=== PATIENT | male | born 1940 | race Caucasian/White ===

== ENCOUNTER 2022-12-07 12:51 | Outpatient (RCR) | payer MEDICARE, SELFPAY | END 2023-01-07 14:00 | disposition home or self-care (01) | LOC: PT 12:51 | PROVIDERS: PCP Specialist; Visit Provider Physician Assistant | DX: M72.2 Plantar fascial fibromatosis (principal) | CPT/HCPCS: 97110; 97112; 97140; 97162 ==

== ENCOUNTER 2023-01-12 10:58 | Outpatient (OUT) | payer MEDICARE, SELFPAY ==
--- NOTE | 2023-01-12 10:59 | XR_ITS ---
The [address] [address] Patient Name: KIESHA PRESLEY MRN: [id number] date: 1940 Sex: M Assigned Patient Location: [facility] Current Patient Location: [facility] Accession/Order Number: [id number] Exam Date: 01/12/2023 10:59 Report Date: 01/12/2023 11:44 At the request of: VESTA LAUREANO Procedure: XR ankle LT min 3V PROCEDURE: XR ankle LT min 3V HISTORY: LEFT ANKLE PAIN ; no known injury COMPARISON: XR foot bilateral 11/24/2022 FINDINGS: BONES:No fracture, acute abnormality, or significant arthropathy. SOFT TISSUES:No visible soft tissue swelling. EFFUSION:None visible. OTHER: Negative. XR/XR ankle LT min 3V IMPRESSION: 1. Minimal degenerative changes. No acute or specific findings to account for patient's symptoms. Electronically authenticated by: JOSSELIN KHAN Date: 01/12/2023 11:44
== END 2023-01-12 10:59 | disposition home or self-care (01) ==
LOC: RAD 10:59
PROVIDERS: PCP Specialist; Visit Provider Physician Assistant
DX: M24.572 Contracture, left ankle (principal)
CPT/HCPCS: 73610

== ENCOUNTER 2024-10-18 13:06 | Outpatient (OUT) | payer MEDICARE, SELFPAY ==
--- NOTE | 2024-10-18 13:50 | ED.EXTPRO1 ---
HPI - Extremity Problem General Chief complaint: Extremity Problem, Nontraumatic Source: patient Mode of arrival: walk-in Limitations: no limitations History of Present Illness HPI Narrative: Toenails 1-10 are elongated and painful. Has history of DM2 with neuropathy (complains of numbness in feet, achy pains progressing up his legs). Also has visual problems related to diabetes. Last A1C was 6.9. MD Complaint: Reports extremity pain (Pain in toes due to long nails) Onset (ago): week(s) Pain Consistency: Reports intermittent Location: Reports left and right Quality: Reports burning and aching Radiation: Reports proximal Exacerbating factors: Reports weight bearing Associated symptoms: Reports denies other symptoms Exam Narrative Exam Narrative: Derm: Skin is clean, dry, intact. No ulcerative or preulcerative lesions noted. Skin is dry and shiny with hyperpigmentation of the lower legs. Skin is cool to the touch bilaterally. Nails 1 through 10 are thickened, elongated, and mycotic. The toenails are tender to the touch. Vascular: DP and PT pulses are 1/4 bilaterally. Capillary refill is less than 2 seconds. 1+ pitting edema noted to bilateral lower legs and ankles. Digital hair is absent. MSK: Strength 5/5 in all planes in the foot and ankle. No gross deformity Neuro: Achilles deep tendon reflexes 1+ bilaterally. Vibratory sensation absent. Monofilament testing as below Neuro Speech: speech normal Gait (neuro): normal gait Sensory exam: extremities (Achilles DTR 1+ bilaterally, Vibratory sensation absent bilaterally) Monofilament exam performed: Yes Monofilament Exam (small fiber function): L great toe: normal, L medial mid foot: absent, L lateral mid-foot: decreased, L mid-dorsum foot: normal, R great toe: normal, R medial mid foot: absent, R lateral mid-foot: decreased and R mid-dorsum foot: normal Motor exam: no movement abnormalities noted Deep tendon reflexes: Rt Ankle (S1): 1+ and Lt Ankle (S1): 1+ Course Course Hospital Course: Mr. Lagos is a pleasant 84-year-old gentleman with history of type 2 diabetes with neuropathy and visual changes who presents for routine toenail care and diabetic foot exam. Qualifying diagnoses include decreased hair, nail changes, and skin color, also temperature changes and edema of the lower extremities and complaints of paresthesias of both feet. After verbal consent, toenails 1 through 10 were sharply debrided with nail nippers without incident to the patient's satisfaction. He was counseled about wearing supportive shoe gear and to avoid going barefoot. He should monitor his feet closely and should notify us if he develops any blisters or concerning skin lesions. Otherwise he may follow-up in 3 months for routine nail care. Vital Signs Vital signs: Weight 227 pounds, temperature 96.9 ?F, blood pressure 140/65, heart rate 71 Discharge Plan Discharge Disposition: Home, Self-Care Print Language: Mauritian Referrals: Nuha Yang MD [Primary Care Provider] -
== END 2024-10-18 13:07 | disposition home or self-care (01) ==
PROVIDERS: PCP Specialist; Visit Provider Physician Assistant
DX: L60.8 Other nail disorders (principal); E11.40 Type 2 diabetes mellitus with diabetic neuropathy, unspecified
CPT/HCPCS: 11721

== ENCOUNTER 2025-01-09 13:00 | Outpatient (OUT) | payer MEDICARE, SELFPAY ==
--- OUTSIDE RECORDS SUMMARY | 2024-11-17 08:10 | XMS_ITS ---
Author Name Auto Generated Organization OHIP Care Team Providers Care Transmission Repairer Name Role Phone HEDY DODSON Attending Unavailable HEDY DODSON Attending Unavailable AL-SHWEIKI, SATURNINO A Referring Unavailable NAUN, JANETTE L Primary Care Unavailable AL-SHWEIKI, SATURNINO A Admitting Unavailable AL-SHWEIKI, SATURNINO A Attending Unavailable AL-SHWEIKI, SATURNINO A Referring Unavailable DEVIN REYNA Primary Care Unavailable CONCEPCION, BILAL SHAFIQ Attending Unavailable NAUN, JANETTE L Primary Care Unavailable CONCPECION, BILAL SHAFIQ Attending Unavailable NAUN, JANETTE L Primary Care Unavailable AL-SHWEIKI, SATURNINO A Referring Unavailable NAUN, JANETTE L Primary Care Unavailable AL-SHWEIKI, SATURNINO A Admitting Unavailable AL-SHWEIKI, SATURNINO A Attending Unavailable NAUN, JANETTE L Primary Care Unavailable BETSY WHITAKER R Attending Unavailable NAUN, JANETTE L Primary Care Unavailable BETSY WHITAKER Attending Unavailable NAUN, JANETTE L Primary Care Unavailable Anish Givens Attending Unavailable Anish Givens Referring Unavailable Anish Givens Attending Unavailable Anish Givens Attending Unavailable Anish Givens Referring Unavailable Al Shweiki, Saturnino Attending Unavailable Al Shweiki, Saturnino Attending Unavailable Al Shweiki, Saturnino Attending Unavailable Sahra, Pratik Referring Unavailable Al Shweiki, Saturnino Attending Unavailable Al Shweiki, Saturnino Referring Unavailable Al Shweiki, Saturnino Attending Unavailable Al Shweiki, Saturnino Referring Unavailable Al Shweiki, Saturnino Attending Unavailable Al Shweiki, Saturnino Referring Unavailable Al Shweiki, Saturnino Attending Unavailable Al Shweiki, Saturnino Referring Unavailable Al Shweiki, Saturnino Attending Unavailable Al Shweiki, Saturnino Referring Unavailable Al Shweiki, Saturnino Attending Unavailable Al Shweiki, Saturnino Referring Unavailable Al Shweiki, Saturnino Attending Unavailable Al Shweiki, Saturnino Referring Unavailable Al Shweiki, Saturnino Attending Unavailable Al Shweiki, Saturnino Attending Unavailable Al Shweiki, Saturnino Attending Unavailable Corporate, Doctor Attending Unavailable Al Shweiki, Saturnino Attending Unavailable Sahra, Pratik Referring Unavailable Al Shweiki, Saturnino Attending Unavailable Al Shweiki, Saturnino Referring Unavailable Al Shweiki, Saturnino Attending Unavailable Al Shweiki, Saturnino Referring Unavailable Al Shweiki, Saturnino Attending Unavailable Al Shweiki, Saturnino Attending Unavailable Al Shweiki, Saturnino Referring Unavailable Corporate, Doctor Attending Unavailable Corporate, Doctor Attending Unavailable JONA SIMS Attending Unavailable SELF Referring Unavailable JONA SIMS Referring Unavailable Naun, Janette Lai Admitting Unavailable Naun, Janette Lai Attending Unavailable Naun, Janette Lai Attending Unavailable Naun, Janette Lai Attending Unavailable Naun, Janette Lai Attending Unavailable Naun, Janette Lai Attending Unavailable Naun, Janette Lai Attending Unavailable Naun, Janette L Attending Unavailable Naun, Janette L Attending Unavailable Naun, Janette L Attending Unavailable Naun, Janette L Admitting Unavailable Naun, Janette L Attending Unavailable Naun, Janette L Admitting Unavailable Naun, Janette L Admitting Unavailable Naun, Janette L Attending Unavailable Naun, Janette L Admitting Unavailable Naun, Janette L Attending Unavailable PROBLEMS DATE TYPE CONDITION / CODE ATTENDING STATUS [facility] 11/17/2024 Working Diagnosis 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) Saturnino Loomis Active [facility] 08/03/2024 Working Diagnosis Type 2 diab with prolif diab rtnop without mclr edema, l eye / E11.3592(ICD-10) [facility] 05/29/2024 Working Diagnosis Other specified glaucoma / H40.89(ICD-10) [facility] 05/26/2024 Working Diagnosis 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 03/20/2024 Unknown Vitreous hemorrh age, left eye ([facility]) [H43.12] / UNK(Unknown) [facility] 03/17/2024 Unknown Encounter for ot her preprocedural examination / Z01.818(ICD-10) NA [facility] 03/15/2024 Working Diagnosis Type 2 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, left eye / E11.3592(ICD-10) Anish Givens [facility] 02/16/2024 Working Diagnosis Vitreous hemorrhage of left eye / H43.12(ICD-10) Anish Givens [facility] 02/16/2024 Working Diagnosis History of vitrectomy / Z98.890(ICD-10) Anish Givens [facility] 02/16/2024 Working Diagnosis 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, bi / E11.3493(ICD-10) Anish Gievns [facility] PROCEDURES DATE CODE DESCRIPTION STATUS SOURCE 11/17/2024 93200(CPT-4) TREATMENT OF RET INAL LESION Completed [facility] 11/17/2024 06270T(CPT-4) Fundus Photos No Charge Completed [facility] 09/15/2024 61918N(CPT-4) Fundus Photos No Charge Completed [facility] 09/15/2024 11658(CPT-4) Ophthal DX Image Post Retina I And R Completed [facility] 09/15/2024 60508(CPT-4) OFFICE/OUTPATIEN T VISIT, EST Completed [facility] 08/18/2024 53440(CPT-4) TREATMENT OF RET INAL LESION Completed [facility] 08/18/2024 39210(CPT-4) EYE EXAM WITH PHOTOS Completed [facility] 08/03/2024 07980(CPT-4) TREATMENT OF RET INAL LESION Completed [facility] 08/03/2024 88522(CPT-4) EYE EXAM WITH PHOTOS Completed [facility] 08/03/2024 06187(CPT-4) OFFICE/OUTPATIEN T VISIT, EST Completed [facility] 06/29/2024 33701(CPT-4) INJECTION EYE DRUG Completed [facility] 06/29/2024 27381(CPT-4) Ophthal DX Image Post Retina I And R Completed [facility] 06/29/2024 J9035(CPT-4) Bevacizumab injection Completed [facility] 06/29/2024 42684(CPT-4) OFFICE/OUTPATIEN T VISIT, EST Completed [facility] 05/29/2024 56279(CPT-4) INJECTION EYE DRUG Completed [facility] 05/29/2024 J9035(CPT-4) Bevacizumab injection Completed [facility] 05/26/2024 76546(CPT-4) INJECTION EYE DRUG Completed [facility] 05/26/2024 J9035(CPT-4) Bevacizumab injection Completed [facility] 05/26/2024 37375(CPT-4) OFFICE/OUTPATIEN T VISIT, EST Completed [facility] 05/01/2024 70887M(CPT-4) OCT No Charge Completed [facility] 05/01/2024 75084(CPT-4) POSTOP FOLLOW-UP VISIT Completed [facility] 03/29/2024 70044B(CPT-4) OCT No Charge Completed [facility] 03/29/2024 84903(CPT-4) POSTOP FOLLOW-UP VISIT Completed [facility] 03/21/2024 73354(CPT-4) POSTOP FOLLOW-UP VISIT Completed [facility] 03/15/2024 21016(CPT-4) INJECTION EYE DRUG Completed [facility] 03/15/2024 46444(CPT-4) OPHTH US, B W/NON-QUANT A Complete d [facility] 03/15/2024 08613O(CPT-4) OCT No Charge Completed [facility] 03/15/2024 J9035(CPT-4) Bevacizumab injection Completed [facility] 02/16/2024 28864(CPT-4) INJECTION EYE DRUG Completed [facility] 02/16/2024 73941K(CPT-4) Fundus Photos No Charge Completed [facility] 02/16/2024 59035(CPT-4) Ophthal DX Image Post Retina I And R Completed [facility] 02/16/2024 J9035(CPT-4) Bevacizumab injection Completed [facility] 02/16/2024 79518(CPT-4) OFFICE/OUTPATIEN T VISIT, EST Completed [facility] RESULTS PROGRESS Observed: 08/31/2024 12:56 PM Status: COMPLETED Source: [facility] ID: [id number] Author: JONA SIMS MD Service: ? Author Type: Physician Type: Progress Notes Filed: 08/31/2024 16:53 Note Text: New patient referred by Dr. Loomis for choroidal lesion OD Subretinal lesion, right eye -Patient asymptomatic, found on exam prior to PRP 2 weeks prior to presentation. New finding per referring provider -Has followed with Dr. Loomis since ~2012 LTFU then seen back 2022 for ERM and diabetes Exam OD 8.5 mm x 6.0x 1.6 yellow/ transparent bi-lobed subretinal lesion inferotemporally. Sharp margins. Lipid at the posterior border, scant heme on the surface Ancillary testing supporting the diagnosis were made: US: Dome shaped lesion at 8:00 anterior to the equator. Dimensions are 1.6 mm in height x 8.5 mm anterior to posterior x 6.0 mm laterally with mild choroidal thickening. No EOE. Impression: PEHCR OD. No choroidal tumor. PDR OU Follows with Dr. Loomis S/p PRP OD 08/2024 S/p Vitrectomy and PRP OS for VH S/p ERM repair OS Plan - Discussed diagnosis. No choroidal tumor - Continue care with local retina and comprehensive provider - Letter will be sent to Dr. Loomis I have confirmed and edited as necessary the relevant ophthalmic history, ROS, and the neuro exam findings as obtained by others. I have seen and examined this patient. I have discussed the case and the management of this patient's care with the Resident/Fellow, if applicable. I also have reviewed and agree with the assessment and plan as stated above and agree with all of its relevant components. Jona Sims MD August 31, 2024 4:52 PM BEDSIDE GLUCOSE LAB Collected: 08/02/2024 10:29 AM Status: COMPLETED Source: [facility] TYPE CODE TESTS RESULT OUT OF RANGE REFERENCE UNITS LAB BEDG(LOINC) BEDSIDE GLUCOSE LAB 128 High 65-99 mg/dL BASIC METABOLIC PANL Collected: 07/07/2024 4:05 PM Status: COMPLETED Source: [facility] TYPE CODE TESTS RESULT OUT OF RANGE REFERENCE UNITS LAB NA(LOINC) SODIUM 137 134-146 mmol/L LAB K(LOINC) POTASSIUM 5.2 High 3.5-5.0 mmol/L LAB CL(LOINC) CHLORIDE 103 98-109 mmol/L LAB CO2(LOINC) CARBON DIOXIDE 27 22-32 mmol/L LAB AGAP(LOINC) ANION GAP 7 5-15 mmol/L LAB BUN(LOINC) BLOOD UREA NITROGEN 20 5-27 mg/dL LAB CRET(LOINC) CREATININE 1.44 High 0.60-1.30 mg/dL Result Comment: METHOD TRACE ABLE TO IDMS STANDARD LAB GLU(LOINC) GLUCOSE 202 High 65-99 mg/dL LAB CA(LOINC) CALCIUM 9.3 8.5-10.5 mg/dL LAB EGFR(LOINC) eGFR (CKD-EPI) NON-RACE DEPENDENT 48 Low >59 ml/min/1. 73sq.m Result Comment: Reported eGFR is based on the CKD-EPI 2020 equation that does not use a race coefficient. Performed By: #### WILFREDO, HAStacey #### [facility] ([id number]) [address] [place] [address], [address] [place] [address] HGB A1C (GLYCO-HGB) Collected: 07/07/2024 4:05 PM Status: COMPLETED Source: [facility] TYPE CODE TESTS RESULT OUT OF RANGE REFERENCE UNITS LAB HBA1C([facility]) HEMOGLOBIN A1C 7.1 High 4.4-5.6 % Result Comment: NOTE ADA Guidelines Result HgbA1c Normal : less than 5.7 % Prediabetes : 5.7 % to 6.4 % Diabetes : > 6.4 % Use with caution in patients with abnormal hemoglobin variants as the half-life of red blood cells and in vivo glycation rates are affected. LAB EAG([facility]) AVERAGE GLUCOSE 157 mg/dL Performed By: #### WILFREDO, TIESHA #### [facility] ([id number]) [address] [place] [address], [facility] [address] [place] [address] REMINDERS Observed: 05/04/2024 1:25 PM Status: C Source: [facility] Reminders From: Janette Romo To: B - Clinical; Sent: 05/04/2024 13:25:26 EDT Show up: 05/04/2024 13:26:00 EDT Subject: Ambulatory Reminder Due Date/Time: 05/05/2024 13:25:00 EDT HGAB1C is 7.3 Results: Date Result Name Ind Value Ref Range 05/03/2024 10:43 Hgb A1C % ((H)) 7.3 % ( - <=5.9) From: Mary Chamorro M.A. (B - Clinical) To: Janette Romo; Sent: 05/04/2024 14:35:52 EDT Show up: 05/04/2024 14:34:00 EDT Subject: RE: Ambulatory Reminder Patient verbalizes understanding HGBA1C Collected: 05/03/2024 10:43 AM Status: F Source: [facility] TYPE CODE TESTS RESULT OUT OF RANGE REFERENCE UNITS LAB 4548-4(LOINC) HEMOGLOBIN A1C/HEMOGLOBIN. TOTAL:MFR:PT:BL D:QN: 7.3 High <=5.9 % Performed By: #### [id number] #### [facility] [address] [place] [address] PRE-VISIT PLANNING Observed: 05/02/2024 11:05 AM Status: F Source: [facility] Pre-Visit Planning From: Fay Wharton To: Janette Romo; Sent: 05/02/2024 11:05:43 EDT Subject: Pre-Visit Planning Due Date/Time: 05/02/2024 11:05:00 EDT Caller Name: MANPREET LAGOS; Caller Number: , [phone] Nelson Savage. During a pre-visit planning chart review, I noted the following documentation in the medical record: Current Problem List: HTN and Type 2 diabetes mellitus. Glomerular filtration rate (GFR): Based on your medical judgment, can you please clarify which, if any, of the following conditions are present? I can update the Chronic Problem List with your response if you would like. -Chronic Kidney Disease Stage 3a (GFR 45-59) -Other (please specify): In responding to this request, please exercise your independent professional judgment. The fact that a question is asked does not imply that any particular answer is desired or expected. If you have any questions, please feel free to contact me at extension [phone]. Thank you! Fay Wharton LPN Clinical Geospatial Technologist [place] [phone] Extension: [phone] [email or web address] MEDICINE OFFICE/CLINI C NOTE Observed: 03/30/2024 10:44 AM Status: F Source: [facility] Office/Clini c Note HPI Staff Manpreet is a 84 year old male presenting with discussing labs done on March 28 and medications Wants to talk about his glimepiride 4 mg he said he gets jittery when he takes 1/2 tab History of Present Illness pt presents today to discuss recent labs and to discuss meds Review of Systems PHQ Score Initial Depression Screen Score: 0 SCORE Physical Exam Vitals & Measurements T: 36.6 ?C(Temporal Artery) HR: 62(Peripheral) RR: 18 BP: 116/78 SpO2: 99% HT: 68 in HT: 173.0 cm WT: 83.4 kg WT: 183.48 lb BMI: 27.87 General: alert, no acute distress ENMT: oral mucosa moist, no pharyngeal erythema or exudate Cardiovascular: regular rate and rhythm, normal peripheral perfusion Respiratory: Lungs CTA, respirations non labored Extremities: no deformity, no trauma Neurological: oriented x 4, LOC appropriate for age, CN II-XII intact, motor strength equal & normal bilaterally, speech normal Assessment/Plan 1. Diabetes mellitus, type II (E11.9: Type 2 diabetes mellitus without complications) pt presents today for follow up on diabetes. BS log reviewed . BS are well controlled. several months ago insurance stopped covering glipizide and had to switch to glimiperide. pt noticed taking 4mg was causing him to be shaky and dropping blood sugar. so he started taking 1/2 tab. and is feeling better. will send rx for 2mg tabs. pt is due for HGBA1C end of April. he does not need any other refills at this time. RTC after July 26. 2. Non-smoker (Z78.9: Other specified health status) continue not smoking Ordered: Body Mass Index (BMI) documented 3008F Current tobacco non-user 1036F Depression Screening Negative 3352F Influenza immunization status assessed 1030F Medication list documented in medical record 1159F Most recent diastolic blood pressure 80-89 mm Hg 3079F Patient screen for fall risk: no falls in last year or 1 fall with no injury in last year 1101F Systolic BP <130 mm Hg (Most Recent) 3074F 3. BMI 27.0-27.9,adult (Z68.27: Body mass index [BMI] 27.0-27.9, adult) BMI education given Ordered: Body Mass Index (BMI) documented 3008F Current tobacco non-user 1036F Depression Screening Negative 3352F Influenza immunization status assessed 1030F Medication list documented in medical record 1159F Most recent diastolic blood pressure 80-89 mm Hg 3079F Patient screen for fall risk: no falls in last year or 1 fall with no injury in last year 1101F Systolic BP <130 mm Hg (Most Recent) 3074F 4. Overweight (BMI 25.0-29.9) (E66.3: Overweight) see above Ordered: Body Mass Index (BMI) documented 3008F Current tobacco non-user 1036F Depression Screening Negative 3352F Influenza immunization status assessed 1030F Medication list documented in medical record 1159F Most recent diastolic blood pressure 80-89 mm Hg 3079F Patient screen for fall risk: no falls in last year or 1 fall with no injury in last year 1101F Systolic BP <130 mm Hg (Most Recent) 3074F Orders: glimepiride, 2 mg = 1 tab(s), Oral, Daily, # 90 tab(s), Refills(s) 0, [facility], 173, cm, 03/30/24 10:25:00 EDT, Height/Length Dosing, 83.4, kg, 03/30/24 10:25:00 EDT, Weight Dosing glimepiride, 4 mg = 1 tab(s), Oral, Daily, # 90 tab(s), Refills(s) 0, [facility], 173, cm, 12/23/23 10:14:00 EDT, Height/Length Dosing, 83.8, kg, 12/23/23 10:14:00 EDT, Weight Dosing Follow-up No qualifying data available Problem List/Past Medical History Ongoing Atherosclerotic heart disease BMI 27.0-27.9,adult Changes in skin texture DDD (degenerative disc disease), cervical Diabetes mellitus, type II Encounter for diabetic foot exam Hearing loss Hypertension Neuropathy, diabetic Osteoarthritis Peripheral neuropathy Pure hypercholesterolemia Historical No qualifying data Procedure/Surgical History Appendectomy, Cataracts, Coronary bypass graft angiography, Hernia, Myringostomy, Surgery. Medications accu check, See Instructions, 1 refills aspirin 81 mg Oral EC Tab, 162 mg= 2 tab(s), Oral, Daily atorvastatin 20 mg Tab, 20 mg= 1 tab(s), Oral, Daily, 3 refills glimepiride 2 mg Tab, 2 mg= 1 tab(s), Oral, Daily isosorbide mononitrate 30 mg ER Tab, 30 mg= 1 tab(s), Oral, qAM, 3 refills Januvia 100 mg Tab, 100 mg= 1 tab(s), Oral, Daily, 3 refills losartan 100 mg Tab, 100 mg= 1 tab(s), Oral, Daily, 3 refills metformin 500 mg Tab, See Instructions Metoprolol tartrate 50 mg Tab, 50 mg= 1 tab(s), Oral, BID, 3 refills NitroStat 0.4 mg Tab, 0.4 mg= 1 tab(s), SubLingual, q5min, PRN, 3 refills one touch, See Instructions, 1 refills Tylenol, 650 mg, Oral, BID, PRN Allergies No Known Allergies (Unknown) No Known Medication Allergies Social History Alcohol - Denies Alcohol Use, 03/23/2024 Household alcohol concerns: No., 03/23/2024 Substance Abuse - Denies Substance Abuse, 03/23/2024 Tobacco - Denies Tobacco Use, 03/23/2024 Never (less than 100 in lifetime) Tobacco Use:. Never Smokeless Tobacco Use:. Cigarettes, Household tobacco concerns: No., 03/30/2024 Family History CABG - Coronary artery bypass graft: Brother. Hypertension: Mother. Pancreatic cancer: Father. Immunizations Vaccine Date Status Comments influenza virus vaccine, inactivated 03/15/2023 Recorded influenza virus vaccine, inactivated 05/01/2022 Recorded SARS-CoV-2 (COVID-19) [id number] 04/15/2022 Recorded influenza virus vaccine, inactivated 05/09/2021 Recorded SARS-CoV-2 (COVID-19) mRNA BNT-162b2 vax 04/07/2021 Recorded 2022-09-14: TPV80 SARS-CoV-2 (COVID-19) mRNA BNT-162b2 vax 08/28/2020 Recorded 2022-09-14: TPV75 SARS-CoV-2 (COVID-19) mRNA BNT-162b2 vax 08/07/2020 Recorded 2022-09-14: TPV75 influenza virus vaccine, inactivated 04/17/2020 Recorded influenza virus vaccine, inactivated 05/24/2019 Recorded influenza virus vaccine, inactivated 05/25/2018 Recorded Result Comment: Electronical ly Signed By: Janette Romo\.br\Date and Time Signed: 03/30/24 10:44 EDT AMBULATORY VISIT SUMMARY Observed: 03/30 10:39 AM Status: F Source: [facility] Ambulatory Visit Summary MANPREET LAGOS :1940 Visit Date:03/30/2024 Ambulatory Visit Instructions Your Diagnosis Diabetes mellitus, type II Non-smoker BMI 27.0-27.9,adult Overweight (BMI 25.0-29.9) Your Care Team Attending Physician - Janette Romo Primary Care Physician - Janette Romo This Is Your Medications List Misc Prescription (accu check) Misc Prescription (one touch) acetaminophen (Tylenol) aspirin (aspirin 81 mg Oral EC Tab) atorvastatin (atorvastatin 20 mg Tab) glimepiride (glimepiride 2 mg Tab) isosorbide mononitrate (isosorbide mononitrate 30 mg ER Tab) losartan (losartan 100 mg Tab) metformin (metformin 500 mg Tab) metoprolol (Metoprolol tartrate 50 mg Tab) nitroglycerin (NitroStat 0.4 mg Tab) sitagliptin (Januvia 100 mg Tab) Procedures Performed Appendectomy, Cataracts, Coronary bypass graft angiography, Hernia, Myringostomy, Surgery. Discharge Vitals Temperature (Temporal Artery) 36.6 ?C Heart Rate (Peripheral) 62 Respiratory Rate 18 Blood Pressure 116/78 Height 173.0 cm Height 68 in Weight 83.4 kg Weight 183.48 lb BMI 27.87 What to do next Scheduled Follow-Up Appointments Wednesday 10:40 AM EDT Where: [address] [address]- Wednesday 11:00 AM EDT Where: [address] [place] [address]- Medications What How Much When Instructions New glimepiride (glimepiride 2 mg Tab) 1 Tablets By Mouth Every day Pickup at [facility] Unchanged acetaminophen (Tylenol) 650 Milligram By Mouth 2 times a day as needed for as needed for pain Unchanged aspirin (aspirin 81 mg Oral EC Tab) 2 Tablets By Mouth Every day Unchanged atorvastatin (atorvastatin 20 mg Tab) 1 Tablets By Mouth Every day Unchanged isosorbide mononitrate (isosorbide mononitrate 30 mg ER Tab) 1 Tablets By Mouth Once a day (in the morning) Unchanged losartan (losartan 100 mg Tab) 1 Tablets By Mouth Every day Unchanged metformin (metformin 500 mg Tab) See instructions Take 1 tablet by mouth twice daily Unchanged metoprolol (Metoprolol tartrate 50 mg Tab) 1 Tablets By Mouth 2 times a day Duration: 90 Days Unchanged Misc Prescription (accu check) See instructions check once daily Unchanged Misc Prescription (one touch) See instructions check once daily Unchanged nitroglycerin (NitroStat 0.4 mg Tab) 1 Tablets Sublingual Every 5 minutes as needed for Chest pain Unchanged sitagliptin (Januvia 100 mg Tab) 1 Tablets By Mouth Every day Duration: 90 Days Pharmacy Information [facility]: [address] [place] [address] [place] [id number] [phone] Allergies No Known Allergies (Unknown) No Known Medication Allergies Problems Ongoing - Any problem that you are currently receiving treatment for. Atherosclerotic heart disease BMI 27.0-27.9,adult Changes in skin texture DDD (degenerative disc disease), cervical Diabetes mellitus, type II Encounter for diabetic foot exam Hearing loss Hypertension Neuropathy, diabetic Osteoarthritis Peripheral neuropathy Pure hypercholesterolemia Patient Survey You may receive a survey via text or e-mail asking about your office visit. Please share your experience with us by completing your survey. We appreciate your feedback and thank you for choosing us for your care. NURSE CONSULTATION NOTE Observed: 2023 11:27 AM Status: F Source: [facility] Nurse Consultation Note Reason for Visit Here for lab draw Assessment/Plan Diabetes (E11.9: Type 2 diabetes mellitus without complications) Medications accu check, See Instructions, 1 refills aspirin 81 mg Oral EC Tab, 162 mg= 2 tab(s), Oral, Daily atorvastatin 20 mg Tab, 20 mg= 1 tab(s), Oral, Daily, 3 refills glimepiride 4 mg Tab, 4 mg= 1 tab(s), Oral, Daily isosorbide mononitrate 30 mg ER Tab, 30 mg= 1 tab(s), Oral, qAM, 3 refills Januvia 100 mg Tab, 100 mg= 1 tab(s), Oral, Daily, 3 refills losartan 100 mg Tab, 100 mg= 1 tab(s), Oral, Daily, 3 refills metformin 500 mg Tab, See Instructions Metoprolol tartrate 50 mg Tab, 50 mg= 1 tab(s), Oral, BID, 3 refills NitroStat 0.4 mg Tab, 0.4 mg= 1 tab(s), SubLingual, q5min, PRN, 3 refills one touch, See Instructions, 1 refills Tylenol, 650 mg, Oral, BID, PRN Allergies No Known Allergies (Unknown) No Known Medication Allergies Immunizations Vaccine Date Status Comments influenza virus vaccine, inactivated 03/15/2023 Recorded influenza virus vaccine, inactivated 05/01/2022 Recorded SARS-CoV-2 (COVID-19) [id number].[email or web address]![id number] 04/15/2022 Recorded influenza virus vaccine, inactivated 05/09/2021 Recorded SARS-CoV-2 (COVID-19) mRNA BNT-162b2 vax 04/07/2021 Recorded 2022-09-14: [id number] SARS-CoV-2 (COVID-19) mRNA BNT-162b2 vax 08/28/2020 Recorded 2022-09-14: [id number] SARS-CoV-2 (COVID-19) mRNA BNT-162b2 vax 08/07/2020 Recorded 2022-09-14: [id number] influenza virus vaccine, inactivated 04/17/2020 Recorded influenza virus vaccine, inactivated 05/24/2019 Recorded influenza virus vaccine, inactivated 05/25/2018 Recorded LIPID PANEL Collected: 4 11:22 AM Status: F Source: [facility] TYPE CODE TESTS RESULT OUT OF RANGE REFERENCE UNITS LAB 2092-3(LOINC) CHOLESTEROL:M CNC:PT:SER/PL :QN: 97 Low 120-200 mg/dL LAB 2084-9(LOINC) CHOLESTEROL.I N HDL:MCNC:PT:S ER/PLAS:QN: 33 Unknown mg/dL Result Comment: '>= 60 LOW R ISK' '<= 40 HIGH RISK' LAB 2089-1([facility]) CHOLESTEROL.I N LDL:MCNC:PT:S ER/PLAS:QN: 48 Normal <=129 mg/dL LAB 2571-8([facility]) TRIGLYCERIDE: MCNC:PT:SER/P LAS:QN: 138 Normal <=149 mg/dL LAB 35226-6([facility]) CHOLESTEROL.I N VLDL:MCNC:PT: SER/PLAS:QN:C ALCULATED 28 Normal 7-40 mg/dL Performed By: #### [id number] # ### [facility] [address] [place] [address] [facility] Collected: 4 11:22 AM Status: F Source: [facility] TYPE CODE TESTS RESULT OUT OF RANGE REFERENCE UNITS LAB 2345-7([facility]) GLUCOSE:MCNC:P T:SER/PLAS:QN: 127 Normal 55-199 mg/dL LAB 3094-0([facility]) UREA NITROGEN:MCNC: PT:SER/PLAS:QN : 17 Normal 5-21 mg/dL LAB 2160-0([facility]) CREATININE:MCN C:PT:SER/PLAS: QN: 1.3 Normal 0.5-1.3 mg/dL LAB 24569-0([facility]) CALCIUM:MCNC:P T:SER/PLAS:QN: 8.8 Low 8.9-11.1 mg/dL LAB 2951-2([facility]) SODIUM:SCNC:PT :SER/PLAS:QN: 139 Normal 135-145 mmol/L LAB 2823-3([facility]) POTASSIUM:SCNC :PT:SER/PLAS:Q N: 5.2 Normal 3.5-5.3 mmol/L LAB 2075-0([facility]) CHLORIDE:SCNC: PT:SER/PLAS:QN : 105 Normal 101-111 mmol/L LAB 2028-9([facility]) CARBON DIOXIDE:SCNC:P T:SER/PLAS:QN: 28 Normal 21-31 mmol/L LAB 6768-6([facility]) ALKALINE PHOSPHATASE:CC NC:PT:SER/PLAS :QN: 72 Normal 21-98 Int._Unit /L LAB 1975-2([facility]) BILIRUBIN:MCNC :PT:SER/PLAS:Q N: 1.4 High 0.0-1.1 mg/dL LAB 1751-7([facility]) ALBUMIN:MCNC:P T:SER/PLAS:QN: 4.5 Normal 3.3-5.0 gm/dL LAB 2885-2([facility]) PROTEIN:MCNC:P T:SER/PLAS:QN: 7.0 Normal 6.0-7.8 gm/dL LAB 1744-2([facility]) ALANINE AMINOTRANSFERA SE:CCNC:PT:SER /PLAS:QN:NO ADDITION OF P-5'-P 19 Normal 6-46 Int._Unit /L LAB 1920-8([facility]) ASPARTATE AMINOTRANSFERA SE:CCNC:PT:SER /PLAS:QN: 20 Normal 5-43 Int._Unit /L LAB 3097-3([facility]) UREA NITROGEN/CREAT ININE:MRTO:PT: SER/PLAS:QN: 13 Normal 10-20 No Units LAB 38898-3([facility]) ANION GAP:SCNC:PT:SE R/PLAS:QN: 11 Normal 6-16 mEq/L LAB 89917-8([facility]) GLOBULIN:MCNC: PT:SER:QN:CALC ULATED 2.5 Normal 1.4-4.0 gm/dL LAB 75585-1([facility]) ALBUMIN/GLOBUL IN:MCRTO:PT:SE R:QN: 1.8 Normal 1.1-2.2 Performed By: #### [id number] # ### [facility] [address] [place] [address] U MA/CR RATIO Collected: 4 11:22 AM Status: F Source: [facility] TYPE CODE TESTS RESULT OUT OF RANGE REFERENCE UNITS LAB 38821-5([facility]) ALBUMIN:MCNC:P T:URINE:QN:DET ECTION LIMIT <= 20 MG/L <0.7 Normal 0.0-1.9 mg/dL LAB [id number]([facility] ) U Creatinine 75.4 Unknown mg/dL LAB 26556-0(LOINC) ALBUMIN/CREATI NINE:MRTO:PT:U RINE:QN:DETECT ION LIMIT <= 20 MG/L NOT CALCULATED Unknown .0-30.0 mg/gm Cr Result Comment: 30-300 mg/g Cr indicates an increased risk for diabetic nephropathy. >300 mg/g Cr is consistent with clinical nephropathy. Performed By: #### [id number] #### [facility] [address] [place] [address] EGFR Collected: 11:22 AM Status: F Source: [facility] TYPE CODE TESTS RESULT OUT OF RANGE REFERENCE UNITS LAB [id number]([facility]) eGFR 54 Low >=59 mL/min/1 .7 3 m2 Performed By: #### [id number] #### [facility] [address] [place] [address] AMBULATORY VISIT SUMMARY Observed: 03/23 12:44 PM Status: F Source: [facility] Ambulatory Visit Summary MANPREET LAGOS :1940 Visit Date:03/23/2024 Ambulatory Visit Instructions Your Diagnosis Encounter for subsequent annual wellness visit in Medicare patient Diabetes mellitus, type II, Encounter for diabetic foot exam Neuropathy, diabetic Atherosclerotic heart disease Pure hypercholesterolemia Hypertension Immunization refused Hearing loss Over weight Your Care Team Attending Physician - Janette Romo Primary Care Physician - Janette Romo This Is Your Medications List Misc Prescription (accu check) Misc Prescription (one touch) acetaminophen (Tylenol) aspirin (aspirin 81 mg Oral EC Tab) atorvastatin (atorvastatin 20 mg Tab) glimepiride (glimepiride 4 mg Tab) isosorbide mononitrate (isosorbide mononitrate 30 mg ER Tab) losartan (losartan 100 mg Tab) metformin (metformin 500 mg Tab) metoprolol (Metoprolol tartrate 50 mg Tab) nitroglycerin (NitroStat 0.4 mg Tab) sitagliptin (Januvia 100 mg Tab) Procedures Performed Appendectomy, Cataracts, Coronary bypass graft angiography, Hernia, Myringostomy, Surgery. Discharge Vitals Heart Rate (Peripheral) 67 Blood Pressure 110/64 Height 173 cm Height 68 in Weight 83.3 kg Weight 183.26 lb BMI 27.83 What to do next Scheduled Follow-Up Appointments Wednesday 10:00 AM EDT With: Where: [address] [address]- 2023 10:20 AM EDT With: Janette Romo Where: [address] [id number]- Wednesday 11:00 AM EDT With: Where: [address] [address]- You Need to Complete the Following Comprehensive Metabolic Panel, Blood, Routine collect, 03/23/24, Order for future visit, Lab Collect, Hypertension, Not Required, Print Label By Order Location Lipid Panel, Blood, Routine collect, 03/23/24, Order for future visit, Lab Collect, Pure hypercholesterolemia, Not Required, Print Label By Order Location Urine Microalbumin/Creatinine Ratio, Urine, Routine collect, 03/23/24, Order for future visit, Nurse collect, Hypertension, Not Required, Print Label By Order Location Medications What How Much When Instructions Unchanged acetaminophen (Tylenol) 650 Milligram By Mouth 2 times a day as needed for as needed for pain Unchanged aspirin (aspirin 81 mg Oral EC Tab) 2 Tablets By Mouth Every day Unchanged atorvastatin (atorvastatin 20 mg Tab) 1 Tablets By Mouth Every day Unchanged glimepiride (glimepiride 4 mg Tab) 1 Tablets By Mouth Every day Unchanged isosorbide mononitrate (isosorbide mononitrate 30 mg ER Tab) 1 Tablets By Mouth Once a day (in the morning) Unchanged losartan (losartan 100 mg Tab) 1 Tablets By Mouth Every day Unchanged metformin (metformin 500 mg Tab) See instructions Take 1 tablet by mouth twice daily Unchanged metoprolol (Metoprolol tartrate 50 mg Tab) 1 Tablets By Mouth 2 times a day Duration: 90 Days Unchanged Misc Prescription (accu check) See instructions check once daily Unchanged Misc Prescription (one touch) See instructions check once daily Unchanged nitroglycerin (NitroStat 0.4 mg Tab) 1 Tablets Sublingual Every 5 minutes as needed for Chest pain Unchanged sitagliptin (Januvia 100 mg Tab) 1 Tablets By Mouth Every day Duration: 90 Days Allergies No Known Allergies (Unknown) No Known Medication Allergies Problems Ongoing - Any problem that you are currently receiving treatment for. Atherosclerotic heart disease BMI 27.0-27.9,adult Changes in skin texture DDD (degenerative disc disease), cervical Diabetes mellitus, type II Encounter for diabetic foot exam Hearing loss Hypertension Neuropathy, diabetic Osteoarthritis Peripheral neuropathy Pure hypercholesterolemia Patient Survey You may receive a survey via text or e-mail asking about your office visit. Please share your experience with us by completing your survey. We appreciate your feedback and thank you for choosing us for your care. Education Materials DASH Eating Plan DASH stands for Dietary Approaches to Stop Hypertension. The DASH eating plan is a healthy eating plan that has been shown to: ? Lower high blood pressure (hypertension). ? Reduce your risk for type 2 diabetes, heart disease, and stroke. ? Help with weight loss. What are tips for following this plan? Reading food labels ? Check food labels for the amount of salt (sodium) per serving. Choose foods with less than 5 percent of the Daily Value (DV) of sodium. In general, foods with less than 300 milligrams (mg) of sodium per serving fit into this eating plan. ? To find whole grains, look for the word whole as the first word in the ingredient list. Shopping ? Buy products labeled as low-sodium or no salt added. ? Buy fresh foods. Avoid canned foods and pre-made or frozen meals. Cooking ? Try not to add salt when you cook. Use salt-free seasonings or herbs instead of table salt or sea salt. Check with your health care provider or pharmacist before using salt substitutes. ? Do not haile foods. Cook foods in healthy ways, such as baking, boiling, grilling, roasting, or broiling. ? Cook using oils that are good for your heart. These include olive, canola, avocado, soybean, and sunflower oil. Meal planning ? Eat a balanced diet. This should include: ? 4 or more servings of fruits and 4 or more servings of vegetables each day. Try to fill half of your plate with fruits and vegetables. ? 6?8 servings of whole grains each day. ? 6 or less servings of lean meat, poultry, or fish each day. 1 oz is 1 serving. A 3 oz (85 g) serving of meat is about the same size as the palm of your hand. One egg is 1 oz (28 g). ? 2?3 servings of low-fat dairy each day. One serving is 1 cup (237 mL). ? 1 serving of nuts, seeds, or beans 5 times each week. ? 2?3 servings of heart-healthy fats. Healthy fats called omega-3 fatty acids are found in foods such as walnuts, flaxseeds, fortified milks, and eggs. These fats are also found in cold-water fish, such as sardines, salmon, and mackerel. ? Limit how much you eat of: ? Canned or prepackaged foods. ? Food that is high in trans fat, such as fried foods. ? Food that is high in saturated fat, such as fatty meat. ? Desserts and other sweets, sugary drinks, and other foods with added sugar. ? Full-fat dairy products. ? Do not salt foods before eating. ? Do not eat more than 4 egg yolks a week. ? Try to eat at least 2 vegetarian meals a week. ? Eat more home-cooked food and less restaurant, buffet, and fast food. Lifestyle ? When eating at a restaurant, ask if your food can be made with less salt or no salt. ? If you drink alcohol: ? Limit how much you have to: ? 0?1 drink a day if you are female. ? 0?2 drinks a day if you are male. ? Know how much alcohol is in your drink. In the [place] one drink is one 12 oz bottle of beer (355 mL), one 5 oz glass of wine (148 mL), or one 1? oz glass of hard liquor (44 mL). General information ? Avoid eating more than 2,300 mg of salt a day. If you have hypertension, you may need to reduce your sodium intake to 1,500 mg a day. ? Work with your provider to stay at a healthy body weight or lose weight. Ask what the best weight range is for you. ? On most days of the week, get at least 30 minutes of exercise that causes your heart to beat faster. This may include walking, swimming, or biking. ? Work with your provider or dietitian to adjust your eating plan to meet your specific calorie needs. What foods should I eat? Fruits All fresh, dried, or frozen fruit. Canned fruits that are in their natural juice and do not have sugar added to them. Vegetables Fresh or frozen vegetables that are raw, steamed, roasted, or grilled. Low- sodium or reduced-sodium tomato and vegetable juice. Low-sodium or reduced-sodium tomato sauce and tomato paste. Low-sodium or reduced-sodium canned vegetables. Grains Whole-grain or whole-wheat bread. Whole-grain or whole-wheat pasta. Brown rice. Oatmeal. Quinoa. Bulgur. Whole-grain and low-sodium cereals. Luba bread. Low- fat, low-sodium crackers. Whole-wheat flour tortillas. Meats and other proteins Skinless chicken or turkey. Ground chicken or turkey. Pork with fat trimmed off. Fish and seafood. Egg whites. Dried beans, peas, or lentils. Unsalted nuts, nut butters, and seeds. Unsalted canned beans. Lean cuts of beef with fat trimmed off. Low- sodium, lean precooked or cured meat, such as sausages or meat loaves. Dairy Low-fat (1%) or fat-free (skim) milk. Reduced-fat, low-fat, or fat-free cheeses. Nonfat, low-sodium ricotta or cottage cheese. Low-fat or nonfat yogurt. Low-fat, low-sodium cheese. Fats and oils Soft margarine without trans fats. Vegetable oil. Reduced-fat, low-fat, or light mayonnaise and salad dressings (reduced-sodium). Canola, safflower, olive, avocado, soybean, and sunflower oils. Avocado. Seasonings and condiments Herbs. Spices. Seasoning mixes without salt. Other foods Unsalted popcorn and pretzels. Fat-free sweets. The items listed above may not be all the foods and drinks you can have. Talk to a dietitian to learn more. What foods should I avoid? Fruits Canned fruit in a light or heavy syrup. Fried fruit. Fruit in cream or butter sauce. Vegetables Creamed or fried vegetables. Vegetables in a cheese sauce. Regular canned vegetables that are not marked as low-sodium or reduced-sodium. Regular canned tomato sauce and paste that are not marked as low-sodium or reduced-sodium. Regular tomato and vegetable juices that are not marked as low-sodium or reduced-sodium. Pickles. Olives. Grains Baked goods made with fat, such as croissants, muffins, or some breads. Dry pasta or rice meal packs. Meats and other proteins Fatty cuts of meat. Ribs. Fried meat. Villa. Bologna, salami, and other precooked or cured meats, such as sausages or meat loaves, that are not lean and low in sodium. Fat from the back of a pig (fatback). Bratwurst. Salted nuts and seeds. Canned beans with added salt. Canned or smoked fish. Whole eggs or egg yolks. Chicken or turkey with skin. Dairy Whole or 2% milk, cream, and rulc-ext-feun. Whole or full-fat cream cheese. Whole-fat or sweetened yogurt. Full-fat cheese. Nondairy creamers. Whipped toppings. Processed cheese and cheese spreads. Fats and oils Butter. Stick margarine. Lard. Shortening. Ghee. Villa fat. Tropical oils, such as coconut, palm kernel, or palm oil. Seasonings and condiments Onion salt, garlic salt, seasoned salt, table salt, and sea salt. [facility] sauce. Tartar sauce. Barbecue sauce. Teriyaki sauce. Soy sauce, including reduced-sodium soy sauce. Steak sauce. Canned and packaged gravies. Fish sauce. Oyster sauce. Cocktail sauce. Store-bought horseradish. Ketchup. Mustard. Meat flavorings and tenderizers. Bouillon cubes. Hot sauces. Pre-made or packaged marinades. Pre-made or packaged taco seasonings. Relishes. Regular salad dressings. Other foods Salted popcorn and pretzels. The items listed above may not be all the foods and drinks you should avoid. Talk to a dietitian to learn more. Where to find more information ? National Heart, Lung, and Blood [place] (NHLBI): nhlbi.nih.gov ? [place] [employer] Association (AHA): heart.org ? Academy of Nutrition and Dietetics: eatright.org ? National Kidney Foundation (NKF): kidney.org This information is not intended to replace advice given to you by your health care provider. Make sure you discuss any questions you have with your health care provider. Document Revised: 07/08/2023 Document Reviewed: 07/08/2023 [employer] Patient Education ? 2023 [employer] Heart Attack A heart attack occurs when blood and oxygen supply to the heart is cut off. A heart attack can cause damage to the heart that cannot be fixed. A heart attack is also called a myocardial infarction, or MD. If you think you are having a heart attack, do not wait to see if the symptoms will go away. Get medical help right away. What are the causes? This condition may be caused by: ? A fatty substance (plaque) in the blood vessels (arteries). This can block the flow of blood to the heart. ? A blood clot in the blood vessels that go to the heart. The blood clot blocks blood flow. ? An abnormal heartbeat. ? Some diseases, such as problems in red blood cells (anemia)orproblems in breathing (respiratory failure). ? Tightening (spasm) of a blood vessel that cuts off blood to the heart. ? A tear in a blood vessel of the heart. Other causes may include: ? Using drugs such as cocaine or methamphetamine. ? Low blood pressure. What increases the risk? ? Aging. The risk gets higher as you get older. ? Having a personal or family history of chest pain, heart attack, stroke, or narrowing of the arteries in the legs, arms, head, or stomach (peripheral vascular disease). ? Having taken chemotherapy or immune-suppressing medicines. ? Being male. ? Being overweight or obese. ? Having any of these conditions: ? High blood pressure. ? High cholesterol. ? Diabetes. ? Making lifestyle choices such as: ? Drinking too much alcohol. ? Not getting regular exercise. ? Smoking. What are the signs or symptoms? ? Chest pain. It may feel like: ? Crushing or squeezing. ? Tightness, pressure, fullness, or heaviness. ? Pain in the arm, neck, jaw, back, or upper body. ? Heartburn. ? Upset stomach (indigestion). ? Shortness of breath. ? Feeling like you may vomit (nauseous). ? Cold sweats. ? Sudden light-headedness, dizziness, or passing out. ? Feeling tired. How is this treated? A heart attack must be treated as soon as possible. Treatment may include: ? Medicines to: ? Break up or dissolve blood clots. ? Thin your blood and help prevent blood clots. ? Treat blood pressure. ? Improve blood flow to the heart. ? Reduce pain. ? Reduce cholesterol. ? Procedures to widen a blocked artery and keep it open. ? Open heart surgery. ? Making your heart strong again (cardiac rehabilitation) through exercise, education, and counseling. Follow these instructions at home: Medicines ? Take tsvk-hpn-noovwdw and prescription medicines only as told by your doctor. ? Do not take these medicines unless your doctor says it is okay: ? NSAIDs, such as ibuprofen, naproxen, or celecoxib. ? Any vitamins or supplements. ? Hormone replacement therapy that has estrogen with or without progestin. ? If you are taking blood thinners: ? Talk with your doctor before taking any medicines that have aspirin or NSAIDs, such as ibuprofen. ? Take medicines exactly as told. Take them at the same time each day. ? Avoid doing things that could hurt or bruise you. Take action to prevent falls. ? Wear an alert bracelet or carry a card that shows you are taking blood thinners. Lifestyle ? Do not smoke or use any products that contain nicotine or tobacco. If you need help quitting, ask your doctor. ? Avoid secondhand smoke. ? Exercise regularly. Ask your doctor about a cardiac rehab program. ? Eat heart-healthy foods. Your doctor will tell you what foods to eat. ? Stay at a healthy weight. ? Learn ways to lower your stress level. ? Do not use illegal drugs. Alcohol use ? Do not drink alcohol if: ? Your doctor tells you not to drink. ? You are , may be , or are planning to become . ? If you drink alcohol: ? Limit how much you have to: ? 0?1 drink a day for women. ? 0?2 drinks a day for men. ? Know how much alcohol is in your drink. In the [place] one drink equals one 12 oz bottle of beer (355 mL), one 5 oz glass of wine (148 mL), or one 1? oz glass of hard liquor (44 mL). General instructions ? Work with your doctor to treat other problems you may have, such as diabetes or high blood pressure. ? Get screened for depression. Get treatment if needed. ? Keep your vaccines up to date. Get the flu shot (influenza vaccine) every year. ? Keep all follow-up visits. Contact a doctor if: ? You feel very sad. ? You have trouble doing your daily activities. ? You get light-headed or dizzy. Get help right away if: ? You have sudden, unexplained discomfort in your chest, arms, back, neck, jaw, or upper body. ? You have shortness of breath. ? You have sudden sweating or clammy skin. ? You feel like you may vomit or you vomit. ? You feel tired or weak. ? You feel your heart beating fast. ? You feel your heart skipping beats. ? You have blood pressure that is higher than 180/120. These symptoms may be an emergency. Get help right away. Call your local emergency services (911 in the [place] ? Do not wait to see if the symptoms will go away. ? Do not drive yourself to the hospital. Summary ? A heart attack occurs when blood and oxygen supply to the heart is cut off. ? Do not take NSAIDs unless your doctor says it is okay. ? Do not smoke. Avoid secondhand smoke. ? Exercise regularly. Ask your doctor about a cardiac rehab program. This information is not intended to replace advice given to you by your health care provider. Make sure you discuss any questions you have with your health care provider. Document Revised: 12/11/2021 Document Reviewed: 12/11/2021 [employer] Patient Education ? 2023 [employer]. Living With Diabetes Diabetes (type 1 diabetes mellitus or type 2 diabetes mellitus) is a condition in which the body does not make enough of a hormone called insulin or does not respond the right way to insulin. The job of insulin is to move sugars (glucose) into cells in the body. In people with diabetes, extra glucose builds up in the blood instead of going into cells. This results in high blood glucose (hyperglycemia). How to manage lifestyle changes To help manage your diabetes, you may need treatment, such as medicines. You may also need to make lifestyle changes. To take care of yourself, you should: ? Monitor your glucose often. ? Eat a healthy diet. ? Exercise often. ? Meet with your health care providers. ? Take medicines as told by your health care providers. Most people feel some stress when it comes to managing their diabetes. When this stress becomes too much, it is known as diabetes distress. This is very common. Living with diabetes can also place you at risk for depression and anxiety. These disorders can make your condition harder to manage. How to recognize stress You may have diabetes distress if: ? You avoid or ignore your daily diabetes care. Daily care may include testing your glucose, following a meal plan, and taking medicines. ? You feel overwhelmed by what you have to do each day for your care. ? You feel anger, sadness, or fear when it comes to your daily care. ? You feel fear or shame about not being perfect at doing the things you have been told to do. Emotional distress If you have diabetes distress, you may feel: ? Anger about having diabetes. ? Fear or frustration about your condition and the changes you need to make to manage it. ? A lot of worry about the care that you need or the cost of the care that you need. ? Like you caused your condition by doing something wrong. ? Fear about changes in your blood glucose that you may not be able to predict. ? Judged by your health care providers. ? Very alone. Depression Having diabetes means that you are more at risk for depression. Your health care provider may test (screen) you for symptoms. Symptoms may include: ? Loss of interest in things that you used to enjoy. ? Feeling depressed much or most of the time. ? A change in appetite. ? Trouble getting to sleep or staying asleep. ? Feeling tired most of the day. ? Feeling nervous and anxious. ? Feeling guilty and worried that you are a burden to others. ? Having thoughts of hurting yourself or feeling that you want to . If you have any of these symptoms on more days than not and for 2 weeks or longer, you may have depression. This would be a good time to contact your health care provider. How to manage diabetes distress To manage distress: ? Learn as much as you can about your condition and its treatment. Take one step at a time to improve the way you manage your daily care. ? Meet with an expert trained in diabetes care (certified registered nurse anesthetist). Take a class to learn how to manage your condition. ? Consider working with a counselor or therapist. ? Keep a journal of your thoughts and concerns. ? Accept that some things are out of your control. ? Talk with other people who have diabetes. It can help to talk about the distress that you feel. ? Find ways to manage stress that work for you. These may include listening to music, art, exercise, meditation, and other hobbies. ? Seek support from spiritual leaders, family, and friends. Follow these instructions at home: ? Do your best to follow your plan for how to manage your diabetes. ? If you are struggling to follow your plan, talk with a peer educator or someone else who has diabetes. They may have ideas that will help. ? Forgive yourself for not being perfect. Almost everyone struggles with the tasks of diabetes. ? Keep all follow-up visits. Your health care provider will want to monitor your glucose levels. You can also discuss any concerns you have at these visits. Where to find support ? Find support from the [place] [employer] (ADA): diabetes.org ? Find an expert to help you manage your condition. Make an appointment through the Association of Diabetes Care & Education Specialists (ADCES): diabeteseducator.org Contact a health care provider if: ? You believe your diabetes is getting out of control. ? You may be depressed. ? Your medicines are not helping control your diabetes. ? You feel overwhelmed. Get help right away if: ? You have thoughts about hurting yourself or others. Get help right away if you feel like you may hurt yourself or others, or have thoughts about taking your own life. Go to your nearest emergency room or: ? Call 911. ? Call the National Suicide Prevention Lifeline at or 715. This is open 24 hours a day. ? Text the Crisis Text Line at 665996. This information is not intended to replace advice given to you by your health care provider. Make sure you discuss any questions you have with your health care provider. Document Revised: 03/25/2023 Document Reviewed: 12/25/2022 Else[employer]textual Patient Education ? 2023 [employer] Blood Glucose Monitoring, Adult To manage your diabetes, you will need to keep track of your blood sugar (glucose). Check your blood glucose as often as told. Keep a record of your results over time. This can help you: ? Know when to adjust your diabetes management plan with your health care provider. ? See how food, exercise, illness, and medicines affect your blood glucose. ? Know what your blood glucose is at any time. Your provider will set specific goals for your blood glucose levels. In many cases, these goals may be: ? Before meals (preprandial): 80?130 mg/dL (4.4?7.2 mmol/L). ? After meals (postprandial): below 180 mg/dL (10 mmol/L). ? A1C level: less than 7%. Supplies needed: ? Blood glucose meter. ? Test strips for your meter. Each meter has its own strips. You must use the strips that came with your meter. ? A needle to prick your finger (lancet). Do not use a lancet more than once. ? A device that holds the lancet (lancing device). ? A journal or logbook to write down your results. How to check your blood glucose Checking your blood glucose 1. Wash your hands with soap and water for at least 20 seconds. 2. Prick the side of your finger with the lancet. Do not prick the tip of your finger. Do not use the same finger more than once. 3. Gently rub the finger until a small drop of blood appears. 4. Follow the instructions that came with the meter about how to insert the test strip, apply blood to the strip, and use the meter. 5. Write down your result and any notes. Using alternative sites Some meters let you use other areas of your body (alternative sites) to test your blood. The most common places are the forearm, the thigh, and the palm of your hand. Alternative sites may not be as accurate as your fingers. The result you get may also be delayed. Use the finger only, and do not use alternative sites, if: ? You think you have low blood glucose (hypoglycemia). ? You sometimes do not know that your blood glucose is getting low (hypoglycemia unawareness). General tips and recommendations Blood glucose log ? Write down the result each time you check your blood glucose. Note anything that may be affecting your blood glucose. This can help you and your provider: ? Look for patterns over time. ? Adjust your management plan as needed. ? Check if your meter has an massimo or lets you download your records to a computer. Most meters keep a record of glucose readings in the meter. If you have type 1 diabetes: ? You may need to check your blood glucose 4 or more times a day. Check your blood glucose as often as told by your provider. This may include: ? Before each meal and snack. ? Two hours after a meal. ? Before bedtime. ? If you have symptoms of hypoglycemia. ? After treating your hypoglycemia. ? Before doing things that have a risk of injury, such as driving or using machinery. ? Before and after exercise. ? Between 2:00 a.m. and 3:00 a.m., as told. ? You may need to check your blood glucose more often, such as up to 6?10 times a day, if: ? You have diabetes that is not well controlled. ? You are ill. ? You have a history of severe hypoglycemia. ? You have hypoglycemia unawareness. If you have type 2 diabetes: ? You may need to check your blood glucose 2 or more times a day. Check your blood glucose as often as told by your provider. This may include: ? Before and after exercise. ? Before doing things that have a risk of injury, such as driving or using machinery. ? You may need to check your blood glucose more often if: ? Your medicine is being adjusted. ? Your diabetes is not well controlled. ? You are ill. General tips ? Make sure you always have your supplies with you. ? After you use a few boxes of test strips, adjust (calibrate) your blood glucose meter. Follow the instructions that came with your meter. ? If you have questions or need help, all blood glucose meters have a 24-hour hotline phone number that you can call. Also contact your provider with any questions or concerns. Where to find more information ? The [place] [employer] Association: diabetes.org ? The Association of Diabetes Care & Education Specialists: diabeteseducator.org Contact a health care provider if: ? Your blood glucose is at or above 240 mg/dL (13.3 mmol/L) for 2 days in a row. ? You have been sick or have had a fever for 2 days or longer and are not getting better. ? You have any of these problems for more than 6 hours: ? You cannot eat or drink. ? You have nausea or vomiting. ? You have diarrhea. Get help right away if: ? Your blood glucose is lower than 54 mg/dL (3 mmol/L). ? You become confused, or you have trouble thinking clearly. ? You have trouble breathing. ? You have moderate to high ketone levels in your pee (urine). These symptoms may be an emergency. Get help right away. Call 911. ? Do not wait to see if the symptoms will go away. ? Do not drive yourself to the hospital. This information is not intended to replace advice given to you by your health care provider. Make sure you discuss any questions you have with your health care provider. Document Revised: 05/07/2023 Document Reviewed: 05/07/2023 [employer] Patient Education ? 2023 [employer]. FAMILY MEDICINE OFFICE/CLINI C NOTE Observed: 03/23/2024 12:44 PM Status: F Source: [facility] Family Medicine Office/Clini c Note Chief Complaint Subsequent Medicare Wellness Review of Systems PHQ Score Initial Depression Screen Score: 0 SCORE Physical Exam Vitals & Measurements HR: 67(Peripheral) BP: 110/64 SpO2: 98% HT: 173 cm HT: 68 in WT: 83.3 kg WT: 183.26 lb BMI: 27.83 Assessment/Plan 1. Encounter for subsequent annual wellness visit in Medicare patient (Z00.00: Encounter for general adult medical examination without abnormal findings) The patient was given a customized and personalized print out of all the current AHRQ USPSTF?s recommendations for preventative services and all current CDC recommended immunizations, relevant risk recommendations and the following patient brochures were given. Reviewed Medicare Prevention Services checklist. CDC-Falls Prevention and home safety screening reviewed. Patient admits to one non injury fall in last 12 months, voices no worry about falling. Exhibits no problems with sitting, standing or ambulation. Patient aware with keeping walk way area free of clutter to prevent tripping and/or falling. [place] Advance Directives reviewed. Documents are scanned into chart. Patient denies any problems with ADL?s and Instrumental ADL?s. Cognitive screening completed with memory and clock face drawing. No deficits noted. Patient recited 3/3 memory words. Immunization record reviewed, discussed Shingrix vaccine with educational handout and availability. 2 COVID vaccines have been administered, with 2 Boosters received. Allergies and medications reviewed and up to date. No concerns with taking medication as prescribed. Reviewed OTC medications, medication list up to date. Blood tests were reviewed: Discussed what tests need to be updated. Labs were ordered, will have completed prior to next PCP visit. Labs to be completed with [facility]. No concerns with bowel/ bladder. Colonoscopy last completed 12/09/[address] Olivares. Screenings no longer necessary at patient's age. Reviewed pain symptoms :Patient denies pain. Reviewed all outside providers that patient follows. Last visit summary notes available in chart and/or have been requested. Patient declines any signs or symptoms of depression at this time. 8 minutes spent with screening and documentation. PHQ2 screening score 0. Patient denies alcohol use. Audit score 0. Follow up scheduled with PCP, 03/30/2024 AWV has been scheduled, 03/26/2025 Medicare provides yearly screening for alcohol and depression concerns. This is completed during our Medicare wellness visit for those who do not have a current diagnosis of depression or concerns with alcohol use. I spent a total of 17 minutes on this date of service which included preparing to see the patient, face to face patient care, completing clinical documentation, obtaining and/or reviewing separately obtained history, counseling and educating the patient with handouts. Explanations were provided with reviewing questionnaires. AUDIT risk assessment screening completed, risk score 0 with patient denying concerns with use. Completed PHQ-2 risk assessment for depression with risk score 0, negative findings. Patient has been reminded to notify the provider if there would be a change or concerns with symptoms with fear, unable to sleep, worrying too much or feeling down and/or sad with lost of interest with daily activities. Will continue to monitor with screening yearly during Medicare wellness visits. 2. Diabetes mellitus, type II, (E11.9: Type 2 diabetes mellitus without complications)Encounter for diabetic foot exam Foot exam performed 12/23/2023 see #2 3. Neuropathy, diabetic (E11.40: Type 2 diabetes mellitus with diabetic neuropathy, unspecified) see #2 Patient voices no complaints of any loss of sensation or any burning pain in the feet. Patient is complaint with taking diabetic medications as prescribed and following a low carbohydrate and low sugar diet. Closely monitors blood glucose levels, checking them 2-3 times a day. Follows with PCP and has lab work completed as directed. 4. 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 Office notes have been requested. 5. Pure hypercholesterolemia (E78.00: Pure hypercholesterolemia, unspecified) Reviewed healthy lifestyle with low fat diet and exercise regimen. When you are overweight our body produces more lipids. Risk also increases with family history of hyperlipidemia and with monitoring alcohol use and avoid smoking. Pt voices understanding with importance of monitoring dietary intake to reduce risk factors associated with CVA. Taking atorvastatin medications daily as directed. Will continue to follow up with office visits with updated labs as directed. Lipid panel ordered today. 6. Hypertension (I10: Essential (primary) hypertension) Patient is taking metoprolol as directed. Does not monitor BP pressure at home. HTN stoplight reviewed with BP goal to be <140/90. Reviewed different factors that can alter blood pressure readings. Education handout provided with s/s to monitor for and report to provider. Patient is encouraged to increase portions of fruit, vegetables, fiber and increase exercise as much as tolerable. Reviewed importance with monitoring foods high in salt content and encouraged to limit intake, if unsure encouraged to discuss with their PCP. Encouraged to eat more chicken, fish and lean white meats and limits red meats in diet. Discussed importance with keeping BP under good control to reduce CVA risk factors. Will continue to f/u with PCP during office visits and as needed. CMP and microalbumin ordered today. 7. Immunization refused (Z28.21: Immunization not carried out because of patient refusal) Patient declines yearly recommend influenza vaccine. Discussed increased risk factors vs benefits, reviewed importance to follow up and discuss with PCP 8. Hearing loss (H91.90: Unspecified hearing loss, unspecified ear) Patient sees Dr. Carlson as directed and prn. Patient reports he is not a candidate for hearing aides. Latest office notes requested. 9. Over weight (E66.3: Overweight) The standard range for ages 18 and older is >=18.5 and < 25 kg/m2. Your BMI 27.83 today was above this range, this falls in the overweight category and there are medical benefits to weight loss. BMI monitoring is helpful with identifying a weight problem that may be related to a medical condition, or may increase the risk for medical problems. Your BMI and weight management will be followed at subsequent visits with your provider and monitored for progress. GOAL: promoting healthier lifestyle with diet changes in order to reach a healthy weight. Follow-up No qualifying data available Patient Education DASH Eating Plan Heart Attack, [id number] Living With Diabetes Blood Glucose Monitoring, Adult Problem List/Past Medical History Ongoing Atherosclerotic heart disease BMI 27.0-27.9,adult Changes in skin texture DDD (degenerative disc disease), cervical Diabetes mellitus, type II Encounter for diabetic foot exam Hearing loss Hypertension Neuropathy, diabetic Osteoarthritis Peripheral neuropathy Pure hypercholesterolemia Historical No qualifying data Procedure/Surgical History Appendectomy, Cataracts, Coronary bypass graft angiography, Hernia, Myringostomy, Surgery. Medications accu check, See Instructions, 1 refills aspirin 81 mg Oral EC Tab, 162 mg= 2 tab(s), Oral, Daily atorvastatin 20 mg Tab, 20 mg= 1 tab(s), Oral, Daily, 3 refills glimepiride 4 mg Tab, 4 mg= 1 tab(s), Oral, Daily isosorbide mononitrate 30 mg ER Tab, 30 mg= 1 tab(s), Oral, qAM, 3 refills Januvia 100 mg Tab, 100 mg= 1 tab(s), Oral, Daily, 3 refills losartan 100 mg Tab, 100 mg= 1 tab(s), Oral, Daily, 3 refills metformin 500 mg Tab, See Instructions Metoprolol tartrate 50 mg Tab, 50 mg= 1 tab(s), Oral, BID, 3 refills NitroStat 0.4 mg Tab, 0.4 mg= 1 tab(s), SubLingual, q5min, PRN, 3 refills one touch, See Instructions, 1 refills Tylenol, 650 mg, Oral, BID, PRN Allergies No Known Allergies (Unknown) No Known Medication Allergies Social History Alcohol - Denies Alcohol Use, 03/23/2024 Household alcohol concerns: No., 03/23/2024 Substance Abuse - Denies Substance Abuse, 03/23/2024 Tobacco - Denies Tobacco Use, 03/23/2024 Never (less than 100 in lifetime) Tobacco Use:. Never Smokeless Tobacco Use:. Household tobacco concerns: No., 03/23/2024 Family History CABG - Coronary artery bypass graft: Brother. Hypertension: Mother. Pancreatic cancer: Father. Immunizations Vaccine Date Status Comments influenza virus vaccine, inactivated 03/15/2023 Recorded influenza virus vaccine, inactivated 05/01/2022 Recorded SARS-CoV-2 (COVID-19) [id number] 04/15/2022 Recorded influenza virus vaccine, inactivated 05/09/2021 Recorded SARS-CoV-2 (COVID-19) mRNA BNT-162b2 vax 04/07/2021 Recorded 2022-09-14: [id number] SARS-CoV-2 (COVID-19) mRNA BNT-162b2 vax 08/28/2020 Recorded 2022-09-14: [id number] SARS-CoV-2 (COVID-19) mRNA BNT-162b2 vax 08/07/2020 Recorded 2022-09-14: [id number] influenza virus vaccine, inactivated 04/17/2020 Recorded influenza virus vaccine, inactivated 05/24/2019 Recorded influenza virus vaccine, inactivated 05/25/2018 Recorded Result Comment: Electronical ly Signed By: Janette Romo\.br\Date and Time Signed: 03/23/24 13:00 EDT\.br\Electronically Co-Signed By: Poonam Finney\.br\Date and Time Co-Signed: 03/23/24 12:44 EDT PATIENT EDUCATION Observed: 03/23/2024 12:40 PM Status: C Source: [facility] Patient Education Emergency Medicine Heart Attack A heart attack occurs when blood and oxygen supply to the heart is cut off. A heart attack can cause damage to the heart that cannot be fixed. A heart attack is also called a myocardial infarction, or MD. If you think you are having a heart attack, do not wait to see if the symptoms will go away. Get medical help right away. What are the causes? This condition may be caused by: ? A fatty substance (plaque) in the blood vessels (arteries). This can block the flow of blood to the heart. ? A blood clot in the blood vessels that go to the heart. The blood clot blocks blood flow. ? An abnormal heartbeat. ? Some diseases, such as problems in red blood cells (anemia)orproblems in breathing (respiratory failure). ? Tightening (spasm) of a blood vessel that cuts off blood to the heart. ? A tear in a blood vessel of the heart. Other causes may include: ? Using drugs such as cocaine or methamphetamine. ? Low blood pressure. What increases the risk? ? Aging. The risk gets higher as you get older. ? Having a personal or family history of chest pain, heart attack, stroke, or narrowing of the arteries in the legs, arms, head, or stomach (peripheral vascular disease). ? Having taken chemotherapy or immune-suppressing medicines. ? Being male. ? Being overweight or obese. ? Having any of these conditions: ? High blood pressure. ? High cholesterol. ? Diabetes. ? Making lifestyle choices such as: ? Drinking too much alcohol. ? Not getting regular exercise. ? Smoking. What are the signs or symptoms? ? Chest pain. It may feel like: ? Crushing or squeezing. ? Tightness, pressure, fullness, or heaviness. ? Pain in the arm, neck, jaw, back, or upper body. ? Heartburn. ? Upset stomach (indigestion). ? Shortness of breath. ? Feeling like you may vomit (nauseous). ? Cold sweats. ? Sudden light-headedness, dizziness, or passing out. ? Feeling tired. How is this treated? A heart attack must be treated as soon as possible. Treatment may include: ? Medicines to: ? Break up or dissolve blood clots. ? Thin your blood and help prevent blood clots. ? Treat blood pressure. ? Improve blood flow to the heart. ? Reduce pain. ? Reduce cholesterol. ? Procedures to widen a blocked artery and keep it open. ? Open heart surgery. ? Making your heart strong again (cardiac rehabilitation) through exercise, education, and counseling. Follow these instructions at home: Medicines ? Take pykq-bvu-[id number] and prescription medicines only as told by your doctor. ? Do not take these medicines unless your doctor says it is okay: ? NSAIDs, such as ibuprofen, naproxen, or celecoxib. ? Any vitamins or supplements. ? Hormone replacement therapy that has estrogen with or without progestin. ? If you are taking blood thinners: ? Talk with your doctor before taking any medicines that have aspirin or NSAIDs, such as ibuprofen. ? Take medicines exactly as told. Take them at the same time each day. ? Avoid doing things that could hurt or bruise you. Take action to prevent falls. ? Wear an alert bracelet or carry a card that shows you are taking blood thinners. Lifestyle ? Do not smoke or use any products that contain nicotine or tobacco. If you need help quitting, ask your doctor. ? Avoid secondhand smoke. ? Exercise regularly. Ask your doctor about a cardiac rehab program. ? Eat heart-healthy foods. Your doctor will tell you what foods to eat. ? Stay at a healthy weight. ? Learn ways to lower your stress level. ? Do not use illegal drugs. Alcohol use ? Do not drink alcohol if: ? Your doctor tells you not to drink. ? You are , may be , or are planning to become . ? If you drink alcohol: ? Limit how much you have to: ? 0?1 drink a day for women. ? 0?2 drinks a day for men. ? Know how much alcohol is in your drink. In the [place] one drink equals one 12 oz bottle of beer (355 mL), one 5 oz glass of wine (148 mL), or one 1? oz glass of hard liquor (44 mL). General instructions ? Work with your doctor to treat other problems you may have, such as diabetes or high blood pressure. ? Get screened for depression. Get treatment if needed. ? Keep your vaccines up to date. Get the flu shot (influenza vaccine) every year. ? Keep all follow-up visits. Contact a doctor if: ? You feel very sad. ? You have trouble doing your daily activities. ? You get light-headed or dizzy. Get help right away if: ? You have sudden, unexplained discomfort in your chest, arms, back, neck, jaw, or upper body. ? You have shortness of breath. ? You have sudden sweating or clammy skin. ? You feel like you may vomit or you vomit. ? You feel tired or weak. ? You feel your heart beating fast. ? You feel your heart skipping beats. ? You have blood pressure that is higher than 180/120. These symptoms may be an emergency. Get help right away. Call your local emergency services (911 in the [place] ? Do not wait to see if the symptoms will go away. ? Do not drive yourself to the hospital. Summary ? A heart attack occurs when blood and oxygen supply to the heart is cut off. ? Do not take NSAIDs unless your doctor says it is okay. ? Do not smoke. Avoid secondhand smoke. ? Exercise regularly. Ask your doctor about a cardiac rehab program. This information is not intended to replace advice given to you by your health care provider. Make sure you discuss any questions you have with your health care provider. Document Revised: 12/11/2021 Document Reviewed: 12/11/2021 ElseSubtextual Patient Education ? 2023 [employer]Endocrinology Blood Glucose Monitoring, Adult To manage your diabetes, you will need to keep track of your blood sugar (glucose). Check your blood glucose as often as told. Keep a record of your results over time. This can help you: ? Know when to adjust your diabetes management plan with your health care provider. ? See how food, exercise, illness, and medicines affect your blood glucose. ? Know what your blood glucose is at any time. Your provider will set specific goals for your blood glucose levels. In many cases, these goals may be: ? Before meals (preprandial): 80?130 mg/dL (4.4?7.2 mmol/L). ? After meals (postprandial): below 180 mg/dL (10 mmol/L). ? A1C level: less than 7%. Supplies needed: ? Blood glucose meter. ? Test strips for your meter. Each meter has its own strips. You must use the strips that came with your meter. ? A needle to prick your finger (lancet). Do not use a lancet more than once. ? A device that holds the lancet (lancing device). ? A journal or logbook to write down your results. How to check your blood glucose Checking your blood glucose 1. Wash your hands with soap and water for at least 20 seconds. 2. Prick the side of your finger with the lancet. Do not prick the tip of your finger. Do not use the same finger more than once. 3. Gently rub the finger until a small drop of blood appears. 4. Follow the instructions that came with the meter about how to insert the test strip, apply blood to the strip, and use the meter. 5. Write down your result and any notes. Using alternative sites Some meters let you use other areas of your body (alternative sites) to test your blood. The most common places are the forearm, the thigh, and the palm of your hand. Alternative sites may not be as accurate as your fingers. The result you get may also be delayed. Use the finger only, and do not use alternative sites, if: ? You think you have low blood glucose (hypoglycemia). ? You sometimes do not know that your blood glucose is getting low (hypoglycemia unawareness). General tips and recommendations Blood glucose log ? Write down the result each time you check your blood glucose. Note anything that may be affecting your blood glucose. This can help you and your provider: ? Look for patterns over time. ? Adjust your management plan as needed. ? Check if your meter has an massimo or lets you download your records to a computer. Most meters keep a record of glucose readings in the meter. If you have type 1 diabetes: ? You may need to check your blood glucose 4 or more times a day. Check your blood glucose as often as told by your provider. This may include: ? Before each meal and snack. ? Two hours after a meal. ? Before bedtime. ? If you have symptoms of hypoglycemia. ? After treating your hypoglycemia. ? Before doing things that have a risk of injury, such as driving or using machinery. ? Before and after exercise. ? Between 2:00 a.m. and 3:00 a.m., as told. ? You may need to check your blood glucose more often, such as up to 6?10 times a day, if: ? You have diabetes that is not well controlled. ? You are ill. ? You have a history of severe hypoglycemia. ? You have hypoglycemia unawareness. If you have type 2 diabetes: ? You may need to check your blood glucose 2 or more times a day. Check your blood glucose as often as told by your provider. This may include: ? Before and after exercise. ? Before doing things that have a risk of injury, such as driving or using machinery. ? You may need to check your blood glucose more often if: ? Your medicine is being adjusted. ? Your diabetes is not well controlled. ? You are ill. General tips ? Make sure you always have your supplies with you. ? After you use a few boxes of test strips, adjust (calibrate) your blood glucose meter. Follow the instructions that came with your meter. ? If you have questions or need help, all blood glucose meters have a 24-hour hotline phone number that you can call. Also contact your provider with any questions or concerns. Where to find more information ? The [place] Diabetes Association: diabetes.org ? The Association of Diabetes Care & Education Specialists: diabeteseducator.org Contact a health care provider if: ? Your blood glucose is at or above 240 mg/dL (13.3 mmol/L) for 2 days in a row. ? You have been sick or have had a fever for 2 days or longer and are not getting better. ? You have any of these problems for more than 6 hours: ? You cannot eat or drink. ? You have nausea or vomiting. ? You have diarrhea. Get help right away if: ? Your blood glucose is lower than 54 mg/dL (3 mmol/L). ? You become confused, or you have trouble thinking clearly. ? You have trouble breathing. ? You have moderate to high ketone levels in your pee (urine). These symptoms may be an emergency. Get help right away. Call 911. ? Do not wait to see if the symptoms will go away. ? Do not drive yourself to the hospital. This information is not intended to replace advice given to you by your health care provider. Make sure you discuss any questions you have with your health care provider. Document Revised: 05/07/2023 Document Reviewed: 05/07/2023 [employer] Patient Education ? 2023 [employer]Forms.Mental and Behavioral Health Living With Diabetes Diabetes (type 1 diabetes mellitus or type 2 diabetes mellitus) is a condition in which the body does not make enough of a hormone called insulin or does not respond the right way to insulin. The job of insulin is to move sugars (glucose) into cells in the body. In people with diabetes, extra glucose builds up in the blood instead of going into cells. This results in high blood glucose (hyperglycemia). How to manage lifestyle changes To help manage your diabetes, you may need treatment, such as medicines. You may also need to make lifestyle changes. To take care of yourself, you should: ? Monitor your glucose often. ? Eat a healthy diet. ? Exercise often. ? Meet with your health care providers. ? Take medicines as told by your health care providers. Most people feel some stress when it comes to managing their diabetes. When this stress becomes too much, it is known as diabetes distress. This is very common. Living with diabetes can also place you at risk for depression and anxiety. These disorders can make your condition harder to manage. How to recognize stress You may have diabetes distress if: ? You avoid or ignore your daily diabetes care. Daily care may include testing your glucose, following a meal plan, and taking medicines. ? You feel overwhelmed by what you have to do each day for your care. ? You feel anger, sadness, or fear when it comes to your daily care. ? You feel fear or shame about not being perfect at doing the things you have been told to do. Emotional distress If you have diabetes distress, you may feel: ? Anger about having diabetes. ? Fear or frustration about your condition and the changes you need to make to manage it. ? A lot of worry about the care that you need or the cost of the care that you need. ? Like you caused your condition by doing something wrong. ? Fear about changes in your blood glucose that you may not be able to predict. ? Judged by your health care providers. ? Very alone. Depression Having diabetes means that you are more at risk for depression. Your health care provider may test (screen) you for symptoms. Symptoms may include: ? Loss of interest in things that you used to enjoy. ? Feeling depressed much or most of the time. ? A change in appetite. ? Trouble getting to sleep or staying asleep. ? Feeling tired most of the day. ? Feeling nervous and anxious. ? Feeling guilty and worried that you are a burden to others. ? Having thoughts of hurting yourself or feeling that you want to . If you have any of these symptoms on more days than not and for 2 weeks or longer, you may have depression. This would be a good time to contact your health care provider. How to manage diabetes distress To manage distress: ? Learn as much as you can about your condition and its treatment. Take one step at a time to improve the way you manage your daily care. ? Meet with an expert trained in diabetes care (certified registered nurse anesthetist). Take a class to learn how to manage your condition. ? Consider working with a counselor or therapist. ? Keep a journal of your thoughts and concerns. ? Accept that some things are out of your control. ? Talk with other people who have diabetes. It can help to talk about the distress that you feel. ? Find ways to manage stress that work for you. These may include listening to music, art, exercise, meditation, and other hobbies. ? Seek support from spiritual leaders, family, and friends. Follow these instructions at home: ? Do your best to follow your plan for how to manage your diabetes. ? If you are struggling to follow your plan, talk with a peer educator or someone else who has diabetes. They may have ideas that will help. ? Forgive yourself for not being perfect. Almost everyone struggles with the tasks of diabetes. ? Keep all follow-up visits. Your health care provider will want to monitor your glucose levels. You can also discuss any concerns you have at these visits. Where to find support ? Find support from the [place] Diabetes Association (ADA): diabetes.org ? Find an expert to help you manage your condition. Make an appointment through the Association of Diabetes Care & Education Specialists (ADCES): diabeteseducator.org Contact a health care provider if: ? You believe your diabetes is getting out of control. ? You may be depressed. ? Your medicines are not helping control your diabetes. ? You feel overwhelmed. Get help right away if: ? You have thoughts about hurting yourself or others. Get help right away if you feel like you may hurt yourself or others, or have thoughts about taking your own life. Go to your nearest emergency room or: ? Call 911. ? Call the National Suicide Prevention Lifeline at or 971. This is open 24 hours a day. ? Text the Crisis Text Line at 680502. This information is not intended to replace advice given to you by your health care provider. Make sure you discuss any questions you have with your health care provider. Document Revised: 03/25/2023 Document Reviewed: 12/25/2022 [employer] Patient Education ? 2023 [employer].Nutrition DASH Eating Plan DASH stands for Dietary Approaches to Stop Hypertension. The DASH eating plan is a healthy eating plan that has been shown to: ? Lower high blood pressure (hypertension). ? Reduce your risk for type 2 diabetes, heart disease, and stroke. ? Help with weight loss. What are tips for following this plan? Reading food labels ? Check food labels for the amount of salt (sodium) per serving. Choose foods with less than 5 percent of the Daily Value (DV) of sodium. In general, foods with less than 300 milligrams (mg) of sodium per serving fit into this eating plan. ? To find whole grains, look for the word whole as the first word in the ingredient list. Shopping ? Buy products labeled as low-sodium or no salt added. ? Buy fresh foods. Avoid canned foods and pre-made or frozen meals. Cooking ? Try not to add salt when you cook. Use salt-free seasonings or herbs instead of table salt or sea salt. Check with your health care provider or pharmacist before using salt substitutes. ? Do not haile foods. Cook foods in healthy ways, such as baking, boiling, grilling, roasting, or broiling. ? Cook using oils that are good for your heart. These include olive, canola, avocado, soybean, and sunflower oil. Meal planning ? Eat a balanced diet. This should include: ? 4 or more servings of fruits and 4 or more servings of vegetables each day. Try to fill half of your plate with fruits and vegetables. ? 6?8 servings of whole grains each day. ? 6 or less servings of lean meat, poultry, or fish each day. 1 oz is 1 serving. A 3 oz (85 g) serving of meat is about the same size as the palm of your hand. One egg is 1 oz (28 g). ? 2?3 servings of low-fat dairy each day. One serving is 1 cup (237 mL). ? 1 serving of nuts, seeds, or beans 5 times each week. ? 2?3 servings of heart-healthy fats. Healthy fats called omega-3 fatty acids are found in foods such as walnuts, flaxseeds, fortified milks, and eggs. These fats are also found in cold-water fish, such as sardines, salmon, and mackerel. ? Limit how much you eat of: ? Canned or prepackaged foods. ? Food that is high in trans fat, such as fried foods. ? Food that is high in saturated fat, such as fatty meat. ? Desserts and other sweets, sugary drinks, and other foods with added sugar. ? Full-fat dairy products. ? Do not salt foods before eating. ? Do not eat more than 4 egg yolks a week. ? Try to eat at least 2 vegetarian meals a week. ? Eat more home-cooked food and less restaurant, buffet, and fast food. Lifestyle ? When eating at a restaurant, ask if your food can be made with less salt or no salt. ? If you drink alcohol: ? Limit how much you have to: ? 0?1 drink a day if you are female. ? 0?2 drinks a day if you are male. ? Know how much alcohol is in your drink. In the [place] one drink is one 12 oz bottle of beer (355 mL), one 5 oz glass of wine (148 mL), or one 1? oz glass of hard liquor (44 mL). General information ? Avoid eating more than 2,300 mg of salt a day. If you have hypertension, you may need to reduce your sodium intake to 1,500 mg a day. ? Work with your provider to stay at a healthy body weight or lose weight. Ask what the best weight range is for you. ? On most days of the week, get at least 30 minutes of exercise that causes your heart to beat faster. This may include walking, swimming, or biking. ? Work with your provider or dietitian to adjust your eating plan to meet your specific calorie needs. What foods should I eat? Fruits All fresh, dried, or frozen fruit. Canned fruits that are in their natural juice and do not have sugar added to them. Vegetables Fresh or frozen vegetables that are raw, steamed, roasted, or grilled. Low- sodium or reduced-sodium tomato and vegetable juice. Low-sodium or reduced-sodium tomato sauce and tomato paste. Low-sodium or reduced-sodium canned vegetables. Grains Whole-grain or whole-wheat bread. Whole-grain or whole-wheat pasta. Brown rice. Oatmeal. Quinoa. Bulgur. Whole-grain and low-sodium cereals. Luba bread. Low- fat, low-sodium crackers. Whole-wheat flour tortillas. Meats and other proteins Skinless chicken or turkey. Ground chicken or turkey. Pork with fat trimmed off. Fish and seafood. Egg whites. Dried beans, peas, or lentils. Unsalted nuts, nut butters, and seeds. Unsalted canned beans. Lean cuts of beef with fat trimmed off. Low- sodium, lean precooked or cured meat, such as sausages or meat loaves. Dairy Low-fat (1%) or fat-free (skim) milk. Reduced-fat, low-fat, or fat-free cheeses. Nonfat, low-sodium ricotta or cottage cheese. Low-fat or nonfat yogurt. Low-fat, low-sodium cheese. Fats and oils Soft margarine without trans fats. Vegetable oil. Reduced-fat, low-fat, or light mayonnaise and salad dressings (reduced-sodium). Canola, safflower, olive, avocado, soybean, and sunflower oils. Avocado. Seasonings and condiments Herbs. Spices. Seasoning mixes without salt. Other foods Unsalted popcorn and pretzels. Fat-free sweets. The items listed above may not be all the foods and drinks you can have. Talk to a dietitian to learn more. What foods should I avoid? Fruits Canned fruit in a light or heavy syrup. Fried fruit. Fruit in cream or butter sauce. Vegetables Creamed or fried vegetables. Vegetables in a cheese sauce. Regular canned vegetables that are not marked as low-sodium or reduced-sodium. Regular canned tomato sauce and paste that are not marked as low-sodium or reduced-sodium. Regular tomato and vegetable juices that are not marked as low-sodium or reduced-sodium. Pickles. Olives. Grains Baked goods made with fat, such as croissants, muffins, or some breads. Dry pasta or rice meal packs. Meats and other proteins Fatty cuts of meat. Ribs. Fried meat. Villa. Bologna, salami, and other precooked or cured meats, such as sausages or meat loaves, that are not lean and low in sodium. Fat from the back of a pig (fatback). Bratwurst. Salted nuts and seeds. Canned beans with added salt. Canned or smoked fish. Whole eggs or egg yolks. Chicken or turkey with skin. Dairy Whole or 2% milk, cream, and [id number]. Whole or full-fat cream cheese. Whole-fat or sweetened yogurt. Full-fat cheese. Nondairy creamers. Whipped toppings. Processed cheese and cheese spreads. Fats and oils Butter. Stick margarine. Lard. Shortening. Ghee. Villa fat. Tropical oils, such as coconut, palm kernel, or palm oil. Seasonings and condiments Onion salt, garlic salt, seasoned salt, table salt, and sea salt. Worcestershire sauce. Tartar sauce. Barbecue sauce. Teriyaki sauce. Soy sauce, including reduced-sodium soy sauce. Steak sauce. Canned and packaged gravies. Fish sauce. Oyster sauce. Cocktail sauce. Store-bought horseradish. Ketchup. Mustard. Meat flavorings and tenderizers. Bouillon cubes. Hot sauces. Pre-made or packaged marinades. Pre-made or packaged taco seasonings. Relishes. Regular salad dressings. Other foods Salted popcorn and pretzels. The items listed above may not be all the foods and drinks you should avoid. Talk to a dietitian to learn more. Where to find more information ? National Heart, Lung, and Blood [place] (NHLBI): nhlbi.nih.gov ? [place] Heart Association (AHA): heart.org ? Academy of Nutrition and Dietetics: eatright.org ? National Kidney Foundation (NKF): kidney.org This information is not intended to replace advice given to you by your health care provider. Make sure you discuss any questions you have with your health care provider. Document Revised: 07/08/2023 Document Reviewed: 07/08/2023 ElseSubtextual Patient Education ? 2023 [employer]. BEDSIDE GLUCOSE LAB Collected: 03/20/2024 7:18 AM Status: COMPLETED Source: [facility] TYPE CODE TESTS RESULT OUT OF RANGE REFERENCE UNITS LAB BEDG(LOINC) BEDSIDE GLUCOSE LAB 142 High 65-99 mg/dL BASIC METABOLIC PANL Collected: 03/17/2024 1:41 PM Status: COMPLETED Source: [facility] TYPE CODE TESTS RESULT OUT OF RANGE REFERENCE UNITS LAB NA(LOINC) SODIUM 139 134-146 mmol/L LAB K(LOINC) POTASSIUM 4.9 3.5-5.0 mmol/L LAB CL(LOINC) CHLORIDE 104 98-109 mmol/L LAB CO2(LOINC) CARBON DIOXIDE 28 22-32 mmol/L LAB AGAP(LOINC) ANION GAP 7 5-15 mmol/L LAB BUN(LOINC) BLOOD UREA NITROGEN 14 5-27 mg/dL LAB CRET(LOINC) CREATININE 1.37 High 0.60-1.30 mg/dL Result Comment: METHOD TRACE ABLE TO IDMS STANDARD LAB GLU(LOINC) GLUCOSE 100 High 65-99 mg/dL LAB CA(LOINC) CALCIUM 8.6 8.5-10.5 mg/dL LAB EGFR(LOINC) eGFR (CKD-EPI) NON-RACE DEPENDENT 51 Low >59 ml/min/1. 73sq.m Result Comment: Reported eGFR is based on the CKD-EPI 2020 equation that does not use a race coefficient. Performed By: #### BMP #### [facility] ([id number]) [address], [address] [place] [address] NURSE CONSULTATION NOTE Observed: 2023 10:57 AM Status: F Source: [facility] Nurse Consultation Note Reason for Visit Here for lab draw Assessment/Plan Diabetes (E11.9: Type 2 diabetes mellitus without complications) Medications accu check, See Instructions, 1 refills aspirin 81 mg Oral EC Tab, 162 mg= 2 tab(s), Oral, Daily atorvastatin 20 mg Tab, 20 mg= 1 tab(s), Oral, Daily, 3 refills glimepiride 4 mg Tab, 4 mg= 1 tab(s), Oral, Daily isosorbide mononitrate 30 mg ER Tab, 30 mg= 1 tab(s), Oral, qAM, 3 refills Januvia 100 mg Tab, 100 mg= 1 tab(s), Oral, Daily, 3 refills losartan 100 mg Tab, 100 mg= 1 tab(s), Oral, Daily, 3 refills metformin 500 mg Tab, 500 mg= 1 tab(s), Oral, TID, 1 refills Metoprolol tartrate 50 mg Tab, 50 mg= 1 tab(s), Oral, BID, 3 refills NitroStat 0.4 mg Tab, 0.4 mg= 1 tab(s), SubLingual, q5min, PRN, 3 refills one touch, See Instructions, 1 refills Tylenol, 650 mg, Oral, BID, PRN Allergies No Known Allergies (Unknown) No Known Medication Allergies Immunizations Vaccine Date Status Comments influenza virus vaccine, inactivated 03/15/2023 Recorded influenza virus vaccine, inactivated 05/01/2022 Recorded SARS-CoV-2 (COVID-19) [id number] 04/15/2022 Recorded influenza virus vaccine, inactivated 05/09/2021 Recorded SARS-CoV-2 (COVID-19) mRNA BNT-162b2 vax 04/07/2021 Recorded 2022-09-14: [id number] SARS-CoV-2 (COVID-19) mRNA BNT-162b2 vax 08/28/2020 Recorded 2022-09-14: TPV75 SARS-CoV-2 (COVID-19) mRNA BNT-162b2 vax 08/07/2020 Recorded 2022-09-14: TPV75 influenza virus vaccine, inactivated 04/17/2020 Recorded influenza virus vaccine, inactivated 05/24/2019 Recorded influenza virus vaccine, inactivated 05/25/2018 Recorded HGBA1C Collected: 01/24/2024 10:56 AM Status: F Source: [facility] TYPE CODE TESTS RESULT OUT OF RANGE REFERENCE UNITS LAB 4548-4([facility]) HEMOGLOBIN A1C/HEMOGLOBIN. TOTAL:MFR:PT:BL D:QN: 6.9 High <=5.9 % Performed By: #### [id number] #### [facility] [address] [place] [address] ALLERGIES DATE TYPE / CODE NAME / CODE REACTION SEVERITY SOURCE Drug Class/[id number](S NOMED CT) NO KNOWN ALLERGIES [facility] /[id number]([facility] ED CT) No Known Allergies Unknown [facility] /[id number]([facility] ED CT) Benadryl [facility] /[id number]([facility] ED CT) No Known Medication Allergies [facility] Drug Class/[id number](S NOMED CT) NO KNOWN ALLERGIES [facility] ENCOUNTERS ADMIT/DISCHARGE ACCOUNT NUMBER ADMITTING ENCOUNTER CLASS LOCATION SOURCE 11/17/2024 [id number] Ambulatory Building:[facility] 10/23/2024 [id number] Ambulatory Building:[facility] 09/18/2024 [id number] Ambulatory Building:[facility] 09/15/2024 [id number] Ambulatory Building:[facility] 08/31/2024/08/31/19 [id number] [facility] 08/31/2024/08/31/19 25 [id number] [facility] 08/23/2024 [id number] Ambulatory [facility] 08/18/2024 [id number] Ambulatory Building:[facility] 08/03/2024 [id number] Ambulatory Building:[facility] 08/02/2024 [id number] Ambulatory Building:[facility] 08/02/2024/08/02/19 25 [id number] [facility] [id number] [facility]/08/02/19 25 [id number] SATURNINO EDWARDS Inpatient Encounter Building:PTH _F_PERIOPRoo m: POOLBed: [facility] 07/21/2024 [id number] Ambulatory Building:[facility] 07/17/2024 [id number] Ambulatory Building:[facility] 07/07/2024 [id number] Ambulatory Building:[facility] 07/07/2024/07/07/19 25 [id number] [facility] [id number] [facility] 06/29/2024 [id number] Ambulatory Building:[facility] 05/29/2024 [id number] Ambulatory [facility] 05/26/2024 [id number] Ambulatory [facility] 05/03/2024 [id number] Janette Kyle Ambulatory FTBuilding :[facility] 05/03/2024/05/03/20 24 [id number] Naun, Janette L [facility]ulatory [facility] 05/03/2024/05/03/20 24 [id number] [facility] [facility] 05/01/2024 [id number] Ambulatory Building:[facility] 03/30/2024/03/30/20 24 [id number] [facility] [facility] 03/29/2024 [id number] Ambulatory Building:[facility] 03/28/2024 [id number] Naun, Janette L Ambulatory FTMCBuilding :[facility] 03/28/2024/03/28/20 24 [id number] Naun, Janette L Ambulatory FTMCBuilding :[facility] 03/28/2024/03/28/20 24 [id number] [facility] [place] 03/28/2024 [id number] [facility] [place] 03/23/2024/03/23/20 24 [id number] [facility] [facility] 03/21/2024 [id number] Ambulatory Building:[facility] 03/20/2024/03/20/20 24 [id number] Inpatient Encounter Building[facility] _F_PERIOP [facility] 03/20/2024/03/20/20 24 [id number] Inpatient Encounter Building:PTH _F_PERIOP [facility] 03/20/2024 [id number] Ambulatory Building:[facility] 03/20/2024/03/20/20 24 [id number] SATURNINO EDWARDS Inpatient Encounter Building:[facility] _F_PERIOPRoo m: POOLBed: [facility] 03/17/2024 [id number] Ambulatory Building:[facility] 03/17/2024 [id number] Amb[facility] 03/17/2024/03/17/20 24 [id number] Ambulatory Building:[facility] 03/15/2024 [id number] Ambulatory Building:[facility] 03/03/2024 [id number] Ambulatory Building:[facility] 02/16/2024 [id number] Ambulatory Building:[facility] 02/07/2024/02/07/20 24 [id number] Ambulatory Building:NOM S NB OPHT [facility] EPIC 01/31/2024/01/31/20 24 [id number] Ambulatory Building:NOM S NB OPHT [facility] EPIC 01/24/2024/01/24/20 24 [id number] Janette Kyle Ambulatory FTMCBuilding :FT [facility] 01/24/2024/01/24/20 24 [id number] [place] [place] 01/17/2024 [id number] [facility] PAYERS ENCOUNTER GUARANTOR PAYER SUBSCRIBER SOURCE 11/17/2024 Manpreet Velazco: [place], [place] [address]Wrm: () Primary Insurance:Aetna Medicare 65045Vjrscy Number: [id number] Date:4013-24-00Tsrt Name:[address] [place] [address], [place] [id number]: Manpreet AlcantaraB: [id number] Ric[place] [address]Ano: (HP) [facility] 10/23/2024 Manpreet AlcantaraB: Ric[place] [address]Grb: (HP) Primary Insurance:Aetna Medicare 79221Olntuc Number: [id number] Date:7286-84-68Xbgb Name:FELIPE Jansen 938813IhBORIS Witt [id number]: Manpreet Crawford QuintonB: [id number] Ric[place] [address]Vrt: (HP) [facility] 09/18/2024 Manpreet Crawford QuintonB: [place] [address]Blc: (HP) Primary Insurance:Aetna Medicare 01802Panqvl Number: [id number] Date:1526-16-91Fpzl Name:BORIS Tatum [id number]: Manpreet Crawford QuintonB: [id number] [place], [place] [address]Omo: (HP) [facility] 09/15/2024 Manpreet Crawford QuintonB: [place] [address]Gta: (HP) Primary Insurance:Aetna Medicare 59259Jurvsi Number: [id number] Date:9960-16-89Wbmg Name:FELIPE Jansen 8600[address]XnBORIS Rehman [id number]: Manpreet Crawford QuintonB: [id number] [place] [address]Dwi: (HP) [facility] 08/31/2024 Primary Insurance:AETNA MEDICARE PPOPolicy Number: [id number] Date:9988-64-58Mhpt Name:Chioma MANPREET FARIBA: [id number] [place] [address] [facility] 08/31/2024 Primary Insurance:AETNA MEDICARE PPOPolicy Number: [id number] Date:0809-23-24Xhtc Name:Chioma MATAMANPREET FARIBA: [id number] [place] [address] [facility] 08/23/2024 Manpreet Crwaford QuintonB: Ric[place] [address]Svs: (HP) Primary Insurance:Aetna Medicare 72428Dcrvtx Number: [id number] Date:7851-70-74Lbhf Name:[address] [place] [address] 468[address]Qh [place], [place] [id number]: Manpreet Crawford QuintonB: [id number] Ricardo OlivaresMadeleinechaitanya [place] [address]Xnw: (HP) [facility] 08/18/2024 Manpreet Crawford QuintonB: Ricardo OlivaresArielaejLE[place], [place] [address]Wdh: (HP) Primary Insurance:Aetna Medicare 74211Bpwttm Number: [id number] Date:3220-74-88Bjod Name:[address] [place] [id number] [place] [address] [id number]: Manpreet Crawford QuintonB: [id number] [place], [place] [address]Azj: (HP) [facility] 08/03/2024 Manpreet Crawford QuintonB: Ricardo OlivaresArielaejLE[place], [place] [address]Ixr: (HP) Primary Insurance:Aetna Medicare 31125Dwzkam Number: [id number] Date:0131-17-84Burm Name:[address] [place] [id number] [place] [id number]: Manpreet Crawford QuintonB: [id number] [place], [place] [address]Rny: (HP) [facility] 08/02/2024 MANPREET MERRILL QUINTONB: [place], [place] [address]Feb: (HP) Primary Insurance:AETNA MEDICARE PLAN (PPO)Policy Number: [id number] Date:2021-07-05 MANPREET MERRILL QUINTONB: [id number] [place] [address]Xuh: (HP) [facility] 08/02/2024 MANPREET MERRILL QUINTONB: R[place]ARD[place]AEJ [place] [address]Nrw: (HP) Primary Insurance:AETNA MEDICARE PLAN (PPO)Policy Number: [id number] Date:2021-07-05 MANPREET MERRILL QUINTONB: [id number] R[place] [address]Haw: (HP) [facility] 08/02/2024 MANPREET MERRILL QUINTONB: [place] [address]Nne: (HP) Primary Insurance:AETNA MEDICARE PLAN (PPO)Policy Number: [id number] Date:2021-07-05 MANPREET MERRILL QUINTONB: [id number] [place] [address]Jol: (HP) [facility] 07/21/2024 Manpreet Crawford QuintonB: [place] [address]Cvz: (HP) Primary Insurance:Aetna Medicare 69809Thzyxx Number: [id number] Date:3133-74-04Beat Name:[address] [place] [address]It [place] [id number]: Manpreet Crawford QuintonB: [id number] Ric[place] [address]Rpp: (HP) [facility] 07/17/2024 Manpreet Crawford QuintonB: [place] [address]Mgd: (HP) Primary Insurance:Aetna Medicare 63906Hyjzcg Number: [id number] Date:1381-45-70Pxwd Name:FELIPE Jansen [id number] Witt [id number]: Manpreet Crawford QuintonB: [id number] Ricardo OlivaresArielaej [place] [address]Ytt: (HP) [facility] 07/07/2024 Manpreet Crawford QuintonB: Ricardo Olivares[place]rielaej [place] [address]Glj: (HP) Primary Insurance:Aetna Medicare 12722Sqezau Number: [id number] Date:3019-88-96Xsvc Name:BORIS Tatum [id number]: Manpreet Crawford QuintonB: [id number] Ricardo Arashchaitanya[place], [place] [address]Nso: (HP) [facility] 07/07/2024 MANPREET MERRILL QUINTONB: R[place]ARDO [place]ND[place], [place] [address]Hex: (HP) Primary Insurance:AETNA MEDICARE PLAN (PPO)Policy Number: [id number] Date:2021-07-05 MANPREET MERRILL QUINTONB: [id number] [place]ARDO ARASHCHAITANYA [place] [address]Che: (HP) [facility] 07/06/2024 Manpreet Crawford QuintonB: Ricardo [place], [place] [address]Ssk: (HP) Primary Insurance:Aetna Medicare 33235Igpztl Number: [id number] Date:5302-05-66Hruv Name:FELIPE Jansen [id number] Witt [id number]: Manpreet Crawford QuintonB: [id number] Ric[place], [place] [address]Rjl: (HP) [facility] 06/29/2024 Manpreet LagosDOB: Ricardo [place], [place] [address]Chb: (HP) Primary Insurance:Aetna Medicare 564[address]Ddimvv Number: [id number] Date:6365-36-33Both Name:Ronda Inderjit [place] [id number]: Manpreet LagosDOB: [id number] Ricardo OlivaresArielaejLE[place], [place] [address]Rei: (HP) [facility] 05/29/2024 Manpreet LagosDOB: [place]ardo [place], [place] [address]Oiw: (HP) Primary Insurance:Aetna Medicare 17355Sitgvr Number: [id number] Date:0972-90-70Mxul Name:[facility] Inderjit Silveira [place], [place] [id number]: Manpreet LagosDOB: [id number] [place], [place] [address]Cuw: (HP) [facility] 05/26/2024 Manpreet LagosB: [place] [address]Lkb: (HP) Primary Insurance:Aetna Medicare 64016Gthsbi Number: [id number] Date:8562-05-37Gmou Name:[facility] Inderjit Silveira [place], [place] [id number]: Manpreet LagosDOB: [id number] Ricardo FrazierchaitanyaLE[place], [place] [address]Yjy: (HP) [facility] 05/03/2024 MANPREET LAGOSB: RICARDO OLIVARESTel: [phone] (HP) Primary Insurance:AETNAPolicy Number: [id number] Date:4999-99-54NG [address], [place] [address]FN: MANPREET GILL [facility] 05/03/2024 MANPREET LAGOSDOB: RICARDO STTel: [phone] (HP) Primary Insurance:AETNAPolicy Number: [id number] Date:9013-45-57UJ [address] [place], [place] [address]NU: MANPREET GILL [facility] 05/01/2024 Manpreet LagosDOB: Ricardo [place], [place] [address]Gnp: (HP) Primary Insurance:Aetna Medicare 22791Dgvnqq Number: [id number] Date:5942-27-66Pnmx Name:[address] [place] [address]vAlb[place], [place] [id number]: Manpreet LagosB: [id number] [place], [place] [address]Omq: (HP) [facility] 03/30/2024 MANPREET LAGOSB: RICARDO OLIVARESTel: [phone] (HP) Primary Insurance:AETNAPolicy Number: [id number] Date:3575-39-26BB[address] [address]CQ: MANPREET GILL [facility] 03/29/2024 Manpreet LagosDOB: [place], [place] [address]Hsn: (HP) Primary Insurance:Aetna Medicare 06798Ayhatt Number: [id number] Date:0442-29-85Slxx Name:[address] [place] [address] [facility] [place] [id number]: Manpreet LagosB: [id number] [place], [place] [address]Cfp: (HP) [facility] 03/28/2024 MANPREET LAGOSB: RICARDO STTel: [phone] (HP) Primary Insurance:AETNAPolicy Number: [id number] Date:2756-94-88LS [address]LLBORIS BRITTON [address]FK: MANPREET GILL [facility] 03/28/2024 MANPREET LAGOSB: RICARDO STTel: [phone] (HP) Primary Insurance:AETNAPolicy Number: [id number] Date:1124-80-46GN [address] [place] [place] [address]WT: MANPREET GILL [facility] 03/28/2024 MANPREET Crawford QUINTONB: RICARDO STTel: [phone] (HP) Primary Insurance:AETNAPolicy Number: [id number] Date:0932-34-96PS [address] [place] [place] [address]ME: MANPREET GILL [facility] 03/23/2024 MANPREET LAGOSB: RICARDO STTel: [phone] (HP) Primary Insurance:AETNAPolicy Number: [id number] Date:5784-03-86RR [address]RSNICOLAS [place] [address]SC: MANPREET GILL [facility] 03/21/2024 Manpreet Crawford QuintonB: ERIKA Santacruz [address]Mzl: (HP) Primary Insurance:Aetna Medicare 93355Gdqzlx Number: [id number] Date:4189-62-54Dviy Name:[address]Uz Abdelrah[place] [address]ZH: Manpreet LagosB: [id number] Ric[place] [address]Xvt: (HP) [facility] 03/20/2024 MANPREET MERRILL QUINTONB: [place] [address]Xay: (HP) Primary Insurance:AETNA MEDICARE PLAN (PPO)Policy Number: [id number] Date:2021-07-05 MANPREET MERRILL QUINTONB: [id number] [place] [address]Qrj: (HP) [facility] 03/20/2024 MANPREET MERRILL QUINTONB: [place] [address]Jzh: (HP) Primary Insurance:AETNA MEDICARE PLAN (PPO)Policy Number: [id number] Date:2021-07-05 MANPREET MERRILL QUINTONB: [id number] [place] [address]Syo: (HP) [facility] 03/20/2024 MANPREET MERRILL QUINTONB: [place] [address]Cif: (HP) Primary Insurance:AETNA MEDICARE PLAN (PPO)Policy Number: [id number] Date:2021-07-05 MANPREET ALCANTARAB: [id number] R[place]ARD[place] [address]Lpz: (HP) [facility] 03/17/2024 Manpreet Crawford QuintonB: [place], [place] [address]Xvi: (HP) Primary Insurance:Aetna Medicare 67201Bvacgk Number: [id number] Date:5422-26-03Jxaw Name:[address] [place] [address]Mx BORIS Waller [id number]: Manpreet Yvette QuintonB: [id number] Ric[place] [address]Axd: (HP) [facility] 03/17/2024 Manpreet Crawford QuintonB: Ricardo [place] [address]Bej: (HP) Primary Insurance:Aetna Medicare 65695Wdwkfw Number: [id number] Date:6286-61-23Dbrb Name:[address] [place] [address]Qq [place] [id number]: Manpreet Crawford QuintonB: [id number] [place] [address]Ues: (HP) [facility] 03/17/2024 MANPREET MERRILL QUINTONB: [place] [address]Tpf: (HP) Primary Insurance:AETNA MEDICARE PLAN (PPO)Policy Number: [id number] Date:2021-07-05 MANPREET MERRILL QUINTONB: [id number] RICARDO OL[place]ARESARIELAEJ [place] [address]Ecq: (HP) [facility] 03/15/2024 Manpreet Crawford QuintonB: [place] [address]Eum: (HP) Primary Insurance:Aetna Medicare 785[address]Sxvwxw Number: [id number] Date:7669-21-64Fgvm Name:[address] [place] [address]Hk [place] [id number]: Manpreet Crawford QuintonB: [id number] [place] [address]Wms: (HP) [facility] 03/03/2024 Manpreet Crawford QuintonB: Ricardo [place]ares[place] [address]Jia: (HP) Primary Insurance:Aetna Medicare 23423Qfqbng Number: [id number] Date:7499-12-63Ewvv Name:Ronda Inderjit [place]er [place] [address]UM: Manpreet Crawford QuintonB: [id number] [place], [place] [address]Gzh: (HP) [facility] 02/16/2024 Manpreet Crawford QuintonB: [place], [place] [address]Ypi: (HP) Primary Insurance:Aet Medicare 99109Mmssja Number: [id number] Date:7329-53-94Notu Name:Ronda Inderjit [id number] [facility] [place] [id number]: Manpreet Crawford QuintonB: [id number] [place], [place] [address]Vla: (HP) [facility] 02/07/2024 MANPREET Crawford QUINTONB: [place], [place] [address]Mah: (HP) Primary Insurance:[facility] MEDICARE ADVANTAGEPolicy Number: [id number] Date:2021-07-05 MANPREET Crawford QUINTONB: [id number] [place] [address] [facility] EPIC 01/31/2024 MANPREET Crawford QUINTONB: [place], [place] [address]Uxx: (HP) Primary Insurance:AETNA MEDICARE ADVANTAGEPolicy Number: [id number] Date:2021-07-05 MANPREET Crawford QUINTONB: [id number] [place] [address] [facility] EPIC 01/24/2024 MANPREET Crawford QUINTONB: RICARDO Tel: [phone] (HP) Primary Insurance:AETNAPolicy Number: [id number] Date:3603-30-56[address] [place] [address]NZ: MANPREET GILL [facility] 01/24/2024 MANPREET LAGOSMARCIANO: RICARDO STTel: [phone] (HP) Primary Insurance:AETNAPolicy Number: [id number] Date:5002-64-24WU [address] [place] [address]WP: MANPREET GILL [facility] 01/17/2024 MANPREET LAGOSMARCIANO: [id number] RICARDO STTe: [phone] (HP) Primary Insurance:AETNAPolicy Number: [id number] Date:7847-71-06PU [address] [place] [address]OQ: MANPREET GILL [facility]
--- NOTE | 2025-01-09 13:47 | PM.WCHP ---
Wound Care H&P: HPI History of Present Illness Narrative: The patient is an 84-year-old gentleman with history of type 2 diabetes and neuropathy who presents for routine nail care. He does admit to some numbness in his feet but otherwise has no complaints. Exam Narrative: Exam Narrative: Derm: Toenails 1 through 10 are thickened, elongated and painful.? No evidence of paronychia.? Skin is diffusely dry, thin, and atrophic.? Hemosiderin staining present on the lower legs bilaterally. Vascular: DP and PT pulses are palpable bilaterally. Capillary refill is less than 3 seconds to all toes. Digital hair is absent bilaterally. Feet are slightly cool to the touch. Trace edema noted to the feet and ankles bilaterally Neuro: Vibratory sensation is absent bilaterally.? Achilles deep tendon reflex is absent bilaterally.? Protective sensation was tested with a monofilament and is present in 3/5 areas tested on the right and 3/5 areas tested on the left.? Musculoskeletal: No gross deformity.? Strength 5/5 in all planes bilaterally Assessment and Plan Assessment and Plan (1) Tinea unguium: (2) Type 2 diabetes mellitus with diabetic neuropathy, unspecified: Plan Routine nail care performed. Follow-up in 3 months. Acute Procedures Podiatry Nail Debridement Class B Findings Advanced trophic changes as evidenced by any three of the following: decreased hair growth, nail changes (thickening) and skin texture (thin or shiny) Class C Findings Claudication: No Temperature changes: Yes Edema: Yes Nail debridement paresthesia (abnormal spontaneous sensations in the feet): Yes Burning: Yes Qualifies If: Qualifiers If:: A patient qualifies for nail debridement if they have: 1 class A finding (Q7) 2 class B findings (Q8) OR 1 class B & 2 class C findings in addition to a primary condition (Q9) Nail Procedure Nail Procedure Time out: Yes Nail procedure: other (Sharp toenail debridement) Number of affected nails: 10 Location (toes): left and right Procedure successful: Yes Patient tolerated procedure: well and no complications Additional comments: Toenails 1 through 10 were sharply debrided with nail nippers without incident
== END 2025-01-09 13:01 | disposition home or self-care (01) ==
LOC: WC 13:00
PROVIDERS: PCP Nurse Practitioner; Visit Provider Physician Assistant
DX: B35.1 Tinea unguium (principal); E11.40 Type 2 diabetes mellitus with diabetic neuropathy, unspecified
CPT/HCPCS: 11721

== ENCOUNTER 2025-04-10 13:20 | Outpatient (OUT) | payer MEDICARE, SELFPAY ==
--- OUTSIDE RECORDS SUMMARY | 2024-10-09 10:00 | XMS_ITS ---
Author Organization [facility] in [place] Address [address] [place] [address] Care Team Providers Care Contract Writer Name Role Phone None, Unknown or Primary Care Provider Unavailab Deidra Boyd Unavailable [phone] REASON FOR VISIT Nail Care / unable to leave message about cancel Encounters Encounter Location Date Provider Diagnosis [facility] ([facility]) [address] [place] [address] [place] [address] 10/09/2024 Deidra Pond Plan Of Treatment No Information Progress Notes * DEMOND ManpreetDOB: 1 (85 yo M)Acc No.[id number]:10/09/2024 UNLOCKED PROGRESS NOTE Nurse Visit Patient: Manpreet ROSS Provider: Herbie Pond PA-C :1940 A ge:84 Y S ex:Male Date:10/09/2024 Address:[address] [place], [place] [id number] Pcp:Unknown or None Subjective: * Chief Complaints: * 1 . Nail Care / unable to leave message about cancel. * Medical History: Objective: * Vitals: Assessment: Plan: * Treatment: * * Electronic signature of Abiel Pond PA-C on 04/10/2025 at 01:22 PM EDT Sign off status: Pending Visit Status: O FF CANC (OFFICE CANCEL) * Provider: Herbie Pond PA-C Date: 0 10/09/2024 Generated for Printi ng/Faxing/eTransmitting on: 1 01:22 PM EDT
--- NOTE | 2025-04-10 13:16 | PM.WCHP ---
Wound Care H&P: HPI History of Present Illness Narrative: The patient is an 84-year-old gentleman with history of type 2 diabetes and neuropathy who presents for routine nail care. He states his long toenails are painful. He does admit to some numbness in his feet but states it is only sometimes bothersome. Exam Narrative: Exam Narrative: Derm: Toenails 1 through 10 are thickened, elongated, mycotic, and painful.? No evidence of paronychia.? Skin is diffusely dry, thin, and atrophic.? Hemosiderin staining present on the lower legs bilaterally. Vascular: DP and PT pulses are palpable bilaterally. Capillary refill is less than 3 seconds to all toes. Digital hair is absent bilaterally. Feet are slightly cool to the touch. Trace edema noted to the feet and ankles bilaterally Neuro: Vibratory sensation is absent bilaterally.? Achilles deep tendon reflex is absent bilaterally.? Protective sensation was tested with a monofilament and is present in 3/5 areas tested on the right and 3/5 areas tested on the left.? Musculoskeletal: No gross deformity.? Strength 5/5 in all planes bilaterally Assessment and Plan Assessment and Plan (1) Tinea unguium: (2) Type 2 diabetes mellitus with diabetic neuropathy, unspecified: (3) Pain around toenail: Plan Routine nail care performed. Follow-up in 3 months. Acute Procedures Podiatry Nail Debridement Class B Findings Advanced trophic changes as evidenced by any three of the following: decreased hair growth, nail changes (thickening) and skin texture (thin or shiny) Class C Findings Claudication: No Temperature changes: Yes Edema: Yes Nail debridement paresthesia (abnormal spontaneous sensations in the feet): Yes Burning: Yes Qualifies If: Qualifiers If:: A patient qualifies for nail debridement if they have: 1 class A finding (Q7) 2 class B findings (Q8) OR 1 class B & 2 class C findings in addition to a primary condition (Q9) Nail Procedure Nail Procedure Time out: Yes Nail procedure: other (Sharp toenail debridement) Number of affected nails: 10 Location (toes): left and right Procedure successful: Yes Patient tolerated procedure: well and no complications Additional comments: Toenails 1 through 10 were sharply debrided with nail nippers without incident
--- OUTSIDE RECORDS SUMMARY | 2025-04-10 13:23 | XMS_ITS | Clinical Summary ---
Author Organization [facility] Address [address] [place] [address] Phone Care Team Providers Care Runway Model Name Role Phone Unavailable Primary Care Provider Unavailabl e Social History Tobacco Use Types Packs/Day Years Used Date Smoking Tobacco: Never Assessed Sex and Gender Information Value Date Recorded Sex Assigned at Not on file Legal Sex Male 8:28 AM EST Gender Identity Not on file Sexual Orientation Not on file Plan of Treatment Not on file
--- OUTSIDE RECORDS SUMMARY | 2025-04-10 13:23 | XMS_ITS | Clinical Summary ---
Author Organization [facility] Address [address] [place] [address] Care Team Providers Care Nurse Aide Evaluator Name Role Phone Dong Gonzalez MD Unavailable [phone] Dong Gonzalez MD Unavailable [phone] Allergies No known active allergies Medications aspirin, enteric coated (ASPIRIN, ENTERIC COATED) 81 mg EC tablet Take 162 mg by mouth. 3 Active atorvastatin (LIPITOR) 20 mg tablet Take 20 mg by mouth. 3 Active dorzolamide-emerita lol (COSOPT) 22.3-6.8 mg/mL ophthalmic solution INSTILL 1 DROP INTO LEFT EYE 3 TIMES A DAY 4 Active glimepiride (AMARYL) 2 mg tablet Take 2 mg by mouth once daily. Active isosorbide mononitrate ER (IMDUR) 30 mg 24 hr tablet Take 30 mg by mouth. 3 Active losartan (COZAAR) 50 mg tablet Take 50 mg by mouth. 8 Active metFORMIN (GLUCOPHAGE) 500 mg tablet Take 500 mg by mouth. 3 Active metoprolol tartrate, short acting, (LOPRESSOR) 50 mg tablet Take 50 mg by mouth. Active SITagliptin phosphate (JANUVIA) 100 mg tablet Take 100 mg by mouth. Active nitroglycerin sublingual (NITROQUICK) 0.4 mg SL tablet Dissolve 0.4 mg under the tongue at bedtime as needed. 4 Active acetaminophen 650 mg CR tablet Take 1,300 mg by mouth every 8 hours as needed. Active Social History Tobacco Use Types Packs/Day Years Used Date Smoking Tobacco: Never Smokeless Tobacco: Never Tobacco Cessation:Counseling Given: Not Answered Alcohol Use Standard Drinks/Week Comments Not Asked 0 (1 standard drink = 0.6 oz pur e alcohol) very seldom Area Deprivation Index Answer Date Tai rded National Score (1-100), lower number is lower ri sk 86 08/31/2024 State Score (1-10), lower number is lower risk 8 08/31/2024 Data from: https://www.neighborhoodatlas.medicine.[facility]/. Last address used for calculation [address] [place] [address] 08/31/2024 Sex and Gender Information Value Date Recorded Sex Assigned at Male 08/23/2024 10:47 AM EST Legal Sex Male 4:07 PM EST Gender Identity Male 08/23/2024 10:47 AM EST Sexual Orientation Straight 08/23/2024 10 :47 AM EST Plan of Treatment Health Maintenance Due Date Last Done Comments Anxiety Screening 1958 Depression Screening 1958 DTaP,Tdap,Td Vaccine (1 - Tdap) 01/26/1960 Pneumococcal Vaccine: 50+ (1 of 1 - PCV) 1991 Shingrix Vaccine (1 of 2) 1991 RSV Vaccine (1 - 1-dose 75+ series) 01/26/2016 Advance Directive Discussion 07/05/2024 Medicare Advantage Annual We llness Visit 07/05/2024 Covid-19 Vaccine (6 - 2024-2 6 season) 2025 06/11/2023, 04/15/2022, 04/07/2021, Additional history exists Influenza Vaccine (#1) 2025 4, 03/15/2023, 05/01/2022, Additional history exists Diabetes Screening 07/07/2027 07/07/2024, 0 07/07/2024, 07/07/2024, Additional history exists Insurance [employer] MEDICARE Care Teams Nurse Aide Evaluator Relationship Specialty Start Date End Date Dong Gonzalez MD Referring Ophthalmology 08/18/24 Dong Gonzalez MD Referring Ophthalmology 08/21/24
--- OUTSIDE RECORDS SUMMARY | 2025-04-10 13:23 | XMS_ITS | Clinical Summary ---
Author Organization [facility] Healthcare Address [address] [place] [address] Care Team Providers Care Shirring Tender Name Role Phone Theron Sawyer MD Primary Care Provider [phone] Allergies No known active allergies Medications acetaminophen (Tylenol 8 Hour) 650 MG ER tablet Take 650 mg by mouth every 8 (eight) hours if needed. Active aspirin 81 MG EC tablet Take 162 mg by mouth in the morning. Active atorvastatin (Lipitor) 20 MG tablet Take 20 mg by mouth. 07/23/2022 Active OneTouch Ultra test strip TEST DAILY*E11.8* 07/27/2022 Active glyBURIDE (Diabeta) 5 MG tablet 1 (one) time each day at the same time. 09/14/2022 Active isosorbide mononitrate ER (Imdur) 30 MG 24 hr tablet Take 30 mg by mouth. 02/24/2023 Active Accu-Chek Softclix Lancets lancets USE ONCE DAILY 05/01/2022 Active losartan (Cozaar) 50 MG tablet See Instructions , Take half tablet every evening, Refills(s) 0 02/24/2023 Active glimepiride (Amaryl) 4 MG tablet Take 4 mg by mouth 12/29/2023 Active metFORMIN (Glucophage) 500 MG tablet Take 500 mg by mouth 05/24/2023 Active metoprolol tartrate (Lopressor) 50 MG tablet Take 50 mg by mouth in the morning and 50 mg before bedtime. 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 Family History Medical History Relation Name Comments Cancer Father Heart disease Maternal Grandfather Breast cancer Maternal Grandmother Dementia Mother Hypertension Mother Mental illness Mother Stroke Mother Stomach cancer Paternal Grandfather Stomach cancer Paternal Grandmother Melanoma Neg Hx Relation Name Status Comments Father Maternal Grandfather Maternal Grandmother Mother Paternal Grandfather Paternal Grandmother Social History Tobacco Use Types Packs/Day Years Used Date Smoking Tobacco: Never Tobacco Cessation:Counseling Given: Not Answered Alcohol Use Standard Drinks/Week Comments Never 0 (1 standard drink = 0.6 oz pure alcohol) Caffeine: more than 4 cups per day Sex and Gender Information Value Date Recorded Sex Assigned at Not on file Legal Sex Male 8:34 PM EDT Gender Identity Not on file Sexual Orientation Not on file Last Filed Vital Signs Vital Sign Reading Time Taken Comments Blood Pressure 140/76 01/28/2022 12:00 PM EDT Pulse - - Temperature - - Respiratory Rate - - Oxygen Saturation - - Inhaled Oxygen Concentration - - Weight 86.6 kg (191 lb) 01/28/2022 12:00 PM EDT Height 176.5 cm (5' 9.5 ) 01/28/2022 12:00 PM ED T Body Mass Index 27.8 01/28/2022 12:00 PM EDT Plan of Treatment Health Maintenance Due Date Last Done Comments Pneumococcal Vaccine: 65+ Ye ars (1 of 1 - PCV) 1991 Influenza Vaccine (#1) 2025 3, 05/01/2022, 05/09/2021, Additional history exists Insurance [employer] MED[employer]ARE [employer]VANTAGE Care Teams Shirring Tender Relationship Specialty Start Date End Date Theron Sawyer MD PCP - General Family Medicine 01/31/24
--- OUTSIDE RECORDS SUMMARY | 2025-04-10 13:23 | XMS_ITS | Patient Health Record ---
Author Organization [facility] [place] Address [address] [place] [address] Care Team Providers Care Food Preparation Worker Name Role Phone None, Unknown or Primary Care Provider Unavailab Deidra Boyd Unavailable [phone] Allergies No Known Allergies Reason For Referral No Information Medications Medication SIG (Take, Route, Frequency, Duration) Notes Start Date End Date Status metFORMIN HCl 500 MG 1 tablet with a anand l Orally Once a day Active Januvia 100 MG 1 tablet Orally Once a day Active Nitrostat 0.4 MG as directed Sublingual Active Metoprolol Succinate 50 MG 1 capsule Ora lly Once a day Active Isosorbide Mononitrate ER 30 MG 1 tablet in the morning Orally Once a day Active glyBURIDE 5 MG 1 tablet with breakf ast or the first main meal of the day Orally Once a day Active Baby Aspirin Active Tylenol Arthritis Pain Active Atorvastatin Calcium 20 MG 1 tablet Oral ly Once a day Active Social History Tobacco Use: Social History Observation Description Date Details (start date - stop date) Never Smoker NA - NA Tobacco Use/Smoking Question Answer Notes Patient is a nonsmoker Problems Problem Type SNOMED Code ICD Code Onset Dates Problem Status W/U Status Risk Notes Problem Diabetic peripheral neuropathy associated with type 2 diabetes mellitus (6521785486884) Type 2 diabetes mellitus with diabetic neuropathy, unspecified (E11.40) Active confirmed Problem Parkinson's disease (88222426) Parkinson's disease (G20) Active confirmed Problem Acquired deformity of left foot (disorder) (130137687) 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) Active confirmed Problem 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) (693320409444314 ) Contracture, 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) Active confirmed Problem Contracture of joint of left ankle (disorder) (520016737047458 ) Contracture, left ankle (M24.572) Active confirmed Problem Long-term current use of insulin (349429079) senior care (current) use of insulin (Z79.4) Active confirmed Problem Type II diabetes mellitus without complication (786850497) Diabetes (E11.9) Active confirmed Vital Signs Heart Rate 72 /min 07/10/2024 Temperature 98 degrees Fahrenheit 07/10/2024 Respiratory Rate 18 /min 07/10/2024 Oximetry 99 % 07/10/2024 Height 70 in 07/10/2024 Weight 192 lbs 07/10/2024 BMI 27.55 kg/m2 07/10/2024 Encounters Encounter Location Date Provider Diagnosis [facility] (PODIATRY) [address] [place] [address] [place] [address] 07/10/2024 Deidra Pond Type 2 diabetes mellitus with diabetic neuropathy, unspecified E11.40 Assessments Encounter Date Diagnosis (ICD Code) Assessment Notes Treatment Notes Treatment Clinical Notes Section Notes 07/10/2024 Type 2 diabetes mellitus with diabetic neuropathy, unspecified (ICD-10 - E11.40) Plan Of Treatment No Information Insurance Providers Payer Name Payer Address Payer Phone Subscriber Number Group Number Insured Name Patient Relationship to Insured Coverage Start Date Coverage End Date [employer] MEDICARE [address] [place] [id number] Manpreet Lagos Self - patient is the insured Medical (General) History Medical History History ICD Code Diabetes E11.9 Surgical History Surgery Date(Month/Year) APPENDECTOMY cataract removal Hospitalization History Reason Date(Month/Year) see above
--- OUTSIDE RECORDS SUMMARY | 2025-04-10 13:23 | XMS_ITS | Encounter Summary ---
Author Organization [facility] tem Address [id number] [address] [place] [address] Care Team Providers Care Airbrush Painter Name Role Phone Janette Kyle SALES MARKET LEADER-STAFF SUBMARINE WARFARE OFFICER Primary Care Provider [phone] Encounter Details Date Type Department Care Team (Late st Contact Info) Description 08/20/2021 Orders Only [facility] [address] [place] [id number] External, Scanning Provider Social History Tobacco Use Types Packs/Day Years Used Date Smoking Tobacco: Never Smokeless Tobacco: Never Alcohol Use Standard Drinks/Week Comments No 0 (1 standard drink = 0.6 oz pur e alcohol) Childcare Answer Date Recorded Childcare Unknown 12/08/2018 Employment Answer Date Recorded Employment Unknown 12/08/2018 Purpose - Life Answer Date Recorded Purpose and direction in life Unknown Sex and Gender Information Value Date Recorded Sex Assigned at Not on file Legal Sex Male 2:01 PM EDT Gender Identity Not on file Sexual Orientation Not on file COVID-19 Exposure Response Date Recorded In the last month, have you been in contact with someone who was confirmed or suspected to have Coronavirus / COVID-19? No / Unsure 08/18/2021 11:32 AM EST documented as of this encounter Plan of Treatment Not on file documented as of this encounter Procedures Procedure Name Priority Date/Time Associated Diagnosis Comments MULTIPLE LABS Routine 04/03/2021 LIPID PROFILE Routine 04/03/2021 documented in this encounter Results * Lipid profile (04/03/2021) External Cholesterol 111 MANUALLY TRANSCRIBED RESULTS External Cholesterol:Hdl 3.3 MANUALLY TRANSCRIBED RESULTS External Hdl Cholesterol 34 MANUALLY TRANSCRIBED RESULTS External Ldl (Calc) 42 MANUALLY TRANSCRIBED RESULTS External Triglycerides 175 MANUALLY TRANSCRIBED RESULTS External Very Low Lipoprotein 35 MANUALLY TRANSCRIBED RESULTS us Scanning Provider External LAB BLOOD ORDERABLES Edited Result - Final Performing Organization Address City/[facility]/ZIP Co de Phone Number MANUALLY TRANSCRIBED RESULTS * Multiple labs (04/03/2021) us Scanning Provider External [place] [facility] Final Result Performing Organization Address City/[facility]/ZIP Co de Phone Number MANUALLY TRANSCRIBED RESULTS documented in this encounter Visit Diagnoses Not on filedocumented in this encounter Care Teams Airbrush Painter Relationship Specialty Start Date End Date Janette Kyle, SALES MARKET LEADER-STAFF SUBMARINE WARFARE OFFICER [address] [place] [address] [place] [address] PCP - General Nurse Practitioner 03/17/24 documented as of this encounter
--- OUTSIDE RECORDS SUMMARY | 2025-04-10 13:23 | XMS_ITS | Clinical Summary ---
Author Organization [facility] Address [address] [id number] Care Team Providers Care Special Events Manager Name Role Phone Nuha Yang MD Primary Care Provider Dong Gonzalez MD Unavailable [phone] Social History Tobacco Use Types Packs/Day Years Used Date Smoking Tobacco: Never Assessed Sex and Gender Information Value Date Recorded Sex Assigned at Not on file Legal Sex Male 11:59 AM EDT Gender Identity Not on file Sexual Orientation Not on file Plan of Treatment Health Maintenance Due Date Last Done Comments DTaP,Tdap,and Td Vaccines (1 - Tdap) 01/26/1960 Pneumococcal Vaccines 50year s + (1 of 1 - PCV) 1991 Zoster Recombinant Vaccines (1 of 2) 1991 Respiratory Syncytial Virus (RSV) or ages 60 years and older (1 - 1-dose 75+ series) 01/26/2016 COVID-19 Vaccine (1 - 2024-2 6 season) 2025 Influenza Vaccine (#1) 2025 Respiratory Syncytial Virus (RSV) ages 0 thru 19 months Aged Out No longer eligible based on patient's age to complete this topic Care Teams Special Events Manager Relationship Specialty Start Date End Date Nuha Yang MD [address] [facility] [place] [address] PCP - General Family Medicine 05/02/24 Dong Gonzalez MD [address] [facility] [place] [id number] Referring Physician Ophthalmology 05/02/24
--- OUTSIDE RECORDS SUMMARY | 2025-04-10 13:23 | XMS_ITS | Clinical Summary ---
Author Organization [employer] [facility] Address [id number] [address] [place] [address] Care Team Providers Care Sonography Technician Name Role Phone Saroj, Janette Lai APRN-IMPORT/EXPORT SPECIALIST Primary Care Provider [phone] Allergies No known active allergies Medications aspirin 81 mg Take 2 tablets (162 mg total) by mouth in the morning. Bypass x 4. Active metoprolol tartrate (LOPRESSOR) 50 mg tabletIndication s:hypertension Take 1 tablet (50 mg total) by mouth in the morning and 1 tablet (50 mg total) before bedtime. Indications: high blood pressure. Active metFORMIN (GLUCOPHAGE) 500 mg tabletIndication s:type 2 diabetes mellitus Take 1 tablet (500 mg total) by mouth 3 (three) times a day Indications: type 2 diabetes mellitus. Active sitaGLIPtin (JANUVIA) 100 mg tabletIndication s:type 2 diabetes mellitus Take 1 tablet (100 mg total) by mouth in the morning. Indications: type 2 diabetes mellitus. Active isosorbide mononitrate (IMDUR) 30 mg 24 hr tabletIndication s:prevention of anginal pain in coronary artery disease Take 1 tablet (30 mg total) by mouth every morning Indications: prevention of anginal chest pain associated with coronary artery disease. Active nitroglycerin (NITROSTAT) 0.[address] 1 tablet (0.4 mg total) under the tongue every 5 (five) minutes as needed for chest pain. Active acetaminophen (TYLENOL) 650 mg 8 hr tablet Take 2 tablets (1,300 mg total) by mouth in the morning and 2 tablets (1,300 mg total) before bedtime. 2 tabs BID . Active losartan (COZAAR) 50 mg tabletIndication s:hypertension Take 0.5 tablets (25 mg total) by mouth nightly Indications: high blood pressure. 8 Active atorvastatin (LIPITOR) 20 mg tabletIndication s:hypercholester olemia Take 1 tablet (20 mg total) by mouth nightly Indications: high cholesterol. 3 Active glimepiride (AMARYL) 4 mg tabletIndication s:type 2 diabetes mellitus Take 1 tablet (4 mg total) by mouth every morning before breakfast Indications: type 2 diabetes mellitus. Active Active Problems Problem Noted Date Diagnosed Date Vitreous hemorrhage, left eye 03/17/2024 DDD (degenerative disc disease), cervical 2023 Hearing loss 03/17/2024 Osteoarthritis 03/17/2024 Peripheral neuropathy 03/17/2024 Preoperative evaluation to heather jacobsone out surgical contraindication 03/22/2020 Nonproliferative diabetic retinopathy 01/16/2015 Hyperlipidemia Hypertension Atherosclerosis of coronary artery bypass graft without angina pectoris Diabetes mellitus type 2, controlled CAD (coronary artery disease) Resolved Problems Problem Noted Date Diagnosed Date Resolved Date History of vitrectomy 03/17/20242023 Epiretinal membrane (ERM) of left eye 03/17/2024 03/17/2024 PCO (posterior capsular opac ification), 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 03/17/2024 Family History Medical History Relation Name Comments Coronary artery disease Brother 1 Diabetes Brother 1 Hypertension Brother 1 Obesity Brother 1 Prostate cancer Brother 1 Cancer Father liver Heart disease Mother Stroke Mother Anesthesia problems Neg Hx Bleeding Disorder Neg Hx Clotting disorder Neg Hx Colon cancer Neg Hx Relation Name Status Comments Brother 1 Alive Brother 2 Alive Father Maternal Grandfather Maternal Grandmother Mother Paternal Grandfather Paternal Grandmother Social History Tobacco Use Types Packs/Day Years Used Date Smoking Tobacco: Never Passive Smoke Exposure: Past Smokeless Tobacco: Never Tobacco Cessation:Counseling Given: Not Answered Alcohol Use Standard Drinks/Week Comments No 0 (1 standard drink = 0.6 oz pur e alcohol) once year Childcare Answer Date Recorded Childcare Unknown 12/08/2018 Employment Answer Date Recorded Employment Unknown 12/08/2018 Hunger Screening Answer Date Recorded Within the past 12 months we worried whether our food would run out before we got money to buy more. Never True 07/07/2024 Within the past 12 months th e food we bought just didn't last and we didn't have money to get more. Never True 07/07/2024 Purpose - Life Answer Date Recorded Purpose and direction in life Unknown Sex and Gender Information Value Date Recorded Sex Assigned at Not on file Legal Sex Male 2:01 PM EDT Gender Identity Not on file Sexual Orientation Not on file Last Filed Vital Signs Vital Sign Reading Time Taken Comments Blood Pressure 120/56 07/07/2024 3:51 PM EST Pulse 67 07/07/2024 3:51 PM EST Temperature 36.4 C (97.5 F) 07/07/2024 3:51 PM EST Respiratory Rate 14 07/07/2024 3:51 PM EST Oxygen Saturation 99% 07/07/2024 3:51 PM EST Inhaled Oxygen Concentration - - Weight 86.4 kg (190 lb 7.6 oz) 07/07/2024 3:50 P M EST Height 177.8 cm (5' 10 ) 07/07/2024 3:50 PM EST Body Mass Index 27.33 07/07/2024 3:50 PM EST Plan of Treatment Health Maintenance Due Date Last Done Comments Depression Screening 1952 DTaP,Tdap and Td Vaccines (1 - Tdap) 01/26/1960 Zoster (Shingles) Vaccine (1 of 2) 1991 Fall Risk Screening 2006 COVID-19 Vaccine (2024-2 6 season) 2025 06/11/2023, 04/15/2022, 04/07/2021, Additional history exists Influenza Vaccine 03/05/2025 04/25/2024, , 05/01/2022, Additional history exists Tobacco Screening 08/02/2025 08/02/2024 Medical Devices Not on file Insurance [employer] MEDICARE Care Teams Sonography Technician Relationship Specialty Start Date End Date Janette Kyle, DIRECTOR OF GUIDANCE IN [employer]-IMPORT/EXPORT SPECIALIST [address] [place] [address] PCP - General Nurse Practitioner 03/17/24
--- OUTSIDE RECORDS SUMMARY | 2025-04-10 13:43 | XMS_ITS | CCD ---
Author Organization [facility] Care Team Providers Care Retrofit Installer Name Role Phone VESTA POND Admitting Unavailable VESTA POND Attending Unavailable PRESCOTT ., DR DEVIN Abrams Primary Care Unavailable PRESCOTT ., DR DEVIN Abrams Primary Care Unavailable VESTA POND Admitting Unavailable VESTA POND Consulting Unavailable VESTA POND Attending Unavailable EDOUARD ARRIAZA Consulting Unavailable PRESCOTT ., DR DEVIN Abrams Primary Care Unavailable PRESCOTT ., DR DEVIN Abrams Consulting Unavailable PRESCOTT ., DR DEVIN Abrams Attending Unavailable PRESCOTT ., DR DEVIN Abrams Admitting Unavailable Sean Lam Primary Care Physician Henrique Magallon Primary Care Physician [phone] HEDY DODSON Attending Unavailable HEDY DODSON Attending Unavailable Naun, Henrique Lai Admitting Unavailable Naun, Henrique Lai Attending Unavailable Naun, Henrique Lai Admitting Unavailable Naun, Henrique Lai Attending Unavailable Naun, Henrique Lai Attending Unavailable Naun, Henrique Lai Attending Unavailable Naun, Henrique Lai Attending Unavailable Naun, Henrique Lai Attending Unavailable Naun, Henrique Lai Attending Unavailable Naun, Henrique Lai Attending Unavailable Naun, Henrique Lai Attending Unavailable Naun, Henrique Lai Admitting Unavailable Naun, Henrique Lai Attending Unavailable Naun, Henrique Lai Attending Unavailable Naun, Henrique Lai Admitting Unavailable Naun, Henrique Lai Attending Unavailable Naun, Henrique Lai Admitting Unavailable Naun, Henrique Lai Attending Unavailable Naun Henrique CONDE Primary Care Provider [phone] Rizwan Juarez MD, Saturnino Unavailable Unavailabl e Rizwan Juarez MD, Saturnino Unavailable Unavailabl e Rizwna Juarez MD, Saturnino Unavailable Unavailabl e SATURNINO GONZALEZ Admitting Unavailable AL-SHWEIKI, SATURNINO A Attending Unavailable NAUN, HENRIQUE L Primary Care Unavailable BETSY WHITAKER Attending Unavailable NAUN, HENRIQUE L Primary Care Unavailable AL-SHWEIKI, SATURNINO A Referring Unavailable NAUN, HENRIQUE L Primary Care Unavailable AL-SHWEIKI, SATURNINO A Admitting Unavailable AL-SHWEIKI, SATURNINO A Attending Unavailable AL-SHWEIKI, SATURNINO A Referring Unavailable DEVIN PRESCOTT Primary Care Unavailable AL-SHWEIKI, SATURNINO A Referring Unavailable NAUN, HENRIQUE L Primary Care Unavailable GERMAN JAVIER Attending Unavailable NAUN, HENRIQUE L Primary Care Unavailable Lisa GUTIÉRREZ, Saturnino Awni Unavailable [phone] Lisa GUTIÉRREZ, Saturnino Awclayton Unavailable [phone] Rizwan Juarez MD, Saturnino Unavailable Unavailabl e JONA WONG Referring Unavailable SELF Referring Unavailable JONA WONG Attending Unavailable Rizwan Juarez MD, Saturnino Unavailable Unavailabl e Rizwan Juarez MD, Saturnino Unavailable Unavailabl e Corporate MD, Doctor Unavailable Unavailable Corporate MD, Doctor Unavailable Unavailable Rizwan Juarez MD, Saturnino Unavailable Unavailabl e Rizwan Juarez MD, Saturnino Unavailable Unavailabl yuni Loomis MD, Saturnino Unavailable Unavailabl e Naun, Henrique L Attending Unavailable Naun, Henrique L Attending Unavailable Naun, Henrique L Attending Unavailable Naun, Henrique L Attending Unavailable Naun, Henrique L Admitting Unavailable Naun, Henrique L Attending Unavailable Al Shweiki, Saturnino Attending Unavailable Al Shweiki, Saturnino Referring Unavailable Corporate, Doctor Attending Unavailable Al Shweiki, [...] Doctor Attending Unavailable Corporate, Doctor Attending Unavailable Rizwan Juarez MD, Saturnino Unavailable Unavailabl e Naun, Henrique L Admitting Unavailable Naun, Henrique L Attending Unavailable Naun, Henrique L Admitting Unavailable Naun, Henrique L Attending Unavailable Naun, Henrique L Attending Unavailable Naun, Henrique L Attending Unavailable Naun, Henrique L Attending Unavailable Naun, Henrique L Attending Unavailable Naun, Henrique L Attending Unavailable Naun, Henrique L Admitting Unavailable Naun, Henrique L Attending Unavailable Al Ann GUTIÉRREZ, Saturnino Unavailable Unavailabl e Allergies Allergy Classification Reported Allergen(s) Allergy Type Date of Onset Reaction(s) Facility (8 sources) diphenhydrAMINE ; Translations: [diphenhydramin e] Drug Allergy Unknown (qualifier value) [facility] (5 sources) No Known Medication Allergies; Translations: [No Known Medication Allergies] Propensity to adverse reactions (disorder) [facility] Repository Medications Current Medications Medication Drug Class(es) Dates Sig (Normalized) Sig (Original) acetaminophen 650 mg oral tablet (20 sources) Start: 03-24-2023 take 650 mg by mouth twice daily as needed for pain Tylenol 650 mg, Oral, BID, PRN as needed for pain, Refills(s) 0 Start Date: 03/24/23 Status: Ordered take 2 tablets by mo uth every eight hours as needed acetaminophen 650 mg CR tablet Take 1,30 0 mg by mouth every 8 hours as needed. Active Tylenol Arthriti s 650 mg tablet,extended release - Active take 2 tablets by mo uth every eight hours in the morning, then take 2 tablets by mouth at bedtime, then take 2 tablets by mouth twice daily acetaminophen (TYLENOL) 650 mg 8 hr tabl et Take 2 tablets (1,300 mg total) by mouth in the morning and 2 tablets (1,300 mg total) before bedtime. 2 tabs BID . Active aspirin 81 mg delayed release oral tablet (20 sources) Platelet Aggregation Inhibitor, Nonsteroidal Anti-inflammatory Drug Start: 02-24-2023 aspirin, enteric coated (ASPIRIN, ENTERIC COATED) 81 mg EC tablet Take 162 mg by mouth. 02/24/2023 Active Start: 02-24-2023 take 1 tablet by chel th once daily aspirin 81 mg Oral EC Tab 81 mg = 1 tab(s), Oral, Daily, Refills(s) 0 Start Date: 02/24/23 Status: Ordered atorvastatin 20 mg oral tablet (20 sources) HMG-CoA Reductase Inhibitor Start: 07-23-2022 atorvastatin (LIPITO R) 20 mg tablet Take 20 mg by mouth. 07/23/2022 Active benoxinate hydrochloride 4 mg/ml / fluorescein sodium 3 mg/ml ophthalmic solution (2 sources) Diagnostic Dye Start: 08-31-2024 End: 08-31-2024 fluorescein-benoxinate 0.3-0.4 % 1 Drop (FLURESS) Start: 08-31-2024 End: 08-31-2024 1 Drop, BOTH EYES, DIRECT ED, Starting on Malorie 08/31/24 at 1130, Until Malorie 08/31/24 at 2329, Administer for applanation tonometry. In the event of a Fluress shortage, administer [place]-Fluor 1 drop into both eyes as directed for applanation tonometry 4 ml bevacizumab 25 mg/ml injection (16 sources) Vascular Endothelial Growth Factor Inhibitor Start: 03-03-2024 End: 07-07-2024 Avastin 25 mg/mL intravenous solution Direct Patient Administration Only - Active dorzolamide 20 mg/ml / timolol 5 mg/ml ophthalmic solution (16 sources) Carbonic Anhydrase Inhibitor, beta-Adrenergic Rey Start: 03-26-2025 take 1 drop(s) into the eye(s) three times daily DORZOLAMIDE-TIMOLOL EYE DROPS INSTILL 1 DROP INTO LEFT EYE 3 TIMES A DAY - Active Start: 06-30-2024 take 1 drop(s) into the eye(s) three times daily dorzolamide-timolol (COSOPT) 22.3-6.8 mg/mL ophthalmic solution INSTILL 1 DROP INTO LEFT EYE 3 TIMES A DAY 06/30/2024 Active Start: 05-26-2024 End: 03-26-2025 take 1 drop(s) into the eye(s) three times daily dorzolamide 22.3 mg-timolol 6.8 mg/mL eye drops instill 1 drop by ophthalmic route 3 times every day into left eye 1 drop - No Longer Active glimepiride 2 mg oral tablet (19 sources) Sulfonylurea Start: 03-30-2024 take 1 tablet by mouth once daily glimepiride 2 mg Tab 2 mg = 1 tab(s), Oral, Daily, # 90 tab(s), Refills(s) 0, Pharmacy: [facility], 173, cm, 03/30/24 10:25:00 EDT, Height/Length Dosing, 83.4, kg, 03/30/24 10:25:00 EDT, Weight Dosing Start Date: 03/30/24 Status: Ordered Start: 12-29-2023 take 1 tablet by chel once daily glimepiride 4 mg Tab 4 mg = 1 tab(s), Oral, Daily, # 90 tab(s), Refills(s) 0, Pharmacy: [facility], 173, cm, 12/23/23 10:14:00 EDT, Height/Length Dosing, 83.8, kg, 12/23/23 10:14:00 EDT, Weight Dosing Start Date: 12/29/23 Status: Ordered glipiZIDE 2.5 mg oral tablet (1 source) Sulfonylurea Start: 10-18-2023 take 1 tablet by mouth once daily glipizide 2.5 mg oral tablet 2.5 mg = 1 tab(s), Oral, Daily, # 90 tab(s), Refills(s) 1, Pharmacy: [facility], 173, cm, 09/27/23 10:11:00 EDT, Height/Length Dosing, 86.2, kg, 09/27/23 10:11:00 EDT, Weight Dosing Start Date: 10/18/23 Status: Ordered glyBURIDE 5 mg oral tablet (4 sources) Sulfonylurea Start: 08-10-2023 take 1 tablet by mouth once daily glyBURIDE 5 mg Tab 5 mg = 1 tab(s), Oral, Daily, # 90 tab(s), Refills(s) 0, Pharmacy: [facility], 173, cm, 07/19/23 13:34:00 EST, Height/Length Dosing, 86.5, kg, 07/19/23 13:34:00 EST, Weight Dosing Start Date: 08/10/23 Status: Ordered Start: 03-11-2023 take 1 tablet by chel once daily glyBURIDE 5 mg Tab 5 mg = 1 tab(s), Oral, Daily, # 90 tab(s), Refills(s) 0, Pharmacy: [facility], 173.8, cm, 02/24/23 10:48:00 EDT, Height/Length Dosing, 85.6, kg, 02/24/23 10:48:00 EDT, Weight Dosing Start Date: 03/11/23 Status: Ordered Start: 09-14-2022 End: 03-17-2024 take 1 tablet by mouth once daily glyBURIDE 5 mg Tab 5 mg = 1 tab(s), Oral, Daily, # 30 tab(s), Refills(s) 0 Start Date: 09/14/22 Status: Ordered 24 hr isosorbide mononitrate 30 mg extended release oral tablet (20 sources) Nitrate Vasodilator Start: 02-24-2023 isosorbide mononitrate ER (IMDUR) 30 mg 24 hr tablet Take 30 mg by mouth. 02/24/2023 Active ketorolac tromethamine 4 mg/ml ophthalmic solution (4 sources) Nonsteroidal Anti-inflammatory Drug, Cyclooxygenase Inhibitor Start: 02-05-2025 take 1 drop(s) into the eye(s) three times daily ketorolac 0.4 % eye drops instill 1 drop by ophthalmic route 3 times every day into the right eye 1 drop - Active substitutions are acceptable Comment on above: substitutions are ac ceptable losartan potassium 100 mg oral tablet (20 sources) Angiotensin 2 Receptor Rey Start: 09-03-2023 take 1 tablet by mouth once daily losartan 100 mg Tab 100 mg = 1 tab(s), Oral, Daily, # 90 tab(s), Refills(s) 3, Pharmacy: [facility], 173, cm, 07/19/23 13:34:00 EST, Height/Length Dosing, 86.5, kg, 07/19/23 13:34:00 EST, Weight Dosing Start Date: 09/03/23 Status: Ordered Start: 03-12-2023 take 1 tablet by chel th once daily losartan 100 mg Tab 100 mg = 1 tab(s), Oral, Daily, # 90 tab(s), Refills(s) 1, [id number], 173.8, cm, 02/24/23 10:48:00 EDT, Height/Length Dosing, 85.6, kg, 02/24/23 10:48:00 EDT, Weight Dosing Start Date: 03/12/23 Status: Ordered Start: 12-31-2017 Cozaar 50 mg T ab See Instructions, Take half tablet every evening, Refills(s) 0 Start Date: 02/24/23 Status: Ordered Start: 12-31-2017 losartan (COZA AR) 50 mg tablet Take 50 mg by mouth. 12/31/2017 Active metFORMIN hydrochloride 500 mg oral tablet (20 sources) Biguanide Start: 05-24-2023 take 1 tablet by mouth three times daily metformin 500 mg Tab 500 mg = 1 tab(s), Oral, TID, # 180 tab(s), Refills(s) 1, Pharmacy: [facility], 173, cm, 03/24/23 11:36:00 EDT, Height/Length Dosing, 83.9, kg, 03/24/23 11:36:00 EDT, Weight Dosing Start Date: 05/24/23 Status: Ordered Start: 09-14-2022 take 1 tablet by chel th twice daily metformin 500 mg Tab See Instructions, Take 1 tablet by mouth twice daily, # 180 tab(s), Refills(s) 0, Pharmacy: [facility], 173, cm, 03/30/24 10:25:00 EDT, Height/Length Dosing, 83.4, kg, 03/30/24 10:25:00 EDT, Weight Dosing Start Date: 04/26/24 Status: Ordered metoprolol tartrate 50 mg oral tablet (20 sources) beta-Adrenergic Rey Start: 02-24-2023 End: 06-05-2024 take 1 tablet by mouth twice daily Metoprolol tartrate 50 mg Tab 50 mg = 1 tab(s), Oral, BID, X 90 day(s), # 180 tab(s), Refills(s) 3, Pharmacy: [facility], 173, cm, 03/24/23 11:36:00 EDT, Height/Length Dosing, 83.9, kg, 03/24/23 11:36:00 EDT, Weight Dosing Start Date: 06/11/23 Stop Date: 06/05/24 Status: Ordered nitroglycerin 0.4 mg sublingual tablet (20 sources) Nitrate Vasodilator Start: 09-14-2022 take 1 tablet under the tongue every twenty-four hours as needed nitroglycerin sublingual (NITROQUICK) 0.4 mg SL tablet Dissolve 0.4 mg under the tongue at bedtime as needed. 08/04/2023 Active Nitrostat 0.4 mg sublingual tablet PRN - Active phenylephrine hydrochloride 25 mg/ml ophthalmic solution (2 sources) alpha-1 Adrenergic Agonist Start: 08-31-2024 End: 08-31-2024 PHENYLephrine 2.5 % 1 Drop (AK-DILATE, SHAINA-SYNEPHRINE) Start: 08-31-2024 End: 08-31-2024 1 Drop, BOTH EYES, DIRECT ED, Starting on Malorie 08/31/24 at 1130, Until Malorie 08/31/24 at 2329, Administer for dilation PROTECT FROM LIGHT SITagliptin 100 mg oral tablet (20 sources) Dipeptidyl Peptidase 4 Inhibitor Start: 09-14-2022 End: 08-28-2024 take 1 tablet by mouth once daily Januvia 100 mg Tab 100 mg = 1 tab(s), Oral, Daily, X 90 day(s), # 90 tab(s), Refills(s) 3, Pharmacy: [facility], 173, cm, 07/19/23 13:34:00 EST, Height/Length Dosing, 86.5, kg, 07/19/23 13:34:00 EST, Weight Dosing Start Date: 09/03/23 Stop Date: 08/28/24 Status: Ordered tropicamide 10 mg/ml ophthalmic solution (2 sources) Anticholinergic Start: 08-31-2024 End: 08-31-2024 tropicamide 1 % 1 Drop (MYDRIACYL) Start: 08-31-2024 End: 08-31-2024 1 Drop, BOTH EYES, DIRECT ED, Starting on Malorie 08/31/24 at 1130, Until Malorie 08/31/24 at 2329, Administer for dilation Completed/Discontinued Medications Medication Drug Class(es) Dates Sig (Normalized) Sig (Original) ofloxacin 3 mg/ml ophthalmic solution (4 sources) Quinolone Antimicrobial Start: 07-06-2024 End: 08-18-2024 take 1 drop(s) into the eye(s) four times daily ofloxacin 0.3 % eye drops instill 1 drop by ophthalmic route 4 times every day into left eye 1 drop - No Longer Active 1 bottle bring to one day post op appt 07/20/2024 Comment on above: 1 bottle bring to on e day post op appt 07/20/2024 prednisoLONE acetate 10 mg/ml ophthalmic suspension (4 sources) Corticosteroid Start: 07-06-2024 End: 08-18-2024 take 1 drop(s) into the eye(s) four times daily prednisolone acetate 1 % eye drops,suspension instill 1 drop by ophthalmic route 4 times every day into left eye 1 drop - No Longer Active 1 5 ml bottle bring to one day post op appt 07/20/24 Comment on above: 1 5 ml bottle bring to one day post op appt 07/20/24 Problems Active Problems Problem Classification Problem Date Documented Date Episodic/Chronic Cancer; other and unspecified primary (20 sources) Malignant neoplasm of right retina; 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] Onset: 11-17-2024 Chronic Cataract (20 sources) After-cataract of bilateral eyes; Translations: [Other secondary cataract, bilateral] Onset: 04-19-2023 Resolved: 03-17-2024 03-17-2024 Chronic Complication of device; implant or graft (2 sources) Arteriosclerosis of coronary artery bypass graft; Translations: [Atherosclerosis of coronary artery bypass graft(s) without angina pectoris] 01-27-2018 Chronic Coronary atherosclerosis and other heart disease (8 sources) Coronary atherosclerosis; Translations: [Coronary arteriosclerosis] 09-14-2022 Chronic Diabetes mellitus with complications (20 sources) Type 2 diabetes mellitus with diabetic polyneuropathy; Translations: [Neuropathy due to diabetes mellitus] Onset: 06-08-2018 Resolved: 06-24-2022 Chronic Diabetes mellitus without complication (8 sources) Type 2 diabetes mellitus; Translations: [Type 2 diabetes mellitus without complications] 09-14-2022 Chronic Comment on above: Neurologic disorder associated linked DM with HLD p er OP CDI policy. Diabetes mellitus without complication (1 source) Diabetes mellitus without complication 05-02-2024 Comment on above: noted in 11/11/2023 Diabetic Eye Exam page 2. added per OP CDI policy. 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-2025 Chronic Osteoarthritis (8 sources) Osteoarthritis; Translations: [Unspecified osteoarthritis, unspecified site] Onset: 03-17-2024 02-24-2023 Chronic Comment on above: left knee and c spin e Other connective tissue disease (4 sources) Pain in right foot; Translations: [PAIN IN RIGHT FOOT] Onset: 11-24-2022 Episodic Other connective tissue disease (1 source) Pain in left foot; Translations: [PAIN IN LEFT FOOT] Onset: 11-25-2022 Episodic Other connective tissue disease (1 source) Enthesopathy, unspecified; Translations: [ENTHESOPATHY UNSPECIFIED] Onset: 11-25-2022 Episodic Other ear and sense organ disorders (8 sources) Hearing loss; Translations: [Unspecified hearing loss, unspecified ear] Onset: 03-17-2024 02-24-2023 Chronic Other eye disorders (15 sources) Hemorrhage of left vitreous body; Translations: [Vitreous hemorrhage, left eye] Onset: 03-17-2024 03-17-2024 Chronic Other eye disorders (20 sources) Vitreous hemorrhage, left eye; Translations: [Vitreous hemorrhage of left eye] Onset: 03-20-2024 Chronic Other eye disorders (20 sources) Vitreous hemorrhage Onset: 02-16-2024 Resolved: 05-26-2024 Chronic Other eye disorders (20 sources) Vitreous degeneration, bilateral Chronic Other eye disorders (13 sources) Vitreomacular adhesion, left eye Chronic Other eye disorders (13 sources) Intermittent exotropia; Translations: [Intermittent exotropia] Episodic Other eye disorders (20 sources) Hyphema, left eye; Translations: [Hyphema, left] Onset: 05-26-2024 Episodic Other eye disorders (14 sources) Unspecified intermittent heterotropia; Translations: [Intermittent exotropia] Onset: 05-01-2024 Episodic Other nervous system disorders (7 sources) Peripheral nerve disease ; Translations: [Polyneuropathy, unspecified] Onset: 03-17-2024 07-19-2023 Chronic Other nutritional; endocrine; and metabolic disorders (2 sources) Overweight in adulthood with body mass index of 25 or more but less than 30 03-23-2024 Episodic Other skin disorders (6 sources) Changes in skin texture 02-24-2023 Episodic Residual codes; unclassified (15 sources) History of vitrectomy; Translations: [Other specified postprocedural states] Onset: 03-17-2024 Resolved: 03-17-2024 03-17-2024 Episodic Residual codes; unclassified (13 sources) Other specified postprocedural states; Translations: [History of vitrectomy] Episodic Retinal detachments; defects; vascular occlusion; and retinopathy (20 sources) Epiretinal membrane of left eye; Translations: [Puckering of macula, left eye] Onset: 03-17-2024 Resolved: 03-17-2024 03-17-2024 Chronic Spondylosis; intervertebral disc disorders; other back problems (8 sources) Degeneration of cervical intervertebral disc; Translations: [Other cervical disc degeneration, unspecified cervical region] Onset: 03-17-2024 02-24-2023 Chronic Unclassified (2 sources) Patient encounter status 12-23-2023 Unclassified (1 source) VITREOUS HEMORRHAGE LEFT Onset: 08-02-2024 Past or Other Problems Problem Classification Problem Date Documented Da te Episodic/Chronic Unclassified (20 sources) PDR (chief complaint) Onset: 05-29-2024 Resolved: 06-29-2024 Unclassified (13 sources) POFU (chief complaint) Onset: 05-01-2024 Unclassified (13 sources) treated vitreous hemorrhage (chief complaint) Onset: 03-29-2024 Unclassified (13 sources) NPDR (chief complaint) Onset: 03-15-2024 Unclassified (13 sources) macular pucker (chief complaint) Onset: 11-11-2023 Unclassified (13 sources) 2 months 2/p vitrectomy (chief complaint) Onset: 10-14-2022 Unclassified (13 sources) 1 week S/P vitrectomy (chief complaint) Onset: 08-12-2022 Unclassified (13 sources) 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 (chief complaint) Onset: 08-05-2022 Unclassified (13 sources) Type [address] (chief complaint) Onset: 03-25-2022 Unclassified (13 sources) NPDR (chief complaint) blurry vision (chief complaint) Onset: 11-05-2021 Unclassified (13 sources) 1 yr fu due to moderate NPDR w/o mac edema (chief complaint) Blurry vision (chief complaint) Onset: 03-04-2021 Unclassified (13 sources) diabetic retinopathy (chief complaint) increasing blurriness (chief complaint) Onset: 01-31-2020 Unclassified (13 sources) diabetic retinopathy (chief complaint) floaters (chief complaint) Onset: 12-07-2018 Unclassified (13 sources) diabetic retinopathy (chief complaint) decrease in vision (chief complaint) Onset: 04-13-2018 Unclassified (13 sources) diabetic retinopathy (chief complaint) trouble reading (chief complaint) Onset: 01-22-2016 Unclassified (13 sources) Vitreous degeneration (chief complaint) denies vision changes (chief complaint) Onset: 04-24-2015 Unclassified (13 sources) treated DME s/p laser (chief complaint) floaters (chief complaint) 124/68 (chief complaint) Onset: 03-18-2015 Unclassified (13 sources) diabetic retinopathy (chief complaint) decreased vision (chief complaint) Onset: 01-16-2015 Unclassified (10 sources) PDR w/ ME (chief complaint) Onset: 08-18-2024 Unclassified (9 sources) malignant neoplasm (chief complaint) Onset: 11-17-2024 Resolved: 02-05-2025 Results Test Name Value Interpretation Reference Range Facil ity Reminderson 04-04-2025 Reminders Reminders From: Henrique Romo To: [facility] - Clinical; Sent: 04/04/2025 10:40:56 EDT Show up: 04/04/2025 10:40:00 EDT Subject: Ambulatory Reminder Due Date/Time: 04/05/2025 10:39:00 EDT HGBA1C is 7.2 his kidney function results are abnormal as well. Have him schedule an appointment to discuss making changes to his diabetes medication. to help improve his blood sugars and kidney function. Results: Date Result Name Ind Value Ref Range 04/03/2025 11:29 Glucose Lvl 125 mg/dL (55 - 199) 04/03/2025 11:29 BUN (H) 27 mg/dL (5 - 21) 04/03/2025 11:29 Creatinine (H) 1.5 mg/dL (0.5 - 1.3) 04/03/2025 11:29 eGFR (L) 46 mL/min/1.73 m2 (>=59 - ) 04/03/2025 11:29 BUN/Creat Ratio 18 (10 - 20) 04/03/2025 11:29 Sodium Lvl 137 mmol/L (135 - 145) 04/03/2025 11:29 Potassium Lvl 5.2 mmol/L (3.5 - 5.3) 04/03/2025 11:29 Chloride 107 mmol/L (101 - 111) 04/03/2025 11:29 CO2 27 mmol/L (21 - 31) 04/03/2025 11:29 AGAP 8 mEq/L (6 - 16) 04/03/2025 11:29 Calcium Lvl (L) 8.6 mg/dL (8.9 - 11.1) 04/03/2025 11:29 Alk Phos 70 Int._Unit/L (21 - 98) 04/03/2025 11:29 ALT 17 Int._Unit/L (6 - 46) 04/03/2025 11:29 AST 18 Int._Unit/L (5 - 43) 04/03/2025 11:29 Total Protein 6.9 gm/dL (6.0 - 7.8) 04/03/2025 11:29 Albumin Lvl 4.3 gm/dL (3.3 - 5.0) 04/03/2025 11:29 Globulin 2.6 gm/dL (1.4 - 4.0) 04/03/2025 11:29 A/G Ratio 1.7 (1.1 - 2.2) 04/03/2025 11:29 Bili Total 0.9 mg/dL (0.0 - 1.1) 04/03/2025 11:29 Hgb A1C % (H) 7.2 % ( - <=5.9) 04/03/2025 11:29 Chol (L) 87 mg/dL (120 - 200) 04/03/2025 11:29 Trig 147 mg/dL ( - <=149) 04/03/2025 11:29 HDL 25 mg/dL 04/03/2025 11:29 LDL Direct 39 mg/dL ( - <=129) 04/03/2025 11:29 VLDL 29 mg/dL (7 - 40) 04/03/2025 11:29 TSH 1.22 mcIU/mL (0.34 - 5.60) Attempted to call pt with results. The phone rang several times and then the call ended with no option for VM. Normal [facility] CMPon 04-03-2025 Albumin [Mass/Vol] 4.3 g/dL Normal 3.3-5.0 [facility] Comment on above: Performed By: #### [id number] #### [facility] [address] [place] [address] Albumin/Globulin [Mass ratio] 1.7 {ratio} Normal 1.1-2.2 [facility] Comment on above: Performed By: #### [id number] #### [facility] [address] [place] [address] Alk Phos 70 Int._Unit/L Normal 21-98 [facility] Comment on above: Performed By: #### [id number] #### [facility] [address] [place] [address] ALT 17 Int._Unit/L Normal 6-46 [facility] Comment on above: Performed By: #### [id number] #### [facility] [address] [place] [address] Anion gap [Moles/Vol] 8 mmol/L Normal 6-16 [facility] Comment on above: Performed By: #### [id number] #### [facility] [address] [place] [address] AST 18 Int._Unit/L Normal 5-43 [facility] Comment on above: Performed By: #### 2 [id number] #### [facility] [address] [place] [address] Bili Total 0.9 mg/dL Normal 0.0-1.1 [facility] Comment on above: Performed By: #### 2 [id number] #### [facility] [address] [place] [address] BUN/Creat Ratio 18 No Units Normal 10-20 [facility] Comment on above: Performed By: #### 2 [id number] #### [facility] [address] [place] [address] Calcium [Mass/Vol] 8.6 mg/dL Low 8.9-11.1 [facility] Comment on above: Performed By: #### 2 [id number] #### [facility] [address] [place] [address] Chloride [Moles/Vol] 107 mmol/L Normal 101-111 [facility] Comment on above: Performed By: #### 2 [id number] #### [facility] [address] [place] [address] CO2 [Moles/Vol] 27 mmol/L Normal 21-31 [facility] Comment on above: Performed By: #### 2 [id number] #### [facility] [address] [place] [address] Creatinine [Mass/Vol] 1.5 mg/dL High 0.5-1.3 [facility] Comment on above: Performed By: #### 2 [id number] #### [facility] [address] [place] [address] Globulin (S) [Mass/Vol] 2.6 g/dL Normal 1.4-4.0 [facility] Comment on above: Performed By: #### 2 [id number] #### [facility] [address] [place] [address] Glucose [Mass/Vol] 125 mg/dL Normal 55-199 [facility] Comment on above: Performed By: #### 2 [id number] #### [facility] [address] [place] [address] Potassium [Moles/Vol] 5.2 mmol/L Normal 3.5-5.3 [facility] Comment on above: Performed By: #### 2 [id number] #### [facility] [address] [place] [address] Protein [Mass/Vol] 6.9 g/dL Normal 6.0-7.8 [facility] Comment on above: Performed By: #### 2 [id number] #### [facility] [address] [place] [address] Sodium [Moles/Vol] 137 mmol/L Normal 135-145 [facility] Comment on above: Performed By: #### 2 [id number] #### [facility] [address] [place] [address] Urea nitrogen [Mass/Vol] 27 mg/dL High 5-21 [facility] Comment on above: Performed By: #### 2 [id number] #### [facility] [address] [place] [address] JrcB0ups 04-03-2025 HbA1c (Bld) [Mass fraction] 7.2 % High <=5.9 [facility] Comment on above: Performed By: #### [id number] #### [facility] [address] [place] [address] Lipid Panelon 04-03-2025 Cholesterol [Mass/Vol] 87 mg/dL Low 120-200 [facility] Comment on above: Performed By: #### 2 [id number] #### [facility] [address] [place] [address] Cholesterol in HDL [Mass/Vol] 25 mg/dL Invalid Interpretation Code [facility] Comment on above: Result Comment: '>= 60 LOW RISK' '<= 40 HIGH RISK' Performed By: #### 2 [id number] #### [facility] [address] [place] [address] Cholesterol in LDL [Mass/Vol] 39 mg/dL Normal <=129 [facility] Comment on above: Performed By: #### 2 [id number] #### [facility] [address] [place] [address] Cholesterol in VLDL [Mass/Vol] 29 mg/dL Normal 7-40 [facility] Comment on above: Performed By: #### 2 [id number] #### [facility] [address] [place] [address] Triglyceride [Mass/Vol] 147 mg/dL Normal <=149 [facility] Comment on above: Performed By: #### 2 [id number] #### [facility] [address] [place] [address] TSHon 04-03-2025 TSH Qn 1.22 m[IU]/L Normal 0.34-5.60 [facility] Comment on above: Performed By: #### 2 [id number] #### [facility] [address] [place] [address] eGFRon 04-03-2025 eGFR 46 mL/min/1.73 m2 Low >=59 [facility] Comment on above: Performed By: #### 1 [id number] #### [facility] [address] [place] [address] Ambulatory Visit Summaryon 0 03-26-2025 Ambulatory Visit Summary Ambulatory Visit Summary DEMOND KIESHA Crawford :1940 Visit Date:03/26/2025 Ambulatory Visit Instructions Your Diagnosis Encounter for subsequent annual wellness visit (AWV) in Medicare patient Neuropathy, diabetic 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 Pure hypercholesterolemia, Pure hypercholesterolemia, unspecified Hypertension Atherosclerotic heart disease Overweight Your Care Team Attending Physician - Henrique Romo Primary Care Physician - Henrique Romo This Is Your Medications List Misc Prescription (Diabetci Shoes) Misc Prescription (accu check) Misc Prescription (one touch) acetaminophen (Tylenol) aspirin (aspirin 81 mg Oral EC Tab) atorvastatin (atorvastatin 20 mg Tab) dorzolamide-timolol ophthalmic (dorzolamide-timolol Opth 2%-0.5% Sujatha) glimepiride (glimepiride 2 mg Tab) isosorbide mononitrate (isosorbide mononitrate 30 mg ER Tab) ketorolac ophthalmic (ketorolac Opth 0.4% Sujatha) losartan (losartan 50 mg Tab) metformin (metformin 500 mg Tab) metoprolol (Metoprolol tartrate 50 mg Tab) nitroglycerin (NitroStat 0.4 mg Tab) sitagliptin (Januvia 100 mg Tab) triamcinolone topical (triamcinolone Top 0.1% Crm 15 gram) Procedures Performed Appendectomy, Cataracts, Coronary bypass graft angiography, Hernia, Myringostomy, Surgery. Discharge Vitals Heart Rate (Peripheral) 63 Respiratory Rate 16 Blood Pressure 130/60 Height 173 cm Height 68 in Weight 84.0 kg Weight 185.188 lb BMI 28.07 What to do next Scheduled Follow-Up Appointments 2024 11:00 AM EDT With: Where: [address] [id number]- 2024 1:20 PM EST With: Henrique Romo Where: [address] [id number] 11:00 AM EDT With: Where: [address] [address]- Medications What How Much When Why Instructions Unchanged acetaminophen (Tylenol) 650 Milligram By Mouth 2 times a day as needed for as needed for pain Unchanged aspirin (aspirin 81 mg Oral EC Tab) 2 Tablets By Mouth Every day Unchanged atorvastatin (atorvastatin 20 mg Tab) 1 Tablets By Mouth Every day Unchanged dorzolamide-timolol ophthalmic (dorzolamide-timolol Opth 2%-0.5% Sujatha) Unchanged glimepiride (glimepiride 2 mg Tab) 1 Tablets By Mouth Every day Unchanged isosorbide mononitrate (isosorbide mononitrate 30 mg ER Tab) 1 Tablets By Mouth Once a day (in the morning) Unchanged ketorolac ophthalmic (ketorolac Opth 0.4% Sujatha) 1 Drops Ophthalmic 4 times a day Unchanged losartan (losartan 50 mg Tab) 1 Tablets By Mouth Every day Unchanged metformin (metformin 500 mg Tab) See instructions Take 1 tablet by mouth twice daily Unchanged metoprolol (Metoprolol tartrate 50 mg Tab) 1 Tablets By Mouth 2 times a day Duration: 90 Days Unchanged Misc Prescription (accu check) See instructions check once daily Unchanged Misc Prescription (Diabetci Shoes) See instructions Type 2 diabetes mellitus with hypercholesterolemia Peripheral neuropathy Non-smoker BMI 28.0-28.9,adult Overweight (BMI 25.0-29.9) wear diabetic shoes when ambulating Unchanged Misc Prescription (one touch) See instructions check once daily Unchanged nitroglycerin (NitroStat 0.4 mg Tab) 1 Tablets Sublingual Every 5 minutes as needed for Chest pain Unchanged sitagliptin (Januvia 100 mg Tab) 1 Tablets By Mouth Every day Duration: 90 Days Unchanged triamcinolone topical (triamcinolone Top 0.1% Crm 15 gram) 1 Application Topical 3 times a day Type 2 diabetes mellitus with hypercholesterolemia Hypertension Non-smoker BMI 28.0-28.9,adult Overweight (BMI 25.0-29.9) Allergies No Known Allergies (Unknown) No Known Medication Allergies Problems Ongoing - Any problem that you are currently receiving treatment for. 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 Please share your experience with us by completing your survey. We appreciate your feedback and thank you for choosing us for your care. Education Materials BMI for Adults Body mass index (BMI) is a number found using a person's weight and height. BMI can help tell how much of a person's (more content not included)... Normal [facility] Family Medicine Office/Clini c Noteon 03-26-2025 Family Medicine Office/Clinic Note Family Medicine Office/Clinic Note Chief Complaint Subsequent Medicare Wellness Review of Systems PHQ Score Initial Depression Screen Score: 0 SCORE Physical Exam Vitals & Measurements HR: 63(Peripheral) RR: 16 BP: 130/60 SpO2: 98% HT: 68 in HT: 173 cm WT: 185.188 lb WT: 84.0 kg BMI: 28.07 Assessment/Plan 1. Encounter for subsequent annual wellness visit (AWV) in Medicare patient (Z00.00: Encounter for general adult medical examination without abnormal findings) The patient was given a customized and personalized print out of all the current AHRQ USPSTF???s recommendations for preventative services and all current CDC recommended immunizations, relevant risk recommendations and the following patient brochures were given. Reviewed Medicare Prevention Services checklist. CDC-Falls Prevention and home safety screening reviewed. Patient denies any falls in last 12 months, voices no worry about falling. Exhibits no problems with sitting, standing or ambulation. Patient aware with keeping walk way area free of clutter to prevent tripping and/or falling. [place] Advance Directives reviewed. Documents are present in chart. 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 Patient denies any problems with ADL???s and Instrumental ADL???s. Cognitive screening completed with memory and clock face drawing. No deficits noted. Immunization record reviewed, discussed Shingrix vaccine with educational handout and availability. 2 COVID vaccines have been administered, with (2) Boosters received. Allergies and medications reviewed and up to date. No concerns with taking medication as prescribed. Reviewed OTC medications, medication list up to date. Blood tests were reviewed: Discussed what tests need to be updated. Labs were ordered by pcp, will have completed prior to next PCP visit. Labs to be completed with [facility]. No concerns with bowel/ bladder. Colonoscopy last completed (12/09/2011). Patient no longer screens due to age. Reviewed pain symptoms: Patient denies pain today. Reviewed all outside providers that patient follows. Last visit summary notes available in chart and/or have been requested. Follow up scheduled with PCP, 05/17/2025 AWV has been scheduled, 04/01/2026 Medicare provides yearly screening for alcohol and depression concerns. This is completed during our Medicare Wellness Visit for those who do not have a current diagnosis of depression or concerns with alcohol use. I spent a total of 12 minutes on this date of service which included preparing to see the patient, face to face patient care, completing clinical documentation, obtaining and/or reviewing separately obtained history, counseling, and educating the patient with handouts. Explanations were provided with reviewing questionnaires. AUDIT risk assessment screening completed, risk score (0) with patient denying concerns with use. Completed PHQ-2 risk assessment for depression with risk score (0), negative findings. Patient has been reminded to notify the provider if there would be a change or concerns with symptoms with fear, unable to sleep, worrying too much, or feeling down and/or sad with lost of interest with daily activities. Will continue to monitor with screening yearly during Medicare Wellness Visits. 2. Neuropathy, diabetic (E11.40: Type 2 diabetes mellitus with diabetic neuropathy, unspecified) Patient also continues metformin, glimepiride and sitagliptin. Patient denies any signs of hyper or hypoglycemic episodes. Patient follows pcp as directed. 3. 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 Patient follows [facility] for retinopathy. Records have been requested. 4. Type 2 diabetes mellitus with hypercholesterolemia (E11.69: Type 2 diabetes mellitus with other specified complication) Patient is compliant on current DM medications: glimepiride, metformin, and sitagliptin. Does not monitors BS at home: DM stoplight handout reviewed with s/s to monitor for and report to PCP. Discussed ADA dietary recommendations with low carbs and reduce sugar intake. Patient encouraged to increase daily physical activity, adequate water intake and maintain a healthy weight. Pt follows up with Dr. Devin Pond with yearly DM foot checks. Reminded patient to perform at home foot checks to prevent future complications, wash with soap and water, apply lotion to bilateral feet and in-between toes to prevent dryness and/or cracking. Wear proper fitting shoes and loose fitting socks and/or hose. Follows up with yearly DM eye exams, last visit notes have been requested. 5. Pure hypercholesterolemia, (E78.00: Pure hypercholesterolemia, unspecified)Pure hypercholesterolemia, unspecified Reviewed healthy lifestyle with low fat diet and exercise regimen. When you are overweight our body (more content not included)... Normal [facility] Comment on above: Result Comment: Elec tronically Signed By: Nuan OIL SEPARATOR, Henrique L\.br\Date and Time Signed: 03/26/25 13:00 EDT\.br\Electronically Co-Signed By: Poonam Finney.br\Date and Time Co-Signed: 03/26/25 11:53 EDT Family Medicine Office/Clini c Noteon 02-14-2025 Family Medicine Office/Clinic Note Family Medicine Office/Clinic Note HPI Staff Kiesha is a 85 year old male presenting with f/u Do you have any of the following symptoms? Foot Exam: Devin Pond 2-3 weeks ago- NORMAL Eye Exam: [facility] Wednesday of last week... he goes back next week Last A1C Hgb A1C %: 7.3 % High (05/03/24 10:43:00) Statin: Atorvastatin 20 mg Refill for Metformin is proposed in chart and Losartan needs refilled, he cuts a 100 mg in half but he said they do not come scored any more, so he wants to try to get this in 50 mg instead History of Present Illness pt presents today for med follow up. Review of Systems PHQ Score Initial Depression Screen Score: 0 SCORE Physical Exam Vitals & Measurements T: 36.1 ???C(Temporal Artery) HR: 70(Peripheral) RR: 18 BP: 120/70 SpO2: 96% HT: 68 in HT: 173.0 cm WT: 188.715 lb WT: 85.6 kg BMI: 28.6 General: alert, no acute distress ENMT: oral mucosa moist, no pharyngeal erythema or exudate Cardiovascular: regular rate and rhythm, normal peripheral perfusion Respiratory: Lungs CTA, respirations non labored Extremities: no deformity, no trauma Neurological: oriented x 4, LOC appropriate for age, CN II-XII intact, motor strength equal & normal bilaterally, speech normal Assessment/Plan 1. Type 2 diabetes mellitus with hypercholesterolemia (E11.69: Type 2 diabetes mellitus with other specified complication) pt is due for HGBA1C and annual lab work in March. will return in March for AMW visit. will draw labs at that visit. RTC 3 months Ordered: triamcinolone topical, 1 massimo, Topical, TID, 30 gram, Refill(s) 0, [facility], 173, cm, 02/13/25 14:40:00 EDT, Height/Length Dosing, 85.6, kg, 02/13/25 14:40:00 EDT, Weight Dosing Comprehensive Metabolic Panel HgbA1c Lipid Panel Thyroid Stimulating Hormone 2. Hypertension (I10: Essential (primary) hypertension) BP at goal. CMP ordered. Ordered: triamcinolone topical, 1 massimo, Topical, TID, 30 gram, Refill(s) 0, [facility] 1985, 173, cm, 02/13/25 14:40:00 EDT, Height/Length Dosing, 85.6, kg, 02/13/25 14:40:00 EDT, Weight Dosing Comprehensive Metabolic Panel HgbA1c Lipid Panel Thyroid Stimulating Hormone 3. Non-smoker (Z78.9: Other specified health status) continue not smoking Ordered: triamcinolone topical, 1 massimo, Topical, TID, 30 gram, Refill(s) 0, [facility], 173, cm, 02/13/25 14:40:00 EDT, Height/Length Dosing, 85.6, kg, 02/13/25 14:40:00 EDT, Weight Dosing 4. BMI 28.0-28.9,adult (Z68.28: Body mass index [BMI] 28.0-28.9, adult) BMI educaiton Ordered: triamcinolone topical, 1 massimo, Topical, TID, 30 gram, Refill(s) 0, [facility] 1985, 173, cm, 02/13/25 14:40:00 EDT, Height/Length Dosing, 85.6, kg, 02/13/25 14:40:00 EDT, Weight Dosing 5. Overweight (BMI 25.0-29.9) (E66.3: Overweight) see above Ordered: triamcinolone topical, 1 massimo, Topical, TID, 30 gram, Refill(s) 0, [facility] 1985, 173, cm, 02/13/25 14:40:00 EDT, Height/Length Dosing, 85.6, kg, 02/13/25 14:40:00 EDT, Weight Dosing Pure hypercholesterolemia, unspecified (E78.00: Pure hypercholesterolemia, unspecified) lipid panel ordered Orders: metformin, See Instructions, Take 1 tablet by mouth twice daily, # 180 tab(s), Refills(s) 1, Pharmacy: [facility] 1985, 173, cm, 02/13/25 14:40:00 EDT, Height/Length Dosing, 85.6, kg, 02/13/25 14:40:00 EDT, Weight Dosing metformin, See Instructions, Take 1 tablet by mouth twice daily, # 180 tab(s), Refills(s) 1, Pharmacy: [facility], 173, cm, 03/30/24 10:25:00 EDT, Height/Length Dosing, 83.4, kg, 03/30/24 10:25:00 EDT, Weight Dosing metoprolol, 50 mg = 1 tab(s), Oral, BID, X 90 day(s), # 180 tab(s), Refills(s) 3, Pharmacy: [facility] 1985, 173, cm, 02/13/25 14:40:00 EDT, Height/Length Dosing, 85.6, kg, 02/13/25 14:40:00 EDT, Weight Dosing metoprolol, 50 mg = 1 tab(s), Oral, BID, # 180 tab(s), Refills(s) 3, Pharmacy: [facility], 173, cm, 03/30/24 10:25:00 EDT, Height/Length Dosing, 83.4, kg, 03/30/24 10:25:00 EDT, Weight Dosing Follow-up No qualifying data available Problem List/Past Medical History Ongoing Atherosclerotic heart disease Changes in skin texture DDD (degenerative disc disease), cervical Hearing loss Hypertension Neuropathy, diabetic Osteoarthritis Peripheral neuropathy Pure hypercholesterolemia 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 Medications accu check, See Instructions, 1 refills aspirin 81 mg Oral EC Tab, 162 mg= 2 tab(s), Oral, Daily atorvastatin 20 mg Tab, 20 mg= 1 tab(s), Oral, Daily, 4 refills glimepiride 2 mg Tab, 2 mg= 1 tab(s), Oral, Daily, 4 refills isosorbide mononitrate 30 mg ER Tab, 30 mg= 1 tab(s), Oral, qAM, 3 r (more content not included)... Normal [facility] Comment on above: Result Comment: Elec tronically Signed By: Henrique Romo\.br\Date and Time Signed: 02/14/25 12:22 EDT Ambulatory Visit Summaryon 0 02-13-2025 Ambulatory Visit Summary Ambulatory Visit Summary KIESHA LAGOS :1940 Visit Date:02/13/2025 Ambulatory Visit Instructions Your Care Team Attending Physician - Henrique Romo Primary Care Physician - Henrique Romo This Is Your Medications List Misc Prescription (accu check) Misc Prescription (one touch) acetaminophen (Tylenol) aspirin (aspirin 81 mg Oral EC Tab) atorvastatin (atorvastatin 20 mg Tab) glimepiride (glimepiride 2 mg Tab) isosorbide mononitrate (isosorbide mononitrate 30 mg ER Tab) losartan (losartan 100 mg Tab) metformin (metformin 500 mg Tab) metformin (metformin 500 mg Tab) metoprolol (Metoprolol tartrate 50 mg Tab) nitroglycerin (NitroStat 0.4 mg Tab) sitagliptin (Januvia 100 mg Tab) Procedures Performed Appendectomy, Cataracts, Coronary bypass graft angiography, Hernia, Myringostomy, Surgery. Discharge Vitals Temperature (Temporal Artery) 36.1 ???C Heart Rate (Peripheral) 70 Respiratory Rate 18 Blood Pressure 120/70 Height 173.0 cm Height 68 in Weight 85.6 kg Weight 188.715 lb BMI 28.6 What to do next Scheduled Follow-Up Appointments Wednesday 11:00 AM EDT With: Where: [address] [address] 2024 1:20 PM EST With: Henrique Romo Where: [address] [address]- Medications What How Much When Instructions Unchanged acetaminophen (Tylenol) 650 Milligram By Mouth 2 times a day as needed for as needed for pain Unchanged aspirin (aspirin 81 mg Oral EC Tab) 2 Tablets By Mouth Every day Unchanged atorvastatin (atorvastatin 20 mg Tab) 1 Tablets By Mouth Every day Unchanged glimepiride (glimepiride 2 mg Tab) 1 Tablets By Mouth Every day Unchanged isosorbide mononitrate (isosorbide mononitrate 30 mg ER Tab) 1 Tablets By Mouth Once a day (in the morning) Unchanged losartan (losartan 100 mg Tab) 1 Tablets By Mouth Every day Unchanged metformin (metformin 500 mg Tab) See instructions Take 1 tablet by mouth twice daily Unchanged metformin (metformin 500 mg Tab) See instructions Take 1 tablet by mouth twice daily Unchanged metoprolol (Metoprolol tartrate 50 mg Tab) 1 Tablets By Mouth 2 times a day Unchanged Misc Prescription (accu check) See instructions [...] skin texture DDD (degenerative disc disease), cervical Hearing loss Hypertension Neuropathy, diabetic Osteoarthritis Peripheral neuropathy Pure hypercholesterolemia 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 Please share your experience with us by completing your survey. We appreciate your feedback and thank you for choosing us for your care. Patient Portal You may access all of your results and other medical record information on our secure patient portal. If you are not signed up for this yet, please contact [employer] at [phone] to get signed up today. Language Information Language assistance services are available as needed. Normal Gut[facility]rez [facility] BSCAN AND ASCAN OD (RIGHT EY E)on 08-31-2024 [facility] Radiology Study observation (narrative) [facility] FUNDUS PHOTOS OU (BOTH EYES) on 08-31-2024 [facility] Radiology Study observation (narrative) [facility] OCT MACULA CIRRUS OU (BOTH E YES)on 08-31-2024 [facility] Radiology Study observation (narrative) [facility] Glucose Glucometer (BldC) [M ass/Vol]on 08-02-2024 Glucose [Mass/Vol] 128 mg/dL High 65-99 [facility] BASIC METABOLIC PANLon 07-07 Anion gap [Moles/Vol] 7 mmol/L Normal 5-15 [facility] Comment on above: Performed By: #### Veronica CHAVEZ, TIESHA #### [facility] ([id number]) [address] [place] [address] Calcium [Mass/Vol] 9.3 mg/dL Normal 8.5-10.5 [facility] Comment on above: Performed By: #### TIESHA Martin MP #### [facility] ([id number]) [address], [facility] [address] [place] [address] Chloride [Moles/Vol] 103 mmol/L Normal 98-109 [facility] Comment on above: Performed By: #### Veronica CHAVEZ, TIESHA #### [facility] ([id number]) [address], [address] [place] [address] CO2 [Moles/Vol] 27 mmol/L Normal 22-32 [facility] Comment on above: Performed By: #### Veronica CHAVEZ, TIESHA #### [facility] ([id number]) [address], [facility] [address] [place] [address] Creatinine [Mass/Vol] 1.44 mg/dL High 0.60-1.30 [facility] Comment on above: Result Comment: METH OD TRACEABLE TO IDMS STANDARD Performed By: #### TIESHA Martin MP #### [facility] ([id number]) [address] [address] [place] [address] GFR/1.73 sq M.predicted among non-blacks MDRD (S/P/Bld) [Vol rate/Area] 48 mL/min/{1.73_m2} Low >59 [facility] Comment on above: Result Comment: Reported eGFR is based on the CKD-EPI 2020 equation that does not use a race coefficient. Performed By: #### B SCOTT, TIESHA #### [facility] ([id number]) [address] [address] Glucose [Mass/Vol] 202 mg/dL High 65-99 [facility] Comment on above: Performed By: #### Veronica CHAVEZ, TIESHA #### [facility] ([id number]) [address] [address] Potassium [Moles/Vol] 5.2 mmol/L High 3.5-5.0 [facility] Comment on above: Performed By: #### TIESHA Martin MP #### [facility] ([id number]) [address] [address] Sodium [Moles/Vol] 137 mmol/L Normal 134-146 [facility] Comment on above: Performed By: #### TIESHA Martin MP #### [facility] ([id number]) [address] [address] Urea nitrogen [Mass/Vol] 20 mg/dL Normal 5-27 [facility] Comment on above: Performed By: #### Veronica CHAVEZ, TIESHA #### [facility] ([id number]) [address] [address] Basic Metabolic Panelon 01-0 Anion gap [Moles/Vol] 7 mmol/L 5 - 15 mmol/L [facility] Calcium [Mass/Vol] 9.3 mg/dL 8.5 - 10.5 mg/dL [facility] Chloride [Moles/Vol] 103 mmol/L 98 - 109 mmol/L [facility] CO2 [Moles/Vol] 27 mmol/L 22 - 32 mmol/L [facility] Creatinine [Mass/Vol] 1.44 mg/dL High 0.60 - 1.30 mg/dL [facility] Comment on above: METHOD TRACEABLE TO IDMS STANDARD eGFR (CKD-EPI)non-race dependent 48 Low - PINF [facility] Comment on above: Reported eGFR is based on the CKD-EPI 2020 equation that does not use a race coefficient. Glucose [Mass/Vol] 202 mg/dL High 65 - 99 mg/dL [facility] Interpretation and review of laboratory results Abnormal [facility] Potassium [Moles/Vol] 5.2 mmol/L High 3.5 - 5.0 mmol/L [facility] Sodium [Moles/Vol] 137 mmol/L 134 - 146 mmol/L [facility] Urea nitrogen [Mass/Vol] 20 mg/dL 5 - 27 mg/dL [facility] HGB A1C (GLYCO-HGB)on 2024 Glucose [Mass/Vol] 157 mg/dL Normal [facility] Comment on above: Performed By: #### TIESHA Martin MP #### [facility] ([id number]) [address] [place] [address], [address] [place] [address] HbA1c (Bld) [Mass fraction] 7.1 % High 4.4-5.6 [facility] Comment on above: Result Comment: NOTE ADA Guidelines Result HgbA1c Normal : less than 5.7 % Prediabetes : 5.7 % to 6.4 % Diabetes : > 6.4 % Use with caution in patients with abnormal hemoglobin variants as the half-life of red blood cells and in vivo glycation rates are affected. Performed By: #### Veronica CHAVEZ, TIESHA #### [facility] ([id number]) [address] [place] [address] Hemoglobin A1con 07-07-2024 Average glucose Estimated from glycated hemoglobin (Bld) [Mass/Vol] 157 mg/dL [facility] HbA1c (Bld) [Mass fraction] 7.1 % High 4.4 - 5.6 % [facility] Comment on above: NOTE ADA Guidelines Result HgbA1c Normal : less than 5.7 % Prediabetes : 5.7 % to 6.4 % Diabetes : > 6.4 % Use with caution in patients with abnormal hemoglobin variants as the half-life of red blood cells and in vivo glycation rates are affected. Interpretation and review of laboratory results Abnormal [facility] Reminderson 05-04-2024 Reminders Reminders From: Henrique Romo To: [facility] - Clinical; Sent: 05/04/2024 13:25:26 EDT Show up: 05/04/2024 13:26:00 EDT Subject: Ambulatory Reminder Due Date/Time: 05/05/2024 13:25:00 EDT HGAB1C is 7.3 Results: Date Result Name Ind Value Ref Range 05/03/2024 10:43 Hgb A1C % ((H)) 7.3 % ( - <=5.9) From: Mary Chamorro M.A. ([facility] - Clinical) To: Henrique Romo; Sent: 05/04/2024 14:35:52 EDT Show up: 05/04/2024 14:34:00 EDT Subject: RE: Ambulatory Reminder Patient verbalizes understanding Normal [facility] CHEMISTRYOrdered By: Kailey Recio on 05-03-2024 HbA1c (Bld) [Mass fraction] 7.3 % High <=5.9% [facility] ChemAutoSS [id number] 05-03-2024 HbA1c (Bld) [Mass fraction] 7.3 % High <=5.9 [facility] Comment on above: Performed By: #### 7 [id number] #### [facility] [address] [place] [address] Pre-Visit Planningon 024 Pre-Visit Planning Pre-Visit Planning From: Fay Wharton To: Henrique Romo; Sent: 05/02/2024 11:05:43 EDT Subject: Pre-Visit Planning Due Date/Time: 05/02/2024 11:05:00 EDT Caller Name: KIESHA LAGOS; Caller Number: Kassandra , Mora Nelson Savage. During a pre-visit planning chart [...] feel free to contact me at extension [phone]. Thank you! Fay Wharton LPN Clinical Local Area Network Administrator [place] [phone] Extension: [phone] [email or web address] Ambulatory Visit Summaryon 0 03-30-2024 Ambulatory Visit Summary Ambulatory Visit Summary KIESHA LAGOS :1940 Visit Date:03/30/2024 Ambulatory Visit Instructions Your Diagnosis Diabetes mellitus, type II Non-smoker BMI 27.0-27.9,adult Overweight (BMI 25.0-29.9) Your Care Team Attending Physician - Henrique Romo Primary Care Physician - Henrique Romo This Is Your Medications List Misc [...] Follow-Up Appointments Wednesday 10:40 AM EDT Where: [address] [address]- Wednesday 11:00 AM EDT Where: [address] [address]- Medications What How Much When Instructions New glimepiride (glimepiride 2 mg Tab) 1 Tablets By Mouth Every day Pickup at [facility] 1985 Unchanged acetaminophen (Tylenol) 650 [...] Every day Duration: 90 Days Pharmacy Information [facility] 1986: [address], [place] [id number] [phone] Allergies No Known Allergies (Unknown) No Known [...] you for choosing us for your care. Normal [facility] Family Medicine Office/Clini c Noteon 03-30-2024 Family Medicine Office/Clinic Note Family Medicine Office/Clinic Note HPI Staff Kiesha is a 84 year old male presenting [...] Daily, # 90 tab(s), Refills(s) 0, Pharmacy: [facility] 1985, 173, cm, 03/30/24 10:25:00 EDT, Height/Length Dosing, 83.4, kg, 03/30/24 10:25:00 EDT, Weight Dosing glimepiride, 4 mg = 1 tab(s), Oral, Daily, # 90 tab(s), Refills(s) 0, Pharmacy: [facility] 1985, 173, cm, 12/23/23 10:14:00 EDT, [...] 03/23/2024 Tobacco - Denies Tobacco Use, 03/23/2024 Nev (more content not included)... Normal [facility] Comment on above: Result Comment: Elec tronically Signed By: Henrique Romo\.br\Date and Time Signed: 03/30/24 10:44 EDT CHEMISTRYOrdered By: SYSTEM SYSTEM on 03-28-2024 Albumin [Mass/Vol] 4.5 g/dL Normal 3.3 - 5.0 gm/dL [facility] Albumin/Globulin [Mass ratio] 1.8 {ratio} Normal 1.1 - 2.2 [facility] ALP [Catalytic activity/Vol] 72 [iU]/d Normal 21 - 98 Int._Unit/L [facility] ALT No additional P-5'-P [Catalytic activity/Vol] 19 [iU]/d Normal 6 - 46 Int._Unit/L [facility] Anion gap [Moles/Vol] 11 mmol/L Normal 6 - 16 mEq/L [facility] AST [Catalytic activity/Vol] 20 [iU]/d Normal 5 - 43 Int._Unit/L [facility] Bilirubin [Mass/Vol] 1.4 mg/dL High 0.0 - 1.1 mg/dL [facility] Calcium [Mass/Vol] 8.8 mg/dL Low 8.9 - 11.1 mg/dL [facility] Chloride [Moles/Vol] 105 mmol/L Normal 101 - 111 mmol/L [facility] Cholesterol [Mass/Vol] 97 mg/dL Low 120 - 200 mg/dL [facility] Cholesterol in HDL [Mass/Vol] 33 mg/dL Invalid Interpretation Code [facility] Comment on above: Result Comment: '>= 60 LOW RISK' '<= 40 HIGH RISK' Cholesterol in LDL [Mass/Vol] 48 mg/dL Normal <=129mg/dL [facility] Cholesterol in VLDL [Mass/Vol] 28 mg/dL Normal 7 - 40 mg/dL [facility] CO2 [Moles/Vol] 28 mmol/L Normal 21 - 31 mmol/L [facility] Creatinine [Mass/Vol] 1.3 mg/dL Normal 0.5 - 1.3 mg/dL [facility] eGFR 54 mL/min/1.73 m2 Low >=59mL/min /1.73 m2 [facility] Globulin (S) [Mass/Vol] 2.5 g/dL Normal 1.4 - 4.0 gm/dL [facility] Glucose [Mass/Vol] 127 mg/dL Normal 55 - 199 mg/dL [facility] Potassium [Moles/Vol] 5.2 mmol/L Normal 3.5 - 5.3 mmol/L [facility] Protein [Mass/Vol] 7.0 g/dL Normal 6.0 - 7.8 gm/dL [facility] Sodium [Moles/Vol] 139 mmol/L Normal 135 - 145 mmol/L [facility] Triglyceride [Mass/Vol] 138 mg/dL Normal <=149mg/dL [facility] Urea nitrogen [Mass/Vol] 17 mg/dL Normal 5 - 21 mg/dL [facility] Urea nitrogen/Creatinin e [Mass ratio] 13 mg/mg Normal 10 - 20 [facility] CHEMISTRYOrdered By: Eron Mckeon on 03-28-2024 Albumin DL <= 20 mg/L (U) [Mass/Vol] mg/dL Normal 0.0 - 1.9 mg/dL [facility] Albumin/Creatinine DL <= 20 mg/L (U) [Mass ratio] NOT CALCULATED Invalid Interpretation Code 0.0 - 30.0 [facility] Comment on above: Interpretive Data: 3 0-300 mg/g Cr indicates an increased risk for diabetic nephropathy. >300 mg/g Cr is consistent with clinical nephropathy. U Creatinine 75.4 mg/dL Invalid Interpretation Code [facility] CMPon 03-28-2024 Albumin [Mass/Vol] 4.5 g/dL Normal 3.3-5.0 [facility] Comment on above: Performed By: #### 2 [id number] #### [facility] [address] [place] [address] Albumin/Globulin (S) [Mass conc ratio] 1.8 Normal 1.1-2.2 [facility] Comment on above: Performed By: #### 2 [id number] #### [facility] [address] [place] [address] ALP [Catalytic activity/Vol] 72 Int._Unit/L Normal 21-98 [facility] Comment on above: Performed By: #### 2 [id number] #### [facility] [address] [place] [address] ALT No additional P-5'-P [Catalytic activity/Vol] 19 Int._Unit/L Normal 6-46 [facility] Comment on above: Performed By: #### 2 [id number] #### [facility] [address] [place] [address] Anion gap [Moles/Vol] 11 mmol/L Normal 6-16 [facility] Comment on above: Performed By: #### 2 [id number] #### [facility] [address] [place] [address] AST [Catalytic activity/Vol] 20 Int._Unit/L Normal 5-43 [facility] Comment on above: Performed By: #### 2 [id number] #### [facility] [address] [place] [address] Bilirubin [Mass/Vol] 1.4 mg/dL High 0.0-1.1 [facility] Comment on above: Performed By: #### 2 [id number] #### [facility] [address] [place] [address] Calcium [Mass/Vol] 8.8 mg/dL Low 8.9-11.1 [facility] Comment on above: Performed By: #### 2 [id number] #### [facility] [address] [place] [address] Chloride [Moles/Vol] 105 mmol/L Normal 101-111 [facility] Comment on above: Performed By: #### 2 [id number] #### [facility] [address] [place] [address] CO2 [Moles/Vol] 28 mmol/L Normal 21-31 [facility] Comment on above: Performed By: #### 2 [id number] #### [facility] [address] [place] [address] Creatinine [Mass/Vol] 1.3 mg/dL Normal 0.5-1.3 [facility] Comment on above: Performed By: #### 2 [id number] #### [facility] [address] [place] [address] Globulin (S) [Mass/Vol] 2.5 g/dL Normal 1.4-4.0 [facility] Comment on above: Performed By: #### 2 [id number] #### [facility] [address] [place] [address] Glucose [Mass/Vol] 127 mg/dL Normal 55-199 [facility] Comment on above: Performed By: #### 2 [id number] #### [facility] [address] [place] [address] Potassium [Moles/Vol] 5.2 mmol/L Normal 3.5-5.3 [facility] Comment on above: Performed By: #### 2 [id number] #### [facility] [address] [place] [address] Protein [Mass/Vol] 7.0 g/dL Normal 6.0-7.8 [facility] Comment on above: Performed By: #### 2 [id number] #### [facility] [address] [place] [address] Sodium [Moles/Vol] 139 mmol/L Normal 135-145 [facility] Comment on above: Performed By: #### 2 [id number] #### [facility] [address] [place] [address] Urea nitrogen [Mass/Vol] 17 mg/dL Normal 5-21 [facility] Comment on above: Performed By: #### 2 [id number] #### [facility] [address] [place] [address] Urea nitrogen/Creatinin e [Mass ratio] 13 No Units Normal 10-20 [facility] Comment on above: Performed By: #### 2 [id number] #### [facility] [address] [place] [address] Lipid Panelon 03-28-2024 Cholesterol [Mass/Vol] 97 mg/dL Low 120-200 [facility] Comment on above: Performed By: #### 2 [id number] #### [facility] [address] [place] [address] Cholesterol in HDL [Mass/Vol] 33 mg/dL Invalid Interpretation Code [facility] Comment on above: Result Comment: '>= 60 LOW RISK' '<= 40 HIGH RISK' Performed By: #### 2 [id number] #### [facility] [address] [place] [address] Cholesterol in LDL [Mass/Vol] 48 mg/dL Normal <=129 [facility] Comment on above: Performed By: #### 2 [id number] #### [facility] [address] [place] [address] Cholesterol in VLDL [Mass/Vol] 28 mg/dL Normal 7-40 [facility] Comment on above: Performed By: #### 2 [id number] #### [facility] [address] [place] [address] Triglyceride [Mass/Vol] 138 mg/dL Normal <=149 [facility] Comment on above: Performed By: #### 2 [id number] #### [facility] [address] [place] [address] U MA/Cr Ratioon 03-28-2024 Albumin DL <= 20 mg/L (U) [Mass/Vol] mg/dL Normal 0.0-1.9 [facility] Comment on above: Performed By: #### 1 [id number] #### [facility] [address] [place] [address] Albumin/Creatinine DL <= 20 mg/L (U) [Mass ratio] NOT CALCULATED Invalid Interpretation Code .0-30.0 [facility] Comment on above: Result Comment: 30-3 00 mg/g Cr indicates an increased risk for diabetic nephropathy. >300 mg/g Cr is consistent with clinical nephropathy. Performed By: #### 1 [id number] #### [facility] [address] [place] [address] U Creatinine 75.4 mg/dL Invalid Interpretation Code [facility] Comment on above: Performed By: #### 1 [id number] #### [facility] [address] [place] [address] eGFRon 03-28-2024 eGFR 54 mL/min/1.73 m2 Low >=59 [facility] Comment on above: Performed By: #### 1 [id number] #### [facility] [address] [place] [address] Ambulatory Visit Summaryon 0 03-23-2024 Ambulatory Visit Summary Ambulatory Visit Summary DEMOND KIESHA Crawford :1940 Visit Date:03/23/2024 Ambulatory Visit Instructions Your Diagnosis Encounter for subsequent annual wellness visit in Medicare patient Diabetes mellitus, type II, Encounter for diabetic foot exam Neuropathy, diabetic Atherosclerotic heart disease Pure hypercholesterolemia Hypertension Immunization refused Hearing loss Over weight Your Care Team Attending Physician - Henrique Romo Primary Care Physician - Henrique Romo This Is Your Medications List Misc [...] Appointments Wednesday 10:00 AM EDT With: Where: [address] [id number]- 2023 10:20 AM EDT With: Henrique Romo Where: [address] [id number]- Wednesday 11:00 AM EDT With: Where: [address] [address]- You Need to Complete the Following Comprehensive Metabolic Panel, Blood, Routine collect, 03/23/24, Order for future visit, Lab Collect, Hypertension, Not Required, Print Label By Order Location Lipid Panel, Blood, Routine collect, 03/23/24, Order for future visit, Lab Collect, Pure hypercholesterolemia, Not Required, Print Label By Order Location Urine Microalbumin/Creatini ne Ratio, Urine, Routine collect, 03/23/24, Order for [...] in the ingredient list. Shopping ? Buy pr (more content not included)... Normal [facility] Family Medicine Office/Clini c Noteon 03-23-2024 Family Medicine Office/Clinic Note Family Medicine Office/Clinic Note Chief Complaint Subsequent Medicare Wellness Review [...] of clutter to prevent tripping and/or falling. [place] Advance Directives reviewed. Documents are scanned into [...] PCP visit. Labs to be completed with [facility]. No concerns with bowel/ bladder. Colonoscopy last [...] II, (E11.9: Type 2 diabetes mellitus without complications)Encount er for diabetic foot exam Foot exam performed [...] heart disease (I25.10: Atherosclerotic heart disease of [place] coronary artery without angina pectoris) Patient follows [facility] as directed and prn. Office notes have [...] as directed. Does not monitor BP pressure (more content not included)... Normal [facility] Comment on above: Result Comment: Elec tronically Signed By: Henrique Romo\.br\Date and Time Signed: 03/23/24 13:00 EDT\.br\Electronically Co-Signed By: Poonam Finney\.br\Date and Time Co-Signed: 03/23/24 12:44 EDT Glucose Glucometer (BldC) [M ass/Vol]on 03-20-2024 Glucose [Mass/Vol] 142 mg/dL High 65-99 [facility] BASIC METABOLIC PANLon 03-17 Anion gap [Moles/Vol] 7 mmol/L Normal 5-15 [facility] Comment on above: Performed By: #### B MP #### [facility] ([id number]) [address], [address] [place] [address] Calcium [Mass/Vol] 8.6 mg/dL Normal 8.5-10.5 [facility] Comment on above: Performed By: #### B MP #### [facility] ([id number]) [address], [address] [place] [address] Chloride [Moles/Vol] 104 mmol/L Normal 98-109 [facility] Comment on above: Performed By: #### B MP #### [facility] ([id number]) [address], [address] [place] [address] CO2 [Moles/Vol] 28 mmol/L Normal 22-32 [facility] Comment on above: Performed By: #### B MP #### [facility] ([id number]) [address], [address] [place] [address] Creatinine [Mass/Vol] 1.37 mg/dL High 0.60-1.30 [facility] Comment on above: Result Comment: METH OD TRACEABLE TO IDMS STANDARD Performed By: #### B MP #### [facility] ([id number]) [address], [address] [place] [address] GFR/1.73 sq M.predicted among non-blacks MDRD (S/P/Bld) [Vol rate/Area] 51 mL/min/{1.73_m2} Low >59 [facility] Comment on above: Result Comment: Reported eGFR is based on the CKD-EPI 2020 equation that does not use a race coefficient. Performed By: #### B MP #### [facility] ([id number]) [address] [address] [place] [address] Glucose [Mass/Vol] 100 mg/dL High 65-99 [facility] Comment on above: Performed By: #### B MP #### [facility] ([id number]) [address] [address] [place] [address] Potassium [Moles/Vol] 4.9 mmol/L Normal 3.5-5.0 [facility] Comment on above: Performed By: #### B MP #### [facility] ([id number]) [address] [address] [place] [address] Sodium [Moles/Vol] 139 mmol/L Normal 134-146 [facility] Comment on above: Performed By: #### B MP #### [facility] ([id number]) [address] [address] Urea nitrogen [Mass/Vol] 14 mg/dL Normal 5-27 [facility] Comment on above: Performed By: #### B MP #### [facility] ([id number]) [address] [address] Basic Metabolic Panelon - Anion gap [Moles/Vol] 7 mmol/L 5 - 15 mmol/L [facility] Calcium [Mass/Vol] 8.6 mg/dL 8.5 - 10.5 mg/dL [facility] Chloride [Moles/Vol] 104 mmol/L 98 - 109 mmol/L [facility] CO2 [Moles/Vol] 28 mmol/L 22 - 32 mmol/L [facility] Creatinine [Mass/Vol] 1.37 mg/dL High 0.60 - 1.30 mg/dL [facility] Comment on above: METHOD TRACEABLE TO IDLA STANDARD eGFR (CKD-EPI)non-race dependent 51 Low - PINF [facility] Comment on above: Reported eGFR is based on the CKD-EPI 2020 equation that does not use a race coefficient. Glucose [Mass/Vol] 100 mg/dL High 65 - 99 mg/dL [facility] Interpretation and review of laboratory results Abnormal [facility] Potassium [Moles/Vol] 4.9 mmol/L 3.5 - 5.0 mmol/L [facility] Sodium [Moles/Vol] 139 mmol/L 134 - 146 mmol/L [facility] Urea nitrogen [Mass/Vol] 14 mg/dL 5 - 27 mg/dL [facility] ECG 12 leadon 03-17-2024 TRACEMASTERVUE [facility] Ambulatory Visit Summaryon 0 12-23-2023 Ambulatory Visit Summary KIESHA LAGOS :1940 Visit Date:12/23/2023 Ambulatory Visit Instructions Your Diagnosis Diabetes mellitus, type II, Encounter for diabetic foot exam BMI 28.0-28.9,adult Non-smoker Your Care Team Attending Physician - Henrique Romo Primary Care Physician - Henrique Romo This Is Your Medications List [facility] [place]accu check) [facility] Prescription (one touch) acetaminophen (Tylenol) aspirin (aspirin 81 mg Oral EC Tab) atorvastatin (atorvastatin 20 mg Tab) glipiZIDE (glipizide 2.5 mg oral tablet) isosorbide mononitrate (isosorbide mononitrate 30 mg ER Tab) losartan (losartan 100 mg Tab) metformin (metformin 500 mg Tab) metoprolol (Metoprolol tartrate 50 mg Tab) nitroglycerin (NitroStat 0.4 mg Tab) sitagliptin (Januvia 100 mg Tab) Procedures Performed Appendectomy, Cataracts, Coronary bypass graft angiography, Hernia, Myringostomy, Surgery. Discharge Vitals Heart Rate (Peripheral) 62 Respiratory Rate 14 Blood Pressure 116/68 Height 173 cm Height 68 in Weight 83.8 kg Weight 184.36 lb BMI 28 What to do next Scheduled Follow-Up Appointments Wednesday 10:00 AM EDT Where: [facility] Lisa Normal [address] [place] [address]- \.br\ Medications\.br\ What How Much When Why Instructions\.br \ New glipiZIDE (glipizide 2.5 mg oral tablet) 1 Tablets By Mouth Every day BMI 28.0-28.9,adult Non-smoker Diabetes mellitus, type II Refills: 1 Pickup at [facility] 1985\.br\ Unchanged acetaminophen (Tylenol) 650 Milligram By Mouth 2 times a day as needed for as needed for pain\.br\ Unchanged aspirin (aspirin 81 mg Oral EC Tab) 2 Tablets By Mouth Every day\.br\ Unchanged atorvastatin (atorvastatin 20 mg Tab) 1 Tablets By Mouth Every day\.br\ Unchanged isosorbide mononitrate (isosorbide mononitrate 30 mg ER Tab) 1 Tablets By Mouth Once a day (in the morning)\.br\ Unchanged losartan (losartan 100 mg Tab) 1 Tablets By Mouth Every day\.br\ Unchanged metformin (metformin 500 mg Tab) 1 Tablets By Mouth 3 times a day\.br\ Unchanged metoprolol (Metoprolol tartrate 50 mg Tab) 1 Tablets By Mouth 2 times a day Duration: 90 Days\.br\ Unchanged Misc Prescription (accu check) See instructions check once daily \.br\ Unchanged Misc Prescription (one touch) See instructions check once daily \.br\ Unchanged nitroglycerin (NitroStat 0.4 mg Tab) 1 Tablets Sublingual Every 5 minutes as needed for Chest pain\.br\ Unchanged sitagliptin (Januvia 100 mg Tab) 1 Tablets By Mouth Every day Duration: 90 Days\.br\ Pharmacy Information\.br\ [facility]: [address], [place] [id number] [phone]\.br\ Allergies\.br\ No Known Allergies (Unknown)\.br\ No Known Medication Allergies\.br\ Problems\.br\ Ongoing - Any problem that you are currently receiving treatment for.\.br\ Atherosclerotic heart disease\.br\ Changes in skin texture\.br\ DDD (degenerative disc disease), cervical\.br\ Diabetes mellitus, type II\.br\ Encounter for diabetic foot exam\.br\ Hearing loss\.br\ Hypertension\.br \ Neuropathy, diabetic\.br\ Osteoarthritis\. br\ Peripheral neuropathy\.br\ Pure hypercholesterol emia\.br\ Patient Survey\.br\ You may receive a survey via text or e-mail asking about your office visit. Please share your experience with us by completing your survey. We appreciate your feedback and thank you for choosing us for your care.\.br\ \.br\ [facility] Medicine Office/[facility] [place] 12-23-2023 Family Medicine Office/Clinic Note Chief Complaint DM management HPI Staff Kiesha is a 83 year old male presenting to discuss diabetes Patient is here for follow up on Diabetes. How often are you checking your blood sugars? every other day What are your average readings? 120-160 Paresthesias, Ulcerations or sores? no Lisinopril, aspirin, statin therapy? Yes Foot Exam: done today Eye Exam: within the last 3 months Last A1c: Hgb A1C %: 7.9 % High (10/18/23 10:31:00) Questions/Concerns: pt states his insurance in no longer wanting to cover glyburide History of Present Illness pt presents today for follow up on diabetes. needs to discuss meds. insurance is not wanting to cover glyburide Review of Systems PHQ Score Initial Depression Screen Score: 0 SCORE Physical Exam Vitals & Measurements HR: 62(Peripheral) RR: 14 BP: 116/68 SpO2: 98% HT: 68 in HT: 173 cm WT: 83.8 kg WT: 184.36 lb BMI: 28 General: alert, no acute distress ENMT: oral mucosa moist, no pharyngeal erythema or exudate Cardiovascular: regular rate and rhythm, normal peripheral perfusion Respiratory: Lungs CTA, respirations non labored Extremities: no deformity, no trauma Neurological: oriented x 4, LOC appropriate for age, CN II-XII intact, motor strength equal & normal bilaterally, speech normal diabetic foot exam: TYRON feet WNL, no sensation of any toes except left big toe, no calluses, no sores, toenails WNL Assessment/Plan 1. Diabetes mellitus, type II, (E11.9: Type 2 diabetes mellitus without complications)Encount er for diabetic foot exam pt presents today for follow up on diabetes. he is concerned that his insurance is no longer covering glyburide. at last visit we sent in glipizide but he did not pick it up because he still had glyburide left. will resend glipizide. diabetic foot exam performed. pt to return on January 16 for HGBA1C. RTC after April 18 for follow up. Ordered: glipiZIDE, 2.5 mg = 1 tab(s), Oral, Daily, # 90 tab(s), Refills(s) 1, [facility], [facility], cm, 09/27/23 10:11:00 EDT, Height/Length Dosing, 86.2, kg, 09/27/23 10:11:00 EDT, Weight Dosing glipiZIDE, 2.5 mg = 1 tab(s), Oral, Daily, # 90 tab(s), Refills(s) 1, [facility], 173, cm, 12/23/23 10:14:00 EDT, Height/Length Dosing, 83.8, kg, 12/23/23 10:14:00 EDT, Weight Dosing 3. BMI 28.0-28.9,adult (Z68.28: Body mass index [BMI] 28.0-28.9, adult) BMI eduction given Ordered: glipiZIDE, 2.5 mg = 1 tab(s), Oral, Daily, # 90 tab(s), Refills(s) 1, [facility], 173, cm, 09/27/23 10:11:00 EDT, Height/Length Dosing, 86.2, kg, 09/27/23 10:11:00 EDT, Weight Dosing glipiZIDE, 2.5 mg = 1 tab(s), Oral, Daily, # 90 tab(s), Refills(s) 1, [facility], 173, cm, 12/23/23 10:14:00 EDT, Height/Length Dosing, 83.8, kg, 12/23/23 10:14:00 EDT, Weight Dosing Body Mass Index (BMI) documented 3008F Current tobacco non-user 1036F Depression Screening Negative 3352F Influenza immunization status assessed 1030F Most recent diastolic blood pressure <80 mm Hg 3078F Patient screen for fall risk: no falls in last year or 1 fall with no injury in last year 1101F Systolic BP <130 mm Hg (Most Recent) 3074F 4. Non-smoker (Z78.9: Other specified health status) continue not smoking Ordered: glipiZIDE, 2.5 mg = 1 tab(s), Oral, Daily, # 90 tab(s), Refills(s) 1, Pharmacy: [facility], 173, cm, 09/27/23 10:11:00 EDT, Height/Length Dosing, 86.2, kg, 09/27/23 10:11:00 EDT, Weight Dosing glipiZIDE, 2.5 mg = 1 tab(s), Oral, Daily, # 90 tab(s), Refills(s) 1, Pharmacy: [facility], 173, cm, 12/23/23 10:14:00 EDT, Height/Length Dosing, 83.8, kg, 12/23/23 10:14:00 EDT, Weight Dosing Follow-up No qualifying data available Problem List/Past Medical History Ongoing Atherosclerotic heart disease Changes in skin texture DDD (degenerative disc [...] mg= 1 tab(s), Oral, Daily, 3 refills glipizide 2.5 mg oral tablet, 2.5 mg= 1 tab(s), Oral, Daily, 1 refills isosorbide mononitrate 30 mg ER Tab, 30 [...] mg, Oral, BID, PRN Allergies No Known (more content not included)... Normal [facility] Comment on above: Result Comment: Elec tronically Signed By: Henrique Romo\.br\Date and Time Signed: 12/23/23 10:34 EDT Outside Diabetes Eye Examon 11-12-2023 Outside Diabetes Eye Exam [id number]. 00TIFF [facility] Reminderson 10-20-2023 Reminders - From: Henrique Romo To: [facility] - Clinical; Sent: 10/19/2023 08:12:30 EDT Show up: 10/19/2023 08:10:00 EDT Subject: Ambulatory Reminder Due Date/Time: 10/20/2023 08:09:00 EDT HGBA1C is up a little from last time 7.7 to 7.9. Did he go some time without his medication? I know he had a mix up on his insurance. Has he been making bad food choices? If he is eating right and taking meds, we may have to start an injectable to help lower HGBA1C. Instruct him we will repeat HGBA1C in 3 months if it is not better, we will start ozempic or trulicity. Results: Date Result Name Ind Value Ref Range 10/18/2023 10:31 Hgb A1C % ((H)) 7.9 % ( - <=5.9) Attempted to call patient, no answer. Left message to return call. From: Poonam Finney ([facility] - Clinical) To: Henrique Romo; Sent: 10/20/2023 15:42:22 EDT Show up: 10/20/2023 15:42:00 EDT Subject: RE: Ambulatory Reminder Patient informed of results and voices understanding. Patient reports going 3 or 4 days without medication due to insurance mix up. Patient also reports that he lives alone and does not always make the best food choices. Patient encouraged to try to make better food choices and agrees. Future Appointments [facility] Lisa Appt. Date: 01/17/2024 10:00 AM Scheduled Provider: Henrique Romo [address] [place] [address], [id number] [facility] CHEMISTRYOrdered By: Alber thomas on 10-18-2023 HbA1c (Bld) [Mass fraction] 7.9 % High <=5.9% [facility] [employer] Family Medicine Office/Clini c Noteon 10-18-2023 Family Medicine Office/Clinic Note HPI Staff Kiesha is a 83 year old male presenting for 3 month follow up Patient is here for follow up on Diabetes. How often are you checking your blood sugars? 3 times a week What are your average readings? 128 Paresthesias, Ulcerations or sores? no Lisinopril, aspirin, statin therapy? Yes Foot Exam: Eye Exam: Last A1c: Hgb A1C %: 7.7 % High (07/19/23 14:11:00) Questions/Concerns: MAMTA 09/27/23 pt was to call to check on medicare part D insurance , pt states he does now have coverage and his medication will be covered. Onset: 1-2 years has noticed drooling out of right side of mouth, pt states Dr prescott told him not to worry about it Onset: 1.5 half right arm outside of wrist small area has been itching and pt itched it so much it started to bleed. Onset: 3 weeks ago left outer left calf noticed a spot denies any itching or pain History of Present Illness pt presents today for 3 month diabetes follow up Physical Exam General: alert, no acute distress ENMT: oral [...] (E11.9: Type 2 diabetes mellitus without complications) insurance is no longer covering glyburide. pt gave provider two meds that are preferred to replace it. will order glipizide 2.5mg daily. Ordered: glipiZIDE, 2.5 mg = 1 tab(s), Oral, Daily, # 90 tab(s), Refills(s) 1, Pharmacy: [facility], 173, cm, 09/27/23 10:11:00 EDT, Height/Length Dosing, 86.2, kg, 09/27/23 10:11:00 EDT, Weight Dosing HgbA1c Lab Specimen Collect [id number] 2. BMI 28.0-28.9,adult (Z68.28: Body mass index [BMI] 28.0-28.9, adult) bmi education complete Ordered: glipiZIDE, 2.5 mg = 1 tab(s), Oral, Daily, # 90 tab(s), Refills(s) 1, [facility], 173, cm, 09/27/23 10:11:00 EDT, Height/Length Dosing, 86.2, kg, 09/27/23 10:11:00 EDT, Weight Dosing Lab Specimen Collect [id number] 3. Non-smoker (Z78.9: Other specified health status) continue not smoking Ordered: glipiZIDE, 2.5 mg = 1 tab(s), Oral, Daily, # 90 tab(s), Refills(s) 1, Pharmacy: [facility], 173, cm, 09/27/23 10:11:00 EDT, Height/Length Dosing, 86.2, kg, 09/27/23 10:11:00 EDT, Weight Dosing Lab Specimen Collect [id number] Follow-up No qualifying data available Problem List/Past Medical History Ongoing Atherosclerotic heart disease Changes in skin texture DDD (degenerative disc disease), cervical Diabetes mellitus, type II Hearing loss Hypertension Neuropathy, diabetic Osteoarthritis Peripheral neuropathy Pure hypercholesterolemia Historical No qualifying data Procedure/Surgical History Appendectomy, Cataracts, Coronary bypass graft angiography, Hernia, Myringostomy, Surgery. Medications accu check, See Instructions, 1 refills aspirin 81 mg Oral EC Tab, 162 mg= 2 tab(s), Oral, Daily atorvastatin 20 mg Tab, 20 mg= 1 tab(s), Oral, Daily, 3 refills glipizide 2.5 mg oral tablet, 2.5 mg= 1 tab(s), Oral, Daily, 1 refills glyBURIDE 5 mg Tab, 5 mg= 1 tab(s), Oral, Daily isosorbide mononitrate [...] Tylenol, 650 mg, Oral, BID, PRN Allergies Benadryl (Unknown) Social History Alcohol Household alcohol concerns: No., 03/24/2023 Tobacco Never (less than 100 in lifetime) Tobacco Use:. Never Smokeless Tobacco Use:. Household tobacco concerns: No., 10/18/2023 Family History CABG - Coronary artery bypass graft: Brother. Hypertension: Mother. Pancreatic cancer: Father. Immunizations Vaccine Date Status Comments influenza virus vaccine, inactivated 03/15/2023 Recorded influenza virus vaccine, inactivated 05/01/2022 Recorded SARS-CoV-2 (COVID-19) [id number] 04/15/2022 Recorded influenza virus vaccine, inactivated 05/09/2021 Recorded SARS-CoV-2 (COVID-19) mRNA BNT-162b2 vax 04/07/2021 Recorded 2022-09-14: [id number] SARS-CoV-2 (COVID-19) mRNA BNT-162b2 vax 08/28/2020 Recorded 2022-09-14: TPV75 SARS-CoV-2 (COVID-19) mRNA BNT-162b2 vax 08/07/2020 Recorded 2022-09-14: [id number] influenza virus vaccine, inactivated 04/17/2020 Recorded influenza virus vaccine, inactivated 05/24/2019 Recorded influenza virus vaccine, inactivated 05/25/2018 Recorded Normal [facility] Comment on above: Result Comment: Elec tronically Signed By: Henrique Romo\.br\Date and Time Signed: 10/18/23 10:51 EDT [id number] 10-18-2023 HbA1c (Bld) [Mass fraction] 7.9 % High <=5.9 [facility] Comment on above: Performed By: #### [id number] ####[facility] [address] [place] [address] Ambulatory Visit Summaryon 0 09-27-2023 Ambulatory Visit Summary KIESHA LAGOS :1940 Visit Date:09/27/2023 Ambulatory Visit Instructions Your Diagnosis BMI 28.0-28.9,adult Non-smoker Your Care Team Attending Physician - Henrique Romo Primary Care Physician - Henrique Romo This Is Your Medications List Misc Prescription (accu check) Misc Prescription (one touch) acetaminophen (Tylenol) aspirin (aspirin 81 mg Oral EC Tab) atorvastatin (atorvastatin 20 mg Tab) glyBURIDE (glyBURIDE 5 mg Tab) isosorbide mononitrate (isosorbide mononitrate 30 mg ER Tab) losartan (losartan 100 mg Tab) metformin (metformin 500 mg Tab) metoprolol (Metoprolol tartrate 50 mg Tab) nitroglycerin (NitroStat 0.4 mg Tab) sitagliptin (Januvia 100 mg Tab) Procedures Performed Appendectomy, Cataracts, Coronary bypass graft angiography, Hernia, Myringostomy, Surgery. Discharge Vitals Heart Rate (Peripheral) 74 Respiratory Rate 18 Blood Pressure 130/80 Height 173.0 cm Height 68 in Weight 86.2 kg Weight 189.64 lb BMI 28.8 What to do next Scheduled Follow-Up Appointments Wednesday 10:00 AM EDT With: Henrique Romo Where: [facility] Normal [address] [place] [address]- \.br\ Medications\.br\ What How Much When Instructions\.br \ Unchanged acetaminophen (Tylenol) 650 Milligram By Mouth 2 times a day as needed for as needed for pain\.br\ Unchanged aspirin (aspirin 81 mg Oral EC Tab) 2 Tablets By Mouth Every day\.br\ Unchanged atorvastatin (atorvastatin 20 mg Tab) 1 Tablets By Mouth Every day\.br\ Unchanged glyBURIDE (glyBURIDE 5 mg Tab) 1 Tablets By Mouth Every day\.br\ Unchanged isosorbide mononitrate (isosorbide mononitrate 30 mg ER Tab) 1 Tablets By Mouth Once a day (in the morning)\.br\ Unchanged losartan (losartan 100 mg Tab) 1 Tablets By Mouth Every day\.br\ Unchanged metformin (metformin 500 mg Tab) 1 Tablets By Mouth 3 times a day\.br\ Unchanged metoprolol (Metoprolol tartrate 50 mg Tab) 1 Tablets By Mouth 2 times a day Duration: 90 Days\.br\ Unchanged Misc Prescription (accu check) See instructions check once daily \.br\ Unchanged Misc Prescription (one touch) See instructions check once daily \.br\ Unchanged nitroglycerin (NitroStat 0.4 mg Tab) 1 Tablets Sublingual Every 5 minutes as needed for Chest pain\.br\ Unchanged sitagliptin (Januvia 100 mg Tab) 1 Tablets By Mouth Every day Duration: 90 Days\.br\ Allergies\.br\ Benadryl (Unknown)\.br\ Problems\.br\ Ongoing - Any problem that you are currently receiving treatment for.\.br\ Atherosclerotic heart disease\.br\ Changes in skin texture\.br\ DDD (degenerative disc disease), cervical\.br\ Diabetes mellitus, type II\.br\ Hearing loss\.br\ Hypertension\.br \ Neuropathy, diabetic\.br\ Osteoarthritis\. br\ Peripheral neuropathy\.br\ Pure hypercholesterol emia\.br\ Patient Survey\.br\ You may receive a survey via text or e-mail asking about your office visit. Please share your experience with us by completing your survey. We appreciate your feedback and thank you for choosing us for your care.\.br\ \.br\ [facility] Family Medicine Office/Clini c Noteon 09-27-2023 Family Medicine Office/Clinic Note HPI Staff Kiesha is a 83 year old male presenting to discuss medications Patient is here for follow up on Diabetes. How often are you checking your blood sugars? _ times per day What are your average readings? _ Paresthesias, Ulcerations or sores? no Lisinopril, aspirin, statin therapy? Yes Foot Exam: Eye Exam: Last A1c: Hgb A1C %: 7.7 % High (07/19/23 14:11:00) Questions/Concerns: pt states he has new insurance and they aren't covered the Glyburide or Januvia pt states he tried to call his insurance but couldn't get past the automated system when he did he was placed on hold for over 15 minutes and hung up History of Present Illness pt would like to discuss diabetic med Review of Systems PHQ Score Initial Depression Screen Score: 0 SCORE Physical Exam Vitals & Measurements HR: 74(Peripheral) RR: 18 BP: 130/80 SpO2: 99% HT: 68 in HT: 173.0 cm WT: 86.2 kg WT: 189.64 lb BMI: 28.8 General: alert, no acute distress ENMT: oral [...] Type 2 diabetes mellitus without complications) 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 pt attempted to call and was put on hold several times. will have Nurse call to see if we can find out what meds they will cover. After some time nurse was able to get through. and he no longer has medicare part D for prescription coverage. He was called and given a phone number to call to set that coverage up for himself. discussed increasing his glyburide to 1 tab until we are able to get him some refills. 2. BMI 28.0-28.9,adult (Z68.28: Body mass index [BMI] 28.0-28.9, adult) bmi education complete 3. Non-smoker (Z78.9: Other specified health status) continue not smoking Orders: metformin, 500 mg = 1 tab(s), Oral, TID, # 180 tab(s), Refills(s) 1, Pharmacy: [facility], 173, cm, 03/24/23 11:36:00 EDT, Height/Length Dosing, 83.9, kg, 03/24/23 11:36:00 EDT, Weight Dosing Follow-up No qualifying data available Problem List/Past Medical History Ongoing Atherosclerotic heart disease Changes in skin texture DDD (degenerative disc disease), cervical Diabetes mellitus, type II Hearing loss Hypertension Neuropathy, diabetic Osteoarthritis Peripheral neuropathy Pure hypercholesterolemia Historical No qualifying data Procedure/Surgical History Appendectomy, Cataracts, Coronary bypass graft angiography, Hernia, Myringostomy, Surgery. Medications accu check, See Instructions, 1 refills aspirin 81 mg Oral EC Tab, 162 mg= 2 tab(s), Oral, Daily atorvastatin 20 mg Tab, 20 mg= 1 tab(s), Oral, Daily, 3 refills glyBURIDE 5 mg Tab, 5 mg= 1 tab(s), Oral, Daily isosorbide mononitrate [...] Tylenol, 650 mg, Oral, BID, PRN Allergies Benadryl (Unknown) Social History Alcohol Household alcohol concerns: No., 03/24/2023 Tobacco Never (less than 100 in lifetime) Tobacco Use:. Never Smokeless Tobacco Use:. Household tobacco concerns: No., 09/27/2023 Family History CABG - Coronary artery bypass graft: Brother. Hypertension: Mother. Pancreatic cancer: Father. Immunizations Vaccine Date Status Comments influenza virus vaccine, inactivated 03/15/2023 Recorded influenza virus vaccine, inactivated 05/01/2022 Recorded SARS-CoV-2 (COVID-19) [id number] 04/15/2022 Recorded influenza virus vaccine, inactivated 05/09/2021 Recorded SARS-CoV-2 (COVID-19) mRNA BNT-162b2 vax 04/07/2021 Recorded 2022-09-14: [id number] SARS-CoV-2 (COVID-19) mRNA BNT-162b2 vax 08/28/2020 Recorded 2022-09-14: TPV75 SARS-CoV-2 (COVID-19) mRNA BNT-162b2 vax 08/07/2020 Recorded 2022-09-14: TPV75 influenza virus vaccine, inactivated 04/17/2020 Recorded influenza virus vaccine, inactivated 05/24/2019 Recorded influenza virus vaccine, inactivated 05/25/2018 Recorded Normal [facility] Comment on above: Result Comment: Elec tronically Signed By: Henrique Romo\.br\Date and Time Signed: 09/27/23 10:50 EDT Ambulatory Visit Summaryon 0 07-19-2023 Ambulatory Visit Summary KIESHA LAGOS :1940 Visit Date:07/19/2023 Ambulatory Visit Instructions Your Diagnosis Diabetes mellitus, type II BMI 28.0-28.9,adult Non-smoker Your Care Team Attending Physician - Henrique Romo Primary Care Physician - Henrique Romo This Is Your Medications List Mis Prescription (accu check) [facility] [place] (one touch) acetaminophen (Tylenol) aspirin (aspirin 81 mg Oral EC Tab) atorvastatin (atorvastatin 20 mg Tab) glyBURIDE (glyBURIDE 5 mg Tab) isosorbide mononitrate (isosorbide mononitrate 30 mg ER Tab) losartan (losartan 100 mg Tab) metformin (metformin 500 mg Tab) metoprolol (Metoprolol tartrate 50 mg Tab) nitroglycerin (NitroStat 0.4 mg Tab) sitagliptin (Januvia 100 mg Tab) Procedures Performed Appendectomy, Cataracts, Coronary bypass graft angiography, Hernia, Myringostomy, Surgery. Discharge Vitals Heart Rate (Peripheral) 76 Respiratory Rate 18 Blood Pressure 136/80 Height 173 cm Height 68 in Weight 86.5 kg Weight 190.3 lb BMI 28.9 What to do next Scheduled Follow-Up Appointments Wednesday 11:00 AM EDT Where: [facility] [place] Normal [facility] CHEMISTRYOrdered By: Paige Mccarthy on 07-19-2023 HbA1c (Bld) [Mass fraction] 7.7 % High <=5.9% [facility] [employer] Family Medicine Office/Clini c Noteon 07-19-2023 Family Medicine Office/Clinic Note HPI Staff Kiesha is a 83 year old male presenting to discuss Diabetic shoes Patient is here for follow up on Diabetes. How often are you checking your blood sugars? 3 times a week What are your average readings? _ Foot Exam: Eye Exam: Last A1c: Hgb A1C %: 7.8 % High (02/24/23 11:12:00) Questions/Concerns: Pt here to have paperwork filled out for Diabetic shoes History of Present Illness pt presents today for diabetic foot exam. needs paper work for diabetic shoes. due for repeat HGBA1C Review of Systems PHQ Score Initial Depression Screen Score: 0 SCORE ROS - Provider Constitutional: no fever, no chills, no sweats, no fatigue Respiratory: no shortness of breath, no cough, no orthopnea, no wheezing. Cardiovascular: no chest pain, no palpitations, no edema. Neurologic: no headache, no dizziness, no numbness, no weakness. foot exam performed Physical Exam Vitals & Measurements HR: 76(Peripheral) RR: 18 BP: 136/80 SpO2: 97% HT: 68 in HT: 173 cm WT: 86.5 kg WT: 190.3 lb BMI: 28.9 General: alert, no acute distress ENMT: oral mucosa moist, no pharyngeal erythema or exudate Cardiovascular: regular rate and rhythm, normal peripheral perfusion Respiratory: Lungs CTA, respirations non labored Extremities: no deformity, no trauma Neurological: oriented x 4, LOC appropriate for age, CN II-XII intact, motor strength equal & normal bilaterally, speech normal decreased sensation all toes and heel of right foot and small toe of left foot. callouses also present both heels Assessment/Plan 1. Diabetes mellitus, type II (E11.9: Type 2 diabetes mellitus without complications) pt presents today for foot exam. needs paper work for new diabetic shoes. all forms complete and signed by myself and Dr. Sawyer. will mail all forms as needed. HGBA1C also drawn in office today. all questions answered. RTC 3 months. for repeat HGBA1C. Ordered: Diabetic Foot Exam HgbA1c Lab Specimen Collect [id number] 2. Neuropathy, diabetic (E11.40: Type 2 diabetes mellitus with diabetic neuropathy, unspecified) decreased (no sensation) all toes on right foot and small toe on left foot also TYRON heels have callouses and decreased sensation 3. Peripheral neuropathy (G62.9: Polyneuropathy, unspecified) see above 4. BMI 28.0-28.9,adult (Z68.28: Body mass index [BMI] 28.0-28.9, adult) BMI education complete Ordered: Diabetic Foot Exam HgbA1c Lab Specimen Collect [id number] 5. Non-smoker (Z78.9: Other specified health status) continue not smoking Ordered: Diabetic Foot Exam HgbA1c Lab Specimen Collect [id number] Follow-up No qualifying data available Problem List/Past Medical History Ongoing Atherosclerotic heart disease Changes in skin texture DDD (degenerative disc disease), cervical Diabetes mellitus, type II Hearing loss Hypertension Neuropathy, diabetic Osteoarthritis Peripheral neuropathy Pure hypercholesterolemia Historical No qualifying data Procedure/Surgical History Appendectomy, Cataracts, Coronary bypass graft angiography, Hernia, Myringostomy, Surgery. Medications accu check, See Instructions, 1 refills aspirin 81 mg Oral EC Tab, 162 mg= 2 tab(s), Oral, Daily atorvastatin 20 mg Tab, 20 mg= 1 tab(s), Oral, Daily, 3 refills glyBURIDE 5 mg Tab, 5 mg= 1 tab(s), Oral, Daily isosorbide mononitrate 30 mg ER Tab, 30 mg= 1 tab(s), Oral, qAM, 3 refills Januvia 100 mg Tab, 100 mg= 1 tab(s), Oral, Daily, 3 refills losartan 100 mg Tab, 100 mg= 1 tab(s), Oral, Daily, 1 refills metformin 500 mg Tab, 500 mg= 1 tab(s), Oral, BID, 1 refills Metoprolol tartrate 50 mg Tab, 50 mg= 1 tab(s), Oral, BID, 3 refills NitroStat 0.4 mg Tab, 0.4 mg= 1 tab(s), SubLingual, q5min, PRN one touch, See Instructions, 1 refills Tylenol, 650 mg, Oral, BID, PRN Allergies Benadryl (Unknown) Social History Alcohol Household alcohol concerns: No., 03/24/2023 Tobacco Never (less than 100 in lifetime) Tobacco Use:. Never Smokeless Tobacco Use:. Household tobacco concerns: No., 07/19/2023 Family History CABG - Coronary artery bypass graft: Brother. Hypertension: Mother. Pancreatic cancer: Father. Immunizations Vaccine Date Status Comments influenza virus vaccine, inactivated 03/15/2023 Recorded influenza virus vaccine, inactivated 05/01/2022 Recorded SARS-CoV-2 (COVID-19) [id number] 04/15/2022 Recorded influenza virus vaccine, inactivated 05/09/2021 Recorded SARS-CoV-2 (COVID-19) mRNA BNT-162b2 vax 04/07/2021 Recorded 2022-09-14: [id number] SARS-CoV-2 (COVID-19) mRNA BNT-162b2 vax 08/28/2020 Recorded 2022-09-14: TPV75 SARS-CoV-2 (COVID-19) mRNA BNT-162b2 vax 08/07/2020 Recorded 2022-09-14: TPV75 influenza virus vaccine, inactivated 04/17/2020 Recorded influenza virus vaccine, inactivated 05/24/2019 Recorded influenza virus vaccine, inactivated 05/25/2018 Recorded Normal [facility] Comment on above: Result Comment: Elec tronically Signed By: Henrique Romo\.steff\Date and Time Signed: 07/19/23 15:03 EST [id number] 07-19-2023 HbA1c (Bld) [Mass fraction] 7.7 % High <=5.9 [facility] Comment on above: Performed By: #### [id number] ####[facility] [address] [place] [address] CHEMISTRYOrdered By: SYSTEM SYSTEM on 02-24-2023 Albumin [Mass/Vol] 4.1 g/dL Normal 3.3 - 5.0 gm/dL [facility] Albumin/Globulin [Mass ratio] 1.4 {ratio} Normal 1.1 - 2.2 [facility] ALP [Catalytic activity/Vol] 76 [iU]/d Normal 21 - 98 Int._Unit/L [facility] ALT No additional P-5'-P [Catalytic activity/Vol] 24 [iU]/d Normal 6 - 46 Int._Unit/L [facility] Anion gap [Moles/Vol] 9 mmol/L Normal 6 - 16 mEq/L [facility] AST [Catalytic activity/Vol] 24 [iU]/d Normal 5 - 43 Int._Unit/L [facility] Bilirubin [Mass/Vol] 1.0 mg/dL Normal 0.0 - 1.1 mg/dL [facility] Calcium [Mass/Vol] 9.3 mg/dL Normal 8.9 - 11.1 mg/dL [facility] Chloride [Moles/Vol] 106 mmol/L Normal 101 - 111 mmol/L [facility] Cholesterol [Mass/Vol] 120 mg/dL Normal 120 - 200 mg/dL [facility] Cholesterol in HDL [Mass/Vol] 28 mg/dL Invalid Interpretation Code [facility] Cholesterol in LDL [Mass/Vol] 52 mg/dL Normal <=129mg/dL [facility] Cholesterol in VLDL [Mass/Vol] 44 mg/dL High 7 - 40 mg/dL [facility] CO2 [Moles/Vol] 29 mmol/L Normal 21 - 31 mmol/L [facility] Creatinine [Mass/Vol] 1.4 mg/dL High 0.5 - 1.3 mg/dL [facility] GFR/1.73 sq M.predicted among non-blacks MDRD (S/P/Bld) [Vol rate/Area] 50 mL/min/1.73 m2 Low >=59mL/min/1.73 m2 [facility] S Globulin (S) [Mass/Vol] 2.9 g/dL Normal 1.4 - 4.0 gm/dL [facility] Glucose [Mass/Vol] 228 mg/dL High 55 - 199 mg/dL [facility] Potassium [Moles/Vol] 5.0 mmol/L Normal 3.5 - 5.3 mmol/L [facility] Protein [Mass/Vol] 7.0 g/dL Normal 6.0 - 7.8 gm/dL [facility] Sodium [Moles/Vol] 139 mmol/L Normal 135 - 145 mmol/L [facility] Triglyceride [Mass/Vol] 218 mg/dL High <=149mg/dL [facility] TSH Qn 1.65 m[IU]/L Normal 0.34 - 5.60 mcIU/mL [facility] Urea nitrogen [Mass/Vol] 20 mg/dL Normal 5 - 21 mg/dL [facility] Urea nitrogen/Creatinin e [Mass ratio] 14 mg/mg Normal 10 - 20 [facility] CHEMISTRYOrdered By: Alber thomas on 02-24-2023 HbA1c (Bld) [Mass fraction] 7.8 % High <=5.9% [facility] ChemAutoSS HEMATOLOGYOrdered By: SYSTEM SYSTEM on 02-24-2023 Basophils/100 WBC (Bld) 0.6 % Normal 0.0 - 2.0 % [facility] HemeAutoSS Basophils/Leukocyt es Auto (Bld) [Pure # fraction] 0.0 E9/L Normal 0.0 - 0.2 E9/L [facility] HemeAutoS S Eosinophils/100 WBC (Bld) 2.4 % Normal 0.0 - 8.0 % [facility]eAutoSS Eosinophils/Leukoc ytes Auto (Bld) [Pure # fraction] 0.2 E9/L Normal 0.0 - 0.5 E9/L [facility] HemeAutoS S Lymphocytes/100 WBC (Bld) 23.7 % Normal 14.0 - 50.0 % [facility] HemeAutoSS Lymphocytes/Leukoc ytes Auto (Bld) [Pure # fraction] 1.7 E9/L Normal 1.0 - 4.0 E9/L [facility] HemeAutoS S Monocytes/100 WBC (Bld) 10.7 % Normal 4.0 - 14.0 % [facility] HemeAutoSS Monocytes/Leukocyt es Auto (Bld) [Pure # fraction] 0.8 E9/L Normal 0.2 - 1.0 E9/L [facility] HemeAutoS S Neutrophils/100 WBC (Bld) 62.6 % Normal 36.0 - 75.0 % [facility] HemeAutoSS Neutrophils/Leukoc ytes Auto (Bld) [Pure # fraction] 4.4 E9/L Normal 2.0 - 7.5 E9/L [facility] HemeAutoS S HEMATOLOGYOrdered By: Alber Hercules on 02-24-2023 Erythrocyte distribution width (RBC) [Ratio] 12.7 % Normal 10.9 - 14.2 % [facility] HemeAutoSS Hematocrit (Bld) [Volume fraction] 39.5 % Normal 37.7 - 49.0 % [facility] HemeAutoS S Hemoglobin (Bld) [Mass/Vol] 13.3 g/dL Low 13.5 - 17.5 gm/dL [facility] HemeAutoSS MCH (RBC) [Entitic mass] 30.7 pg Normal 27.0 - 34.0 pg [facility]eAutoSS MCHC (RBC) [Mass/Vol] 33.6 g/dL Normal 31.4 - 36.0 gm/dL [facility]eAutoSS MCV (RBC) [Entitic vol] 91.5 fL Normal 80.0 - 100.0 fL [facility] HemeAutoSS Platelet mean volume (Bld) [Entitic vol] 8.0 fL Normal 6.4 - 10.8 fL [facility] HemeAutoSS Platelets (Bld) [#/Vol] 254.0 E9/L Normal 150.0 - 500.0 E9/L [facility]eAutoSS RBC (Bld) [#/Vol] 4.3 E12/L Normal 4.3 - 5.9 E12/L [facility] HemeAutoSS WBC corrected for nucl RBC Auto (Bld) [#/Vol] 7.1 E9/L Normal 4.0 - 11.0 E9/L [facility] HemeAutoSS CBC AUTO DIFFon 06-02-2022 BASO # 0.0 103/ul Normal 0.0-0.1 [facility] Comment on above: Performed By: #### C BC #### [facility] [address] [place], [place] [address] Dr. Carla Paez Basophils/100 WBC (Bld) 0.4 % Normal 0.2-2.0 [facility] Comment on above: Performed By: #### C BC #### [facility] [address] [place], [place] [address] Dr. Carla Paez EO # 0.1 103/ul Normal 0.0-0.7 [facility] Comment on above: Performed By: #### C BC #### [facility] [address] [place] [address] Dr. Carla Paez Eosinophils/100 WBC (Bld) 1.6 % Normal 0.9-7.0 [facility] Comment on above: Performed By: #### C BC #### [facility] [address] [place] [address] Dr. Carla Paez Erythrocyte distribution width (RBC) [Ratio] 11.9 % Normal 11.0-15.0 [facility] Comment on above: Performed By: #### C BC #### [facility] [address] [place] [address] Dr. Carla Paez Hematocrit (Bld) [Volume fraction] 40.3 % Critically low 42.0-54.0 [facility] Comment on above: Performed By: #### C BC #### [facility] [address] [place] [address] Dr. Carla Paez Hemoglobin (Bld) [Mass/Vol] 13.6 g/dL Critically low 14.0-18.0 [facility] Comment on above: Performed By: #### C BC #### [facility] [address] [place] [address] Dr. Carla Paez IG # 0.03 10e3/ul Normal 0.00-0.03 [facility] Comment on above: Performed By: #### C BC #### [facility] [address] [place] [address] Dr. Carla Paez IG % 0.4 % Normal 0.0-0.5 [facility] Comment on above: Performed By: #### C BC #### [facility] [address] [place] [address] Dr. Carla Paez LYMPH # 1.8 103/ul Normal 1.2-3.8 [facility] Comment on above: Performed By: #### C BC #### [facility] [address] [place] [address] Dr. Carla Paez Lymphocytes/100 WBC (Bld) 23.6 % Normal 20.5-60.0 [facility] Comment on above: Performed By: #### C BC #### [facility] [address] [place] [address] Dr. Carla Paez MANUAL DIFF REQ NO Normal [facility] Comment on above: Performed By: #### C BC #### [facility] [address] [place] [address] Dr. Carla Paez MCH (RBC) [Entitic mass] 30.3 pg Normal 25.9-34.0 [facility] Comment on above: Performed By: #### C BC #### [facility] [address] [place] [address] Dr. Carla Paez MCHC (RBC) [Mass/Vol] 33.7 g/dL Normal 29.9-35.2 [facility] Comment on above: Performed By: #### C BC #### [facility] [address] [place] [address] Dr. Carla Paez MCV (RBC) [Entitic vol] 89.8 fL Normal 80.0-94.0 [facility] Comment on above: Performed By: #### C BC #### [facility] [address] [place] [address] Dr. Carla Paez MONO # 0.8 103/ul Normal 0.3-0.8 [facility] Comment on above: Performed By: #### C BC #### [facility] [address] [place] [address] Dr. Carla Paez Monocytes/100 WBC (Bld) 10.9 % Normal 1.7-12.0 [facility] Comment on above: Performed By: #### C BC #### [facility] [address] [place] [address] Dr. Carla Paez NEUT # 4.7 103/ul Normal 1.4-6.5 [facility] Comment on above: Performed By: #### C BC #### [facility] [address] [place] [address] Dr. Carla Paez Neutrophils/100 WBC (Bld) 63.1 % Normal 43.0-75.0 [facility] Comment on above: Performed By: #### C BC #### [facility] [address] [place] [address] [address] Carla Paez Platelet mean volume (Bld) [Entitic vol] 9.2 fL Critically low 9.5-13.5 [facility] Comment on above: Performed By: #### C BC #### [facility] [address] [place] [address] [address] Carla Paez PLT 266 103/ul Normal 150-450 [facility] Comment on above: Performed By: #### C BC #### [facility] [address] [place] [address] [address] Carla Paez RBC 4.49 106/ul Critically low 4.70-6.10 [facility] Comment on above: Performed By: #### C BC #### [facility] [address] [place] [address] Dr. Carla Paez WBC 7.4 103/ul Normal 4.0-11.0 [facility] Comment on above: Performed By: #### C BC #### [facility] [address] [place] [address] Dr. Carla Paez GLYCOHEMOGLOBIN A1Con 2021 ADA RECOMMENDATION SEE BELOW Normal [facility] Comment on above: Result Comment: ADA RECOMMENDED LIMIT 4.0 - 6.0 ADA THERAPEUTIC TARGET < 7.0 ACTION SUGGESTED > 7.0 Performed By: #### A 1C #### [facility] [address] [place] [address] Dr. Carla Paez Glucose [Mass/Vol] 186 mg/dL Normal [facility] Comment on above: Performed By: #### A 1C #### [facility] [address] [place] [address] Dr. Carla Paez HbA1c (Bld) [Mass fraction] 8.1 % Critically high 4.5-6.2 [facility] Comment on above: Performed By: #### A 1C #### [facility] [address] [place] [address] Dr. Carla Paez LIPID PROFILEon 06-02-2022 CHOL-HDL RATIO NORM SEE BELOW Normal [facility] Comment on above: Result Comment: 3.3 - 4.4 LOW RISK 4.4 - 7.1 AVERAGE RISK 7.1 - 11.0 MODERATE RISK >11.0 HIGH RISK Performed By: #### C MP, LIPID #### [facility] [address] [place] [address] [address] Carla Paez Cholesterol [Mass/Vol] 99 mg/dL Normal <=200 [facility] Comment on above: Performed By: #### C MP, LIPID #### [facility] [address] [place] [address] [address] Carla Paez Cholesterol in HDL [Mass/Vol] 35 mg/dL Critically low 40-60 [facility] Comment on above: Performed By: #### C MP, LIPID #### [facility] [address] [place] [address] [address] Carla Paez Cholesterol in LDL [Mass/Vol] 28.8 mg/dL Normal [facility] Comment on above: Performed By: #### C MP, LIPID #### [facility] [address] [place] [address] [address] Carla Paez Cholesterol.total/ Cholesterol in HDL [Mass ratio] 2.8 {ratio} Normal [facility] Comment on above: Performed By: #### C MP, LIPID #### [facility] [address] [place] [address] [address] Carla Paez HDL NORMAL > or = 60 mg/dl - LO W CARDIOVASCULAR RISK <40 mg/dl - HIGH CARDIOVASCULAR RISK Normal [facility] Comment on above: Performed By: #### C MP, LIPID #### [facility] [address] [place] [address] Dr. Carla Paez LDL CALC NORMAL SEE BELOW Normal [facility] Comment on above: Result Comment: <100 mg/dl OPTIMAL 100 - 129 mg/dl NEAR OR ABOVE OPTIMAL 130 - 159 mg/dl BORDERLINE HIGH 160 - 189 mg/dl HIGH >190 mg/dl VERY HIGH Performed By: #### C MP, LIPID #### [facility] [address] [place] [address] Dr. Carla Paez Triglyceride [Mass/Vol] 176 mg/dL Critically high <=150 [facility] Comment on above: Performed By: #### C MP, LIPID #### [facility] [address] [place] [address] [address] Carla Paez VLDL CALC 35.2 mg/dL Normal [facility] Comment on above: Performed By: #### C MP, LIPID #### [facility] [address] [place] [address] [address] Carla Paez PROF 14(COMP METB)on 022 Albumin [Mass/Vol] 4.2 g/dL Normal 3.4-5.0 [facility] Comment on above: Performed By: #### C MP, LIPID #### [facility] [address] [place] [address] [address] Carla Paez Albumin/Globulin [Mass ratio] 1.3 {ratio} Normal [facility] Comment on above: Performed By: #### C MP, LIPID #### [facility] [address] [place] [address] [address] Carla Paez ALP [Catalytic activity/Vol] 97 U/L Normal 46-116 [facility] Comment on above: Performed By: #### C MP, LIPID #### [facility] [address] [place] [address] [address] Carla Paez ALT [Catalytic activity/Vol] 31 U/L Normal 16-63 [facility] Comment on above: Performed By: #### C MP, LIPID #### [facility] [address] [place] [address] [address] Carla Paez Anion gap [Moles/Vol] 11.9 mmol/L Normal [facility] Comment on above: Performed By: #### C MP, LIPID #### [facility] [address] [place] [address] [address] Carla Paez AST [Catalytic activity/Vol] 18 U/L Normal 15-37 [facility] Comment on above: Performed By: #### C MP, LIPID #### [facility] [address] [place] [address] [address] Carla Paez Bilirubin [Mass/Vol] 1.2 mg/dL Critically high 0.2-1.0 [facility] Comment on above: Performed By: #### C MP, LIPID #### [facility] [address] [place] [address] [address] Carla Paez Calcium [Mass/Vol] 9.1 mg/dL Normal 8.5-10.1 [facility] Comment on above: Performed By: #### C MP, LIPID #### [facility] [address] [place] [address] [address] Carla Paez Chloride [Moles/Vol] 103 mmol/L Normal 98-107 [facility] Comment on above: Performed By: #### C MP, LIPID #### [facility] [address] [place] [address] [address] Carla Paez CO2 [Moles/Vol] 30.2 mmol/L Normal 21.0-32.0 [facility] Comment on above: Performed By: #### C MP, LIPID #### [facility] [address] [place] [address] [address] Carla Paez Creatinine [Mass/Vol] 1.57 mg/dL Critically high 0.70-1.30 [facility] Comment on above: Performed By: #### C MP, LIPID #### [facility] [address] [place] [address] [address] Carla Paez EGFR-AF KUWAITI 52 mL/min/1.73m2 Critically low >=60 [facility] Comment on above: Performed By: #### C MP, LIPID #### [facility] [address] [place] [address] [address] Carla Paez EGFR-NON AF [place] 43 mL/min/1.73m2 Critically low >=60 [facility] Comment on above: Performed By: #### C MP, LIPID #### [facility] [address] [place] [address] [address] Carla Paez Globulin (S) [Mass/Vol] 3.3 g/dL Normal [facility] Comment on above: Performed By: #### C MP, LIPID #### [facility] [address] [place] [address] [address] Carla Paez Glucose [Mass/Vol] 142 mg/dL Critically high 74-106 [facility] Comment on above: Performed By: #### C MP, LIPID #### [facility] [address] [place] [address] [address] Carla Paez Potassium [Moles/Vol] 5.1 mmol/L Normal 3.5-5.1 [facility] Comment on above: Performed By: #### C MP, LIPID #### [facility] [address] [place] [address] Dr. Carla Paez Protein [Mass/Vol] 7.5 g/dL Normal 6.4-8.2 [facility] Comment on above: Performed By: #### C MP, LIPID #### [facility] [address] [place] [address] Dr. Carla Paez Sodium [Moles/Vol] 140 mmol/L Normal 136-145 [facility] Comment on above: Performed By: #### C MP, LIPID #### [facility] [address] [place] [address] Dr. Carla Paez Urea nitrogen [Mass/Vol] 20.0 mg/dL Critically high 7.0-18.0 [facility] Comment on above: Performed By: #### C MP, LIPID #### [facility] [address] [place] [address] Dr. Carla Paez Urea nitrogen/Creatinin e [Mass ratio] 12.7 mg/mg Normal [facility] Comment on above: Performed By: #### C MP, LIPID #### [facility] [address] [place] [address] Dr. Carla Paez CERVICAL SP AP&LT OR 2-3 VWS on 06-25-2020 CERVICAL SP AP&LT OR 2-3 VWS STUDY: CERVICAL SP AP LT OR 2-3 VWS; 06/25/2020 10:25 am INDICATION: PAIN. COMPARISON: 05/08/2020 ACCESSION NUMBER(S): [id number] ORDERING CLINICIAN: Ravi Christina FINDINGS: Anterior metallic fusion hardware at C5-6 is unchanged in position. No new fracture, subluxation, or disc height loss. Multilevel facet arthropathy. Trace anterolisthesis C4-5 unchanged. IMPRESSION: Unchanged postoperative appearance of the cervical spine. Normal [facility] CERVICAL SP AP&LT OR 2-3 VWS on 05-08-2020 CERVICAL SP AP&LT OR 2-3 VWS STUDY: CERVICAL SP AP LT OR 2-3 VWS; ; 05/08/2020 10:50 am INDICATION: PAIN. COMPARISON: None. ACCESSION NUMBER(S): [id number] ORDERING CLINICIAN: Ravi Christina FINDINGS: Anterior cervical spine fusion at C5-C6 level. The vertebral alignment is normal. The vertebral body heights are maintained. Mild prevertebral soft tissue swelling related to the postsurgical changes. The lung apices are clear. Postsurgical changes of CABG. IMPRESSION: Stable postsurgical changes of anterior cervical spine fusion at C5-6. Normal [facility] CERVICAL SP AP&LT OR 2-3 VWS on 04-10-2020 CERVICAL SP AP&LT OR 2-3 VWS STUDY: CERVICAL SP AP LT OR 2-3 VWS; ; 04/10/2020 11:15 am INDICATION: PAIN. COMPARISON: None. ACCESSION NUMBER(S): [id number] ORDERING CLINICIAN: Ravi Christina FINDINGS: No acute fracture or dislocation. Anterior cervical spine fusion at C5-C6 level. The vertebral alignment is normal. The vertebral body heights are maintained. Lung apices are clear. IMPRESSION: Postsurgical changes of anterior cervical spine fusion at C5-C6 level. Normal [facility] Anesthesia Noteon 03-26-2020 Anesthesia Note [facility] Patient: KIESHA LAGOS [address] [place] [address] MR#: [id number] ANESTHESIA NOTE : Service Date: 03/26/20816 Post-anesthesia Note Note Patient assessed post operatively for the following: [x ] Respiratory function, including respiratory rate, airway patency and oxygen saturation [x ] Cardiovascular function, including pulse rate and blood pressure [x ] Mental status [x ] Temperature [x ] Pain [x ] Nausea and vomiting [x ] Postoperative hydration [x ] No Visual Changes Due to the following condition(s) additional monitoring may be necessary: [ ] [x ] No apparent anesthesia complications noted. [x ] Status as per pre-op Electronically Signed eSign Date and Time Ronni Pablo 03/26/20816 Marshall Brock MD Normal [facility] BASIC MET PANELon 03-26-2020 Anion gap [Moles/Vol] 12 mmol/L Normal 6-18 [facility] Comment on above: Order Comment: UNKNO WN Performed By: #### L 500.45180, L500.52896, L500.01107 #### Test performed at: [address] [address] Calcium [Mass/Vol] 8.6 mg/dL Normal 8.5-10.1 [facility] Comment on above: Order Comment: UNKNO WN Performed By: #### L 500.83584, L500.03472, L500.71279 #### Test performed at: [address] [address] Chloride [Moles/Vol] 106 mmol/L Normal 98-107 [facility] Comment on above: Order Comment: UNKNO WN Performed By: #### L 500.58341, L500.44148, L500.10878 #### Test performed at: [address] [address] CO2 [Moles/Vol] 25 mmol/L Normal 21-32 [facility] Comment on above: Order Comment: UNKNO WN Performed By: #### L 500.68812, L500.94683, L500.45570 #### Test performed at: [address] [address] Creatinine [Mass/Vol] 1.450 mg/dL High 0.700-1.300 [facility] Comment on above: Order Comment: UNKNO WN Performed By: #### L 500.58741, L500.62122, L500.43533 #### Test performed at: [address] [address] Glucose [Mass/Vol] 251 mg/dL High 70-99 [facility] Comment on above: Order Comment: UNKNO WN Result Comment: Fast ing GLUCOSE reference range has been updated per (ADA) [place] [employer]'s recommendation. 09/27/2018 Performed By: #### L 500.09577, L500.07462, L500.80066 #### Test performed at: [address] [address] OSM 296 mosm/kg Normal 270-300 [facility] Comment on above: Order Comment: UNKNO WN Performed By: #### L 500.89706, L500.54559, L500.79979 #### Test performed at: [address] [address] Potassium [Moles/Vol] 4.5 mmol/L Normal 3.5-5.1 [facility] Comment on above: Order Comment: UNKNO WN Performed By: #### L 500.40562, L500.26106, L500.27423 #### Test performed at: [address] [address] Sodium [Moles/Vol] 138 mmol/L Normal 136-145 [facility] Comment on above: Order Comment: UNKNO WN Performed By: #### L 500.14132, L500.82524, L500.13357 #### Test performed at: [address] [address] Urea nitrogen [Mass/Vol] 16 mg/dL Normal 7-18 [facility] Comment on above: Order Comment: UNKNO WN Performed By: #### L 500.75650, L500.66261, L500.18079 #### Test performed at: [address] [address] CBC W/DIFFon 03-26-2020 BASO ABS 0.0 K/uL Normal 0.0-0.2 [facility] Comment on above: Order Comment: UNKNO WN Performed By: #### L 500.73792 #### Test performed at: [place] [address] Basophils/100 WBC (Bld) 0.1 % Normal [facility] Comment on above: Order Comment: UNKNO WN Performed By: #### L 500.40295 #### Test performed at: [address] [address] EOS ABS 0.0 K/uL Normal 0.0-0.5 [facility] Comment on above: Order Comment: UNKNO WN Performed By: #### L 500.72704 #### Test performed at: [address] [address] Eosinophils/100 WBC (Bld) 0.0 % Normal [facility] Comment on above: Order Comment: UNKNO WN Performed By: #### L 500.28396 #### Test performed at: [address] [address] Erythrocyte distribution width (RBC) [Ratio] 11.9 % Normal 11.5-14.5 [facility] Comment on above: Order Comment: UNKNO WN Performed By: #### L 500.87285 #### Test performed at: [address] [address] Hematocrit (Bld) [Volume fraction] 37.6 % Low 39.0-55.0 [facility] Comment on above: Order Comment: UNKNO WN Performed By: #### L 500.96511 #### Test performed at: [address] [address] Hemoglobin (Bld) [Mass/Vol] 12.5 g/dL Low 14.0-16.5 [facility] Comment on above: Order Comment: UNKNO WN Performed By: #### L 500.13249 #### Test performed at: [address] [address] IG % 0.5 % Normal [facility] Comment on above: Order Comment: UNKNO WN Performed By: #### L 500.57184 #### Test performed at: [address] [address] IG ABS 0.07 K/uL High 0-0.05 [facility] Comment on above: Order Comment: UNKNO WN Performed By: #### L 500.89556 #### Test performed at: [place] [address] Lymphocytes (Bld) [#/Vol] 0.8 10*3/uL Low 1.2-3.5 [facility] Comment on above: Order Comment: UNKNO WN Performed By: #### L 500.28503 #### Test performed at: [place] [address] Lymphocytes/100 WBC (Bld) 6.4 % Normal [facility] Comment on above: Order Comment: UNKNO WN Performed By: #### L 500.10356 #### Test performed at: [address] [address] MCH (RBC) [Entitic mass] 30.3 pg Normal 25.4-34.6 [facility] Comment on above: Order Comment: UNKNO WN Performed By: #### L [id number] #### Test performed at: [place] [id number] MCHC (RBC) [Mass/Vol] 33.2 g/dL Normal 31.5-36.5 [facility] Comment on above: Order Comment: UNKNO WN Performed By: #### L 500.56966 #### Test performed at: [place] [id number] MCV (RBC) [Entitic vol] 91.0 fL Normal 80.0-100.0 [facility] Comment on above: Order Comment: UNKNO WN Performed By: #### L 500.14581 #### Test performed at: [address] [address] MONO ABS 0.3 K/uL Normal 0.0-1.0 [facility] Comment on above: Order Comment: UNKNO WN Performed By: #### L 500.76156 #### Test performed at: [address] [address] Monocytes/100 WBC (Bld) 2.2 % Normal [facility] Comment on above: Order Comment: UNKNO WN Performed By: #### L 500.59924 #### Test performed at: [address] [address] NEUTROPHIL ABS 11.6 K/uL High 1.4-6.6 [facility] Comment on above: Order Comment: UNKNO WN Performed By: #### L 500.09627 #### Test performed at: [address] [address] Neutrophils/100 WBC (Bld) 90.8 % Normal [facility] Comment on above: Order Comment: UNKNO WN Performed By: #### L 500.45014 #### Test performed at: [address] [address] NRBC # 0.000 K/uL Normal 0-0.012 [facility] Comment on above: Order Comment: UNKNO WN Performed By: #### L 500.01807 #### Test performed at: [address] [address] NRBC % 0.0 /100 WBC Normal 0-0.2 [facility] Comment on above: Order Comment: UNKNO WN Performed By: #### L 500.92621 #### Test performed at: [address] [address] Platelet mean volume (Bld) [Entitic vol] 9.9 fL Normal 8.7-12.4 [facility] Comment on above: Order Comment: UNKNO WN Performed By: #### L 500.43157 #### Test performed at: [place] [address] Platelets (Bld) [#/Vol] 255 10*3/uL Normal 140-440 [facility] Comment on above: Order Comment: UNKNO WN Performed By: #### L 500.99452 #### Test performed at: [place] [address] RBC (Bld) [#/Vol] 4.13 10*6/uL Normal 3.5-5.5 [facility] Comment on above: Order Comment: UNKNO WN Performed By: #### L 500.21268 #### Test performed at: [place] [address] WBC (Bld) [#/Vol] 12.8 10*3/uL High 3.9-11.0 [facility] Comment on above: Order Comment: UNKNO WN Performed By: #### L 500.46417 #### Test performed at: [place] [address] Discharge CCD Assessmenton 0 03-26-2020 Discharge CCD Assessment [facility] Patient: KIESHA LAGOS [address] [place] [address] MR#: [id number] DISCHARGE CCD ASSESSMENT : 41 Service Date: 03/26/20 1027 Discharge CCD Assessment Assessment Patient discharged home to continue home therapy exercises, pain control, wound care and ambulation Electronically Signed eSign Date and Time Kylah Reid 03/26/20 1028 Ravi Christina MD Normal [facility] EST. CREAT CLRon 03-26-2020 Creatinine [Mass/Vol] 63.687 ML/MIN Normal [facility] Comment on above: Order Comment: UNKNO WN Result Comment: This result is an ESTIMATED blood creatinine clearance value which is derived from the patient age, sex, weight, and previous blood creatinine result. Performed By: #### L 500.74174, L500.56640, L500.37313 #### Test performed at: [address] [address] GFR ESTIMATEon 03-26-2020 IF AMER 57 Low > 60 [facility] Comment on above: Order Comment: UNKNO WN Result Comment: eGFR (Estimated GFR) Units of measure:mL/min/1.73 meters sq. *CALCULATION REVISED 04/23/2015;IDMS-traceable MDRD equation eGFR is derived from the reexpressed MDRD Study equation using the following parameters: serum creatinine, age, gender and race. An eGFR<60 mL/min/1.73m2 for >3 months is consistent with chronic kidney disease. Refer to KDOQI guidelines for clinical interpretation. Performed By: #### L 500.58731, L500.16761, L500.21392 #### Test performed at: [address] [address] IF non-AFR AMER 47 Low > 60 [facility] Comment on above: Order Comment: UNKNO WN Performed By: #### L 500.77978, L500.73391, L500.11763 #### Test performed at: [address] [address] GLUCOSE METERon 03-26-2020 Glucose [Mass/Vol] 330 mg/dL High 70-99 [facility] Comment on above: Order Comment: UNKNO WN Result Comment: Fast ing GLUCOSE reference range has been updated per (ADA) [place] [employer]'s recommendation. 09/27/2018 Performed By: #### L 500.61386 #### Test performed at: [address] [address] Glucose [Mass/Vol] 270 mg/dL High 70-99 [facility] Comment on above: Order Comment: UNKNO WN Result Comment: Fast ing GLUCOSE reference range has been updated per (ADA) [place] [employer]'s recommendation. 09/27/2018 Performed By: #### L 500.11418 #### Test performed at: [place] [address] Glucose [Mass/Vol] 244 mg/dL High 70-99 [facility] Comment on above: Order Comment: UNKNO WN Result Comment: Fast ing GLUCOSE reference range has been updated per (ADA) [place] [employer]'s recommendation. 09/27/2018 Insulin per sl scale Performed By: #### L 500.39476 #### Test performed at: [place] [address] Internal Med Progress Noteon 03-26-2020 Internal Med Progress Note [facility] Patient: KIESHA LAGOS [address] [place] [address] MR#: [id number] PROGRESS NOTE - Internal Medicine : 41 Service Date: 03/26/20704 Subjective Summary of Stay The Pt, Mr. Lagos, is a pleasant 71 y/o male who is S/P ACDF C5-6, TM CAGE AND plate POD-1. Pt tolerated surgery well. No complications reported. Minimal EBL reported. Pt seen and examined on wards this AM. Notes that he did not sleep very well due to discomfort. States that he had right shoulder pain and left hand/wrist discomfort. Pt otherwise denies any Fajardo , CP, SOB, N/V or abd pain. Exam reveals a C-collar in place. Surgical dressing visualized , no strike through noted. No obvious signs of infection. Moving all extremities. Radial and DP pulses are 2+ and intact. Will continue to follow. PMHx includes: HTN, HLD, [place] (2006) with stent placement in 2006, DM W/ neuropathy. Events since last encounter No acute overnight events Subjective Pt reports that he did not sleep very well due to discomfort. He is feeling very sleepy this AM. Otherwise he has no complaints. Other Systems A 10 system review of systems was collected and is negative unless otherwise noted above. Objective Exam Vitals and I/O Vital Signs Verdana 4d Result Date Time Pulse Ox 95 03/26 0704 B/P 158/72 03/26 0704 Temp 36.8 03/26 07 Pulse 86 03/26 0704 Resp 18 03/26 0704 O2 Delivery ROOM AIR 03/26 0400 O2 Flow Rate 2 03/25 1320 Intake AND Output Verdana 4d 03/26 2300 03/25 2300 Intake Total 1060 2200 Output Total 1160 2044 Balance -100 155 Intake, IV 700 1000 Oral 360 1200 utput, 10 20 rainage Output, Urine 1150 2024 Patient 109 kg eight Weight PREADMISSION TESTING WGT easurement ethod General Appearance Alert, Oriented X3, Cooperative, No Acute Distress HEENT Atraumatic, EOMI, Mucous Membr. moist/pink Lungs Clear to Auscultation, Normal Air Movement, No obvious W/R/R appreciated Neck In C-Collar. Surgical dressing visualized. No strike through or obvious signs of infection. Cardiovascular Regular Rate, Normal S1, Normal S2, No Murmurs Abdomen Normal Bowel Sounds, Soft, No Tenderness Extremities Normal Pulses, No Tenderness/Swelling Skin No Rashes, No Breakdown Neurological Normal Speech, Strength at 5/5 X4 Ext, Normal Tone, Sensation Intact, Cranial Nerves 3-12 NL Psych/Mental Status Mental Status NL, Mood NL Results Results [facility]All Laboratory Tests 03/26 03/26 03/25 03/25 03/25 0745 0735 2232 1627 1243 Chemistry Sodium (136 - 145 mmol/L) 138 Potassium (3.5 - 5.1 mmol/L) 4.5 Chloride (98 - 107 mmol/L) 106 - 32 mmol/L) 25 BUN (7 - 18 mg/dL) 16 Creatinine (0.700 - 1.300 mg/dL) 1.450 Est GFR ( Amer) (> 60) 57 Est GFR (Non-Af Amer) (> 60) 47 Glucose (70 - 99 mg/dL) 251 Glucose (70 - 99 mg/dL) 270 244 281 210 ematology WBC (3.9 - 11.0 K/uL) 12.8 Hgb (14.0 - 16.5 g/dL) 12.5 Hct (39.0 - 55.0 %) 37.6 Plt Count (140 - 440 K/uL) 255 Neut % (Auto) (%) 90.8 Assessment/Plan-Inter nal Med Problem List 1. S/P cervical spinal fusion 2. 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 Resting in bed. reports being tired due to poor sleep. - C-collar in place. Clean surgical dressing. No obvious signs of infection. - Vital Signs Result Date Time Pulse Ox 95 03/26 0704 B/P 158/72 03/26 07 Temp 36.8 03/26 07 Pulse 86 03/26 0704 Resp 18 03/26 07 - PLAN: - Pain management as per surgical team - Oxycodone PO Q4PRN - Tylenol 650mg PO Q4PRN - Bowel care as per surgical team - Bisacodyl 10mg daily - Milk of Mag 30 mL daily - Colace 100mg BID - Ondansetron 4mg QPRN - Decadron 10mg IV Q8 (2/2) - Cefazolin 2g IV Q8H (2/2) - Robaxin 500mg Q6PRN - Influenza vaccine administered - Pneumococcal vaccine administered - PT / OT on board # HTN - Isosorbide mononitrate 30mg daily - Metoprolol Tartrate 50mg BID - Cozaar 50mg QHS - Vasotec 2.5mg Q6PRN - Holding parameters for vasotec, to be given with systolic BP above 160. 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 Kim Mr. Lagos is s/p ACDF C5-C6 POD # 1. He reports low levels of pain and has walked around after his surgery. His vitals show an elevated BP. Suspect this could be due to holding BP medications prior to surgery. Patient will restart his Metoprolol and Imdur today. Had Losartan last night. Enalaprilat added PRN. Glucose remains elevated, plan to restart oral hypoglycemics after reviewing labs. Will await surgery recommendations. Be sure to note changes Be sure to note changes DVT Prophylaxis PCDS and ambulation *Attending Attestation Attending Attestation Attending Attestation All pertinent elements of history and physical exam were confirmed by me. Agree with above documentation. The [resident's assessment and plan reflect my input. Discussed with documenting provider and patient. Plan is as outlined above. Minimal anemia- asymptomatic CAD -aspirin on hold Electronically Signed eSign Date and Time Mary Beebe RES Pro Kim MD RES 03/26/20 1340 Migel Powers MD 03/26/20 1426 Normal [facility] OT Therapy Recommendationson 03-26-2020 OT Therapy Recommendations [facility] Patient: KIESHA LAGOS [address] [place] [id number] MR#: [id number] OT THERAPY RECOMMENDATIONS : 41 Service Date: 03/26/20 1357 Therapy Recommendations Therapy Recommendations Recommendations RECOMMEND D/C HOME WITH FAMILY ASSISTANCE Electronically Signed eSign Date and Time Victorina Diaz OT 03/26/20 1359 Normal [facility] Orthopedic Progress Noteon 0 03-26-2020 Orthopedic Progress Note [facility] Patient: KIESHA LAGOS [address] [place] [id number] MR#: [id number] PROGRESS NOTE - Orthopedic : 41 Service Date: 03/26/20 0936 Objective Exam General Appearance Alert, Oriented X3, Cooperative, No Acute Distress HEENT PERRLA Lungs Clear to Auscultation Neck Supple Cardiovascular Regular Rate Abdomen Normal Bowel Sounds, Soft, No Tenderness Extremities No Edema, Normal Pulses Skin No Rashes, No Breakdown, No Significant Lesion Neurological Normal Gait, Normal Speech, Strength at 5/5 X4 Ext, Normal Tone, Sensation Intact Psych/Mental Status Mental Status NL Other Physical Findings Laboratory Tests Last 24 Hrs 03/26 03/26 03/25 03/25 0745 3535 2232 1627 Chemistry Sodium (136 - 145 mmol/L) 138 Potassium (3.5 - 5.1 mmol/L) 4.5 Chloride (98 - 107 mmol/L) 106 Carbon Dioxide (21 - 32 mmol/L) 25 Gap (6 - 18) 12 BUN (7 - 18 mg/dL) 16 Creatinine (0.700 - 1.300 mg/dL) 1.450 H Estim Creat Clear Calc (ML/MIN) 63.687 Est GFR ( Amer) (> 60) 57 L Est GFR (Non-Af Amer) (> 60) 47 L Glucose (70 - 99 mg/dL) 251 H POC Glucose (70 - 99 mg/dL) 270 H 244 H 281 H Calculated Osmolality (270 - 300 mosm/kg) 296 Total Calcium (8.5 - 10.1 mg/dL) 8.6 Hematology K/uL) 12.8 H RBC (3.5 - 5.5 M/uL) 4.13 Hgb (14.0 - 16.5 g/dL) 12.5 L Hct (39.0 - 55.0 %) 37.6 L MCV (80.0 - 100.0 fL) 91.0 MCH (25.4 - 34.6 pg) 30.3 g/dL) 33.2 RDW (11.5 - 14.5 %) 11.9 Plt Count (140 - 440 K/uL) 255 MPV (8.7 - 12.4 fL) 9.9 Immature Gran % (Auto) (%) 0.5 Neut % (Auto) (%) 90.8 Lymph % (Auto) (%) 6.4 Hall % (Auto) (%) 2.2 Eos % (Auto) (%) 0.0 Baso % (Auto) (%) 0.1 Neut # (Auto) (1.4 - 6.6 K/uL) 11.6 H Lymph # (Auto) (1.2 - 3.5 K/uL) 0.8 L Hall # (Auto) (0.0 - 1.0 K/uL) 0.3 (Auto) (0.0 - 0.5 K/uL) 0.0 Baso # (Auto) (0.0 - 0.2 K/uL) 0.0 Immature Gran # (Auto) (0 - 0.05 K/uL) 0.07 H Nucleated RBC % (0 - 0.2 /100 WBC) 0.0 Nucleated RBCs # (0 - 0.012 K/uL) 0.000 03/25 1243 Chemistry POC Glucose (70 - 99 mg/dL) 210 H Vital Signs Verdana 4d Result Date Time B/P 158/72 03/26 0912 Pulse 86 03/26 0912 Ox 95 03/26 0704 emp 36.8 03/26 0704 Resp 18 03/26 0704 O2 Delivery ROOM AIR 03/26 0400 O2 Flow Rate 2 03/25 1320 Intake AND Output Verdana 4d 03/26 2300 03/25 2300 Intake Total 1060 2200 Output Total 1160 2044 Balance -100 155 Intake, IV 700 1000 Intake, Oral 360 1200 Output, 10 20 rainage Urine 1150 2024 atient 109 kg eight Weight PREADMISSION TESTING WGT easurement ethod MINIMAL POST OP PAIN. DENIES NUMBNESS AND TINGLING. RIGHT ARM PAIN IMPROVED. STRENGTH WNL. DRESSING TO ANTERIOR NECK REMOVED INCISION COVERED WITH DERMABOND GLUE. DRAIN REMOVED WITHOUT DIFFICULTY. CERVICAL COLLAR MAINTAINED. DISCHARGE INSTRUCTIONS DISCUSSED PATIENT STATED UNDERSTANDING. Assessment and Plan - ICD10 Problem List 1. S/P cervical spinal fusion 2. HTN (hypertension) 3. Cervical disc disorder at C5-C6 level with radiculopathy 4. HLD (hyperlipidemia) 5. Status post myocardial infarction 6. Diabetic peripheral neuropathy associated with type 2 diabetes mellitus 7. H/O heart artery stent Assessment D/C HOME TODAY FOLLOW UP WITH DR CHRISTINA IN 2 WEEKS Electronically Signed eSign Date and Time Eva Morrison RN 03/26/2039 Ravi Christina MD Normal [facility] PT Therapy Recommendationson 03-26-2020 aPTT Coag (Bld) [Time] [facility] Patient: KIESHA LAGOS [address] [place] [address] MR#: [id number] PT THERAPY RECOMMENDATIONS : 41 Service Date: 03/26/201516 Therapy Recommendations Therapy Recommendations Recommendations Physical therapy evaluation completed. No acute PT indicated at this time, D/C from acute PT. Rec D/C home with assist PRN. Isai David PT, DPT Available via [facility] Electronically Signed eSign Date and Time Isai David PT 03/26/207 Normal [facility] z OT Inpatient Discharge Not moncho 03-26-2020 z OT Inpatient Discharge Note [facility] [place] [id number] [facility]#: [id number] OT INPATIENT DISCHARGE NOTE : 41 Service Date: 03/26/20 1413 z OT HPI Discharge Note Total number of visits 1 Date of Discharge 03/26/20 Start of Care Date 03/26/20 z OT Inpatient AP Discharge Treatment Patient Education, Self Care/ADL Training, HEP Equipment Issued Handouts, Home Exercise Plan Treatment Goals Achieved: Yes Plan Follow Up w/ Physician, Discharge from OT DC Recommendations Family Assistance OT Status: DISCHARGED Electronically Signed eSign Date and Time Victorina Diaz OT 03/26/20 1414 Normal [facility] z OT Inpatient Evaluationon 03-26-2020 z OT Inpatient Evaluation [facility] Patient: KIESHA LAGOS [place] [id number] MR#: [id number] OT INPATIENT EVALUATION : 41 Inpatient OT HPI Date of Service 03/26/20 Time In: 1015 Time Out: 1040 Total Treatment Time (Mins) 25 Visit Reason HNP C5-6 W/ RADICULOPATHY Surgery Type/Date The Pt, Mr. Lagos, is a pleasant 71 y/o male who is S/P ACDF C5-6, TM CAGE AND plate POD-1. Pt tolerated surgery well. No complications reported. Minimal EBL reported. Pt seen and examined on wards this AM. Notes that he did not sleep very well due to discomfort. States that he had right shoulder pain and left hand/wrist discomfort. Pt otherwise denies any Fajardo , CP, SOB, N/V or abd pain. Exam reveals a C-collar in place. Surgical dressing visualized , no strike through noted. No obvious signs of infection. Moving all extremities. Radial and DP pulses are 2+ and intact. Will continue to follow. Referral Date 03/25/20 Tx Diagnosis: CERVICALGIA Insurance Name [employer] HMO O Hospital Course The Pt, Mr. Lagos, is a pleasant 71 y/o male who is S/P ACDF C5-6, TM CAGE AND plate POD-1. Pt tolerated surgery well. No complications reported. Minimal EBL reported. Pt seen and examined on wards this AM. Notes that he did not sleep very well due to discomfort. States that he had right shoulder pain and left hand/wrist discomfort. Pt otherwise denies any Fajardo , CP, SOB, N/V or abd pain. Exam reveals a C-collar in place. Surgical dressing visualized , no strike through noted. No obvious signs of infection. Moving all extremities. Radial and DP pulses are 2+ and intact. 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 HLD (hyperlipidemia) HTN (hypertension) Status post myocardial infarction Surgical Problems H/O heart artery stent S/P cervical spinal fusion Living Arrangements Home Lives With Alone Steps to Enter House 4 Stairs Inside House 10 (laundry in basement) Railings Right Handrail Bedroom Location 1st Floor Bathroom Location 1st Floor Shower Tub Tasks Prior to Admission Laundry, Cooking, Cleaning, Shopping, Driving Transportation Method Patient Drives Functional Level pt has supportive friends that will assist him during his recovery Objective Precautions Cervical Collar, Cervical Spine Precaution Pain Scale 6 Pain Character Ache, Sore Pain Location Right Shoulder, Left Shoulder, Neck Equipment SCD Orientation Person, Place, Time, Situation Behavior Cooperative Sensation Within Functional Limits Tone Within Functional Limits Hand Dominance Right Coordination Gross Motor Coordination Within Functional Limits Proprioception Within Normal Limits ROM RUE ROM Within Functional Limits LUE ROM Within Functional Limits RLE ROM Within Functional Limits LLE ROM Within Functional Limits Strength RUE Strength 3+/5 LUE Strength 3+/5 RLE Strength 3+/5 LLE Strength 3+/5 Comments Bilateral upper extremities WFLs for participation in management of ADLs and functional mobility tasks. Outcome Measures Fernando Score Fernando Score Response Value Feeding Independent 10 Bathing Independent 5 Grooming Independent 5 Dressing Needs Help/Half unaided 5 Bowels Continent 10 Bladder Continent 10 Toilet Independent 10 ransfer(Bed to Chair and Back) Independent 15 obility (On Level Surfaces) Independent 15 tairs Independent 10 otal 95 Comments 5% disability based on the Fernando Index ADL Function ADL Function Upper Body Dressing Standby Assist Lower Body Dressing Standby Assist Upper Body Bathing Standby Assist Lower Body Bathing Standby Assist Toileting Modified Independent Feeding Independent Grooming Standby Assist Comments Patient is independent/modified independent with all ADLs and functional mobility tasks. Patient instructed in and performed lower body dressing/ADLs via modified techniques Transfers Transfers Supine to Sit Modified Independent Sit to Stand Modified Independent Stand to Sit Modified Independent Sit to Supine Modified Independent Bed to Chair Modified Independent Chair to Bed Modified Independent Toilet Modified Independent Rolling Modified Independent Static Sitting Balance Good Dynamic Sitting Balance Good Static Standing Balance Good Dynamic Standing Balance Good Treatment Additional Minutes of Tx Performed 10 All Needs Within Reach Yes Assessment/Plan for Inpt OT DC Recommendations Home-No Home Health Care, Family Assistance Topic #1 Rehabilitation Techniques Teaching Method: RETURN DEMONSTRATION Outcome: VERBALIZED/ADEQ TEACHBACK Comments Post Op precautions/issued packet with home going instructions and information regarding adaptive equipment and bathroom DME. Problems ADL Skills, Activity Tolerance, UE Range of Motion, Functional Mobility, Functional Balance Rehab Potential Good Treatment Tolerance Good Assessment Patient does not demonstrate additional need for skilled OT services at this time. Patient was pleasant, alert, and cooperative throughout the session. Patient Stated Goal: to move better Goals discussed with: Patient Frequency of Therapy Eval Only Duration Until Discharge Treatment Patient Education, Self Care/ADL Training Patient Status DISCHARGED Eval Completed Yes Eval Complexity Low Complexity Treatment Performed Yes Electronically Signed eSign Date and Time Victorina Diaz OT 03/26/20 1413 Normal [facility] z PT Inpatient Discharge Not moncho 03-26-2020 z PT Inpatient Discharge Note [facility] Patient: KIESHA LAGOS [address] [place] [address] MR#: [id number] PT INPATIENT DISCHARGE NOTE : 41 Service Date: 03/26/20 1528 z PT Inpt. HPI Discharge Note Discharge Time 1020 Total number of visits 1 Medical Diagnosis/ICD Code HNP C5-6 /c radiculopathy Referring Physician Kylah Reid Date of Discharge 03/26/20 Start of Care Date 03/26/20 Final Date of Care 03/26/20 z PT Inpatient AP Discharge Treatment: Therapeutic Activity, Patient Education, Therapeutic Exercise, Gait Training, HEP Equipment Issued Handouts, Home Exercise Plan Treatment Goals Achieved: Yes Plan Follow up w/ Physician, Discharge from PT Discharge Recommendations Home-No Home Health Care PT Status: DISCHARGED Electronically Signed eSign Date and Time Isai David PT 03/26/20 1529 Normal [facility] z PT Inpatient Evaluationon 03-26-2020 z PT Inpatient Evaluation [facility] Patient: KIESHA LAGOS [address] [place] [id number] MR#: [id number] PT INPATIENT EVALUATION : 41 Service Date: 03/26/20 1517 Inpatient PT HPI Date of Service 03/26/20 Time In: 1005 Time Out: 1020 Total Treatment Time (Mins) 15 Room Number [id number] Visit Reason HNP C5-6 W/ RADICULOPATHY Referral Date 03/25/20 Tx Diagnosis: Eval for mobility Insurance Name [employer] O PPO Hospital Course Pt is a 80 year old male admitted for ACDF C5-6, bone graft and plate: 03/25/2020. Orders: logroll, encourage ambulation/calf/ankle ex, up ad micaela /c assist, brace when out of room. Pt supine in bed when PT entered, eager to progress when PT entered. Past Medical/Social History Living Arrangements Home Lives With Alone Steps to Enter House 4 Stairs Inside House 10 (laundry in basement) Railings Right Handrail Bedroom Location 1st Floor Bathroom Location 1st Floor Shower Tub Tasks Prior to Admission Laundry, Cooking, Cleaning, Shopping, Driving Transportation Method Patient Drives Functional Level pt has supportive friends that will assist him during his recovery Objective Pain Pain Scale 6 Pain Character Ache, Sore Pain Location Right Shoulder, L hand Comments Pt reporting having no incisional pain, reporting that R shoulder has been bad since before sx, but L hand weakness and pain is new since sx. Precautions Logroll, Cervical Equipment IV line, Hard collar Static Sitting Balance Within Functional Limits Dynamic Sitting Balance Within Functional Limits Static Standing Balance Within Functional Limits Dynamic Standing Balance Within Functional Limits Orientation Person, Place, Time, Situation Behavior Within Functional Limits Sensation Within Functional Limits Tone Within Functional Limits Endurance Fair Posture Within Functional Limits, Pt is 5'10 and 192# Wound/Skin Incision open to air, under hard collar throughout Coordination Coordination Within Functional Limits Fine Motor Coordination Within Functional Limits Gross Motor Coordination Within Functional Limits ROM RUE ROM: See OT evaluation LUE ROM: See OT evaluation RLE ROM: WITHIN FUNCTIONAL LIMITS LLE ROM: WITHIN FUNCTIONAL LIMITS Strength RUE Strength: See OT evaluation LUE Strength: See OT evaluation RLE Strength: WITHIN FUNCTIONAL LIMITS LLE Strength: WITHIN FUNCTIONAL LIMITS Outcome Measures AM-PAC Inpatient Mobility AM-PAC Inpatient Mobility Response Value Turn Back/Side While Flat WO Bedrails None 4 Move From Lying to Side of Bed WO Bedrails None 4 Move To/From Bed to Chair None 4 Stand Up From Chair Using Arms None 4 Hospital Room None 4 limb 3-5 Steps W Railing None 4 Total 24 CMS Disability (%) 0 Mobility Transfers Supine to sit Modified Independent Sit to supine Modified Independent Sit to Stand Modified Independent Stand to Sit Modified Independent Weight Bearing No restriction Comments Pt performing all mobility /s hands on assist this date. Moving with ease, no increased time needs. Pt needing increased cues for hand placement, sequencing, breathing, and form, no hands on assist but increased cues due to novel to sx. Mobility Patient ambulated Modified Independent With Assistive Device None For (Feet) 100' Comments Pt ambulating /s device, no hands on assist. No LOB or gross gait deviations. Stairs Steps Up 3 Inch Steps 7 Steps Down 3 Inch Steps 7 Device Bilateral Handrail Pattern Non-Reciprocating Assistance Required Modified Independent Comments Pt needing no hands on assist, no overt LOB. Treatment Additional Minutes of Tx Performed 8 Remained in Supine in bed All Needs Within Reach Yes Comments Issued Home exercise program/Precautions packet for cervical sx, reviewed /c pt. Seated/supine therex: verbal review Increased gait time over and above assessment needs. Increased time for education of plan of care and progression of therapy. Increased education about weight bearing status, D/C rec, and safety. 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 Performing all transfers, gait, and stair navigation at MOD I level or greater. Verbalizing understanding of HEP/Precautions. Patient Stated Goal: NA Frequency of Therapy: Eval only Patient Status DISCHARGED Eval Completed Yes Eval Complexity Low Treatment Performed Yes Electronically Signed eSign Date and Time Isai David PT 03/26/20 1528 Normal [facility] GLUCOSE METERon 03-25-2020 Glucose [Mass/Vol] 281 mg/dL High 70-99 [facility] Comment on above: Result Comment: Fast ing GLUCOSE reference range has been updated per (ADA) [place] [employer]'s recommendation. 09/27/2018 Insulin per sl scale Performed By: #### L 500.61820 #### Test performed at: [place] [address] Glucose [Mass/Vol] 210 mg/dL High 70-99 [facility] Comment on above: Result Comment: Fast ing GLUCOSE reference range has been updated per (ADA) [place] [employer]'s recommendation. 09/27/2018 Follow protocol Performed By: #### L 500.07564 #### Test performed at: [address] [address] Glucose [Mass/Vol] 159 mg/dL High 70-99 [facility] Comment on above: Result Comment: Fast ing GLUCOSE reference range has been updated per (ADA) [place] [employer]'s recommendation. 09/27/2018 Performed By: #### L 500.39870 #### Test performed at: [address] [address] Internal Medicine Consultati onon 03-25-2020 Internal Medicine Consultation [facility] Patient: KIESHA LAGOS [address] [place] [address] MR#: [id number] CONSULTATION - Internal Medicine : 42 Service Date: 03/25/20 1337 History of Present Illness Referring Physician Ravi Christina MD Consulted Physician Migel Powers MD Reason for Consult S/P ACDF C5-6. HPI The Pt, Mr. Lagos, is a very pleasant 71 y/o male who is S/P ACDF C5-6, TM CAGE AND plate POD-0. Pt tolerated surgery very well, no complications noted. Surgery occurred under general anesthesia with minimal EBL. Pt was seen and examined in PACU. C-collar in place. Surgical dressing noted to be clean, intact and without any strike through. No obvious signs of infection. Moving all extremities symmetrically. Distal pulses are 2+ and intact. Will continue to follow patient. PMHx includes: HTN, [place] (2006) with stent placement in 2006, HLD, DM W/ neuropathy. 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 Living Arrangements SINGLE FAMILY HOME Allergies/Home Medications Allergies Coded Allergies: NO KNOWN ALLERGENS (03/20/20) Reconcile Medications Scheduled Medications Acetaminophen (Tylenol Arthritis) 650 MG TABLET.ER 650 MG PO BID, Ref 0 (Reported) Entered as Reported by MICHAEL REYES on 03/20/20 1036 Last Taken: 03/24/20 Last Action: Held on 03/25/20 1322 by PRO KIM Aspirin Chewable * (Aspirin Baby Chewable *) 81 MG TABLET 81 MG PO DAILYWM PREVENTIVE, Ref 0 (Reported) Entered as Reported by MICHAEL REYES on 03/20/20 1029 Last Taken: 03/10/20 Last Action: Held on 03/25/20 1322 by PRO KIM Atorvastatin Calcium * (Lipitor *) 20 MG TABLET 20 MG PO QHS, Ref 0 (Reported) Entered as Reported by MICHAEL REYES on 03/20/20 1033 Last Taken: 03/24/20 Last Action: Continued on 03/25/20 1322 by PRO KIM Glyburide * (Micronase *) 5 MG TABLET 5 MG PO [id number] 1/2 TAB IN AM, Ref 0 (Reported) Entered as Reported by MICHAEL REYES on 03/20/20 1035 Last Taken: 03/24/20 Last Action: Held on 03/25/20 1323 by PRO KIM Isosorbide Mononitrate * (Imdur *) 30 MG TAB.SR.24H 30 MG PO DAILY, Ref 0 (Reported) Entered as Reported by MICHAEL REYES on 03/20/20 1034 Last Taken: 03/24/20 Last Action: Continued on 03/25/20 1322 by PRO KIM Losartan Potassium * (Cozaar *) 50 MG TABLET 50 MG PO HS 1/2 TABLET, Ref 0 (Reported) Entered as Reported by MICHAEL REYES on 03/20/20 103 Last Taken: 03/24/20 Last Action: Continued on 03/25/20 132 by PRO KIM Metformin HCl * (Glucophage *) 500 MG TABLET 500 MG PO BID, Ref 0 (Reported) Entered as Reported by MICHAEL REYES on 03/20/20 1033 Last Action: Held on 03/25/201321 by PRO KIM Metoprolol Tartrate * (Lopressor *) 50 MG TABLET 50 MG PO BID, Ref 0 (Reported) Entered as Reported by BRUNO MURCIA on 03/25/201331 Last Action: Reviewed on 03/25/201331 by BRUNO MURCIA sitaGLIPtin Phosphate * (Januvia *) 100 MG TABLET 100 MG PO DAILYWM, Ref 0 (Reported) Entered as Reported by MICHAEL REYES on 03/20/20 1033 Last Taken: 03/24/20 Last Action: Held on 03/25/201321 by PRO KIM Scheduled PRN Medications Nitroglycerin SL * (Nitrostat SL *) 0.4 MG TAB 0.4 MG SL PRN PRN Chest Pain, Ref 0 ( Reported) DISSOLVE ONE TABLET UNDER TONGUE EVERY 5 MINUTES X 3 DOSES NEEDED FOR CHEST PAIN. Entered as Reported by MICHAEL REYES on 03/20/20 1035 Last Action: Continued on 03/25/201321 by PRO KIM Discontinued Medications Metoprolol Succinate* (Toprol XL*) 50 MG TABLET.DR 50 MG PO BID, Ref 0 (Reported) Discontinued reason: Med Entered in Error Last Taken: 03/24/202029 Last Action: Discontinued on 03/25/20 1331 by BRUNO MURCIA Review of Systems Review of Systems ROS: Other A 10 system review of systems was collected and is negative unless otherwise noted in the HPI. Physical Exam Vital Signs Vital Signs Vital Signs Verdana 4d Result Date Time O2 Delivery NASAL CANNULA 03/25 1320 O2 Flow Rate 2 03/25 1320 B/P 144/60 03/25 1300 Temp 36.0 03/25 1300 Pulse 72 03/25 1300 Resp 18 03/25 1300 Pulse Ox 99 03/25 0726 Appearance Appearance Awake, No distress Cm: 177.80 Wt-K.000 BMI 34.4 Patient is Overweight Pain Scale 0 Neck Neck In C-collar. Surgical dressing is intact. No strike through or obvious signs of infection. HEENT HEENT Head atraumatic, Hearing grossly normal Respiratory Respiratory Respirations non-labored, Symmetrical expansion, Scattered wheezes CVS Cardiovascular Rate WNL, Rhythm regular, Normal heart sounds, Pulses full, equal Neuro * Document results of Cranial Nerve Asmt for all pts. Neurological Alert, Oriented x 3, No motor deficit, No sensory deficit Abdomen/Pelvis Abdomen Bowel sounds present, Abdomen soft Extremity Extremity No tenderness, No pedal edema, Symmetrical Assessment/Plan Lab Laboratory Tests 03/25 03/25 1243 0804 Chemistry POC Glucose (70 - 99 mg/dL) 210 H 159 H Problem List 1. S/P cervical spinal fusion Assessment and Plan # S/P ACDF C5-6, TM CAGE AND plate POD-0 - IM consulted - Pt seen resting in bed with C-collar in place. He has no complaints - C-collar in place. Clean surgical dressing. No strike through or obvious signs of infection. - PLAN: - Pain management as per surgical team - Oxycodone PO Q4PRN - Tylenol 650mg PO Q4PRN - Bowel care as per surgical team - Bisacodyl 10mg daily - Milk of Mag 30 mL daily - Colace 100mg BID - Ondansetron 4mg QPRN - Decadron 10mg IV Q8 (0/2) - Cefazolin 2g IV Q8H (0/2) - Robaxin 500mg Q6PRN - PT / OT consulted - Influenza vaccine administered - Pneumococcal vaccine administered # HTN - Isosorbide mononitrate 30mg daily - Metoprolol Tartrate 50mg BID - Cozaar 50mg QHS # HLD - Lipitor 20mg QHS # DM2 w/ neuropathy - Lispro insulin - Hypoglycemia protocol # Hx [place] w/ stent placement in 2006 # DVT prophylaxis - As per surgical team - PCDs - Ambulation # Diet - As per surgical team - Clear liquid diet today - Advance to [facility] diet as tolerated, tomorrow # Condition - Stable # Disposition - Stable Senior Resident, Dr. Kim Mr. Lagos is a s/p ACDF C5-C6. He was seen and examined in the PACU after his surgery. Doing well post operatively, pain is minimal. Wearing a soft collar. Will encourage ambulation and follow labs in the morning. PT/OT evaluation. Possible discharge tomorrow. Electronically Signed eSign Date and Time Mary Beebe RES, Ryan MD RES 03/25/20 1638 Migel Powers MD [facility] OPERATIVE REPORTon 0 OPERATIVE REPORT NAME: PATRICIA LAGOS MR#: [id number] SURGEON: Ravi Christina MD DATE OF SURGERY: 03/25/2020 OPERATIVE REPORT PREOPERATIVE DIAGNOSIS: Herniated cervical disk with radiculopathy. POSTOPERATIVE DIAGNOSIS: Herniated cervical disk with radiculopathy. PROCEDURE: Anterior cervical diskectomy and interbody fusion at C5-6 with bank bone graft and a plate fixation. This was done under neuro monitoring . BRIEF HISTORY: This is a patient with a herniated disk causing radiculopathy. We discussed anterior cervical diskectomy and interbody fusion using trabecular metal cage and plate. Unfortunately, his insurance company would not allow the use of a cage and we were forced to use bank bone instead. DESCRIPTION OF PROCEDURE: The patient was brought in to the operative room and after anesthesia placed supine on the operating table. Pre and post positioning neuro monitoring was performed with no change. The neck was gently extended over a roll. Multimodality intraoperative neurophysiological monitoring was continuously carried out with an on-brownfield redevelopment site manager and remote physician in an effort to safeguard the patient. All intraoperative monitoring studies were performed under real-time position supervision via Internet communication allowing continuous and immediate contact between the interpreting physician and myself. Intraoperative monitoring included SSEP, MEP, EMG, EEG, and train of 4. There was a slight EMG activity in the middle of the case on the right laryngeal neural nerve which faded off and was minimal with closure. Otherwise, there were no significant changes and all other data was within normal limits. The neck was prepped and draped in the usual fashion. The incision was planned using C-arm. A transverse incision was made on the right in the skin folds with sharp dissection of subcutaneous tissues. Flaps were elevated above the platysma, which was incised longitudinally. Dissection was carried down between the sternocleidomastoid and the strap muscles into the trachea and esophagus and the carotid sheath. Larger vessels were ligated with suture before dividing. Smaller vessels were coagulated with the bipolar before dividing. The C5-6 interspace was then marked with a needle and x-ray confirmed and the center was marked for rotation. The medial borders of the longus colli muscles were coagulated and retracted. The anterior osteophyte was burred away. The anterior anulus was sharply excised. Thorough diskectomy was performed with curettes and pituitary rongeurs. The cartilaginous endplates were scraped off the bony endplates with curettes and the disk debris removed with pituitary rongeurs. Posteriorly, the osteophytes were removed with cup curettes and a #1 Kerrison rongeur. Bilateral neural foraminotomies were performed with a #1 Kerrison [facility] PT NAME: KIESHA LAGOS MR#: [id number] [address] [place] [address] ACCT: [id number] : 42 OPERATIVE REPORT rongeur. After a thorough posterior decompression, the epidural space was palpated with a micro nerve hook. The foramina were quite patent bilaterally, and it appeared that all posterior compressive pathology had been removed. The endplates were shaved with a bur and then trialed 5 mm tall. Bone graft was selected and opened. This was then cut to size using a saw. The interspace was irrigated with saline and Betadine solution and a thin layer of FloSeal was left posteriorly for hemostasis. With traction on the chin the implant was gently tapped into position for excellent fit and fill. X-ray confirmed excellent position. A plate was then selected, applied anteriorly and the holes drilled and filled with appropriate length screws. Final x-rays confirmed excellent position of the screws and the bone graft and the plate. The overall alignment of the spine was excellent as well. The locking mechanisms were engaged. The wound was irrigated with saline Betadine and solution and a thin layer of FloSeal was left anterior to the plate for hemostasis. A silastic drain was left deep in the wound exiting through separate stab incision. The platysma was loosely tacked together with Vicryl sutures. The skin and subcutaneous tissues were closed in the usual manner. Dressings were applied. The patient was awoken and taken to recovery in excellent condition. There were no complications. RAVI CHRISTINA MD JFS/MODL/[id number] CC: [facility] E/S: Ravi Christina MD 03/29/20 1517 Electronically Signed [facility] PT NAME: KIESHA LAGOS MR#: [id number] [address] [place] [address] ACCT: [id number] : 42 OPERATIVE REPORT Normal [facility] Primary Residenton 0 Primary Resident [facility] Pt Name: KIESHA LAGOS MR#: [id number] [address] [place] [address] ACCT: [id number] [place] [address] : 42 Service Date: 03/25/20 1336 Primary Resident/Call Primary Resident: PIERO Beebe After Hours Call: [phone] Red Team Electronically Signed eSign Date and Time Mary Beebe RES 03/25/20 1337 Normal [facility] CERVICAL SP AP&LAT OR 2-3 VW Son 03-22-2020 CERVICAL SP AP&LAT OR 2-3 VWS STUDY: CERVICAL SP AP LAT OR 2-3 VWS; ; 03/25/2020 11:17 am INDICATION: ACDF C5-C6. COMPARISON: None. ACCESSION NUMBER(S): [id number] ORDERING CLINICIAN: Ravi Christina FINDINGS: Fluoroscopic image of the cervical spine during surgery. The fluoroscopic time is 11.4 seconds. Please refer to the surgical note for further details. IMPRESSION: As above. Normal [facility] GLYCO HEMOon 03-21-2020 HbA1c (Bld) [Mass fraction] 6.8 % Normal [facility] Comment on above: Order Comment: Comme nts To Phleb: pre op in p a t Specimen Comment: dm hx Result Comment: Julisa hoffman Diagnosis HbA1c (%) --------- Diabetic > 6.4 Prediabetes 5.7-6.4 Normal < 5.7 Performed By: #### L 500.96558 #### Test performed at: [address] [address] BASIC MET PANELon 03-20-2020 Anion gap [Moles/Vol] 8 mmol/L Normal 6-18 [facility] Comment on above: Order Comment: Comme nts To Phleb: pre op in p a t Performed By: #### L 500.13446, L500.81900 #### Test performed at: [address] [address] Calcium [Mass/Vol] 8.8 mg/dL Normal 8.5-10.1 [facility] Comment on above: Order Comment: Comme nts To Phleb: pre op in p a t Performed By: #### L 500.02955, L500.53030 #### Test performed at: [address] [address] Chloride [Moles/Vol] 108 mmol/L High 98-107 [facility] Comment on above: Order Comment: Comme nts To Phleb: pre op in p a t Performed By: #### L 500.64963, L500.87143 #### Test performed at: [address] [address] CO2 [Moles/Vol] 30 mmol/L Normal 21-32 [facility] Comment on above: Order Comment: Comme nts To Phleb: pre op in p a t Performed By: #### L 500.89457, L500.53320 #### Test performed at: [address] [address] Creatinine [Mass/Vol] 1.450 mg/dL High 0.700-1.300 [facility] Comment on above: Order Comment: Comme nts To Phleb: pre op in p a t Performed By: #### L 500.47932, L500.48066 #### Test performed at: [address] [address] Glucose [Mass/Vol] 90 mg/dL Normal 70-99 [facility] Comment on above: Order Comment: Comme nts To Phleb: pre op in p a t Result Comment: Fast ing GLUCOSE reference range has been updated per (ADA) [place] [employer]'s recommendation. 09/27/2018 Performed By: #### L 500.55690, L500.67800 #### Test performed at: [address] [address] OSM 293 mosm/kg Normal 270-300 [facility] Comment on above: Order Comment: Comme nts To Phleb: pre op in p a t Performed By: #### L 500.59355, L500.06013 #### Test performed at: [address] [address] Potassium [Moles/Vol] 4.9 mmol/L Normal 3.5-5.1 [facility] Comment on above: Order Comment: Comme nts To Phleb: pre op in p a t Performed By: #### L 500.68499, L500.99558 #### Test performed at: [address] [address] Sodium [Moles/Vol] 141 mmol/L Normal 136-145 [facility] Comment on above: Order Comment: Comme nts To Phleb: pre op in p a t Performed By: #### L 500.76387, L500.74813 #### Test performed at: [address] [address] Urea nitrogen [Mass/Vol] 18 mg/dL Normal 7-18 [facility] Comment on above: Order Comment: Comme nts To Phleb: pre op in p a t Performed By: #### L 500.30260, L500.06338 #### Test performed at: [address] [address] CBC W/DIFFon 03-20-2020 BASO ABS 0.0 K/uL Normal 0.0-0.2 [facility] Comment on above: Order Comment: UNKNO WN Performed By: #### L 500.50159 #### Test performed at: [address] [address] Basophils/100 WBC (Bld) 0.5 % Normal [facility] Comment on above: Order Comment: UNKNO WN Performed By: #### L 500.42974 #### Test performed at: [address] [address] EOS ABS 0.2 K/uL Normal 0.0-0.5 [facility] Comment on above: Order Comment: UNKNO WN Performed By: #### L 500.55869 #### Test performed at: [address] [address] Eosinophils/100 WBC (Bld) 2.1 % Normal [facility] Comment on above: Order Comment: UNKNO WN Performed By: #### L 500.90970 #### Test performed at: [address] [address] Erythrocyte distribution width (RBC) [Ratio] 11.8 % Normal 11.5-14.5 [facility] Comment on above: Order Comment: UNKNO WN Performed By: #### L 500.02746 #### Test performed at: [address] [address] Hematocrit (Bld) [Volume fraction] 41.1 % Normal 39.0-55.0 [facility] Comment on above: Order Comment: UNKNO WN Performed By: #### L 500.33051 #### Test performed at: [address] [address] Hemoglobin (Bld) [Mass/Vol] 13.3 g/dL Low 14.0-16.5 [facility] Comment on above: Order Comment: UNKNO WN Performed By: #### L 500.63186 #### Test performed at: [place] [id number] IG % 0.5 % Normal [facility] Comment on above: Order Comment: UNKNO WN Performed By: #### L 500.43901 #### Test performed at: [place] [id number] IG ABS 0.04 K/uL Normal 0-0.05 [facility] Comment on above: Order Comment: UNKNO WN Performed By: #### L 500.68281 #### Test performed at: [address] [address] Lymphocytes (Bld) [#/Vol] 2.0 10*3/uL Normal 1.2-3.5 [facility] Comment on above: Order Comment: UNKNO WN Performed By: #### L 500.00127 #### Test performed at: [address] [address] Lymphocytes/100 WBC (Bld) 24.4 % Normal [facility] Comment on above: Order Comment: UNKNO WN Performed By: #### L 500.15567 #### Test performed at: [address] [address] MCH (RBC) [Entitic mass] 30.5 pg Normal 25.4-34.6 [facility] Comment on above: Order Comment: UNKNO WN Performed By: #### L 500.37049 #### Test performed at: [address] [address] MCHC (RBC) [Mass/Vol] 32.4 g/dL Normal 31.5-36.5 [facility] Comment on above: Order Comment: UNKNO WN Performed By: #### L 500.33573 #### Test performed at: [address] [address] MCV (RBC) [Entitic vol] 94.3 fL Normal 80.0-100.0 [facility] Comment on above: Order Comment: UNKNO WN Performed By: #### L 500.23546 #### Test performed at: [address] [address] MONO ABS 1.0 K/uL Normal 0.0-1.0 [facility] Comment on above: Order Comment: UNKNO WN Performed By: #### L 500.17983 #### Test performed at: [address] [address] Monocytes/100 WBC (Bld) 12.1 % Normal [facility] Comment on above: Order Comment: UNKNO WN Performed By: #### L 500.49393 #### Test performed at: [address] [address] NEUTROPHIL ABS 5.0 K/uL Normal 1.4-6.6 [facility] Comment on above: Order Comment: UNKNO WN Performed By: #### L 500.96833 #### Test performed at: [address] [address] Neutrophils/100 WBC (Bld) 60.4 % Normal [facility] Comment on above: Order Comment: UNKNO WN Performed By: #### L 500.48558 #### Test performed at: [address] [address] NRBC # 0.000 K/uL Normal 0-0.012 [facility] Comment on above: Order Comment: UNKNO WN Performed By: #### L 500.31073 #### Test performed at: [address] [address] NRBC % 0.0 /100 WBC Normal 0-0.2 [facility] Comment on above: Order Comment: UNKNO WN Performed By: #### L 500.23847 #### Test performed at: [address] [address] Platelet mean volume (Bld) [Entitic vol] 10.1 fL Normal 8.7-12.4 [facility] Comment on above: Order Comment: UNKNO WN Performed By: #### L 500.58306 #### Test performed at: [address] [address] Platelets (Bld) [#/Vol] 274 10*3/uL Normal 140-440 [facility] Comment on above: Order Comment: UNKNO WN Performed By: #### L 500.28683 #### Test performed at: [address] [address] RBC (Bld) [#/Vol] 4.36 10*6/uL Normal 3.5-5.5 [facility] Comment on above: Order Comment: UNKNO WN Performed By: #### L 500.64614 #### Test performed at: [address] [address] WBC (Bld) [#/Vol] 8.3 10*3/uL Normal 3.9-11.0 [facility] Comment on above: Order Comment: UNKNO WN Performed By: #### L 500.81570 #### Test performed at: [address] [address] CHEST PA/AP & LATERAL OR 2 V WSon 03-20-2020 CHEST PA/AP & LATERAL OR 2 VWS STUDY: CHEST PA/AP LATERAL OR 2 VWS; 03/20/2020 11:59 am INDICATION: htn hx. COMPARISON: None. ACCESSION NUMBER(S): [id number] ORDERING CLINICIAN: Horacio Ceballos FINDINGS: Sternotomy wires. Minor linear left basilar atelectasis or scarring. Otherwise the lungs are clear without pleural effusion. Mild cardiomegaly. Unremarkable mediastinum, andrew, and pulmonary vasculature. Thoracic degenerative changes. IMPRESSION: Minor left basilar atelectasis or scarring. Otherwise no active disease in the chest. Normal [facility] CORONAVIRUSon 03-20-2020 CORONAVIRUS Negative results do not preclude SARS-CoV-2 infection and should not be used as the sole basis for patient management decisions. Negative results must be combined with clinical observations, patient history, and epidemiological information. False-negative results may occur if the viruses are present at a level that is below the analytical sensitivity of the assay or if the virus has genomic mutations, insertions, deletions, or rearrangements or if performed very early in the course of illness. Results may be affected by the quality of the sample collected. Simplexa COVID-19 Direct is only for use under the Food and Drug Administration's Emergency Use Authorization. The Simplexa COVID-19 Direct Letter of Authorization, along with the authorized Fact Sheet for Healthcare Providers, the authorized Fact Sheet for Patients, and authorized labeling are available on the FDA website: https://www.fda.gov/M edicalDevices/Safety/ EmergencySituations/u hz926066.htm COVID-19 Negative for COVID-19 (SARS-CoV-2 RNA) Normal [facility] Comment on above: Order Comment: UNKNO WN Performed By: #### L 500.63935 #### Test performed at: [place] [address] GFR ESTIMATEon 03-20-2020 IF AMER 57 Low > 60 [facility] Comment on above: Order Comment: Comme nts To Phleb: pre op in p a t Result Comment: eGFR (Estimated GFR) Units of measure:mL/min/1.73 meters sq. *CALCULATION REVISED 04/23/2015;IDMS-traceable MDRD equation eGFR is derived from the reexpressed MDRD Study equation using the following parameters: serum creatinine, age, gender and race. An eGFR<60 mL/min/1.73m2 for >3 months is consistent with chronic kidney disease. Refer to KDOQI guidelines for clinical interpretation. Performed By: #### L 500.04771, L500.61697 #### Test performed at: [place] [address] IF non-AFR AMER 47 Low > 60 [facility] Comment on above: Order Comment: Comme nts To Phleb: pre op in p a t Performed By: #### L 500.16071, L500.72849 #### Test performed at: [place] [address] H & Rajat 03-20-2020 H & P [facility] Patient: KIESHA LAGOS [address] [place] [address] MR#: [id number] HISTORY and PHYSICAL : Service Date: 03/20/20 1202 HPI/Past Med Surg Hx/Fam Soc HPI Primary Care Physician DR Herbie PRESCOTT Information Source PATIENT Language Barrier No Chief Complaint neck pain/cervical hnp with radiculopathy History of Present Illness pt is 80 year old male with cervical hnp with radiculopathy no known injury pain is 0/10 at rest increases with activity ([id number]) radiates to left arm with numbness and tingles also interfers with sleep gets relief with position changes last examination by dr christina approx 3 weeks ago denies changes plan:anterior cervical discectomy/fusion/tm cage /plates with dr christina PMH/PSH Past Medical History Reports Heart Disease, Reports Hypertension, Reports Arthritis, Denies Pulmonary Disease, Denies Emphysema, Denies Asthma, Denies Hx CHF, Denies Kidney Disease, Denies Immunocompromised, Denies GI Problems, Denies CVA/TIA, Denies Seizures, Denies Psych Problems, Denies Hepatitis, Denies Cancer Diabetes TYPE 2 NONINSULIN DEPEND PMH Other/Comment neck pain/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 htn/hypercholesterol cardiac cath post failed stress test and cabg 2006 at [facility] gets f/u prn has medical clearance in chart episodic wjheezing per pt (not heard today) overweight bmi 27.6 hearing loss denies aides denies dental pain/infection/loose teeth denies sleep apnea has not jose tested denies snotring/apnea/daytim e tiredness ht 5 ft 10 in wt 87.4 kg bmi 27.6 asa 3 stopbang 3 (age/male/htn) mallampati exam deferred Surgical History Reports CABG, Denies Pacemaker PSH Other/Comment cardiac cath with cabg 2006 wisdom teeth extraction 5 total bilateral hand/trigger finger surgeries open appendectomy left inguinal hernia trepair lymph node i AND d age 9 tonsillectomy 13 total surgeries per pt/list given to nurse no known issues with anesthesia Transfusion Status CONSERVATION (will take blood if needed) Transfusion Reaction NOT APPLICABLE Family/Social Family History both parents Smoking Status NEVER SMOKER Alcohol Use No Drug Use No 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 Existing infection before surg No General Comment denies fever cold flu Eyes Reports Wears Glasses HEENT Reports: Hearing loss. Denies: Sore throat, Dental problems, Wears dentures. HEENT Comment hearing loss glasses Pulmonary Reports: Wheezing. Denies: Asthma, Sleep apnea. Pulmonary Comment episodic wheeze per pt Cardiac Denies: History of [place], History of Cardiac Stents. Cardiac Comment cath with cabg 2006 post failed stress test has medical clearance Gastrointestinal Denies: Heartburn. Gastrointestinal Comment denies Urologic Denies: Hx Kidney stones. Urologic Comment denies uti LMP n a Gynecological Comment n a Musculoskeletal Reports: Back pain. Denies: Arthralgias. Musculoskeletal Comment neck issues/hnp with radiculopathy Endocrine Reports: Diabetes, Elevated cholesterol. Denies: Thyroid disease. Endocrine Comment hypercholesterol dm woith neuropathy in feet Hematologic Denies: Hx Blood clot in legs, Hx Blood clot in lungs, Hx of Anemia. Hematologic Comment denies Skin NEGATIVE: Rashes. Physical Exam Vital Signs Vital Signs Vital Signs Verdana 4d Result Date Time Pulse Ox 98 03/20 1038 B/P 151/68 03/20 1038 Temp 37.0 09/16 1038 Pulse 69 03/20 1038 Resp 16 03/20 1038 Appearance Appearance Appears well, Awake, Alert Comment claimes to feel well with cervical hnpwith radiculopathy Neck Neck Full range of motion, No carotid bruit Add Neck Comment moves aas directed full exam deferred to dr sanford YEPEZ Eyes normal inspection, PERRLA Add HEENT Comment hearing loss eoms intact perrla oral cavity exam deferred denies symptoms Mallampati Classification exam deferred Respiratory Respiratory Lungs sound clear, Respirations non-labored Lung Sounds by Lobe L LOWER LOBE Clear, L UPPER LOBE Clear, R LOWER LOBE Clear, R UPPER LOBE Clear Add Respiratory Comment claimes episodic wheeze was not heard today cxr ordered [facility] Cardiovascular Rate WNL, Rhythm regular, Normal heart sounds Pulses 2+ L Radial, 2+ R Radial Add CVS Comment post cabg 2006 denies mi is failed stress test Neuro Neurological Alert, Oriented x 3 Mental Status Oriented x 3 Add Neuro Comment ticket agent equal neuro exam within normal limits Back/Spine Back/Spine Normal spinal curvature Add Back/Spine Comment neck issue/hnp full exam deferrdc to dr christina Abdomen/Pelvis Abdomen Bowel sounds present, Abdomen soft, Non-tender Extremity Extremity Normal appearance Skin Skin Color normal, Skin warm, dry Allergies/Home Medications Allergies Coded Allergies: NO KNOWN ALLERGENS (03/20/20) Reconcile Medications Scheduled Medications Acetaminophen (Tylenol Arthritis) 650 MG TABLET.ER 650 MG PO BID, Ref 0 (Reported) Entered as Reported by MICHAEL REYES on 03/20/20 1036 Last Action: Reviewed on 03/20/20 1037 by MICHAEL REYES Aspirin Chewable * (Aspirin Baby Chewable *) 81 MG TABLET 81 MG PO DAILYWM PREVENTIVE, Ref 0 (Reported) Entered as Reported by MICHAEL REYES on 03/20/20 1029 Last Action: Reviewed on 03/20/20 1037 by MICHAEL REYES Atorvastatin Calcium * (Lipitor *) 20 MG TABLET 20 MG PO QHS, Ref 0 (Reported) Entered as Reported by MICHAEL REYES on 03/20/20 1033 Last Action: Reviewed on 03/20/20 1036 by MICHAEL REYES Glyburide * (Micronase *) 5 MG TABLET 5 MG PO [id number] 1/2 TAB IN AM, Ref 0 (Reported) Entered as Reported by MICHAEL REYES on 03/20/20 1035 Last Action: Reviewed on 03/20/20 1037 by MICHAEL REYES Isosorbide Mononitrate * (Imdur *) 30 MG TAB.SR.24H 30 MG PO DAILY, Ref 0 (Reported) Entered as Reported by MICHAEL REYES on 03/20/20 1034 Last Action: Reviewed on 03/20/20 1037 by MICHAEL REYES Losartan Potassium * (Cozaar *) 50 MG TABLET 50 MG PO HS 1/2 TABLET, Ref 0 (Reported) Entered as Reported by MICHAEL REYES on 03/20/20 1032 Last Action: Reviewed on 03/20/20 1037 by MICHAEL REYES Metformin HCl * (Glucophage *) 500 MG TABLET 500 MG PO BID, Ref 0 (Reported) Entered as Reported by MICHAEL REYES on 03/20/20 1033 Last Action: Reviewed on 03/20/20 1037 by MICHAEL REYES Metoprolol Succinate* (Toprol XL*) 50 MG TABLET.DR 50 MG PO BID, Ref 0 (Reported) Entered as Reported by MICHAEL REYES on 03/20/20 1031 Last Action: Reviewed on 03/20/20 1037 by MICHAEL REYES sitaGLIPtin Phosphate * (Januvia *) 100 MG TABLET 100 MG PO DAILYWM, Ref 0 (Reported) Entered as Reported by MICHAEL REYES on 03/20/20 1033 Last Action: Reviewed on 03/20/20 1037 by MICHAEL REYES Scheduled PRN Medications Nitroglycerin SL * (Nitrostat SL *) 0.4 MG TAB 0.4 MG SL PRN PRN Chest Pain, Ref 0 ( Reported) DISSOLVE ONE TABLET UNDER TONGUE EVERY 5 MINUTES X 3 DOSES NEEDED FOR CHEST PAIN. 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 [ ] The following changes have occurred in the patient's condition: Physician Signature: ____Date/Time: Electronically Signed eSign Date and Time Horacio Ceballos 03/20/20 1226 Ravi Christina MD [facility] MRI CERVICAL SP WO CONTRASTo n 02-14-2020 MRI CERVICAL SP WO CONTRAST STUDY: MRI CERVICAL SP WO CONTRAST; 02/14/2020 11:20 am INDICATION: CERVICAL RADICULOPATHY . COMPARISON: None. ACCESSION NUMBER(S): [id number] ORDERING CLINICIAN: Family Unavailable TECHNIQUE: Sagittal T1, T2, STIR, axial T1 and axial T2 weighted images were acquired through the cervical spine. FINDINGS: C2-3: The findings are unremarkable. C3-4: There is mild diffuse disc bulge which slightly narrows the subarachnoid space but does not deform the cord. There is moderate left neural foraminal stenosis secondary to hypertrophic uncovertebral joint and facet changes. C4-5: There is moderate bilateral neural foraminal stenosis secondary to hypertrophic facet changes. C5-6: There is diffuse disc bulge which narrows the subarachnoid space but does not deform the cord. There is moderate bilateral neural foraminal stenosis secondary to hypertrophic uncovertebral joint changes. C6-7: The findings are unremarkable. C7-T1: The findings are unremarkable. IMPRESSION: Multifocal degenerative changes as described above Normal [facility] Vital Signs Date Time Vital Sign Value Performing Clinician Facility 03-15-2025 10:22-0400 Diastolic blood pressure 69 mm[Hg] Saturnino Loomis MD [facility] 03-15-2025 10:22-0400 Systolic blood pressure 144 mm[Hg] Saturnino Loomis MD [facility] 02-05-2025 11:24-0400 Diastolic blood pressure 76 mm[Hg] Saturnino Loomis MD [facility] 02-05-2025 11:24-0400 Systolic blood pressure 143 mm[Hg] Saturnino Loomis MD [facility] 11-17-2024 08:23-0400 Diastolic blood pressure 65 mm[Hg] Saturnino Loomis MD [facility] 11-17-2024 08:23-0400 Systolic blood pressure 141 mm[Hg] Saturnino Loomis MD [facility] 09-15-2024 11:09-0400 Diastolic blood pressure 65 mm[Hg] Saturnino Loomis MD [facility] 09-15-2024 11:09-0400 Systolic blood pressure 125 mm[Hg] Saturnino Loomis MD [facility] 08-18-2024 08:47-0500 Diastolic blood pressure 67 mm[Hg] Saturnino Loomis MD [facility] 08-18-2024 08:47-0500 Systolic blood pressure 141 mm[Hg] Saturnino Loomis MD [facility] 07-07-2024 15:51-0500 Body temperature 97.5 [degF] [facility] 07-07-2024 15:51-0500 Diastolic blood pressure 56 mm[Hg] [facility] 07-07-2024 15:51-0500 Heart rate 67 /min [facility] 07-07-2024 15:51-0500 Respiratory rate 14 /min [facility] 07-07-2024 15:51-0500 SaO2% (BldA) [Mass fraction] 99 % [facility] 07-07-2024 15:51-0500 Systolic blood pressure 120 mm[Hg] [facility] 07-07-2024 15:50-0500 Body height 177.8 cm [facility] 07-07-2024 15:50-0500 Body mass index (BMI) [Ratio] 27.33 kg/m2 [facility] 07-07-2024 15:50-0500 Body weight 86.4 kg [facility] 06-29-2024 13:28-0500 Diastolic blood pressure 74 mm[Hg] Saturnino Loomis MD [facility] 06-29-2024 13:28-0500 Systolic blood pressure 134 mm[Hg] Saturnino Loomis MD [facility] 03-17-2024 12:37-0400 Body height 172.7 cm [facility] 03-17-2024 12:37-0400 Body mass index (BMI) [Ratio] 27.99 kg/m2 [facility] 03-17-2024 12:37-0400 Body temperature 97.11 [degF] [facility] [address] [facility] 03-17-2024 12:37-0400 Body weight 83.5 kg [facility] 03-17-2024 12:37-0400 Diastolic blood pressure 77 mm[Hg] [facility] 03-17-2024 12:37-0400 Heart rate 63 /min [facility] 03-17-2024 12:37-0400 Respiratory rate 14 /min [facility] [address] [facility] 03-17-2024 12:37-0400 SaO2% (BldA) [Mass fraction] 97 % [facility] 03-17-2024 12:37-0400 Systolic blood pressure 136 mm[Hg] [facility] Encounters Encounter Date Encounter Type Care Provider Facility Start: 04-01-2026 ambulatory [facility]que L [facility]un [facility] Start: 05-17-2025 [facility] Start: 04-03-2025 End: 04-03-2025 ambulatory [facility]que L Naun [facility] Start: 03-29-2025 ambulatory Henrique L Naun [facility] Start: 03-26-2025 End: 03-26-2025 Encounter identifier Saturnino Al Shweiki Work Phone: [facility] Start: 03-26-2025 ambulatory Saturnino Al Shweiki [facility] Start: 03-26-2025 End: 03-26-2025 ambulatory Henrique L Naun [facility] Start: 03-15-2025 End: 03-15-2025 Office outpatient visit 25 minutes Saturnino Al Shweiki Work Phone: [facility] Start: 03-15-2025 ambulatory Saturnino Al Shweiki [facility] Start: 02-13-2025 End: 02-13-2025 ambulatory Henrique L Naun Facility:[facility] Start: 02-05-2025 End: 02-05-2025 Office outpatient visit 25 minutes Saturnino Al Shweiki Work Phone: [facility] Start: 02-05-2025 ambulatory Saturnino Al Shweiki [facility] Start: 01-29-2025 End: 01-29-2025 Encounter identifier Doctor Corporate Work Phone: [facility] Start: 01-29-2025 ambulatory Doctor Corporate [facility] Start: 11-17-2024 End: 11-17-2024 Encounter identifier Saturnino Al Shweiki Work Phone: [facility] Start: 11-17-2024 End: 11-17-2024 Saturnino Al Shweiki Work Phone: [facility] Start: 11-17-2024 ambulatory Saturnino Al Shweiki [facility] Start: 10-23-2024 End: 10-23-2024 Doctor Corporate Work Phone: [facility] Start: 10-23-2024 ambulatory Doctor Corporate [facility] Start: 09-18-2024 End: 09-18-2024 Doctor Corporate Work Phone: [facility] Start: 09-18-2024 ambulatory Doctor Corporate [facility] Start: 09-15-2024 End: 09-15-2024 Office outpatient visit 25 minutes Saturnino Al Shweiki Work Phone: [facility] Start: 09-15-2024 ambulatory Saturnino Loomis [facility] Start: 08-31-2024 End: 08-31-2024 ambulatory SELF Facility:[facility] Start: 08-31-2024 End: 08-31-2024 Patient encounter procedure Jona Wong MD Work Phone: Ophthalmology Comment on above: Peripheral exudative hemorrhagic chorioretinopathy (Primary Dx) Start: 08-23-2024 End: 08-23-2024 Saturnino Al Candisweiki Work Phone: [facility] Start: 08-23-2024 ambulatory Saturnino Loomis [facility] Start: 08-18-2024 End: 08-18-2024 Encounter identifier Saturnino Al Shweiki Work Phone: [facility] Start: 08-18-2024 End: 08-18-2024 Saturnino Al Shweiki Work Phone: [employer] Start: 08-18-2024 ambulatory Saturnino Loomis [facility] Start: 08-03-2024 End: 08-03-2024 Office outpatient visit 25 minutes Saturnino Al Shweiki Work Phone: [facility] Start: 08-03-2024 ambulatory Saturnino Al Candiswejudith [facility] Start: 08-02-2024 End: 08-02-2024 Encounter identifier Saturnino Al Shweiki Work Phone: [facility] Start: 08-02-2024 End: 08-02-2024 Saturnino Al Shweiki Work Phone: [facility] Start: 08-02-2024 ambulatory Saturnino Al Candisweiki [facility] Start: 08-02-2024 End: 08-02-2024 [facility] Start: 08-02-2024 End: 08-02-2024 Evaluation and management of inpatient SATURNINO Hodge [facility] Start: 07-21-2024 ambulatory Doctor Corporate [facility] Start: 07-17-2024 ambulatory Saturnino Loomis [facility] Start: 07-07-2024 End: 07-07-2024 Encounter identifier Saturnino Highiki Work Phone: [facility] Start: 07-07-2024 End: 07-07-2024 Saturnino Highiki Work Phone: [facility] Start: 07-07-2024 End: 07-07-2024 ambulatory SATURNINO A [facility] Start: 07-07-2024 Encounter for other preprocedural examination [facility] Start: 07-07-2024 End: 07-07-2024 Patient encounter procedure [facility] Comment on above: Pre-op testing (Prim jenn Dx) Start: 07-07-2024 End: 07-07-2024 Patient encounter status [facility] Start: 07-06-2024 End: 07-06-2024 Saturnino Highiki Work Phone: [facility] Start: 07-06-2024 ambulatory Saturnino Loomis [facility] Start: 06-29-2024 End: 06-29-2024 Office outpatient visit 25 minutes Saturnino Loomis Work Phone: [facility] Start: 06-29-2024 ambulatory Saturnino Loomis [facility] Start: 05-29-2024 End: 05-29-2024 Encounter identifier Saturnino Highiki Work Phone: [facility] Start: 05-29-2024 End: 05-29-2024 Saturnino Finchweiki Work Phone: [facility] Start: 05-29-2024 ambulatory Saturnino Loomis [facility] Start: 05-26-2024 End: 05-26-2024 Office outpatient visit 25 minutes Saturnino Highiki Work Phone: [facility] Start: 05-26-2024 ambulatory Saturnino Loomis [facility] Start: 05-03-2024 End: 05-03-2024 Lab Drop off Henrique L Naun [facility] Start: 05-03-2024 End: 05-03-2024 ambulatory Henrique L Naun Facility:[facility] Start: 05-01-2024 End: 05-01-2024 Postop follow up visit related to original px Saturnino Rizwan Juarez MD [facility] Start: 05-01-2024 End: 05-01-2024 Encounter identifier Saturnino Astorga Shweiki Work Phone: [facility] Start: 05-01-2024 End: 05-01-2024 Saturnino Astorga Shweiki Work Phone: [facility] Start: 05-01-2024 ambulatory Saturnino Loomis [facility] Start: 03-30-2024 End: 03-30-2024 ambulatory Henrique L Naun Facility:[facility] Start: 03-29-2024 End: 03-29-2024 Encounter identifier Saturnino Finchweiki Work Phone: [facility] Start: 03-29-2024 End: 03-29-2024 Saturnino Astorga Shweiki Work Phone: [facility] Start: 03-29-2024 ambulatory Saturnino Loomis [facility] Start: 03-29-2024 End: 03-29-2024 Postop follow up visit related to original px Saturnino Rizwan [facility] Start: 03-28-2024 End: 03-28-2024 Lab Drop off Henrique L Naun [facility] Start: 03-28-2024 End: 03-28-2024 ambulatory Henrique L Naun Facility:[facility] Start: 03-23-2024 End: 03-23-2024 ambulatory Henrique L Naun Facility:[facility] Start: 03-21-2024 End: 03-21-2024 Postop follow up visit related to original px Saturnino Loomis MD [facility] Start: 03-21-2024 End: 03-21-2024 Encounter identifier Saturnino Lomois Work Phone: [facility] Start: 03-21-2024 End: 03-21-2024 Saturnino Loomis Work Phone: [employer] Start: 03-20-2024 End: 03-20-2024 Encounter identifier Saturnino Loomis Work Phone: [facility] Start: 03-20-2024 End: 03-20-2024 Saturnino Loomis Work Phone: [facility] Start: 03-20-2024 End: 03-20-2024 Evaluation and management of inpatient [facility] Start: 03-20-2024 End: 03-20-2024 Evaluation and management of inpatient [facility] Start: 03-17-2024 End: 03-17-2024 ambulatory [facility] Start: 03-17-2024 End: 03-17-2024 Patient encounter procedure [facility] Comment on above: Preop testing (Prima ry Dx) Start: 03-17-2024 End: 03-17-2024 Patient encounter status [facility] Start: 03-15-2024 End: 03-15-2024 Encounter identifier Anish Givens Work Phone: [employer] Start: 03-15-2024 End: 03-15-2024 Anish Givens Work Phone: [facility] Start: 03-03-2024 End: 03-03-2024 Anish Givens Work Phone: [facility] Start: 02-16-2024 End: 02-16-2024 Office outpatient visit 25 minutes Anish Givens Work Phone: [facility] Start: 02-07-2024 End: 02-07-2024 ambulatory HEDY DODSON Not Available Start: 01-31-2024 End: 01-31-2024 ambulatory HEDY DODSON Not Available Start: 01-24-2024 End: 01-24-2024 Lab Drop off Henrique L Naun [facility] Start: 01-24-2024 End: 01-24-2024 ambulatory Henrique L Naun Facility:[facility] Start: 01-17-2024 ambulatory Henrique L Naun Facility: [facility] Start: 12-23-2023 End: 12-23-2023 ambulatory Henrique L Naun Facility:[facility] Start: 11-11-2023 End: 11-11-2023 Office outpatient visit 15 minutes Felicia Beck Liana Work Phone: [facility] Start: 10-18-2023 End: 10-18-2023 Lab Drop off Henrique L Naun [facility] Start: 10-18-2023 End: 10-18-2023 ambulatory Henrique L Naun Facility:[facility] Start: 09-27-2023 End: 09-27-2023 ambulatory Henrique L Naun Facility:[facility] [place] Start: 07-19-2023 End: 07-19-2023 Lab Drop off Hernique L Naun [facility] Start: 07-19-2023 End: 07-19-2023 ambulatory Henrique L Naun Facility:[facility] Start: 02-24-2023 End: 02-24-2023 Lab Drop off Henrique Magallon [facility] Start: 12-02-2022 ambulatory VESTA Aguilar y:H1 Start: 11-24-2022 End: 11-25-[address] DEVIN PRESCOTT . Facility: Start: 10-14-2022 End: 10-14-2022 Encounter identifier Wendi Velazco Alkaliby Work Phone: [facility] Start: 10-14-2022 End: 10-14-2022 Wendi Velazco Alkaliby Work Phone: [facility] Start: 10-14-2022 End: 10-14-2022 Postop follow up visit related to original px Saturnino Rizwan Juarez MD [facility] Start: 08-12-2022 End: 08-12-2022 Encounter identifier Wendi Velazco Alkaliby Work Phone: [facility] Start: 08-12-2022 End: 08-12-2022 Wendi Velazco Alkaliby Work Phone: [facility] Start: 08-12-2022 End: 08-12-2022 Postop follow up visit related to original px Saturnino Loomis MD [facility] Start: 08-05-2022 End: 08-05-2022 Postop follow up visit related to original px Saturnino Rizwan Juarez MD [facility] Start: 08-05-2022 End: 08-05-2022 Encounter identifier Wendi Velazco Alkaliby Work Phone: [facility] Start: 08-05-2022 End: 08-05-2022 Wendi Velazco Alkaliby Work Phone: [facility] Start: 08-04-2022 End: 08-04-2022 Encounter identifier Wendi M Alkaliby Work Phone: [facility] Start: 08-04-2022 End: 08-04-2022 Wendi Mora Alkaliby Work Phone: [facility] Start: 06-24-2022 End: 06-24-2022 Office outpatient visit 25 minutes Wendi Velazco Alkaliby Work Phone: [facility] Start: 06-02-2022 End: 06-03-[address] DEVIN PRESCOTT . Facility: Start: 03-25-2022 End: 03-25-2022 Encounter identifier Wendi Velazco Alkaliby Work Phone: [facility] Start: 03-25-2022 End: 03-25-2022 Wendi Velazco Alkaliby Work Phone: [facility] Start: 12-17-2021 End: 12-17-2021 Encounter identifier Wendi Velazco Alkaliby Work Phone: [facility] Start: 12-17-2021 End: 12-17-2021 Wendi Velazco Alkaliby Work Phone: [facility] Start: 11-05-2021 End: 11-05-2021 Encounter identifier Wendi Velazco Alkaliby Work Phone: [facility] Start: 11-05-2021 End: 11-05-2021 Wendi Velazco Alkaliby Work Phone: [facility] Start: 03-04-2021 End: 03-04-2021 Encounter identifier Sean Robertson Work Phone: [facility] Start: 03-04-2021 End: 03-04-2021 Sean Robertson Work Phone: [facility] Start: 03-22-2020 Patient encounter status Met 2 [facility] Work Phone: Start: 01-31-2020 End: 01-31-2020 Encounter identifier Sean Robertson Work Phone: [facility] Start: 01-31-2020 End: 01-31-2020 Sean Robertson Work Phone: [facility] Start: 12-07-2018 End: 12-07-2018 Encounter identifier Sean Robertson Work Phone: [facility] Start: 12-07-2018 End: 12-07-2018 Sean Robertson Work Phone: [facility] Start: 06-08-2018 End: 06-08-2018 Encounter identifier Sean Robertson Work Phone: [facility] Start: 06-08-2018 End: 06-08-2018 Sean Robertson Work Phone: [facility] Start: 04-13-2018 End: 04-13-2018 Office outpatient visit 40 minutes Sean Robertson Work Phone: [facility] Start: 01-22-2016 End: 01-22-2016 Encounter identifier Sean Robertson Work Phone: [facility] Start: 01-22-2016 End: 01-22-2016 Sean Robertson Work Phone: [facility] Start: 04-24-2015 End: 04-24-2015 Encounter identifier Sean Robertson Work Phone: [facility] Start: 04-24-2015 End: 04-24-2015 Sean Robertson Work Phone: [facility] Start: 03-18-2015 End: 03-18-2015 Office outpatient visit 25 minutes Estefanía Lopez Work Phone: [facility] Start: 01-16-2015 End: 01-16-2015 Office outpatient new 60 minutes Sean Robertson Work Phone: [facility] Procedures Date Procedure Procedure Detail Performing Clinician Start: 03-15-2025 End: 03-15-2025 Computerized ophthalmic imaging retina Saturnino Loomis Start: 02-05-2025 End: 02-05-2025 Bevacizumab injection Saturnino Loomis MD Start: 02-05-2025 End: 02-05-2025 Computerized ophthalmic imaging retina Saturnino Loomis MD Start: 02-05-2025 End: 02-05-2025 Intravitreal njx pharmacologic agt spx Saturnino Loomis MD Start: 11-17-2024 End: 11-17-2024 Dstrj loclzd lesion retina 1/> sess pc Saturnino Loomis MD Start: 11-17-2024 Fundus Photos No Charge Saturnino Loomis Start: 11-17-2024 End: 11-17-2024 Fundus Photos No Charge Bilateral Saturnino Loomis MD Start: 09-15-2024 End: 09-15-2024 Computerized ophthalmic imaging retina Saturnino Loomis MD Start: 09-15-2024 Fundus Photos No Charge Saturnino Loomis Start: 09-15-2024 End: 09-15-2024 Fundus Photos No Charge Bilateral Saturnino Loomis MD Start: 08-31-2024 Oph us dx b-scan&olga n a-scan sm pt enctr Jona Wong MD Work Phone: Start: 08-31-2024 End: 08-31-2024 Computerized ophthalmic imaging retina Rex Ugalde MD Work Phone: Start: 08-18-2024 End: 08-18-2024 Fundus photography w/interpretation & report Saturnino Loomis MD Start: 08-18-2024 End: 08-18-2024 Treatment extensive retinopathy photocoagulation Saturnino Loomis MD Start: 08-03-2024 End: 08-03-2024 Fluorescein angrph w/multiframe i&r uni/bi Saturnino Loomis MD Start: 08-03-2024 End: 08-03-2024 Treatment extensive retinopathy photocoagulation Saturnino Loomis MD Start: 08-02-2024 End: 08-02-2024 Void Ticket Saturnino Loomis MD Start: 07-07-2024 Basic metabolic pane l calcium total Melissa Gannon MD Work Phone: Start: 06-29-2024 End: 06-29-2024 Bevacizumab injection Saturnino Loomis MD Start: 06-29-2024 End: 06-29-2024 Computerized ophthalmic imaging retina Saturnino Loomis MD Start: 06-29-2024 End: 06-29-2024 Intravitreal njx pharmacologic agt spx Saturnino Loomis MD Start: 05-29-2024 End: 05-29-2024 Bevacizumab injection Saturnino Loomis MD Start: 05-29-2024 End: 05-29-2024 Intravitreal njx pharmacologic agt spx Saturnino Loomis MD Start: 05-26-2024 End: 05-26-2024 Bevacizumab injection Saturnino Loomis MD Start: 05-26-2024 End: 05-26-2024 Intravitreal njx pharmacologic agt spx Saturnino Loomis MD Start: 05-01-2024 OCT No Charge Saturnino Loomis Start: 05-01-2024 End: 05-01-2024 OCT No Charge Uni Or Bi Saturnino Vegas i, MD Start: 03-29-2024 OCT No Charge Saturnino Loomis Start: 03-29-2024 End: 03-29-2024 OCT No Charge Uni Or Bi Saturnino Vegas i, MD Start: 03-21-2024 Vitrectomy Vitrectomy (ch ief complaint) Saturnino Loomis Work Phone: Start: 03-20-2024 End: 03-20-2024 Vitrectomy mchnl pars plna focal endolaser pc Saturnino oLomis MD Start: 03-17-2024 Basic metabolic pane l calcium total Maggie Rosado MD Work Phone: Start: 03-17-2024 Ecg routine ecg w/le ast 12 lds trcg only w/o i&r Maggie Rosado MD Work Phone: Start: 03-15-2024 End: 03-15-2024 Bevacizumab injection Saturnino Loomis MD Start: 03-15-2024 End: 03-15-2024 Intravitreal njx pharmacologic agt spx Saturnino Loomis MD Start: 03-15-2024 End: 03-15-2024 OCT No Charge Uni Or Bi Saturnino Vegas i, MD Start: 03-15-2024 End: 03-15-2024 Ophthalmic ultrasound dx b-scan w/wo a-scan Saturnino Loomis MD Start: 02-16-2024 End: 02-16-2024 Bevacizumab injection Saturnino Loomis MD Start: 02-16-2024 End: 02-16-2024 Computerized ophthalmic imaging retina Saturnino Loomis MD Start: 02-16-2024 End: 02-16-2024 Fundus Photos No Charge Bilateral Saturnino Loomis MD Start: 02-16-2024 End: 02-16-2024 Intravitreal njx pharmacologic agt spx Saturnino Loomis MD Start: 11-11-2023 End: 11-11-2023 Fluorescein angrph w/multiframe i&r uni/bi Saturnino Loomis MD Start: 11-11-2023 End: 11-11-2023 Fundus Photos No Charge Bilateral Saturnino Loomis MD Start: 10-14-2022 End: 10-14-2022 OCT No Charge Uni Or Bi Saturnino Vegas i, MD Start: 08-12-2022 End: 08-12-2022 Fundus Photos No Charge Bilateral Saturnino Loomis MD Start: 08-12-2022 End: 08-12-2022 OCT No Charge Uni Or Bi Saturnino Vegas i, MD Start: 08-05-2022 End: 08-05-2022 Fundus Photos No Charge Bilateral Saturnino Loomis MD Start: 08-04-2022 End: 08-04-2022 Vitrectomy pars plana remove int memb retina Saturnino Loomis MD Start: 06-24-2022 End: 06-24-2022 Bevacizumab injection Saturnino Loomis MD Start: 06-24-2022 End: 06-24-2022 Computerized ophthalmic imaging retina Saturnino Loomis MD Start: 06-24-2022 End: 06-24-2022 Intravitreal njx pharmacologic agt spx Saturnino Loomis MD Start: 03-25-2022 End: 03-25-2022 Bevacizumab injection Saturnino Loomis MD Start: 03-25-2022 End: 03-25-2022 Computerized ophthalmic imaging retina Saturnino Loomis MD Start: 03-25-2022 End: 03-25-2022 Intravitreal njx pharmacologic agt spx Saturnino Loomis MD Start: 12-17-2021 End: 12-17-2021 Bevacizumab injection Saturnino Loomis MD Start: 12-17-2021 End: 12-17-2021 Computerized ophthalmic imaging retina Saturnino Loomis MD Start: 12-17-2021 End: 12-17-2021 Intravitreal njx pharmacologic agt spx Saturnino Loomis MD Start: 11-05-2021 End: 11-05-2021 Bevacizumab injection Saturnino Loomis MD Start: 11-05-2021 End: 11-05-2021 Fluorescein angrph w/multiframe i&r uni/bi Saturnino Loomis MD Start: 11-05-2021 End: 11-05-2021 Intravitreal njx pharmacologic agt spx Saturnino Loomis MD Start: 03-04-2021 End: 03-04-2021 Computerized ophthalmic imaging retina Saturnino Loomis MD Start: 03-20-2020 [facility] Start: 01-31-2020 End: 01-31-2020 Computerized ophthalmic imaging retina Saturnino Loomis MD Start: 12-07-2018 End: 12-07-2018 Computerized ophthalmic imaging retina Saturnino Loomis MD Start: 06-08-2018 End: 06-08-2018 Computerized ophthalmic imaging retina Saturnino Loomis MD Start: 04-13-2018 End: 04-13-2018 Bevacizumab injection Saturnino Loomis MD Start: 04-13-2018 End: 04-13-2018 EYE SERVICE OR PROCEDURE Saturnino Hansen MD Start: 04-13-2018 End: 04-13-2018 Fluorescein angrph w/multiframe i&r uni/bi Saturnino Loomis MD Start: 04-13-2018 End: 04-13-2018 Intravitreal njx pharmacologic agt spx Saturnino Loomis MD Start: 01-22-2016 End: 01-22-2016 Computerized ophthalmic imaging retina Saturnino Loomis MD Start: 04-24-2015 End: 04-24-2015 Computerized ophthalmic imaging retina Saturnino Loomis MD Start: 03-18-2015 End: 03-18-2015 Ophthalmoscpy extended retinal drawing i&r 1st Saturnino Loomis MD Start: 01-16-2015 End: 01-16-2015 Dstrj loclzd lesion retina 1/> sess pc Saturnino Loomis MD Start: 01-16-2015 End: 01-16-2015 Fluorescein angrph w/multiframe i&r uni/bi Saturnino Loomis MD Appendectomy Henrique Magallon Bilateral cataracts (disorder) Henrique Magallon Coronary bypass alisa t angiography Henrique Magallon Hernia of abdominal cavity (disorder) Henrique Magallon Comment on above: 1973 Surgery (qualifier value) Leatha Blackwell Comment on above: surgery of the neck 2020 surgery Tympanostomy Henrique Magallon Plan of Treatment Date Care Activity Detail Author Start: 07-07-2027 Diabetes Screening Diabetes Screening [facility] Start: 07-07-2025 Tobacco Screening Tobacco Screening [facility] Start: 05-10-2025 Kiesha Lagos / 3 Mos Io Avn Os (2of3) Oct [facility] Work Phone: Start: 03-17-2025 Adult BMI Screening Adult BMI Screening [facility] Start: 03-17-2025 Tobacco Screening Tobacco Screening [facility] Start: 03-08-2025 Kiesha Lagos / 1 Mos Dfe Oct Fa Os Iop Check [facility] Work Phone: Start: 02-05-2025 Smoking cessation education Tobacco cessation counseling [facility] Start: 01-22-2025 Kiesha Lagos 2mo DFE OCT FA OD 1 [facility] Work Phone: Start: 11-17-2024 Smoking cessation education Tobacco cessation counseling [facility] Start: 11-17-2024 Kiesha Lagos Barrier/ PRP OD/ Dilate OD/ Colors [facility] Work Phone: Start: 09-15-2024 Kiesha Lagos 1 Mnth DFE/ Colors [facility] Work Phone: Start: 08-03-2024 Kiesha Lagos 3 Mnth DFE, OCT FA OS First [facility] Work Phone: Start: 07-27-2024 [facility] Work Phone: Start: 07-26-2024 Kiesha Lagos VH OS [facility] Work Phone: Start: 07-20-2024 Kiesha Laogs 1 DAY POST OP [facility] Work Phone: Start: 07-19-2024 Kiesha Lagos VH OS [facility] Work Phone: Start: 07-19-2024 End: 07-19-2024 Admission to same day surgery center 07/19/2024 11:15 AM EST - 07/19/2024 12:[address] [facility] [address] [place] [id number] Saturnino Gonzalez MD [address] [place] [id number] VITRECTOMY PARS PLANA 25G ENDOLASER PHOTOCOAGULATION EYE [facility] Comment on above: VITRECTOMY PARS PLANA 25G ENDOLASER PHOT OCOAGULATION EYE Start: 07-19-2024 Subsequent hospital visit by physician 07/19/2024 11:15 AM EST Hospital Encounter [facility] [address] [place] [id number] Saturnino Gonzalez MD [address] [place] [address] [id number] [facility] Start: 07-19-2024 End: 07-19-2024 VITRECTOMY PARS PLANA 25G ENDOLASER PHOTOCOAGULATION EYE VITRECTOMY PARS PLANA 25G ENDOLASER PHOTOCOAGULATION EYE VITREOUS HEMORRHAGE LEFT 07/19/2024 11:15 AM EST [facility] Start: 07-05-2024 Advance Directive Discussion Advance Directive Discussion [facility] Start: 03-20-2024 End: 03-20-2024 Admission to same day surgery center 03/20/2024 8:30 AM EDT - 03/20/2024 10:00 AM EDT Surgery [facility] [address] [address] Saturnino Gonzalez MD [address] [place] [address] VITRECTOMY PARS PLANA 25G ENDOLASER PHOTOCOAGULATION EYE [13215 (CPT )] [facility] Comment on above: VITRECTOMY PARS PLANA 25G ENDOLASER PHOT OCOAGULATION EYE [76803 (CPT )] Start: 03-20-2024 Subsequent hospital visit by physician 03/20/2024 8:30 AM EDT Hospital Encounter [facility] [address] [place] [address] Saturnino Gonzalez MD [address] [place] [address] [facility] Start: 03-20-2024 End: 03-20-2024 Vtrectomy mchnl pars plna endolaser panrta pc VITRECTOMY PARS PLANA 25G ENDOLASER PHOTOCOAGULATION EYE Vitreous hemorrhage, left eye ([facility]) 03/20/2024 8:30 AM EDT [facility] Start: 03-05-2024 COVID-19 Vaccine ( season) COVID-19 Vaccine ( season) [facility] Start: 03-05-2024 COVID-19 Vaccine ( season) COVID-19 Vaccine ( season) [facility] Start: 03-05-2024 Influenza vaccination Influenza Vaccine [facility] Start: 11-11-2023 Smoking cessation education Tobacco cessation counseling [facility] Start: 01-26-2016 RSV Vaccine (1 - 1-dose 75+ series) RSV Vaccine (1 - 1-dose 75+ series) [facility] Start: 2006 Fall Risk Screening Fall Risk Screening [facility] Start: 1991 Administration of varicella zoster vaccine Zoster (Shingles) Vaccine (1 of 2) [facility] Start: 1991 Pneumococcal Vaccine: 50+ (1 of 1 - PCV) Pneumococcal Vaccine: 50+ (1 of 1 - PCV) [facility] Start: 1991 Shingrix Vaccine (1 of 2) Shingrix Vaccine (1 of 2) [facility] Start: 01-26-1960 DTaP,Tdap and Td Vaccines (1 - Tdap) DTaP,Tdap and Td Vaccines (1 - Tdap) [facility] Start: 01-26-1960 Urine microalbumin profile DTaP,Tdap,Td Vaccine (1 - Tdap) [facility] Start: 1959 Adult BMI Follow Up Plan Adult BMI Follow Up Plan [facility] Start: 1959 Anxiety Screening Anxiety Screening [facility] Start: 1959 Depression Screening Depression Screening [facility] Start: 1953 Depression Screening Depression Screening [facility] Start: 1941 Medicare Annual Wellness Visit Medicare Annual Wellness Visit [facility] Immunizations Immunization Date Immunization Notes Care Provider Matt echavarria 04-25-2024 influenza virus vaccine, unspecified formulation Henrique Naun [facility] 03-15-2023 influenza virus vaccine, unspecified formulation Henrique Naun [facility] 05-01-2022 influenza virus vaccine, unspecified formulation Henrique Naun [facility] 04-15-2022 SARS-CoV-2 (COVID-19 ) [id number] Henrique Naun [facility] 05-09-2021 influenza virus vaccine, unspecified formulation Henrique Naun [facility] 04-07-2021 SARS-CoV-2 (COVID-19 ) mRNA BNT-162b2 vax Henrique Naun [facility] Comment on above: Result Comment: 2022: [id number] 08-28-2020 SARS-CoV-2 (COVID-19 ) mRNA BNT-162b2 vax Henrique Naun [facility] Comment on above: Result Comment: 2022: [id number] 08-07-2020 SARS-CoV-2 (COVID-19 ) mRNA BNT-162b2 vax Henrique Naun [facility] Comment on above: Result Comment: 2022: [id number] 04-17-2020 influenza virus vaccine, unspecified formulation Henrique Naun [facility] 05-24-2019 influenza virus vaccine, unspecified formulation Henrique Naun [facility] 05-25-2018 influenza virus vaccine, unspecified formulation Henrique Naun [facility] Payers Date Payer Category Payer Medicare (Managed Care) [employer] [facility] [id number] 2021 Medicare AETNA MEDICARE A ETNA MEDICARE PLAN (PPO) [id number] 2021-Present [phone] [address] [place] [address] [id number] 2021 Medicare HMO [employer] MEDICARE ember [id number] 1959 Medicare [id number] 1941 Unknown [id number] 2.16.840.1.460140.3.579.2. 593 1941 Unknown [id number] 2.16.840.1.247046.3.579.2. 593 1941 Unknown [id number] 2.16.840.1.041208.3.579.2. 593 1941 Unknown [id number] 2.16.840.1.392728.3.579.2. 1259 1941 Unknown [id number] 2.16.840.1.885087.3.579.2. 1259 1941 Unknown [id number] 2.16.840.1.261882.3.579.2. 727 1941 Unknown [id number] 2.16.840.1.849800.3.579.2. 727 1941 Unknown [id number] 2.16.840.1.499652.3.579.2. 727 1941 Unknown [id number] 2.16.840.1.491654.3.579.2. 727 1941 Unknown [id number] 2.16.840.1.222537.3.579.2. 1941 Unknown [id number] 2.16.840.1.474367.3.579.2. 1941 Unknown [id number] 2.16.840.1.666388.3.579.2. 1941 Unknown [id number] 2.16.840.1.315380.3.579.2. 1941 Unknown [id number] 2.16.840.1.867261.3.579.2. 1941 Unknown [id number] 2.16.840.1.327743.3.579.2. 1941 Unknown [id number] 2.16.840.1.984347.3.579.2. 1941 Unknown [id number] 2.16.840.1.488791.3.579.2. 1941 Unknown [id number] 2.16.840.1.522370.3.579.2. 1285 1941 Unknown [id number] 2.16.840.1.306318.3.579.2. 1285 1941 Unknown [id number] 2.16840.1.305555.3.579.2. 1285 1941 Unknown [id number] 2.16.840.1.227388.3.579.2. 1285 1941 Unknown [id number] 2.16.840.1.072248.3.579.2. 1285 1941 Unknown [id number] 2.16.840.1.873532.3.579.2. 1285 1941 Unknown [id number] 2.16.840.1.319981.3.579.2. 1285 1941 Unknown [id number] 2.16.840.1.207354.3.579.2. 1286 1941 Unknown [id number] 2.16.840.1.360523.3.579.2. 1941 Unknown [id number] 2.16.840.1.246608.3.579.2. 1941 Unknown [id number] 2.16.840.1.632547.3.579.2. 1941 Unknown [id number] 2.16.840.1.896860.3.579.2. 1941 Unknown [id number] 2.16.840.1.529094.3.579.2. 1941 Unknown [id number] 2.16.840.1.684767.3.579.2. 1346 1941 Unknown [id number] 2.16.840.1.754888.3.579.2. 1346 1941 Unknown [id number] 2.16.840.1.409952.3.579.2. 1346 1941 Unknown [id number] 2.16.840.1.196233.3.579.2. 1346 1941 Unknown [id number] 2.16.840.1.116802.3.579.2. 1346 1941 Unknown [id number] 2.16.840.1.677121.3.579.2. 1346 1941 Unknown [id number] 2.16.840.1.710767.3.579.2. 1346 1941 Unknown [id number] 2.16.840.1.808885.3.579.2. 1346 1941 Unknown [id number] 2.16.840.1.956556.3.579.2. 1346 1941 Unknown [id number] 2.16.840.1.863271.3.579.2. 134 1941 Unknown [id number] 2.16.840.1.801976.3.579.2. 1346 1941 Unknown [id number] 2.16.840.1.138494.3.579.2. 1346 1941 Unknown [id number] 2.16.840.1.069874.3.579.2. 1346 1941 Unknown [id number] 2.16.840.1.108084.3.579.2. 1346 1941 Unknown [id number] 2.16.840.1.647622.3.579.2. 1346 1941 Unknown [id number] 2.16.840.1.516286.3.579.2. 1346 1941 Unknown [id number] 2.16.840.1.895743.3.579.2. 1346 1941 Unknown [id number] 2.16.840.1.117798.3.579.2. 1346 1941 Unknown [id number] 2.16.840.1.451722.3.579.2. 1346 1941 Unknown [id number] 2.16.840.1.093501.3.579.2. 1346 1941 Unknown [id number] 2.16.840.1.313514.3.579.2. 1941 Unknown [id number] 2.16.840.1.642199.3.579.2. 1941 Unknown [id number] 2.16.840.1.605209.3.579.2. 1941 Unknown [id number] 2.16.840.1.867283.3.579.2. 727 1941 Unknown [id number] 2.16.840.1.606624.3.579.2. 1941 Unknown [id number] 2.16.840.1.265872.3.579.2. 727 1941 Unknown [id number] 2.16.840.1.223162.3.579.2. 727 Social History Date Type Detail Facility Start: 02-24-2023 End: 08-31-2024 Tobacco smoking status Never smoked tobacco (finding) [facility] Comment on above: denies use. Tobacco smoking status Never [facility] Comment on above: denies use. Start: 07-07-2024 End: 08-31-2024 Sex Assigned At Male [facility] History of tobacco use Passive smoker [facility] Start: 03-17-2024 End: 08-31-2024 Tobacco use and exposure Smokeless tobacco non-user [facility] Start: 03-17-2024 End: 07-08-2024 Alcoholic beverage intake Current non-drinker of alcohol (finding) [facility] Start: 07-07-2024 End: 08-31-2024 History of Social function [facility] Start: 03-17-2024 Alcohol Comment once year [facility] Start: 1940 Sex assigned at Not on file [facility] Start: 02-05-2015 Sex Male (finding) [facility] Start: 06-29-2024 End: 01-29-2025 Tobacco smoking status NHIS Unknown if ever smoked [facility] Start: 06-29-2024 Alcohol intake Alcohol Use Details [facility] Start: 1940 Sex Assigned At Male [facility] Work Phone: Start: 08-31-2024 Alcoholic beverage intake Not Asked [facility] Start: 08-31-2024 Alcohol Comment very seldom [facility] Start: 08-23-2024 Gender identity Identifies as male gender (finding) [facility] Start: 07-20-2022 Sexual orientation Heterosexual (fin ding) [facility] Start: 08-18-2024 Health-related behavior (observable entity) Caffeine Use Details [facility] Start: 08-18-2024 Tobacco use and exposure Non-Smoking Tobacco Use Details [facility] Sexual Orientation Lesbian, park or homosexual [facility] Work Phone: NEGATED: Highlighted rowStart: 08-18-2024 End: 03-15-2025 Tobacco smoking status NHIS Unknown if ever smoked [facility] NEGATED: Highlighted row Alcohol intake Alcohol Use Details [facility] NEGATED: Highlighted rowStart: 08-18-2024 History of tobacco use Current non-smoker [facility] Medical Equipment Procedure Code Equipment Code Equipment Origin al Text Equipment Identifier Dates accu check, See Instructions, 100 lancet(s), 1, check once daily, [id number], Supply, 173.8, cm, 02/24/23 10:48:00 EDT, Height/Length Dosing, 85.6, kg, 02/24/23 10:48:00 EDT, Weight Dosing Start: 03-11-2023 one touch, See Instructions, 100 strip(s), 1, check once daily, [id number], Supply, 173.8, cm, 02/24/23 10:48:00 EDT, Height/Length Dosing, 85.6, kg, 02/24/23 10:48:00 EDT, Weight Dosing Start: 03-11-2023 accu check, See Instructions, 100 lancet(s), 1, check once daily, [id number], Supply, 173.8, cm, 02/24/23 10:48:00 EDT, Height/Length Dosing, 85.6, kg, 02/24/23 10:48:00 EDT, Weight Dosing Start: 03-11-2023 one touch, See Instructions, 100 strip(s), 1, check once daily, [id number], Supply, 173.8, cm, 02/24/23 10:48:00 EDT, Height/Length Dosing, 85.6, kg, 02/24/23 10:48:00 EDT, Weight Dosing Start: 03-11-2023 accu check, See Instructions, 100 lancet(s), 1, check once daily, [id number], Supply, 173.8, cm, 02/24/23 10:48:00 EDT, Height/Length Dosing, 85.6, kg, 02/24/23 10:48:00 EDT, Weight Dosing Start: 03-11-2023 one touch, See Instructions, 100 strip(s), 1, check once daily, [id number], Supply, 173.8, cm, 02/24/23 10:48:00 EDT, Height/Length Dosing, 85.6, kg, 02/24/23 10:48:00 EDT, Weight Dosing Start: 03-11-2023 accu check, See Instructions, 100 lancet(s), 1, check once daily, [id number], Supply, 173.8, cm, 02/24/23 10:48:00 EDT, Height/Length Dosing, 85.6, kg, 02/24/23 10:48:00 EDT, Weight Dosing Start: 03-11-2023 one touch, See Instructions, 100 strip(s), 1, check once daily, [id number], Supply, 173.8, cm, 02/24/23 10:48:00 EDT, Height/Length Dosing, 85.6, kg, 02/24/23 10:48:00 EDT, Weight Dosing Start: 03-11-2023 accu check, See Instructions, 100 lancet(s), 1, check once daily, [id number], Supply, 173.8, cm, 02/24/23 10:48:00 EDT, Height/Length Dosing, 85.6, kg, 02/24/23 10:48:00 EDT, Weight Dosing Start: 03-11-2023 one touch, See Instructions, 100 strip(s), 1, check once daily, [id number], Supply, 173.8, cm, 02/24/23 10:48:00 EDT, Height/Length Dosing, 85.6, kg, 02/24/23 10:48:00 EDT, Weight Dosing Start: 03-11-2023 Clinical Notes 11-24-2022 to 03-26-2025 Note Date & Type Note Facility 03-26-2025 Note Patient Education Cardiovascular Managing Your Hypertension Hypertension, also called high blood pressure, is when the force of the blood pressing against the mishra of the arteries is too strong. Arteries are blood vessels that carry blood from your heart throughout your body. Hypertension forces the heart to work harder to pump blood and may cause the arteries to become narrow or stiff. Understanding blood pressure readings A blood pressure reading includes a higher number over a lower number: ??? The first, or top, number is called the systolic pressure. It is a measure of the pressure in your arteries as your heart beats. ??? The second, or bottom number, is called the diastolic pressure. It is a measure of the pressure in your arteries as the heart relaxes. For most people, a normal blood pressure is below 120/80. Your personal target blood pressure may vary depending on your medical conditions, your age, and other factors. Blood pressure is classified into four stages. Based on your blood pressure reading, your health care provider may use the following stages to determine what type of treatment you need, if any. Systolic pressure and diastolic pressure are measured in a unit called millimeters of mercury (mmHg). Normal ??? Systolic pressure: below 120. ??? Diastolic pressure: below 80. Elevated ??? Systolic pressure: 120?129. ??? Diastolic pressure: below 80. Hypertension stage 1 ??? Systolic pressure: 130?139. ??? Diastolic pressure: 80?89. Hypertension stage 2 ??? Systolic pressure: 140 or above. ??? Diastolic pressure: 90 or above. How can this condition affect me? Managing your hypertension is very important. Over time, hypertension can damage the arteries and decrease blood flow to parts of the body, including the brain, heart, and kidneys. Having untreated or uncontrolled hypertension can lead to: ??? A heart attack. ??? A stroke. ??? A weakened blood vessel (aneurysm). ??? Heart failure. ??? Kidney damage. ??? Eye damage. ??? Memory and concentration problems. ??? Vascular dementia. What actions can I take to manage this condition? Hypertension can be managed by making lifestyle changes and possibly by taking medicines. Your health care provider will help you make a plan to bring your blood pressure within a normal range. You may be referred for counseling on a healthy diet and physical activity. Nutrition ??? Eat a diet that is high in fiber and potassium, and low in salt (sodium), added sugar, and fat. An example eating plan is called the DASH diet. DASH stands for Dietary Approaches to Stop Hypertension. To eat this way: ? Eat plenty of fresh fruits and vegetables. Try to fill one-half of your plate at each meal with fruits and vegetables. ? Eat whole grains, such as whole-wheat pasta, brown rice, or whole-grain bread. Fill about one-fourth of your plate with whole grains. ? Eat low-fat dairy products. ? Avoid fatty cuts of meat, processed or cured meats, and poultry with skin. Fill about one-fourth of your plate with lean proteins such as fish, chicken without skin, beans, eggs, and tofu. ? Avoid pre-made and processed foods. These tend to be higher in sodium, added sugar, and fat. ??? Reduce your daily sodium intake. Many people with hypertension should eat less than 1,500 mg of sodium a day. Lifestyle ??? Work with your health care provider to maintain a healthy body weight or to lose weight. Ask what an ideal weight is for you. ??? Get at least 30 minutes of exercise that causes your heart to beat faster (aerobic exercise) most days of the week. Activities may include walking, swimming, or biking. ??? Include exercise to strengthen your muscles (resistance exercise), such as weight lifting, as part of your weekly exercise routine. Try to do these types of exercises for 30 minutes at least 3 days a week. ??? Do not use any products that contain nicotine or tobacco. These products include cigarettes, chewing tobacco, and vaping devices, such as e-cigarettes. If you need help quitting, ask your health care provider. ??? Control any long-term (chronic) conditions you have, such as high cholesterol or diabetes. ??? Identify your sources of stress and find ways to manage stress. This may include meditation, deep breathing, or making time for fun activities. Alcohol use ??? Do not drink alcohol if: ? Your health care provider tells you not to drink. ? You are , may be , or are planning to become . ??? If you drink alcohol: ? Limit how [...] oz glass of hard liquor (44 mL). Medicines Your health care provider may prescribe medicine if lifestyle changes are not enough (more content not included)... [facility] 03-15-2025 Evaluation note Type assessment Vitreous hemorrhage of left eye impression Vitreous hemorrhage of left eye: H43.12. Left. 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 Left. 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 The patient reports improved clarity in vision in the left eye that started improving about 10 days ago. He denies vision changes in the right eye and eye pain OU. Patient is using ketorolac TID OD and dorzolamide TID OS. 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 Patient states decline in vision in the left eye, he states he has a hemorrhage that has been ongoing for the last month. Patient denies new floaters, flashes of light or ocular pain. Patient is using Cosopt TID OS. Last medication use was last week Wednesday. malignant neoplasm The 84 year o ld male presents for treatment of malignant neoplasm in the right eye. Patient states stable vision. Patient denies new floaters, flashes of light or ocular pain. Patient is using Cosopt BID OU. Last medication use was this morning at 5:00am. PDR The 84 year old male presents for evaluation of PDR in the right eye and left eye. Patient states vision is stable, denies any new onset of flashes, floaters, or ocular pain. 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 Patient states vision improvement since last appointment, denies any new onset of flashes, floaters, or ocular pain. Patient using Dorzolamide-Timolol TID OS. Vitreous Hemorrhage The 84 year old male presents for evaluation of Vitreous Hemorrhage in the left eye. Patient states within the last week he has gradually noticed a significant improvement in vision in the left eye. He states he is able to see objects at a distance but still has trouble reading. Patient denies new floaters, flashes of light or ocular pain. Patient is using Cosopt TID OS. Last medication use was this morning at 8:30am. PDR The 84 year old male presents for treatment of PDR in the right eye. Patient states that vision is the same. Patient states that he has been having flashing lights about 3-4 times a day in the left eye and says that it started around May 24. Patient denies floaters or ocular pain. PDR The 84 year old male presents for treatment of PDR in the right eye. Patient reports vision with his left eye is minimal. Reports seeing peripheral vision intermittently. Denies current flashes of light or floaters. Denies ocular pain. Patient is using Dorzolamide/Timolol TID OS. vitreous hemorrhage The 84 year old male presents for evaluation of vitreous hemorrhage in the left eye. Patient presenting today for loss of vision in the left eye for the past two days. Denies any new floaters or flashing lights. No pain in either eye per patient. Patient has been off all drops. POFU The 84 year old male presents for evaluation of POFU in the left eye. Patient presents s/p Vitrectomy with laser OS 03/20/2024 for vitreous hemorrhage. Patient reports vision appears to be stable but notes diplopia vertically when looking at a distance for the last three weeks. States he typically closes his left eye to read to stop diplopia. Reports flashes of light intermittently that travels from left to right but states he cannot tell which eye. Denies ocular pain. Dry and water eyes. Patient is not use artificial tears currently. treated vitreous hemorrhage The 84 year old male presents for evaluation of treated vitreous hemorrhage in the left eye. S/p vitrectomy 03/20/24. Patient states vision has improved since surgery 1 week ago. Patient denies eye pain. Complains of 3-4 flashes per day in the left eye since surgery last week. Vitrectomy The 84 year old male presents for evaluation of treated vitreous hemorrhage in the left eye on 03/20/2024. Patient states no pain or discomfort overnight, bandage was removed in office. Patient picked up eye drops from pharmacy on Wednesday, has not instilled yet. NPDR The 84 year old male presents for evaluation of NPDR in the left eye. Patient reports vision is stable with current pair of glasses. Reports white light in upper peripheral vision intermittently OU. Denies current floaters. Denies ocular pain. Itching eyes, patient will use a warm washcloth to help. Patient is not using artificial tears currently. Vitreous Hemorrhage The 84 year old male presents for evaluation of Vitreous Hemorrhage in the left eye. Pt states that he cant see out of the left eye and can only see light and dark and says that he woke up on the 04 of february. Pt denies floaters, flashes of light or ocular pain but says that he is having itchy and watery eyes. 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 Patient reports worsened vision in his left eye. Patient states he has a hard time focusing and sees waviness with his left eye when he's reading. Patient reports stable vision in his right eye. Patient denies flashes and eye pain but experiences floaters in both eyes. Patient complains of itchy eyes. 2 months 2/p vitrectomy The 82 y ear old male presents for evaluation of 2 months 2/p vitrectomy in the left eye. Patient reports improved vision in the left eye, and decreased, dull vision in the right eye. Patient states when he turns the light off at night he sees stars temporally in the left eye only. Patient denies ocular pain or floaters in both eyes. 1 week S/P vitrectomy The 82 yea r old male presents for evaluation of 1 week S/P vitrectomy in the left eye. Patient reports improved vision in the left eye, but states he has 1/10 of a bubble that looks like oily water in the inferior quadrant of his left eye. 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 Removed bandage in office. Patient denies any pain or discomfort. Patient complains that the left eye itches. Patient states that he has not picked up his drops as of right now. diabetic retinopathy The 82 year old male presents for evaluation of diabetic retinopathy in the right eye and left eye. Patient reports decreased vision in both eyes since his last visit about 3 months ago. Patient denies ocular pain, flashes of light or floaters in both eyes. Type [address] The 82 year old male presents for 3 month evaluation. Patient states his vision is unchanged over the last 3 months. Patient denies any floaters or flashes of light. diabetic retinopathy The 81 year old male presents for evaluation of diabetic retinopathy in the right eye and left eye. Patient reports stable vision in both eyes since his last visit. Patient notes he has floaters in both eyes, but denies ocular pain or flashes of light in both eyes. NPDR The 81 year old male presents for evaluation of NPDR in both eyes. blurry vision The patient is p resent for evaluation of blurry vision in both eyes since last visit. Patient states that he has to use a magnifying glass to read. Patient denies eye pain and flashes of light, but states he has floaters and spider webs. Blurry vision The patient stat es his near vision has gotten more blurry in the last month. He states he has received new GL and it has not helped. He states his BS has been up and down over the last week and a half. The condition is limiting their ability to read. The condition is described as fuzzy vision. The condition is associated with daily activities and chores. Patient denies eye pain and flashes of light. Associated symptoms include: floaters - he states they still have them but they have occurred less often. 1 yr fu due to moder ate NPDR w/o mac edema The 81 year old male is present for his 1 yr fu due to moderate NPDR w/o mac edema OU. diabetic retinopathy The 80 year old male presents for diabetic retinopathy in both eyes. increasing blurriness The patien t reports increasing blurriness in left > right eye x 1 year. The onset was gradual. It affects near vision. The symptom is all of the time. The condition is mild. In addition, the condition is associated with reading newspaper or a book. Patient denies flashes. Associated symptoms include: floaters. floaters The patient repo rts floaters in both eyes x years. The onset was gradual. Vision is not affected. The symptom is intermittent. The condition is mild. In addition, the condition is associated with driving. Patient denies flashes. diabetic retinopathy The 78 year old male presents for evaluation of diabetic retinopathy in both eyes with edema in the left eye. diabetic retinopathy The 78 year old male presents for evaluation of diabetic retinopathy in both eyes. The patient reports increased trouble focusing when reading since last visit about 8 weeks ago. It affects both near and far vision. The symptom is constant. In addition, the condition is associated with daily activity and chores. Patient denies eye pain and flashes. decrease in vision The patient r eports a decrease in vision in the right eye and left eye. It started about 6 months ago. The onset was gradual. It affects near vision. The symptom is constant. In addition, the condition is associated with daily activity and chores. Patient denies flashes. Patient reports gradual floaters intermittently and is unsure which eye not affecting the vision. diabetic retinopathy The 78 year old male re-referred by Dr. Bocanegra for diabetic retinopathy in the right eye and left eye. trouble reading The patient comp lains of trouble reading in the right eye and left eye. It started about 2 months ago . The onset was gradual. It affects near vision. The symptom is constant. It occurs always. The condition is worsening. The condition is described as blurring. In addition, the condition is associated with reading. diabetic retinopathy The 75 year old male presents for evaluation of diabetic retinopathy denies vision changes The patien t denies vision changes in the right eye and left eye. It started about 1 month ago . It affects both near and far vision. The symptom is constant. It occurs when focusing. The condition is stable. 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 floaters The patient repo rts white floaters in the right eye. It started about 6 days ago . The onset was sudden. It affects both near and far vision. The symptom is constant. It occurs when focusing. Patient states that he does not notice the floaters today. Since making appointment to see our doctor patient states that the floaters have improved. 124/68 blood pressure 1 treated DME s/p laser The 75 yea r old male presents for evaluation of treated DME s/p laser in the right eye. decreased vision The patient com plains of difficulty telling the difference when reading numbers x 3-4 months. He is unsure if OD or OS. The decrease has been gradual and mild. He especially has trouble with the numbers 6 and 8. No floaters or eye pain. He has itching occasionally in the evening which improves after applying a damp cloth. diabetic retinopathy This 74 yea r old male referred by Dr. 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 Return 1 month DFE/OCT Related t o Vitreous hemorrhage, left eye Impression/Plan Related to Other specified glaucoma Impression/Plan Related to 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 Impression/Plan 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 Impression/Plan Related to Type 2 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, left eye Impression/Plan Related to Vitre ous hemorrhage of left eye Impression/Plan 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 Impression/Plan Related to 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 Impression/Plan Related to Type 2 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, left eye Impression/Plan 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 Impression/Plan 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 Impression/Plan Related to 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 Impression/Plan Related to 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 Impression/Plan Related to Vitre ous hemorrhage of left eye REturn 4 weeks IO AV N OD (3of3)/ No OCT Related to 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 with type 2 diabetes mellitus Impression/Plan Related to Other specified glaucoma Impression/Plan Related to Hyphe ma, left Impression/Plan Related to Type 2 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, left eye Impression/Plan Related to Vitre ous hemorrhage of left eye Impression/Plan Related to 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 Impression/Plan Related to 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 Impression/Plan Related to Other specified glaucoma Impression/Plan Related to 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 Impression/Plan Related to Vitre ous hemorrhage of left eye Impression/Plan Related to Hyphe ma, left Impression/Plan Related to Type 2 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, left eye Impression/Plan Related to Inter mittent exotropia Impression/Plan Related to Vitre ous hemorrhage of left eye Impression/Plan Related to Vitre ous hemorrhage of left eye Impression/Plan Related to Vitre ous hemorrhage of left eye Impression/Plan Related to 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, bi Impression/Plan Related to Type 2 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, left eye Impression/Plan Related to Type 2 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, left eye Impression/Plan Related to Vitre ous hemorrhage of left eye Impression/Plan Related to 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, bi Impression/Plan Related to Histo ry of vitrectomy Impression/Plan Related to Vitre ous hemorrhage of left eye Impression/Plan Related to 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 Impression/Plan Related to 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, bi Return in 1 year cedrick Zee MD for OCT OU 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, left eye Impression/Plan Related to Prese nce of intraocular lens Impression/Plan Related to Vitre ous degeneration, bilateral Impression/Plan Related to 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, bi Impression/Plan Related to Pucke ring of macula, left eye Return in 1 months arthur Zee MD for POFU OS/OCT OU 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, left eye Impression/Plan Related to Pucke ring of macula, left eye Return in 1 week cedrick Zee MD for PO OS/ OCT OU 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, left eye Impression/Plan Related to Pucke ring of macula, left eye Impression/Plan Related to Hyper tension Impression/Plan Related to Vitre ous degeneration, bilateral Impression/Plan Related to Pucke ring of macula, left eye Impression/Plan Related to 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, bi Impression/Plan Related to Prese nce of intraocular lens Impression/Plan 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, left Impression/Plan 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, left Impression/Plan Related to Vitre ous degeneration, bilateral Impression/Plan Related to Prese nce of intraocular lens Impression/Plan Related to Pucke ring of macula, left eye Impression/Plan Related to 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, bi Return in 3 months w chilo Zee MD for follow up, OCT, possible Avastin OU Related to 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, bi Impression/Plan Related to 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, bi Return 4 weeks IO Avastin OU and OCT Related to Type 2 diab with prolif diab rtnop with macular edema, bi Impression/Plan Related to Pucke ring of macula, left eye Impression/Plan Related to Vitre ous degeneration, bilateral Impression/Plan Related to Prese nce of intraocular lens Impression/Plan Related to Vitre ous hemorrhage, left eye Impression/Plan Related to Type 2 diab with prolif diab rtnop with macular edema, bi Return in Related to Type 2 diab with mod 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 edema, bi Impression/Plan Related to Type 2 diab with mod 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 edema, bi Impression/Plan Related to 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, bilateral Impression/Plan Related to Pucke ring of macula, left eye Impression/Plan Related to Essen tial (primary) hypertension Impression/Plan Related to Prese nce of intraocular lens Return in Related to Type 2 diab with mod 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 edema, bi Impression/Plan Related to Essen tial (primary) hypertension Impression/Plan Related to 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 Robertson for follow up exam and OCT. 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 Robertson for follow up exam and OCT. 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 Robertson for FU/OCT/possible AVN. 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 The pucker is not inducing vision loss or distortion that is severe enough to warrant surgical risk. I have counseled for observation at the current level of vision. 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, left eye - LEFT: Mild Non-Pro liferative Diabetic Retinopathy without signs of neovascularization was noted on examination today and explained to the patient. No treatment is necessary at this time. See plan #1. Related to Type 2 diab w mild nonprlf diabetic rtnop w/o macular edema - RIGHT: Moderate No n-Proliferative Diabetic Retinopathy without signs of neovascularization was noted on examination today and explained to the patient. No treatment is necessary at this time. The patient was instructed to call with new floaters or vision changes. Discussed ocular and systemic benefits of blood sugar control as well as the importance of follow up compliance from a retinal standpoint and with the PCP/Bar Hostess. Appropriate follow up with primary eye team primary care physician was recommended. Related to Type 2 diab w moderate nonprlf diab rtnop w/o macular edema - Return in 1 year w chilo Robertson for follow up exam with OCT. Related to Type 2 diab w moderate nonprlf diab rtnop w/o macular edema Type 2 diab w modera te nonprlf diab rtnop w/o macular edema - Discussed blood sugar control. Related to Type 2 diab w moderate nonprlf diab rtnop w/o macular edema - The progression of cataracts was noted on examination today and discussed with the patient. It is reasonable from a retinal standpoint that the patient return to their referring physician for further evaluation of the cataracts and to discuss surgical benefits of cataract removal. There is no retinal contraindication to proceeding with cataract surgery. The patient understands that macular function may limit the best corrected post-operative visual acuity. Related to Age-related nuclear cataract, bilateral - Posterior vitreous detachment was noted on examination today and explained to the patient. There is no evidence of a retinal tear, break or detachment. Related to Vitreous degeneration, right eye Oct- - The progression of cataracts was noted on examination today and discussed with the patient. It is reasonable from a retinal standpoint that the patient return to their referring physician for further evaluation of the cataracts and to discuss surgical benefits of cataract removal. There is no retinal contraindication to proceeding with cataract surgery. The patient understands that macular function may limit the best corrected post-operative visual acuity. Related to Age-related nuclear cataract, bilateral - Posterior vitreous detachment was noted on examination today and explained to the patient. There is no evidence of a retinal tear, break or detachment. Related to Vitreous degeneration, right eye Apr- - Stable Macular Puc ker was noted on examination today and explained to the patient. The pucker is not inducing vision loss or distortion that is severe enough to warrant surgical risk. I have counseled for observation at the current level of vision. 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, left eye - Non-Proliferative Diabetic Retinopathy without signs of neovascularization was noted on examination today and explained to the patient. No treatment is necessary at this time. The patient was instructed to call with new floaters or vision changes. Discussed ocular and systemic benefits of blood sugar control as well as the importance of follow up compliance from a retinal standpoint and with the PCP/Bar Hostess. Appropriate follow up with primary eye team primary care physician was recommended. Related to Type 2 diab w moderate nonprlf diab rtnop w/o macular edema - Return in [address] Robertson for follow up exam with OCT. Related to Type 2 diab w moderate nonprlf diab rtnop w/o macular edema - Secondary to Diabe tic retinopathy. See plan #2. Related to Diabetic macular edema - The progression of cataracts was noted on examination today and discussed with the patient. Not affecting vision at this time. Related to Nuclear sclerosis - The patient has be en informed of the risks of Diabetic Retinopathy and the importance of maintaining blood sugar control. The patient was advised of the necessity of follow up compliance with the PCP/Bar Hostess. Appropriate follow up with primary eye team primary care physician was recommended. Related to Diabetes mellitus with ophthalmic manifestations, type II or unspecified type, uncontrolled - Return in 3-[address] Robertson for follow up exam with OCT. Related to Diabetes mellitus with ophthalmic manifestations, type II or unspecified type, uncontrolled - Proliferative Diab etic Retinopathy without evidence of active disease was noted on examination today and discussed with the patient. Will continue to monitor. The patient was advised to call with new floaters or vision changes. Discussed ocular and systemic benefits of maintaining blood sugar control as well as follow up compliance from a retinal standpoint and with the PCP/Bar Hostess. Related to Nonproliferative diabetic retinopathy NOS - Posterior vitreous detachment was noted on examination today and explained to the patient. There is no evidence of associated retinal pathology. All signs and symptoms of retinal detachment and tears were discussed in detail. The patient was instructed to call the office immediately if any symptoms are noted. Related to Vitreous degeneration - Macular Pucker was noted on examination today and explained to the patient. Surgical intervention is not indicated at this time. Will continue to monitor for progression. The patient was advised to call with vision changes. Related to Macular puckering of retina - The patient has be en informed of the risks of Diabetic Retinopathy and the importance of maintaining blood sugar control. The patient was advised of the necessity of follow up compliance with the PCP/Bar Hostess. Appropriate follow up with primary eye team primary care physician was recommended. Related to Diabetes mellitus with ophthalmic manifestations, type II or unspecified type, uncontrolled - Return in [address] Robertson for follow up exam with OCT. Related to Diabetes mellitus with ophthalmic manifestations, type II or unspecified type, uncontrolled Nonproliferative adolfo betic retinopathy NOS - Diabetic education material given. Related to Nonproliferative diabetic retinopathy NOS Nonproliferative adolfo betic retinopathy NOS - Discussed blood sugar control. Related to Nonproliferative diabetic retinopathy NOS - The progression of cataracts was noted on examination today and discussed with the patient. Not affecting vision at this time. 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 See plan #2. Related to Diabetic macular edema - LEFT: Mild NPDR no nick today - no treatment indicated at this time. Will continue to monitor.RIGHT: Non-Proliferative Diabetic Retinopathy with clinically significant Diabetic Macular Edema was noted on examination today and explained to the patient. No signs of neovascularization were noted. Focal laser photocoagulation treatment was recommended. The risks, benefits, and alternatives were discussed. The patient agreed to treatment and tolerated the procedure well. The patient was instructed to call with new floaters or vision changes. Discussed ocular and systemic benefits of blood sugar control as well as follow up compliance from a retinal standpoint and with the PCP/Bar Hostess. Appropriate follow up with primary eye team primary care physician was recommended. Related to Nonproliferative diabetic retinopathy NOS [facility] Work Phone: [phone]) 908-971508-04-2025 Evaluation note* Type Assessment Date assessment Vitreous hemorrhage of left eye impression Vitreous hemorrhage of left eye: H43.12. Left. Condition: persistent assessment Type 2 diabetes andrew itus with proliferative 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 edema, left eye impression Type 2 diabetes andrew itus with proliferative 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 edema, left eye: E11.3592. 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 Right. Condition: established, stable assessment Other specified glaucoma 2024 impression Other specified glaucoma: H40.89 . Left [facility] Work Phone: 1([phone]) 377-559408-04-2025 History of Present illness Narrative* Encounter Date Complaint History Of Prese nt Illness malignant neoplasm The 85 year o ld male presents for evaluation of malignant neoplasm in the right eye. Patient states decline in vision in the left eye, he states he has a hemorrhage that has been ongoing for the last month. Patient denies new floaters, flashes of light or ocular pain. Patient is using Cosopt TID OS. Last medication use was last week Wednesday. malignant neoplasm The 84 year o ld male presents for treatment of malignant neoplasm in the right eye. Patient states stable vision. Patient denies new floaters, flashes of light or ocular pain. Patient is using Cosopt BID OU. Last medication use was this morning at 5:00am. PDR The 84 year old male presents for evaluation of PDR in the right eye and left eye. Patient states vision is stable, denies any new onset of flashes, floaters, or ocular pain. 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 Patient states vision improvement since last appointment, denies any new onset of flashes, floaters, or ocular pain. Patient using Dorzolamide-Timolol TID OS. Vitreous Hemorrhage The 84 year old male presents for evaluation of Vitreous Hemorrhage in the left eye. Patient states within the last week he has gradually noticed a significant improvement in vision in the left eye. He states he is able to see objects at a distance but still has trouble reading. Patient denies new floaters, flashes of light or ocular pain. Patient is using Cosopt TID OS. Last medication use was this morning at 8:30am. PDR The 84 year old male presents for treatment of PDR in the right eye. Patient states that vision is the same. Patient states that he has been having flashing lights about 3-4 times a day in the left eye and says that it started around May 24. Patient denies floaters or ocular pain. PDR The 84 year old male presents for treatment of PDR in the right eye. Patient reports vision with his left eye is minimal. Reports seeing peripheral vision intermittently. Denies current flashes of light or floaters. Denies ocular pain. Patient is using Dorzolamide/Timolol TID OS. vitreous hemorrhage The 84 year old male presents for evaluation of vitreous hemorrhage in the left eye. Patient presenting today for loss of vision in the left eye for the past two days. Denies any new floaters or flashing lights. No pain in either eye per patient. Patient has been off all drops. POFU The 84 year old male presents for evaluation of POFU in the left eye. Patient presents s/p Vitrectomy with laser OS 03/20/2024 for vitreous hemorrhage. Patient reports vision appears to be stable but notes diplopia vertically when looking at a distance for the last three weeks. States he typically closes his left eye to read to stop diplopia. Reports flashes of light intermittently that travels from left to right but states he cannot tell which eye. Denies ocular pain. Dry and water eyes. Patient is not use artificial tears currently. treated vitreous hemorrhage The 84 year old male presents for evaluation of treated vitreous hemorrhage in the left eye. S/p vitrectomy 03/20/24. Patient states vision has improved since surgery 1 week ago. Patient denies eye pain. Complains of 3-4 flashes per day in the left eye since surgery last week. Vitrectomy The 84 year old male presents for evaluation of treated vitreous hemorrhage in the left eye on 03/20/2024. Patient states no pain or discomfort overnight, bandage was removed in office. Patient picked up eye drops from pharmacy on Wednesday, has not instilled yet. NPDR The 84 year old male presents for evaluation of NPDR in the left eye. Patient reports vision is stable with current pair of glasses. Reports white light in upper peripheral vision intermittently OU. Denies current floaters. Denies ocular pain. Itching eyes, patient will use a warm washcloth to help. Patient is not using artificial tears currently. Vitreous Hemorrhage The 84 year old male presents for evaluation of Vitreous Hemorrhage in the left eye. Pt states that he cant see out of the left eye and can only see light and dark and says that he woke up on the 04 of february. Pt denies floaters, flashes of light or ocular pain but says that he is having itchy and watery eyes. 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 Patient reports worsened vision in his left eye. Patient states he has a hard time focusing and sees waviness with his left eye when he's reading. Patient reports stable vision in his right eye. Patient denies flashes and eye pain but experiences floaters in both eyes. Patient complains of itchy eyes. 2 months 2/p vitrectomy The 82 y ear old male presents for evaluation of 2 months 2/p vitrectomy in the left eye. Patient reports improved vision in the left eye, and decreased, dull vision in the right eye. Patient states when he turns the light off at night he sees stars temporally in the left eye only. Patient denies ocular pain or floaters in both eyes. 1 week S/P vitrectomy The 82 yea r old male presents for evaluation of 1 week S/P vitrectomy in the left eye. Patient reports improved vision in the left eye, but states he has 1/10 of a bubble that looks like oily water in the inferior quadrant of his left eye. 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 Removed bandage in office. Patient denies any pain or discomfort. Patient complains that the left eye itches. Patient states that he has not picked up his drops as of right now. diabetic retinopathy The 82 year old male presents for evaluation of diabetic retinopathy in the right eye and left eye. Patient reports decreased vision in both eyes since his last visit about 3 months ago. Patient denies ocular pain, flashes of light or floaters in both eyes. Type [address] The 82 year old male presents for 3 month evaluation. Patient states his vision is unchanged over the last 3 months. Patient denies any floaters or flashes of light. diabetic retinopathy The 81 year old male presents for evaluation of diabetic retinopathy in the right eye and left eye. Patient reports stable vision in both eyes since his last visit. Patient notes he has floaters in both eyes, but denies ocular pain or flashes of light in both eyes. NPDR The 81 year old male presents for evaluation of NPDR in both eyes. blurry vision The patient is p resent for evaluation of blurry vision in both eyes since last visit. Patient states that he has to use a magnifying glass to read. Patient denies eye pain and flashes of light, but states he has floaters and spider webs. Blurry vision The patient stat es his near vision has gotten more blurry in the last month. He states he has received new GL and it has not helped. He states his BS has been up and down over the last week and a half. The condition is limiting their ability to read. The condition is described as fuzzy vision. The condition is associated with daily activities and chores. Patient denies eye pain and flashes of light. Associated symptoms include: floaters - he states they still have them but they have occurred less often. 1 yr fu due to moder ate NPDR w/o mac edema The 81 year old male is present for his 1 yr fu due to moderate NPDR w/o mac edema OU. diabetic retinopathy The 80 year old male presents for diabetic retinopathy in both eyes. increasing blurriness The patien t reports increasing blurriness in left > right eye x 1 year. The onset was gradual. It affects near vision. The symptom is all of the time. The condition is mild. In addition, the condition is associated with reading newspaper or a book. Patient denies flashes. Associated symptoms include: floaters. floaters The patient repo rts floaters in both eyes x years. The onset was gradual. Vision is not affected. The symptom is intermittent. The condition is mild. In addition, the condition is associated with driving. Patient denies flashes. diabetic retinopathy The 78 year old male presents for evaluation of diabetic retinopathy in both eyes with edema in the left eye. diabetic retinopathy The 78 year old male presents for evaluation of diabetic retinopathy in both eyes. The patient reports increased trouble focusing when reading since last visit about 8 weeks ago. It affects both near and far vision. The symptom is constant. In addition, the condition is associated with daily activity and chores. Patient denies eye pain and flashes. decrease in vision The patient r eports a decrease in vision in the right eye and left eye. It started about 6 months ago. The onset was gradual. It affects near vision. The symptom is constant. In addition, the condition is associated with daily activity and chores. Patient denies flashes. Patient reports gradual floaters intermittently and is unsure which eye not affecting the vision. diabetic retinopathy The 78 year old male re-referred by Dr. Bocanegra for diabetic retinopathy in the right eye and left eye. trouble reading The patient comp lains of trouble reading in the right eye and left eye. It started about 2 months ago . The onset was gradual. It affects near vision. The symptom is constant. It occurs always. The condition is worsening. The condition is described as blurring. In addition, the condition is associated with reading. diabetic retinopathy The 75 year old male presents for evaluation of diabetic retinopathy denies vision changes The patien t denies vision changes in the right eye and left eye. It started about 1 month ago . It affects both near and far vision. The symptom is constant. It occurs when focusing. The condition is stable. 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 floaters The patient repo rts white floaters in the right eye. It started about 6 days ago . The onset was sudden. It affects both near and far vision. The symptom is constant. It occurs when focusing. Patient states that he does not notice the floaters today. Since making appointment to see our doctor patient states that the floaters have improved. 124/68 blood pressure 1 treated DME s/p laser The 75 yea r old male presents for evaluation of treated DME s/p laser in the right eye. decreased vision The patient com plains of difficulty telling the difference when reading numbers x 3-4 months. He is unsure if OD or OS. The decrease has been gradual and mild. He especially has trouble with the numbers 6 and 8. No floaters or eye pain. He has itching occasionally in the evening which improves after applying a damp cloth. diabetic retinopathy This 74 yea r old male referred by Dr. 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 Impression/Plan Related to Other specified glaucoma Impression/Plan 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 Impression/Plan Related to 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 Impression/Plan Related to Type 2 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, left eye Impression/Plan 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 Impression/Plan Related to 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 Impression/Plan 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 Impression/Plan Related to 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 Impression/Plan Related to Vitre ous hemorrhage of left eye REturn 4 weeks IO AV N OD (3of3)/ No OCT Related to 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 with type 2 diabetes mellitus Impression/Plan Related to Other specified glaucoma Impression/Plan Related to Hyphe ma, left Impression/Plan Related to Type 2 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, left eye Impression/Plan Related to Vitre ous hemorrhage of left eye Impression/Plan Related to 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 Impression/Plan Related to Other specified glaucoma Impression/Plan Related to 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 Impression/Plan Related to 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 Impression/Plan Related to Vitre ous hemorrhage of left eye Impression/Plan Related to Hyphe ma, left Impression/Plan Related to Type 2 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, left eye Impression/Plan Related to Vitre ous hemorrhage of left eye Impression/Plan Related to Inter mittent exotropia Impression/Plan Related to Vitre ous hemorrhage of left eye Impression/Plan Related to Vitre ous hemorrhage of left eye Impression/Plan Related to 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, bi Impression/Plan Related to Type 2 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, left eye Impression/Plan Related to Vitre ous hemorrhage of left eye Impression/Plan Related to Type 2 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, left eye Impression/Plan Related to 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, bi Impression/Plan Related to Histo ry of vitrectomy Impression/Plan Related to Vitre ous hemorrhage of left eye Impression/Plan Related to 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 Impression/Plan Related to 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, bi Return in 1 year cedrick Zee MD for OCT OU 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, left eye Impression/Plan Related to Prese nce of intraocular lens Impression/Plan Related to Vitre ous degeneration, bilateral Impression/Plan Related to 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, bi Impression/Plan Related to Pucke ring of macula, left eye Return in 1 months arthur Zee MD for POFU OS/OCT OU 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, left eye Impression/Plan Related to Pucke ring of macula, left eye Return in 1 week cedrick Zee MD for PO OS/ OCT OU 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, left eye Impression/Plan Related to Pucke ring of macula, left eye Impression/Plan Related to Hyper tension Impression/Plan Related to Vitre ous degeneration, bilateral Impression/Plan Related to Pucke ring of macula, left eye Impression/Plan Related to 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, bi Impression/Plan Related to Prese nce of intraocular lens Impression/Plan 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, left Impression/Plan Related to 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, bi Impression/Plan Related to Pucke ring of macula, left eye Impression/Plan Related to Prese nce of intraocular lens Impression/Plan Related to Vitre ous degeneration, bilateral Impression/Plan 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, left Return in 3 months w chilo Zee MD for follow up, OCT, possible Avastin OU Related to 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, bi Impression/Plan Related to 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, bi Return 4 weeks IO Avastin OU and OCT Related to Type 2 diab with prolif diab rtnop with macular edema, bi Impression/Plan Related to Pucke ring of macula, left eye Impression/Plan Related to Vitre ous degeneration, bilateral Impression/Plan Related to Prese nce of intraocular lens Impression/Plan Related to Vitre ous hemorrhage, left eye Impression/Plan Related to Type 2 diab with prolif diab rtnop with macular edema, bi Return in Related to Type 2 diab with mod 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 edema, bi Impression/Plan Related to Essen tial (primary) hypertension Impression/Plan Related to Pucke ring of macula, left eye Impression/Plan Related to 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 Robertson for follow up exam and OCT. 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 Robertson for follow up exam and OCT. 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 Robertson for FU/OCT/possible AVN. 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 There is no evidence of a retinal tear, break or detachment. Related to Vitreous degeneration, right eye - Stable Macular Puc ker was noted on examination today and explained to the patient. The pucker is not inducing vision loss or distortion that is severe enough to warrant surgical risk. I have counseled for observation at the current level of vision. 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, left eye - LEFT: Mild Non-Pro liferative Diabetic Retinopathy without signs of neovascularization was noted on examination today and explained to the patient. No treatment is necessary at this time. See plan #1. Related to Type 2 diab w mild nonprlf diabetic rtnop w/o macular edema - RIGHT: Moderate No n-Proliferative Diabetic Retinopathy without signs of neovascularization was noted on examination today and explained to the patient. No treatment is necessary at this time. The patient was instructed to call with new floaters or vision changes. Discussed ocular and systemic benefits of blood sugar control as well as the importance of follow up compliance from a retinal standpoint and with the PCP/Bar Hostess. Appropriate follow up with primary eye team primary care physician was recommended. Related to Type 2 diab w moderate nonprlf diab rtnop w/o macular edema - Return in 1 year w chilo Robertson for follow up exam with OCT. Related to Type 2 diab w moderate nonprlf diab rtnop w/o macular edema Type 2 diab w modera te nonprlf diab rtnop w/o macular edema - Discussed blood sugar control. Related to Type 2 diab w moderate nonprlf diab rtnop w/o macular edema - The progression of cataracts was noted on examination today and discussed with the patient. It is reasonable from a retinal standpoint that the patient return to their referring physician for further evaluation of the cataracts and to discuss surgical benefits of cataract removal. There is no retinal contraindication to proceeding with cataract surgery. The patient understands that macular function may limit the best corrected post-operative visual acuity. Related to Age-related nuclear cataract, bilateral Oct- - The progression of cataracts was noted on examination today and discussed with the patient. It is reasonable from a retinal standpoint that the patient return to their referring physician for further evaluation of the cataracts and to discuss surgical benefits of cataract removal. There is no retinal contraindication to proceeding with cataract surgery. The patient understands that macular function may limit the best corrected post-operative visual acuity. Related to Age-related nuclear cataract, bilateral Oct- - Posterior vitreous detachment was noted on examination today and explained to the patient. There is no evidence of a retinal tear, break or detachment. Related to Vitreous degeneration, right eye Oct- - Stable Macular Puc ker was noted on examination today and explained to the patient. The pucker is not inducing vision loss or distortion that is severe enough to warrant surgical risk. I have counseled for observation at the current level of vision. 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, left eye Oct- - Non-Proliferative Diabetic Retinopathy without signs of neovascularization was noted on examination today and explained to the patient. No treatment is necessary at this time. The patient was instructed to call with new floaters or vision changes. Discussed ocular and systemic benefits of blood sugar control as well as the importance of follow up compliance from a retinal standpoint and with the PCP/Bar Hostess. Appropriate follow up with primary eye team primary care physician was recommended. Related to Type 2 diab w moderate nonprlf diab rtnop w/o macular edema - Return in [address] Robertson for follow up exam with OCT. Related to Type 2 diab w moderate nonprlf diab rtnop w/o macular edema - The patient has be en informed of the risks of Diabetic Retinopathy and the importance of maintaining blood sugar control. The patient was advised of the necessity of follow up compliance with the PCP/Bar Hostess. Appropriate follow up with primary eye team primary care physician was recommended. Related to Diabetes mellitus with ophthalmic manifestations, type II or unspecified type, uncontrolled - Return in 3-[address] Robertson for follow up exam with OCT. Related to Diabetes mellitus with ophthalmic manifestations, type II or unspecified type, uncontrolled - Proliferative Diab etic Retinopathy without evidence of active disease was noted on examination today and discussed with the patient. Will continue to monitor. The patient was advised to call with new floaters or vision changes. Discussed ocular and systemic benefits of maintaining blood sugar control as well as follow up compliance from a retinal standpoint and with the PCP/Bar Hostess. Related to Nonproliferative diabetic retinopathy NOS - Posterior vitreous detachment was noted on examination today and explained to the patient. There is no evidence of associated retinal pathology. All signs and symptoms of retinal detachment and tears were discussed in detail. The patient was instructed to call the office immediately if any symptoms are noted. Related to Vitreous degeneration - Macular Pucker was noted on examination today and explained to the patient. Surgical intervention is not indicated at this time. Will continue to monitor for progression. The patient was advised to call with vision changes. Related to Macular puckering of retina - The progression of cataracts was noted on examination today and discussed with the patient. Not affecting vision at this time. 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 See plan #2. Related to Diabetic macular edema - The patient has be en informed of the risks of Diabetic Retinopathy and the importance of maintaining blood sugar control. The patient was advised of the necessity of follow up compliance with the PCP/Bar Hostess. Appropriate follow up with primary eye team primary care physician was recommended. Related to Diabetes mellitus with ophthalmic manifestations, type II or unspecified type, uncontrolled - Return in [address] Robertson for follow up exam with OCT. Related to Diabetes mellitus with ophthalmic manifestations, type II or unspecified type, uncontrolled Nonproliferative adolfo betic retinopathy NOS - Diabetic education material given. Related to Nonproliferative diabetic retinopathy NOS Nonproliferative adolfo betic retinopathy NOS - Discussed blood sugar control. Related to Nonproliferative diabetic retinopathy NOS - The progression of cataracts was noted on examination today and discussed with the patient. Not affecting vision at this time. 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 See plan #2. Related to Diabetic macular edema - LEFT: Mild NPDR no nick today - no treatment indicated at this time. Will continue to monitor.RIGHT: Non-Proliferative Diabetic Retinopathy with clinically significant Diabetic Macular Edema was noted on examination today and explained to the patient. No signs of neovascularization were noted. Focal laser photocoagulation treatment was recommended. The risks, benefits, and alternatives were discussed. The patient agreed to treatment and tolerated the procedure well. The patient was instructed to call with new floaters or vision changes. Discussed ocular and systemic benefits of blood sugar control as well as follow up compliance from a retinal standpoint and with the PCP/Bar Hostess. Appropriate follow up with primary eye team primary care physician was recommended. 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 Right [facility] Work Phone: [phone]) 351-230105-16-2025 History of Present illness Narrative* Encounter Date Complaint History Of Prese nt Illness malignant neoplasm The 84 year o ld male presents for treatment of malignant neoplasm in the right eye. Patient states stable vision. Patient denies new floaters, flashes of light or ocular pain. Patient is using Cosopt BID OU. Last medication use was this morning at 5:00am. PDR The 84 year old male presents for evaluation of PDR in the right eye and left eye. Patient states vision is stable, denies any new onset of flashes, floaters, or ocular pain. 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 Patient states vision improvement since last appointment, denies any new onset of flashes, floaters, or ocular pain. Patient using Dorzolamide-Timolol TID OS. Vitreous Hemorrhage The 84 year old male presents for evaluation of Vitreous Hemorrhage in the left eye. Patient states within the last week he has gradually noticed a significant improvement in vision in the left eye. He states he is able to see objects at a distance but still has trouble reading. Patient denies new floaters, flashes of light or ocular pain. Patient is using Cosopt TID OS. Last medication use was this morning at 8:30am. PDR The 84 year old male presents for treatment of PDR in the right eye. Patient states that vision is the same. Patient states that he has been having flashing lights about 3-4 times a day in the left eye and says that it started around May 24. Patient denies floaters or ocular pain. PDR The 84 year old male presents for treatment of PDR in the right eye. Patient reports vision with his left eye is minimal. Reports seeing peripheral vision intermittently. Denies current flashes of light or floaters. Denies ocular pain. Patient is using Dorzolamide/Timolol TID OS. vitreous hemorrhage The 84 year old male presents for evaluation of vitreous hemorrhage in the left eye. Patient presenting today for loss of vision in the left eye for the past two days. Denies any new floaters or flashing lights. No pain in either eye per patient. Patient has been off all drops. POFU The 84 year old male presents for evaluation of POFU in the left eye. Patient presents s/p Vitrectomy with laser OS 03/20/2024 for vitreous hemorrhage. Patient reports vision appears to be stable but notes diplopia vertically when looking at a distance for the last three weeks. States he typically closes his left eye to read to stop diplopia. Reports flashes of light intermittently that travels from left to right but states he cannot tell which eye. Denies ocular pain. Dry and water eyes. Patient is not use artificial tears currently. treated vitreous hemorrhage The 84 year old male presents for evaluation of treated vitreous hemorrhage in the left eye. S/p vitrectomy 03/20/24. Patient states vision has improved since surgery 1 week ago. Patient denies eye pain. Complains of 3-4 flashes per day in the left eye since surgery last week. Vitrectomy The 84 year old male presents for evaluation of treated vitreous hemorrhage in the left eye on 03/20/2024. Patient states no pain or discomfort overnight, bandage was removed in office. Patient picked up eye drops from pharmacy on Wednesday, has not instilled yet. NPDR The 84 year old male presents for evaluation of NPDR in the left eye. Patient reports vision is stable with current pair of glasses. Reports white light in upper peripheral vision intermittently OU. Denies current floaters. Denies ocular pain. Itching eyes, patient will use a warm washcloth to help. Patient is not using artificial tears currently. Vitreous Hemorrhage The 84 year old male presents for evaluation of Vitreous Hemorrhage in the left eye. Pt states that he cant see out of the left eye and can only see light and dark and says that he woke up on the 04 of february. Pt denies floaters, flashes of light or ocular pain but says that he is having itchy and watery eyes. 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 Patient reports worsened vision in his left eye. Patient states he has a hard time focusing and sees waviness with his left eye when he's reading. Patient reports stable vision in his right eye. Patient denies flashes and eye pain but experiences floaters in both eyes. Patient complains of itchy eyes. 2 months 2/p vitrectomy The 82 y ear old male presents for evaluation of 2 months 2/p vitrectomy in the left eye. Patient reports improved vision in the left eye, and decreased, dull vision in the right eye. Patient states when he turns the light off at night he sees stars temporally in the left eye only. Patient denies ocular pain or floaters in both eyes. 1 week S/P vitrectomy The 82 yea r old male presents for evaluation of 1 week S/P vitrectomy in the left eye. Patient reports improved vision in the left eye, but states he has 1/10 of a bubble that looks like oily water in the inferior quadrant of his left eye. 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 Removed bandage in office. Patient denies any pain or discomfort. Patient complains that the left eye itches. Patient states that he has not picked up his drops as of right now. diabetic retinopathy The 82 year old male presents for evaluation of diabetic retinopathy in the right eye and left eye. Patient reports decreased vision in both eyes since his last visit about 3 months ago. Patient denies ocular pain, flashes of light or floaters in both eyes. Type [address] The 82 year old male presents for 3 month evaluation. Patient states his vision is unchanged over the last 3 months. Patient denies any floaters or flashes of light. diabetic retinopathy The 81 year old male presents for evaluation of diabetic retinopathy in the right eye and left eye. Patient reports stable vision in both eyes since his last visit. Patient notes he has floaters in both eyes, but denies ocular pain or flashes of light in both eyes. NPDR The 81 year old male presents for evaluation of NPDR in both eyes. blurry vision The patient is p resent for evaluation of blurry vision in both eyes since last visit. Patient states that he has to use a magnifying glass to read. Patient denies eye pain and flashes of light, but states he has floaters and spider webs. Blurry vision The patient stat es his near vision has gotten more blurry in the last month. He states he has received new GL and it has not helped. He states his BS has been up and down over the last week and a half. The condition is limiting their ability to read. The condition is described as fuzzy vision. The condition is associated with daily activities and chores. Patient denies eye pain and flashes of light. Associated symptoms include: floaters - he states they still have them but they have occurred less often. 1 yr fu due to moder ate NPDR w/o mac edema The 81 year old male is present for his 1 yr fu due to moderate NPDR w/o mac edema OU. diabetic retinopathy The 80 year old male presents for diabetic retinopathy in both eyes. increasing blurriness The patien t reports increasing blurriness in left > right eye x 1 year. The onset was gradual. It affects near vision. The symptom is all of the time. The condition is mild. In addition, the condition is associated with reading newspaper or a book. Patient denies flashes. Associated symptoms include: floaters. floaters The patient repo rts floaters in both eyes x years. The onset was gradual. Vision is not affected. The symptom is intermittent. The condition is mild. In addition, the condition is associated with driving. Patient denies flashes. diabetic retinopathy The 78 year old male presents for evaluation of diabetic retinopathy in both eyes with edema in the left eye. diabetic retinopathy The 78 year old male presents for evaluation of diabetic retinopathy in both eyes. The patient reports increased trouble focusing when reading since last visit about 8 weeks ago. It affects both near and far vision. The symptom is constant. In addition, the condition is associated with daily activity and chores. Patient denies eye pain and flashes. decrease in vision The patient r eports a decrease in vision in the right eye and left eye. It started about 6 months ago. The onset was gradual. It affects near vision. The symptom is constant. In addition, the condition is associated with daily activity and chores. Patient denies flashes. Patient reports gradual floaters intermittently and is unsure which eye not affecting the vision. diabetic retinopathy The 78 year old male re-referred by Dr. Bocanegra for diabetic retinopathy in the right eye and left eye. trouble reading The patient comp lains of trouble reading in the right eye and left eye. It started about 2 months ago . The onset was gradual. It affects near vision. The symptom is constant. It occurs always. The condition is worsening. The condition is described as blurring. In addition, the condition is associated with reading. diabetic retinopathy The 75 year old male presents for evaluation of diabetic retinopathy denies vision changes The patien t denies vision changes in the right eye and left eye. It started about 1 month ago . It affects both near and far vision. The symptom is constant. It occurs when focusing. The condition is stable. 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 floaters The patient repo rts white floaters in the right eye. It started about 6 days ago . The onset was sudden. It affects both near and far vision. The symptom is constant. It occurs when focusing. Patient states that he does not notice the floaters today. Since making appointment to see our doctor patient states that the floaters have improved. 124/68 blood pressure 1 treated DME s/p laser The 75 yea r old male presents for evaluation of treated DME s/p laser in the right eye. decreased vision The patient com plains of difficulty telling the difference when reading numbers x 3-4 months. He is unsure if OD or OS. The decrease has been gradual and mild. He especially has trouble with the numbers 6 and 8. No floaters or eye pain. He has itching occasionally in the evening which improves after applying a damp cloth. diabetic retinopathy This 74 yea r old male referred by Dr. 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 Impression/Plan Related to 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 Impression/Plan Related to 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 Impression/Plan Related to Vitre ous hemorrhage of left eye REturn 4 weeks IO AV N OD (3of3)/ No OCT Related to 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 with type 2 diabetes mellitus Impression/Plan Related to Other specified glaucoma Impression/Plan Related to Hyphe ma, left Impression/Plan Related to Type 2 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, left eye Impression/Plan Related to Vitre ous hemorrhage of left eye Impression/Plan Related to 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 Impression/Plan Related to Other specified glaucoma Impression/Plan Related to 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 Impression/Plan Related to 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 Impression/Plan Related to Vitre ous hemorrhage of left eye Impression/Plan Related to Hyphe ma, left Impression/Plan Related to Type 2 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, left eye Impression/Plan Related to Vitre ous hemorrhage of left eye Impression/Plan Related to Inter mittent exotropia Impression/Plan Related to Vitre ous hemorrhage of left eye Impression/Plan Related to Vitre ous hemorrhage of left eye Impression/Plan Related to 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, bi Impression/Plan Related to Type 2 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, left eye Impression/Plan Related to Vitre ous hemorrhage of left eye Impression/Plan Related to Type 2 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, left eye Impression/Plan Related to 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, bi Impression/Plan Related to Histo ry of vitrectomy Impression/Plan Related to Vitre ous hemorrhage of left eye Impression/Plan Related to 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, bi Impression/Plan Related to 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 Return in 1 year cedrick Zee MD for OCT OU 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, left eye Impression/Plan Related to Prese nce of intraocular lens Impression/Plan Related to Vitre ous degeneration, bilateral Impression/Plan Related to 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, bi Impression/Plan Related to Pucke ring of macula, left eye Return in 1 months w chilo Zee MD for POFU OS/OCT OU 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, left eye Impression/Plan Related to Pucke ring of macula, left eye Return in 1 week wit h Wendi Zee MD for PO OS/ OCT OU 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, left eye Impression/Plan Related to Pucke ring of macula, left eye Impression/Plan Related to Hyper tension Impression/Plan Related to Vitre ous degeneration, bilateral Impression/Plan Related to Pucke ring of macula, left eye Impression/Plan Related to 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, bi Impression/Plan Related to Prese nce of intraocular lens Impression/Plan 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, left Impression/Plan Related to Pucke ring of macula, left eye Impression/Plan Related to Prese nce of intraocular lens Impression/Plan Related to Vitre ous degeneration, bilateral Impression/Plan 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, left Impression/Plan Related to 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, bi Return in 3 months w chilo Zee MD for follow up, OCT, possible Avastin OU Related to 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, bi Impression/Plan Related to 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, bi Return 4 weeks IO Avastin OU and OCT Related to Type 2 diab with prolif diab rtnop with macular edema, bi Impression/Plan Related to Pucke ring of macula, left eye Impression/Plan Related to Vitre ous degeneration, bilateral Impression/Plan Related to Prese nce of intraocular lens Impression/Plan Related to Vitre ous hemorrhage, left eye Impression/Plan Related to Type 2 diab with prolif diab rtnop with macular edema, bi Return in Related to Type 2 diab with mod 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 edema, bi Impression/Plan Related to Essen tial (primary) hypertension Impression/Plan Related to Pucke ring of macula, left eye Impression/Plan Related to 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 Robertson for FU/OCT/possible AVN. 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 The pucker is not inducing vision loss or distortion that is severe enough to warrant surgical risk. I have counseled for observation at the current level of vision. 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, left eye - LEFT: Mild Non-Pro liferative Diabetic Retinopathy without signs of neovascularization was noted on examination today and explained to the patient. No treatment is necessary at this time. See plan #1. Related to Type 2 diab w mild nonprlf diabetic rtnop w/o macular edema - RIGHT: Moderate No n-Proliferative Diabetic Retinopathy without signs of neovascularization was noted on examination today and explained to the patient. No treatment is necessary at this time. The patient was instructed to call with new floaters or vision changes. Discussed ocular and systemic benefits of blood sugar control as well as the importance of follow up compliance from a retinal standpoint and with the PCP/Bar Hostess. Appropriate follow up with primary eye team primary care physician was recommended. Related to Type 2 diab w moderate nonprlf diab rtnop w/o macular edema - Return in 1 year w chilo Robertson for follow up exam with OCT. Related to Type 2 diab w moderate nonprlf diab rtnop w/o macular edema Type 2 diab w modera te nonprlf diab rtnop w/o macular edema - Discussed blood sugar control. Related to Type 2 diab w moderate nonprlf diab rtnop w/o macular edema - The progression of cataracts was noted on examination today and discussed with the patient. It is reasonable from a retinal standpoint that the patient return to their referring physician for further evaluation of the cataracts and to discuss surgical benefits of cataract removal. There is no retinal contraindication to proceeding with cataract surgery. The patient understands that macular function may limit the best corrected post-operative visual acuity. Related to Age-related nuclear cataract, bilateral - Posterior vitreous detachment was noted on examination today and explained to the patient. There is no evidence of a retinal tear, break or detachment. Related to Vitreous degeneration, right eye Oct- - The progression of cataracts was noted on examination today and discussed with the patient. It is reasonable from a retinal standpoint that the patient return to their referring physician for further evaluation of the cataracts and to discuss surgical benefits of cataract removal. There is no retinal contraindication to proceeding with cataract surgery. The patient understands that macular function may limit the best corrected post-operative visual acuity. Related to Age-related nuclear cataract, bilateral - Posterior vitreous detachment was noted on examination today and explained to the patient. There is no evidence of a retinal tear, break or detachment. Related to Vitreous degeneration, right eye Apr- - Stable Macular Puc ker was noted on examination today and explained to the patient. The pucker is not inducing vision loss or distortion that is severe enough to warrant surgical risk. I have counseled for observation at the current level of vision. 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, left eye Apr- - Non-Proliferative Diabetic Retinopathy without signs of neovascularization was noted on examination today and explained to the patient. No treatment is necessary at this time. The patient was instructed to call with new floaters or vision changes. Discussed ocular and systemic benefits of blood sugar control as well as the importance of follow up compliance from a retinal standpoint and with the PCP/Bar Hostess. Appropriate follow up with primary eye team primary care physician was recommended. Related to Type 2 diab w moderate nonprlf diab rtnop w/o macular edema Apr- - Return in [address] Robertson for follow up exam with OCT. Related to Type 2 diab w moderate nonprlf diab rtnop w/o macular edema - The patient has be en informed of the risks of Diabetic Retinopathy and the importance of maintaining blood sugar control. The patient was advised of the necessity of follow up compliance with the PCP/Bar Hostess. Appropriate follow up with primary eye team primary care physician was recommended. Related to Diabetes mellitus with ophthalmic manifestations, type II or unspecified type, uncontrolled - Return in 3-[address] Robertson for follow up exam with OCT. Related to Diabetes mellitus with ophthalmic manifestations, type II or unspecified type, uncontrolled - Proliferative Diab etic Retinopathy without evidence of active disease was noted on examination today and discussed with the patient. Will continue to monitor. The patient was advised to call with new floaters or vision changes. Discussed ocular and systemic benefits of maintaining blood sugar control as well as follow up compliance from a retinal standpoint and with the PCP/Bar Hostess. Related to Nonproliferative diabetic retinopathy NOS - Posterior vitreous detachment was noted on examination today and explained to the patient. There is no evidence of associated retinal pathology. All signs and symptoms of retinal detachment and tears were discussed in detail. The patient was instructed to call the office immediately if any symptoms are noted. Related to Vitreous degeneration - Macular Pucker was noted on examination today and explained to the patient. Surgical intervention is not indicated at this time. Will continue to monitor for progression. The patient was advised to call with vision changes. Related to Macular puckering of retina - The progression of cataracts was noted on examination today and discussed with the patient. Not affecting vision at this time. 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 See plan #2. Related to Diabetic macular edema - The patient has be en informed of the risks of Diabetic Retinopathy and the importance of maintaining blood sugar control. The patient was advised of the necessity of follow up compliance with the PCP/Bar Hostess. Appropriate follow up with primary eye team primary care physician was recommended. Related to Diabetes mellitus with ophthalmic manifestations, type II or unspecified type, uncontrolled - Return in [address] Robertson for follow up exam with OCT. Related to Diabetes mellitus with ophthalmic manifestations, type II or unspecified type, uncontrolled Nonproliferative adolfo betic retinopathy NOS - Diabetic education material given. Related to Nonproliferative diabetic retinopathy NOS Nonproliferative adolfo betic retinopathy NOS - Discussed blood sugar control. Related to Nonproliferative diabetic retinopathy NOS - The progression of cataracts was noted on examination today and discussed with the patient. Not affecting vision at this time. 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 See plan #2. Related to Diabetic macular edema - LEFT: Mild NPDR no nick today - no treatment indicated at this time. Will continue to monitor.RIGHT: Non-Proliferative Diabetic Retinopathy with clinically significant Diabetic Macular Edema was noted on examination today and explained to the patient. No signs of neovascularization were noted. Focal laser photocoagulation treatment was recommended. The risks, benefits, and alternatives were discussed. The patient agreed to treatment and tolerated the procedure well. The patient was instructed to call with new floaters or vision changes. Discussed ocular and systemic benefits of blood sugar control as well as follow up compliance from a retinal standpoint and with the PCP/Bar Hostess. Appropriate follow up with primary eye team primary care physician was recommended. 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 Right assessment Proliferative diabet ic retinopathy of right eye with macular edema associated with type 2 diabetes mellitus impression Proliferative diabet ic retinopathy of right eye with macular edema associated with type 2 diabetes mellitus: E11.3511 assessment Type 2 diabetes andrew itus with proliferative 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 edema, left eye impression Type 2 diabetes andrew itus with proliferative 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 edema, left eye: E11.3592. [facility] Work Phone: [phone] History of Present illness Narrative* Encounter Date Complaint History Of Prese nt Illness PDR The 84 year old male presents for evaluation of PDR in the right eye and left eye. Patient states vision is stable, denies any new onset of flashes, floaters, or ocular pain. 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 Patient states vision improvement since last appointment, denies any new onset of flashes, floaters, or ocular pain. Patient using Dorzolamide-Timolol TID OS. Vitreous Hemorrhage The 84 year old male presents for evaluation of Vitreous Hemorrhage in the left eye. Patient states within the last week he has gradually noticed a significant improvement in vision in the left eye. He states he is able to see objects at a distance but still has trouble reading. Patient denies new floaters, flashes of light or ocular pain. Patient is using Cosopt TID OS. Last medication use was this morning at 8:30am. PDR The 84 year old male presents for treatment of PDR in the right eye. Patient states that vision is the same. Patient states that he has been having flashing lights about 3-4 times a day in the left eye and says that it started around May 24. Patient denies floaters or ocular pain. PDR The 84 year old male presents for treatment of PDR in the right eye. Patient reports vision with his left eye is minimal. Reports seeing peripheral vision intermittently. Denies current flashes of light or floaters. Denies ocular pain. Patient is using Dorzolamide/Timolol TID OS. vitreous hemorrhage The 84 year old male presents for evaluation of vitreous hemorrhage in the left eye. Patient presenting today for loss of vision in the left eye for the past two days. Denies any new floaters or flashing lights. No pain in either eye per patient. Patient has been off all drops. POFU The 84 year old male presents for evaluation of POFU in the left eye. Patient presents s/p Vitrectomy with laser OS 03/20/2024 for vitreous hemorrhage. Patient reports vision appears to be stable but notes diplopia vertically when looking at a distance for the last three weeks. States he typically closes his left eye to read to stop diplopia. Reports flashes of light intermittently that travels from left to right but states he cannot tell which eye. Denies ocular pain. Dry and water eyes. Patient is not use artificial tears currently. treated vitreous hemorrhage The 84 year old male presents for evaluation of treated vitreous hemorrhage in the left eye. S/p vitrectomy 03/20/24. Patient states vision has improved since surgery 1 week ago. Patient denies eye pain. Complains of 3-4 flashes per day in the left eye since surgery last week. Vitrectomy The 84 year old male presents for evaluation of treated vitreous hemorrhage in the left eye on 03/20/2024. Patient states no pain or discomfort overnight, bandage was removed in office. Patient picked up eye drops from pharmacy on Wednesday, has not instilled yet. NPDR The 84 year old male presents for evaluation of NPDR in the left eye. Patient reports vision is stable with current pair of glasses. Reports white light in upper peripheral vision intermittently OU. Denies current floaters. Denies ocular pain. Itching eyes, patient will use a warm washcloth to help. Patient is not using artificial tears currently. Vitreous Hemorrhage The 84 year old male presents for evaluation of Vitreous Hemorrhage in the left eye. Pt states that he cant see out of the left eye and can only see light and dark and says that he woke up on the 04 of february. Pt denies floaters, flashes of light or ocular pain but says that he is having itchy and watery eyes. 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 Patient reports worsened vision in his left eye. Patient states he has a hard time focusing and sees waviness with his left eye when he's reading. Patient reports stable vision in his right eye. Patient denies flashes and eye pain but experiences floaters in both eyes. Patient complains of itchy eyes. 2 months 2/p vitrectomy The 82 y ear old male presents for evaluation of 2 months 2/p vitrectomy in the left eye. Patient reports improved vision in the left eye, and decreased, dull vision in the right eye. Patient states when he turns the light off at night he sees stars temporally in the left eye only. Patient denies ocular pain or floaters in both eyes. 1 week S/P vitrectomy The 82 yea r old male presents for evaluation of 1 week S/P vitrectomy in the left eye. Patient reports improved vision in the left eye, but states he has 1/10 of a bubble that looks like oily water in the inferior quadrant of his left eye. 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 Removed bandage in office. Patient denies any pain or discomfort. Patient complains that the left eye itches. Patient states that he has not picked up his drops as of right now. diabetic retinopathy The 82 year old male presents for evaluation of diabetic retinopathy in the right eye and left eye. Patient reports decreased vision in both eyes since his last visit about 3 months ago. Patient denies ocular pain, flashes of light or floaters in both eyes. Type [address] The 82 year old male presents for 3 month evaluation. Patient states his vision is unchanged over the last 3 months. Patient denies any floaters or flashes of light. diabetic retinopathy The 81 year old male presents for evaluation of diabetic retinopathy in the right eye and left eye. Patient reports stable vision in both eyes since his last visit. Patient notes he has floaters in both eyes, but denies ocular pain or flashes of light in both eyes. NPDR The 81 year old male presents for evaluation of NPDR in both eyes. blurry vision The patient is p resent for evaluation of blurry vision in both eyes since last visit. Patient states that he has to use a magnifying glass to read. Patient denies eye pain and flashes of light, but states he has floaters and spider webs. Blurry vision The patient stat es his near vision has gotten more blurry in the last month. He states he has received new GL and it has not helped. He states his BS has been up and down over the last week and a half. The condition is limiting their ability to read. The condition is described as fuzzy vision. The condition is associated with daily activities and chores. Patient denies eye pain and flashes of light. Associated symptoms include: floaters - he states they still have them but they have occurred less often. 1 yr fu due to moder ate NPDR w/o mac edema The 81 year old male is present for his 1 yr fu due to moderate NPDR w/o mac edema OU. diabetic retinopathy The 80 year old male presents for diabetic retinopathy in both eyes. increasing blurriness The patien t reports increasing blurriness in left > right eye x 1 year. The onset was gradual. It affects near vision. The symptom is all of the time. The condition is mild. In addition, the condition is associated with reading newspaper or a book. Patient denies flashes. Associated symptoms include: floaters. floaters The patient repo rts floaters in both eyes x years. The onset was gradual. Vision is not affected. The symptom is intermittent. The condition is mild. In addition, the condition is associated with driving. Patient denies flashes. diabetic retinopathy The 78 year old male presents for evaluation of diabetic retinopathy in both eyes with edema in the left eye. diabetic retinopathy The 78 year old male presents for evaluation of diabetic retinopathy in both eyes. The patient reports increased trouble focusing when reading since last visit about 8 weeks ago. It affects both near and far vision. The symptom is constant. In addition, the condition is associated with daily activity and chores. Patient denies eye pain and flashes. decrease in vision The patient r eports a decrease in vision in the right eye and left eye. It started about 6 months ago. The onset was gradual. It affects near vision. The symptom is constant. In addition, the condition is associated with daily activity and chores. Patient denies flashes. Patient reports gradual floaters intermittently and is unsure which eye not affecting the vision. diabetic retinopathy The 78 year old male re-referred by Dr. Bocanegra for diabetic retinopathy in the right eye and left eye. trouble reading The patient comp lains of trouble reading in the right eye and left eye. It started about 2 months ago . The onset was gradual. It affects near vision. The symptom is constant. It occurs always. The condition is worsening. The condition is described as blurring. In addition, the condition is associated with reading. diabetic retinopathy The 75 year old male presents for evaluation of diabetic retinopathy Oct-21-2015 denies vision changes The patien t denies vision changes in the right eye and left eye. It started about 1 month ago . It affects both near and far vision. The symptom is constant. It occurs when focusing. The condition is stable. 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 floaters The patient repo rts white floaters in the right eye. It started about 6 days ago . The onset was sudden. It affects both near and far vision. The symptom is constant. It occurs when focusing. Patient states that he does not notice the floaters today. Since making appointment to see our doctor patient states that the floaters have improved. 124/68 blood pressure 1 treated DME s/p laser The 75 yea r old male presents for evaluation of treated DME s/p laser in the right eye. decreased vision The patient com [place] of difficulty telling the difference when reading numbers x 3-4 months. He is unsure if OD or OS. The decrease has been gradual and mild. He especially has trouble with the numbers 6 and 8. No floaters or eye pain. He has itching occasionally in the evening which improves after applying a damp cloth. diabetic retinopathy This 74 yea r old male referred by Dr. 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 Impression/Plan 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 Impression/Plan Related to 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 Impression/Plan Related to Vitre ous hemorrhage of left eye REturn 4 weeks IO AV N OD (3of3)/ No OCT Related to 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 with type 2 diabetes mellitus Impression/Plan Related to Other specified glaucoma Impression/Plan Related to Hyphe ma, left Impression/Plan Related to Type 2 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, left eye Impression/Plan Related to Vitre ous hemorrhage of left eye Impression/Plan Related to 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 Impression/Plan Related to Other specified glaucoma Impression/Plan Related to 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 Impression/Plan Related to 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 Impression/Plan Related to Vitre ous hemorrhage of left eye Impression/Plan Related to Hyphe ma, left Impression/Plan Related to Type 2 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, left eye Impression/Plan Related to Vitre ous hemorrhage of left eye Impression/Plan Related to Inter mittent exotropia Impression/Plan Related to Vitre ous hemorrhage of left eye Impression/Plan Related to Type 2 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, left eye Impression/Plan Related to 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, bi Impression/Plan Related to Vitre ous hemorrhage of left eye Impression/Plan Related to Vitre ous hemorrhage of left eye Impression/Plan Related to Type 2 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, left eye Impression/Plan Related to Histo ry of vitrectomy Impression/Plan Related to 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, bi Impression/Plan Related to Vitre ous hemorrhage of left eye Impression/Plan Related to 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, bi Impression/Plan Related to 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 Return in 1 year cedrick Zee MD for OCT OU 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, left eye Impression/Plan Related to Prese nce of intraocular lens Impression/Plan Related to Vitre ous degeneration, bilateral Impression/Plan Related to 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, bi Impression/Plan Related to Pucke ring of macula, left eye Return in 1 months arthur Zee MD for POFU OS/OCT OU 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, left eye Impression/Plan Related to Pucke ring of macula, left eye Return in 1 week wit kassandra Zee MD for PO OS/ OCT OU 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, left eye Impression/Plan Related to Pucke ring of macula, left eye Impression/Plan 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, left Impression/Plan Related to Prese nce of intraocular lens Impression/Plan Related to 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, bi Impression/Plan Related to Vitre ous degeneration, bilateral Impression/Plan Related to Pucke ring of macula, left eye Impression/Plan Related to Hyper tension Impression/Plan Related to Prese nce of intraocular lens Impression/Plan Related to Vitre ous degeneration, bilateral Impression/Plan Related to 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, bi Impression/Plan Related to Pucke ring of macula, left eye Impression/Plan 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, left Return in 3 months w chilo Zee MD for follow up, OCT, possible Avastin OU Related to 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, bi Impression/Plan Related to 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, bi Return 4 weeks IO Avastin OU and OCT Related to Type 2 diab with prolif diab rtnop with macular edema, bi Impression/Plan Related to Pucke ring of macula, left eye Impression/Plan Related to Vitre ous degeneration, bilateral Impression/Plan Related to Prese nce of intraocular lens Impression/Plan Related to Vitre ous hemorrhage, left eye Impression/Plan Related to Type 2 diab with prolif diab rtnop with macular edema, bi Return in Related to Type 2 diab with mod 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 edema, bi Impression/Plan Related to Type 2 diab with mod 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 edema, bi Impression/Plan Related to 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, bilateral Impression/Plan Related to Pucke ring of macula, left eye Impression/Plan Related to Essen tial (primary) hypertension Impression/Plan Related to Prese nce of intraocular lens Return in Related to Type 2 diab with mod 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 edema, bi Impression/Plan Related to Type 2 diab with mod 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 edema, bi Impression/Plan Related to Essen tial (primary) hypertension Impression/Plan Related to 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 Robertson for FU/OCT/possible AVN. 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 The pucker is not inducing vision loss or distortion that is severe enough to warrant surgical risk. I have counseled for observation at the current level of vision. 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, left eye - LEFT: Mild Non-Pro liferative Diabetic Retinopathy without signs of neovascularization was noted on examination today and explained to the patient. No treatment is necessary at this time. See plan #1. Related to Type 2 diab w mild nonprlf diabetic rtnop w/o macular edema - RIGHT: Moderate No n-Proliferative Diabetic Retinopathy without signs of neovascularization was noted on examination today and explained to the patient. No treatment is necessary at this time. The patient was instructed to call with new floaters or vision changes. Discussed ocular and systemic benefits of blood sugar control as well as the importance of follow up compliance from a retinal standpoint and with the PCP/Bar Hostess. Appropriate follow up with primary eye team primary care physician was recommended. Related to Type 2 diab w moderate nonprlf diab rtnop w/o macular edema - Return in 1 year w chilo Robertson for follow up exam with OCT. Related to Type 2 diab w moderate nonprlf diab rtnop w/o macular edema Type 2 diab w modera te nonprlf diab rtnop w/o macular edema - Discussed blood sugar control. Related to Type 2 diab w moderate nonprlf diab rtnop w/o macular edema - The progression of cataracts was noted on examination today and discussed with the patient. It is reasonable from a retinal standpoint that the patient return to their referring physician for further evaluation of the cataracts and to discuss surgical benefits of cataract removal. There is no retinal contraindication to proceeding with cataract surgery. The patient understands that macular function may limit the best corrected post-operative visual acuity. Related to Age-related nuclear cataract, bilateral - Posterior vitreous detachment was noted on examination today and explained to the patient. There is no evidence of a retinal tear, break or detachment. Related to Vitreous degeneration, right eye Oct- - The progression of cataracts was noted on examination today and discussed with the patient. It is reasonable from a retinal standpoint that the patient return to their referring physician for further evaluation of the cataracts and to discuss surgical benefits of cataract removal. There is no retinal contraindication to proceeding with cataract surgery. The patient understands that macular function may limit the best corrected post-operative visual acuity. Related to Age-related nuclear cataract, bilateral Oct- - Posterior vitreous detachment was noted on examination today and explained to the patient. There is no evidence of a retinal tear, break or detachment. Related to Vitreous degeneration, right eye Oct- - Stable Macular Puc ker was noted on examination today and explained to the patient. The pucker is not inducing vision loss or distortion that is severe enough to warrant surgical risk. I have counseled for observation at the current level of vision. 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, left eye Oct- - Non-Proliferative Diabetic Retinopathy without signs of neovascularization was noted on examination today and explained to the patient. No treatment is necessary at this time. The patient was instructed to call with new floaters or vision changes. Discussed ocular and systemic benefits of blood sugar control as well as the importance of follow up compliance from a retinal standpoint and with the PCP/Bar Hostess. Appropriate follow up with primary eye team primary care physician was recommended. Related to Type 2 diab w moderate nonprlf diab rtnop w/o macular edema - Return in [address] Robertson for follow up exam with OCT. Related to Type 2 diab w moderate nonprlf diab rtnop w/o macular edema - Proliferative Diab etic Retinopathy without evidence of active disease was noted on examination today and discussed with the patient. Will continue to monitor. The patient was advised to call with new floaters or vision changes. Discussed ocular and systemic benefits of maintaining blood sugar control as well as follow up compliance from a retinal standpoint and with the PCP/Bar Hostess. Related to Nonproliferative diabetic retinopathy NOS - Posterior vitreous detachment was noted on examination today and explained to the patient. There is no evidence of associated retinal pathology. All signs and symptoms of retinal detachment and tears were discussed in detail. The patient was instructed to call the office immediately if any symptoms are noted. Related to Vitreous degeneration - Macular Pucker was noted on examination today and explained to the patient. Surgical intervention is not indicated at this time. Will continue to monitor for progression. The patient was advised to call with vision changes. Related to Macular puckering of retina - The progression of cataracts was noted on examination today and discussed with the patient. Not affecting vision at this time. 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 See plan #2. Related to Diabetic macular edema - The patient has be en informed of the risks of Diabetic Retinopathy and the importance of maintaining blood sugar control. The patient was advised of the necessity of follow up compliance with the PCP/Bar Hostess. Appropriate follow up with primary eye team primary care physician was recommended. Related to Diabetes mellitus with ophthalmic manifestations, type II or unspecified type, uncontrolled - Return in 3-[address] Robertson for follow up exam with OCT. Related to Diabetes mellitus with ophthalmic manifestations, type II or unspecified type, uncontrolled - The patient has be en informed of the risks of Diabetic Retinopathy and the importance of maintaining blood sugar control. The patient was advised of the necessity of follow up compliance with the PCP/Bar Hostess. Appropriate follow up with primary eye team primary care physician was recommended. Related to Diabetes mellitus with ophthalmic manifestations, type II or unspecified type, uncontrolled - Return in [address] Robertson for follow up exam with OCT. Related to Diabetes mellitus with ophthalmic manifestations, type II or unspecified type, uncontrolled Nonproliferative adolfo betic retinopathy NOS - Diabetic education material given. Related to Nonproliferative diabetic retinopathy NOS Nonproliferative adolfo betic retinopathy NOS - Discussed blood sugar control. Related to Nonproliferative diabetic retinopathy NOS - The progression of cataracts was noted on examination today and discussed with the patient. Not affecting vision at this time. 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 See plan #2. Related to Diabetic macular edema - LEFT: Mild NPDR no nick today - no treatment indicated at this time. Will continue to monitor.RIGHT: Non-Proliferative Diabetic Retinopathy with clinically significant Diabetic Macular Edema was noted on examination today and explained to the patient. No signs of neovascularization were noted. Focal laser photocoagulation treatment was recommended. The risks, benefits, and alternatives were discussed. The patient agreed to treatment and tolerated the procedure well. The patient was instructed to call with new floaters or vision changes. Discussed ocular and systemic benefits of blood sugar control as well as follow up compliance from a retinal standpoint and with the PCP/Bar Hostess. Appropriate follow up with primary eye team primary care physician was recommended. Related to Nonproliferative diabetic retinopathy NOS [facility] Work Phone: [phone] NoteDate of Procedure 08/31/2024. Blower And Compressor Assembler Information MILTON Solano 08/31/2024 2:40 PM. Notes Interpretation of Ultrasound: Eye: OD There is a dome shaped lesion at 8:00 anterior to the equator. Dimensions are 1.6 mm in height x 8.5 mm anterior to posterior x 6.0 mm laterally with mild choroidal thickening superior to the lesion. It is regularly structured, reflectivity goes to baseline and no vascularity is detected. The retina is thickened at the apex of the lesion. No extraocular extension is detected. Impression: Fundus lesion documented- consistent with too small for differentiation vs possible RPE detachment No extraocular extension is detected. [id number] NoteDate of Procedure 08/31/2024. Blower And Compressor Assembler Information Green Building Design Specialist: CARLOS. OCT Macula Interpretation Right Eye Findings include Intraretinal fluid. Left Eye Findings include Intraretinal fluid, Atrophy. Interval Change Right Eye Initial. Left Eye Initial.[id number] NoteDate of Procedure 08/31/2024. Blower And Compressor Assembler Information Green Building Design Specialist: CARLOS. Disc Right Eye Normal. Left Eye Normal. Macula Right Eye Drusen. Left Eye Drusen, RPE mottling. Periphery Right Eye Pigmentation, Laser scars. Left Eye Laser scars.[id number] NoteHNO ID: [id number] Author: JONA WONG MD Service: ? Author Type: Physician Type: [...] with all of its relevant components. Jona Wong MD August 31, 2024 4:52 [facility] History of Present illness Narrative* Jona Wong MD - 08/31/2024 12:56 PM EST New patient referred by Dr. Loomis for [...] and plan as stated above and agree withall of its relevant components. 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 Right [facility] Work Phone: [phone] History of Present illness Narrative* Encounter Date Complaint History Of Prese nt Illness PDR w/ ME The 84 year old male presents for treatment of PDR w/ ME in the right eye. Patient states vision improvement since last appointment, denies any new onset of flashes, floaters, or ocular pain. Patient using Dorzolamide-Timolol TID OS. Vitreous Hemorrhage The 84 year old male presents for evaluation of Vitreous Hemorrhage in the left eye. Patient states within the last week he has gradually noticed a significant improvement in vision in the left eye. He states he is able to see objects at a distance but still has trouble reading. Patient denies new floaters, flashes of light or ocular pain. Patient is using Cosopt TID OS. Last medication use was this morning at 8:30am. PDR The 84 year old male presents for treatment of PDR in the right eye. Patient states that vision is the same. Patient states that he has been having flashing lights about 3-4 times a day in the left eye and says that it started around May 24. Patient denies floaters or ocular pain. PDR The 84 year old male presents for treatment of PDR in the right eye. Patient reports vision with his left eye is minimal. Reports seeing peripheral vision intermittently. Denies current flashes of light or floaters. Denies ocular pain. Patient is using Dorzolamide/Timolol TID OS. vitreous hemorrhage The 84 year old male presents for evaluation of vitreous hemorrhage in the left eye. Patient presenting today for loss of vision in the left eye for the past two days. Denies any new floaters or flashing lights. No pain in either eye per patient. Patient has been off all drops. POFU The 84 year old male presents for evaluation of POFU in the left eye. Patient presents s/p Vitrectomy with laser OS 03/20/2024 for vitreous hemorrhage. Patient reports vision appears to be stable but notes diplopia vertically when looking at a distance for the last three weeks. States he typically closes his left eye to read to stop diplopia. Reports flashes of light intermittently that travels from left to right but states he cannot tell which eye. Denies ocular pain. Dry and water eyes. Patient is not use artificial tears currently. treated vitreous hemorrhage The 84 year old male presents for evaluation of treated vitreous hemorrhage in the left eye. S/p vitrectomy 03/20/24. Patient states vision has improved since surgery 1 week ago. Patient denies eye pain. Complains of 3-4 flashes per day in the left eye since surgery last week. Vitrectomy The 84 year old male presents for evaluation of treated vitreous hemorrhage in the left eye on 03/20/2024. Patient states no pain or discomfort overnight, bandage was removed in office. Patient picked up eye drops from pharmacy on Wednesday, has not instilled yet. NPDR The 84 year old male presents for evaluation of NPDR in the left eye. Patient reports vision is stable with current pair of glasses. Reports white light in upper peripheral vision intermittently OU. Denies current floaters. Denies ocular pain. Itching eyes, patient will use a warm washcloth to help. Patient is not using artificial tears currently. Vitreous Hemorrhage The 84 year old male presents for evaluation of Vitreous Hemorrhage in the left eye. Pt states that he cant see out of the left eye and can only see light and dark and says that he woke up on the 04 of february. Pt denies floaters, flashes of light or ocular pain but says that he is having itchy and watery eyes. 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 Patient reports worsened vision in his left eye. Patient states he has a hard time focusing and sees waviness with his left eye when he's reading. Patient reports stable vision in his right eye. Patient denies flashes and eye pain but experiences floaters in both eyes. Patient complains of itchy eyes. 2 months 2/p vitrectomy The 82 y ear old male presents for evaluation of 2 months 2/p vitrectomy in the left eye. Patient reports improved vision in the left eye, and decreased, dull vision in the right eye. Patient states when he turns the light off at night he sees stars temporally in the left eye only. Patient denies ocular pain or floaters in both eyes. 1 week S/P vitrectomy The 82 yea r old male presents for evaluation of 1 week S/P vitrectomy in the left eye. Patient reports improved vision in the left eye, but states he has 1/10 of a bubble that looks like oily water in the inferior quadrant of his left eye. 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 Removed bandage in office. Patient denies any pain or discomfort. Patient complains that the left eye itches. Patient states that he has not picked up his drops as of right now. diabetic retinopathy The 82 year old male presents for evaluation of diabetic retinopathy in the right eye and left eye. Patient reports decreased vision in both eyes since his last visit about 3 months ago. Patient denies ocular pain, flashes of light or floaters in both eyes. Type [address] The 82 year old male presents for 3 month evaluation. Patient states his vision is unchanged over the last 3 months. Patient denies any floaters or flashes of light. diabetic retinopathy The 81 year old male presents for evaluation of diabetic retinopathy in the right eye and left eye. Patient reports stable vision in both eyes since his last visit. Patient notes he has floaters in both eyes, but denies ocular pain or flashes of light in both eyes. NPDR The 81 year old male presents for evaluation of NPDR in both eyes. blurry vision The patient is p resent for evaluation of blurry vision in both eyes since last visit. Patient states that he has to use a magnifying glass to read. Patient denies eye pain and flashes of light, but states he has floaters and spider webs. Blurry vision The patient stat es his near vision has gotten more blurry in the last month. He states he has received new GL and it has not helped. He states his BS has been up and down over the last week and a half. The condition is limiting their ability to read. The condition is described as fuzzy vision. The condition is associated with daily activities and chores. Patient denies eye pain and flashes of light. Associated symptoms include: floaters - he states they still have them but they have occurred less often. 1 yr fu due to moder ate NPDR w/o mac edema The 81 year old male is present for his 1 yr fu due to moderate NPDR w/o mac edema OU. diabetic retinopathy The 80 year old male presents for diabetic retinopathy in both eyes. increasing blurriness The patien t reports increasing blurriness in left > right eye x 1 year. The onset was gradual. It affects near vision. The symptom is all of the time. The condition is mild. In addition, the condition is associated with reading newspaper or a book. Patient denies flashes. Associated symptoms include: floaters. floaters The patient repo rts floaters in both eyes x years. The onset was gradual. Vision is not affected. The symptom is intermittent. The condition is mild. In addition, the condition is associated with driving. Patient denies flashes. diabetic retinopathy The 78 year old male presents for evaluation of diabetic retinopathy in both eyes with edema in the left eye. diabetic retinopathy The 78 year old male presents for evaluation of diabetic retinopathy in both eyes. The patient reports increased trouble focusing when reading since last visit about 8 weeks ago. It affects both near and far vision. The symptom is constant. In addition, the condition is associated with daily activity and chores. Patient denies eye pain and flashes. decrease in vision The patient r eports a decrease in vision in the right eye and left eye. It started about 6 months ago. The onset was gradual. It affects near vision. The symptom is constant. In addition, the condition is associated with daily activity and chores. Patient denies flashes. Patient reports gradual floaters intermittently and is unsure which eye not affecting the vision. diabetic retinopathy The 78 year old male re-referred by Dr. Bocanegra for diabetic retinopathy in the right eye and left eye. trouble reading The patient comp lains of trouble reading in the right eye and left eye. It started about 2 months ago . The onset was gradual. It affects near vision. The symptom is constant. It occurs always. The condition is worsening. The condition is described as blurring. In addition, the condition is associated with reading. diabetic retinopathy The 75 year old male presents for evaluation of diabetic retinopathy denies vision changes The patien t denies vision changes in the right eye and left eye. It started about 1 month ago . It affects both near and far vision. The symptom is constant. It occurs when focusing. The condition is stable. 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 floaters The patient repo rts white floaters in the right eye. It started about 6 days ago . The onset was sudden. It affects both near and far vision. The symptom is constant. It occurs when focusing. Patient states that he does not notice the floaters today. Since making appointment to see our doctor patient states that the floaters have improved. 124/68 blood pressure 1 treated DME s/p laser The 75 yea r old male presents for evaluation of treated DME s/p laser in the right eye. decreased vision The patient com plains of difficulty telling the difference when reading numbers x 3-4 months. He is unsure if OD or OS. The decrease has been gradual and mild. He especially has trouble with the numbers 6 and 8. No floaters or eye pain. He has itching occasionally in the evening which improves after applying a damp cloth. diabetic retinopathy This 74 yea r old male referred by Dr. 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 [facility] Phys[facility] Work Phone: [phone] Instructions* Date Instruction Additional Infor alba Impression/Plan Related to Belinda ramos melanoma of retina of right eye Impression/Plan Related to 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 Impression/Plan Related to 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 Impression/Plan Related to Vitre ous hemorrhage of left eye REturn 4 weeks IO AV N OD (3of3)/ No OCT Related to 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 with type 2 diabetes mellitus Impression/Plan Related to Other specified glaucoma Impression/Plan Related to Hyphe ma, left Impression/Plan Related to Type 2 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, left eye Impression/Plan Related to Vitre ous hemorrhage of left eye Impression/Plan Related to 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 Impression/Plan Related to Other specified glaucoma Impression/Plan Related to 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 Impression/Plan Related to Vitre ous hemorrhage of left eye Impression/Plan Related to 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 Impression/Plan Related to Hyphe ma, left Impression/Plan Related to Type 2 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, left eye Oct Impression/Plan Related to Vitre ous hemorrhage of left eye Impression/Plan Related to Inter mittent exotropia Impression/Plan Related to Vitre ous hemorrhage of left eye Impression/Plan Related to Vitre ous hemorrhage of left eye Impression/Plan Related to 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, bi Impression/Plan Related to Type 2 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, left eye Impression/Plan Related to Vitre ous hemorrhage of left eye Impression/Plan Related to Type 2 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, left eye Impression/Plan Related to Vitre ous hemorrhage of left eye Impression/Plan Related to 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, bi Impression/Plan Related to Histo ry of vitrectomy Impression/Plan Related to 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, bi Impression/Plan Related to 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 Return in 1 year wit kassandra Zee MD for OCT OU 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, left eye Impression/Plan Related to Prese nce of intraocular lens Impression/Plan Related to Vitre ous degeneration, bilateral Impression/Plan Related to 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, bi Impression/Plan Related to Pucke ring of macula, left eye Return in 1 months arthur Zee MD for POFU OS/OCT OU 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, left eye Impression/Plan Related to Pucke ring of macula, left eye Return in 1 week cedrick Zee MD for PO OS/ OCT OU 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, left eye Impression/Plan Related to Pucke ring of macula, left eye Impression/Plan Related to 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, bi Impression/Plan Related to Hyper tension Impression/Plan Related to Vitre ous degeneration, bilateral Impression/Plan Related to Pucke ring of macula, left eye Impression/Plan Related to Prese nce of intraocular lens Impression/Plan 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, left Impression/Plan Related to Pucke ring of macula, left eye Impression/Plan Related to 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, bi Impression/Plan Related to Prese nce of intraocular lens Impression/Plan Related to Vitre ous degeneration, bilateral Impression/Plan 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, left Return in 3 months w chilo Zee MD for follow up, OCT, possible Avastin OU Related to 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, bi Impression/Plan Related to 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, bi Return 4 weeks IO Avastin OU and OCT Related to Type 2 diab with prolif diab rtnop with macular edema, bi Impression/Plan Related to Pucke ring of macula, left eye Impression/Plan Related to Vitre ous degeneration, bilateral Impression/Plan Related to Prese nce of intraocular lens Impression/Plan Related to Vitre ous hemorrhage, left eye Impression/Plan Related to Type 2 diab with prolif diab rtnop with macular edema, bi Return in Related to Type 2 diab with mod 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 edema, bi Impression/Plan Related to Prese nce of intraocular lens Impression/Plan Related to Type 2 diab with mod 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 edema, bi Impression/Plan Related to 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 Robertson for follow up exam and OCT. 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 Robertson for FU/OCT/possible AVN. 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 The pucker is not inducing vision loss or distortion that is severe enough to warrant surgical risk. I have counseled for observation at the current level of vision. 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, left eye - LEFT: Mild Non-Pro liferative Diabetic Retinopathy without signs of neovascularization was noted on examination today and explained to the patient. No treatment is necessary at this time. See plan #1. Related to Type 2 diab w mild nonprlf diabetic rtnop w/o macular edema - RIGHT: Moderate No n-Proliferative Diabetic Retinopathy without signs of neovascularization was noted on examination today and explained to the patient. No treatment is necessary at this time. The patient was instructed to call with new floaters or vision changes. Discussed ocular and systemic benefits of blood sugar control as well as the importance of follow up compliance from a retinal standpoint and with the PCP/Bar Hostess. Appropriate follow up with primary eye team primary care physician was recommended. Related to Type 2 diab w moderate nonprlf diab rtnop w/o macular edema - Return in 1 year w chilo Robertson for follow up exam with OCT. Related to Type 2 diab w moderate nonprlf diab rtnop w/o macular edema Type 2 diab w modera te nonprlf diab rtnop w/o macular edema - Discussed blood sugar control. Related to Type 2 diab w moderate nonprlf diab rtnop w/o macular edema - The progression of cataracts was noted on examination today and discussed with the patient. It is reasonable from a retinal standpoint that the patient return to their referring physician for further evaluation of the cataracts and to discuss surgical benefits of cataract removal. There is no retinal contraindication to proceeding with cataract surgery. The patient understands that macular function may limit the best corrected post-operative visual acuity. Related to Age-related nuclear cataract, bilateral - Posterior vitreous detachment was noted on examination today and explained to the patient. There is no evidence of a retinal tear, break or detachment. Related to Vitreous degeneration, right eye Oct - The progression of cataracts was noted on examination today and discussed with the patient. It is reasonable from a retinal standpoint that the patient return to their referring physician for further evaluation of the cataracts and to discuss surgical benefits of cataract removal. There is no retinal contraindication to proceeding with cataract surgery. The patient understands that macular function may limit the best corrected post-operative visual acuity. Related to Age-related nuclear cataract, bilateral Oct - Posterior vitreous detachment was noted on examination today and explained to the patient. There is no evidence of a retinal tear, break or detachment. Related to Vitreous degeneration, right eye Oct- - Stable Macular Puc ker was noted on examination today and explained to the patient. The pucker is not inducing vision loss or distortion that is severe enough to warrant surgical risk. I have counseled for observation at the current level of vision. 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, left eye Apr- - Non-Proliferative Diabetic Retinopathy without signs of neovascularization was noted on examination today and explained to the patient. No treatment is necessary at this time. The patient was instructed to call with new floaters or vision changes. Discussed ocular and systemic benefits of blood sugar control as well as the importance of follow up compliance from a retinal standpoint and with the PCP/Bar Hostess. Appropriate follow up with primary eye team primary care physician was recommended. Related to Type 2 diab w moderate nonprlf diab rtnop w/o macular edema Oct - Return in [address] Robertson for follow up exam with OCT. Related to Type 2 diab w moderate nonprlf diab rtnop w/o macular edema - The patient has be en informed of the risks of Diabetic Retinopathy and the importance of maintaining blood sugar control. The patient was advised of the necessity of follow up compliance with the PCP/Bar Hostess. Appropriate follow up with primary eye team primary care physician was recommended. Related to Diabetes mellitus with ophthalmic manifestations, type II or unspecified type, uncontrolled - Return in 3-[address] Robertson for follow up exam with OCT. Related to Diabetes mellitus with ophthalmic manifestations, type II or unspecified type, uncontrolled - Proliferative Diab etic Retinopathy without evidence of active disease was noted on examination today and discussed with the patient. Will continue to monitor. The patient was advised to call with new floaters or vision changes. Discussed ocular and systemic benefits of maintaining blood sugar control as well as follow up compliance from a retinal standpoint and with the PCP/Bar Hostess. Related to Nonproliferative diabetic retinopathy NOS - Posterior vitreous detachment was noted on examination today and explained to the patient. There is no evidence of associated retinal pathology. All signs and symptoms of retinal detachment and tears were discussed in detail. The patient was instructed to call the office immediately if any symptoms are noted. Related to Vitreous degeneration - Macular Pucker was noted on examination today and explained to the patient. Surgical intervention is not indicated at this time. Will continue to monitor for progression. The patient was advised to call with vision changes. Related to Macular puckering of retina - The progression of cataracts was noted on examination today and discussed with the patient. Not affecting vision at this time. 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 See plan #2. Related to Diabetic macular edema - The patient has be en informed of the risks of Diabetic Retinopathy and the importance of maintaining blood sugar control. The patient was advised of the necessity of follow up compliance with the PCP/Bar Hostess. Appropriate follow up with primary eye team primary care physician was recommended. Related to Diabetes mellitus with ophthalmic manifestations, type II or unspecified type, uncontrolled - Return in [address] Robertson for follow up exam with OCT. Related to Diabetes mellitus with ophthalmic manifestations, type II or unspecified type, uncontrolled Nonproliferative adolfo betic retinopathy NOS - Diabetic education material given. Related to Nonproliferative diabetic retinopathy NOS Nonproliferative adolfo betic retinopathy NOS - Discussed blood sugar control. Related to Nonproliferative diabetic retinopathy NOS - The progression of cataracts was noted on examination today and discussed with the patient. Not affecting vision at this time. 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 See plan #2. Related to Diabetic macular edema - LEFT: Mild NPDR no nick today - no treatment indicated at this time. Will continue to monitor.RIGHT: Non-Proliferative Diabetic Retinopathy with clinically significant Diabetic Macular Edema was noted on examination today and explained to the patient. No signs of neovascularization were noted. Focal laser photocoagulation treatment was recommended. The risks, benefits, and alternatives were discussed. The patient agreed to treatment and tolerated the procedure well. The patient was instructed to call with new floaters or vision changes. Discussed ocular and systemic benefits of blood sugar control as well as follow up compliance from a retinal standpoint and with the PCP/Bar Hostess. Appropriate follow up with primary eye team primary care physician was recommended. Related to Nonproliferative diabetic retinopathy NOS [facility] Work Phone: [phone]) 763-807801-03-2025 History and physical note* Kat Jones APRN-AFSHIN - 07/07/2024 3:30 PM EST PRE-OPERATIVE HISTORY AND PHYSICAL Exam Date: 07/08/24 Surgery Date: 07/19/24 PCP: HENRIQUE MAGALLON, ARCHITECTURAL DRAFTER-NEW MEDIA STRATEGIST Surgeon: Saturnino Gonzalez MD CC: Left eye vitreous hemorrhage HPI: Kiesha Lagos is a 84 y.o. male who presents for pre-op H&P for planned Vitrectomy Pars Plana 25g Endolaser Photocoagulation Eye - Left. He reports that he had difficulty with his vision of his left eye. He wears glasses. He denies any eye pain or discharge. He has diabetes mellitus thatis controlled with metformin, januvia and glimepiride. He also has hypertension. In a review of the record, he had complained of vision loss of his left eye 02/05/24. He has a history of bilateral cataract extraction and surgery for a LEFT macular pucker. He underwent a pars plana 25 g endolaser photocoagulation and vitrectomy on 03/20/24. His last visit with Dr. Gonzalez was on 06/29/24. No Known Allergies Prior to Admission medications Medication Sig Start Date End Date Taking? Authorizing Provider acetaminophen (TYLENOL) 650 mg 8 hr tablet Take 2 tablets (1,300 mg total) by mouth in the morning and 2 tablets (1,300 mg total) before bedtime. 2 tabs BID . Not In System Ref Prov aspirin 81 mg Take 2 tablets (162 mg total) by mouth in the morning. Not In System Ref Prov atorvastatin (LIPITOR) 20 mg tablet Take 1 tablet (20 mg total) by mouth nightly Indications: high cholesterol. 07/23/22 Not In System Ref Prov glimepiride (AMARYL) 4 mg tablet Take 1 tablet (4 mg total) by mouth every morning before breakfastIndications: type 2 diabetes mellitus. Not In System Ref Prov isosorbide mononitrate (IMDUR) 30 mg 24 hr tablet Take 1 tablet (30 mg total) by mouth every morning Indications: prevention of anginal chest pain associated with coronary artery disease. Not In System Ref Prov losartan (COZAAR) 50 mg tablet Take 1 tablet (50 mg total) by mouth nightly Indications: high bloodpressure. 12/31/17 Not In System Ref Prov metFORMIN (GLUCOPHAGE) 500 mg tablet Take 1 tablet (500 mg total) by mouth 3 (three) times a day Indications: type 2 diabetes mellitus. Not In System Ref Prov metoprolol tartrate (LOPRESSOR) 50 mg tablet Take 1 tablet (50 mg total) by mouth in the morning and 1 tablet (50 mg total) before bedtime. Indications: high blood pressure. Not In System Ref Prov nitroglycerin (NITROSTAT) 0.[address] 1 tablet (0.4 mg total) under the tongue every 5 (five) minutes as needed for chest pain. Patient not taking: Reported on 03/17/2024 Not In System Ref Prov sitaGLIPtin (JANUVIA) 100 mg tablet Take 1 tablet (100 mg total) by mouth in the morning. Indications: type 2 diabetes mellitus. Not In System Ref Prov History : Past Medical History: Diagnosis Date Atherosclerosis of coronary artery bypass graft without angina pectoris CAD (coronary artery disease) h/o cabg DDD (degenerative disc disease), cervical 03/17/2024 Diabetes mellitus type 2, controlled ([facility] [place] oral meds only Epiretinal membrane (ERM) of left eye 03/17/2024 Hearing loss 03/17/2024 no hearing aids, 50% hearing loss History of vitrectomy 03/17/2024 Hyperlipidemia Hypertension Nonproliferative diabetic retinopathy ([facility] [place]) 01/16/2015 Osteoarthritis 03/17/2024 left knee and c spine PCO (posterior capsular opacification), 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 Peripheral neuropathy 03/17/2024 Visual impairment glasses Vitreous hemorrhage, left eye ([facility] [place]) 03/17/2024 Past Surgical History: Procedure Laterality Date APPENDECTOMY 07/1968 CARDIAC CATHETERIZATION 02/06/2010 CATARACT EXTRACTION, BILATERAL 2020 CERVICAL DISC SURGERY 03/2020 C5/C6 CORONARY ARTERY BYPASS GRAFT 04/2007 x4 EYE SURGERY Left 07/2022 Macular pucker removed HERNIA REPAIR 06/1974 KNEE ARTHROSCOPY Left 11/2010 RELEASE TRIGGER FINGER Left 04/13/2017 Performed by Jr Russ Larkin DO at [facility] TOE SURGERY ingrown toenails TONSILLECTOMY 194 TRIGGER FINGER RELEASE 5 surgeries total [id number] TYMPANOSTOMY TUBE PLACEMENT Right 09/2020 VITRECTOMY PARS PLANA 25G ENDOLASER PHOTOCOAGULATION EYE Left 03/20/2024 Performed by Saturnino [facility] MD at [facility] Family History Problem Relation Age of Onset Heart disease Mother Stroke Mother Cancer Father liver Obesity Brother Coronary artery disease Brother Prostate cancer Brother Hypertension Brother Diabetes Brother Anesthesia problems Neg Hx Bleeding Disorder Neg Hx Clotting disorder Neg Hx Colon cancer Neg Hx Social History Socioeconomic History Marital status: Single Spouse name: Not on file Number of children: Not on file Years of education: Not on file Highest education level: Not on file Occupational History Not on file Tobacco Use Smoking status: Never Passive exposure: Past Smokeless tobacco: Never Vaping Use Vaping status: Never Used Substance and Sexual Activity Alcohol use: No Comment: once year Drug use: No Sexual activity: Defer Other Topics Concern Caffeine Use Yes Social History Narrative Lives alone. 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 Social Drivers of Health Financial Resource Strain: Not on file Food Insecurity: No Food Insecurity (07/07/2024) Hunger Screening Food Insecurity - Worry: Never True Food Insecurity - Inability: Never True Transportation Needs: Not on file Physical Activity: Not on file Stress: Not on file Social Connections: Not on file Interpersonal Safety: Not on file Housing Instability: Not on file Review of Systems Review of Systems Constitutional: Positive for fatigue. Negative for fever, chills, diaphoresis and unexpected weightchange. HENT: Positive for congestion and hearing loss. Negative for dental problem, ear pain, nosebleeds, sinus pressure, sore throat, tinnitus and trouble swallowing. Eyes: Positive for visual disturbance. Negative for pain and discharge. Respiratory: Negative for cough, choking, shortness of breath and wheezing. Cardiovascular: Negative for chest pain, leg swelling, PND and orthopnea. Gastrointestinal: Negative for nausea, vomiting, abdominal pain, diarrhea, constipation, blood in stool, anal bleeding, rectal pain and black tarry stool. Endocrine: Negative for polydipsia, polyphagia and polyuria. Checks blood sugars every 3 days; high 120; low 102 Genitourinary: Negative for bladder incontinence, dysuria, urgency, frequency, hematuria, enuresis and difficulty urinating. Musculoskeletal: Negative for myalgias, joint swelling and arthralgias. Skin: Negative for rash. Neurological: Positive for numbness. Negative for seizures, speech difficulty, weakness and headaches. Hematological: Does not bruise/bleed easily. Psychiatric/Behavioral: Negative for dysphoric mood, sleep disturbance and suicidal ideas. The patient is not nervous/anxious. Vital Signs BP 120/56 Pulse 67 Temp 36.4 C (97.5 F) (Tympanic) Resp 14 Ht 177.8 cm (5' 10 ) Wt 86.4 kg (190 lb 7.6 oz) SpO2 99% BMI 27.33 kg/m Labs/Diagnostics: Recent Results (from the past 24 hours) Hemoglobin A1c Collection Time: 07/07/24 4:05 PM Result Value Ref Range Hemoglobin A1C 7.1 (H) 4.4 - 5.6 % Average glucose 157 mg/dL Basic Metabolic Panel Collection Time: 07/07/24 4:05 PM Result Value Ref Range Sodium 137 134 - 146 mmol/L Potassium, Bld 5.2 (H) 3.5 - 5.0 mmol/L Chloride 103 98 - 109 mmol/L CO2 27 22 - 32 mmol/L Anion gap 7 5 - 15 mmol/L BUN 20 5 - 27 mg/dL Creatinine 1.44 (H) 0.60 - 1.30 mg/dL Glucose 202 (H) 65 - 99 mg/dL Calcium 9.3 8.5 - 10.5 mg/dL eGFR (CKD-EPI)non-race dependent 48 (L) >59 ml/min/1.73sq.m Physical Exam Physical Exam Constitutional He is oriented to person, place, and time. He appears well- developed and well-nourished. HENT Head Normocephalic and atraumatic. Ears Right Ear: Tympanic membrane, external ear and ear canal normal. Right external auditory canal: External auditory canal is normal. Left Ear: Tympanic membrane, external ear and ear canal normal. Left external auditory canal: External auditory canal is normal. Nose Nose normal. No rhinorrhea. Mucosa/turbinates: Negative for rhinorrhea. Turbinates normal Mouth/Throat Oral Cavity: normal tongue. Throat: Oropharynx: oropharynx clear and moist normal. Oropharynx negative for abnormal hard palate and abnormal oral tongue. Tonsils: right tonsil normal and left tonsil normal Eyes: Conjunctivae and EOM are normal. Pupils are equal, round, and reactive to light. Right eye exhibits no discharge and no exudate. Left eye exhibits no discharge and no exudate. Conjunctiva: Right conjunctiva is not injected. Negative for exudate.Left conjunctiva is not injected. Negative for exudate.Negative for scleral icterus. Neck Normal range of motion. Neck supple. Carotid bruit is not present. . Negative for thyromegaly. Cardiovascular: Normal rate and regular rhythm. No murmur heard. Pulses: intact distal pulses Heart Sounds: normal heart sounds. no friction rub Pulmonary/Chest: Effort normal and breath sounds normal. He has no wheezes. Abdominal: Bowel sounds are normal. He exhibits no mass. Soft. There is no hepatosplenomegaly. There is no abdominal tenderness. There is no rebound and no guarding. Musculoskeletal: General: Normal range of motion. Cervical back: Normal range of motion and neck supple. Neurological He is alert and oriented to person, place, and time. He has normal reflexes. Speech: normal speech Skin: Skin is warm and dry. Psychiatric: He has a normal mood and affect. His speech is normal and behavior is normal. Judgment and thought content normal. Assessment Left eye vitreous hemorrhage Diabetes mellitus-A1c last 06/02/22=8.1 Hypertension Coronary artery disease Abnormal renal function (bun 20; creatinine 1.44; GFR 48; 03/17/24 bun 14; creatinine 1.37; GFR 51; 03/30/2017 bun 16; creatinine 1.20) Hyperkalemia (5.2) Plan Vitrectomy Pars Plana 25g Endolaser Photocoagulation Eye - Left 2. Follow anesthesia guidelines regarding medications 3. Follow anesthesia guidelines regarding medications 4. CABG completed 05/09/2007 with COHEN-LAD; sequential RAD-ramus intermedius-OM` and SVG-PDA. Awaitcardiac clearance. 5. Primary care to follow 6. Primary care to address. Recheck if indicated on day of surgery. AMAYA Prince 07/08/24 1509 [employer] [facility] Work Phone: 1(725) 716-406101-03-2025 History and physical note* AMAYA Prince - 07/07/2024 3:30 PM EST PRE-OPERATIVE HISTORY AND PHYSICAL Exam Date: 07/08/24 Surgery Date: 07/19/24 PCP: AMAYA OROZCO Surgeon: Saturnino Gonzalez MD CC: Left eye vitreous hemorrhage HPI: Kiesha Lagos is a 84 y.o. male who presents for pre-op H&P for planned Vitrectomy Pars Plana 25g Endolaser Photocoagulation Eye - Left. He reports that he had difficulty with his vision of his left eye. He wears glasses. He denies any eye pain or discharge. He has diabetes mellitus thatis controlled with metformin, januvia and glimepiride. He also has hypertension. In a review of the record, he had complained of vision loss of his left eye 02/05/24. He has a history of bilateral cataract extraction and surgery for a LEFT macular pucker. He underwent a pars plana 25 g endolaser photocoagulation and vitrectomy on 03/20/24. His last visit with Dr. Gonzalez was on 06/29/24. No Known Allergies Prior to Admission medications Medication Sig Start Date End Date Taking? Authorizing Provider acetaminophen (TYLENOL) 650 mg 8 hr tablet Take 2 tablets (1,300 mg total) by mouth in the morning and 2 tablets (1,300 mg total) before bedtime. 2 tabs BID . Not In System Ref Prov aspirin 81 mg Take 2 tablets (162 mg total) by mouth in the morning. Not In System Ref Prov atorvastatin (LIPITOR) 20 mg tablet Take 1 tablet (20 mg total) by mouth nightly Indications: high cholesterol. 07/23/22 Not In System Ref Prov glimepiride (AMARYL) 4 mg tablet Take 1 tablet (4 mg total) by mouth every morning before breakfastIndications: type 2 diabetes mellitus. Not In System Ref Prov isosorbide mononitrate (IMDUR) 30 mg 24 hr tablet Take 1 tablet (30 mg total) by mouth every morning Indications: prevention of anginal chest pain associated with coronary artery disease. Not In System Ref Prov losartan (COZAAR) 50 mg tablet Take 1 tablet (50 mg total) by mouth nightly Indications: high bloodpressure. 12/31/17 Not In System Ref Prov metFORMIN (GLUCOPHAGE) 500 mg tablet Take 1 tablet (500 mg total) by mouth 3 (three) times a day Indications: type 2 diabetes mellitus. Not In System Ref Prov metoprolol tartrate (LOPRESSOR) 50 mg tablet Take 1 tablet (50 mg total) by mouth in the morning and 1 tablet (50 mg total) before bedtime. Indications: high blood pressure. Not In System Ref Prov nitroglycerin (NITROSTAT) 0.[address] 1 tablet (0.4 mg total) under the tongue every 5 (five) minutes as needed for chest pain. Patient not taking: Reported on 03/17/2024 Not In System Ref Prov sitaGLIPtin (JANUVIA) 100 mg tablet Take 1 tablet (100 mg total) by mouth in the morning. Indications: type 2 diabetes mellitus. Not In System Ref Prov History : Past Medical History: Diagnosis Date Atherosclerosis of coronary artery bypass graft without angina pectoris CAD (coronary artery disease) h/o cabg DDD (degenerative disc disease), cervical 03/17/2024 Diabetes mellitus type 2, controlled ([facility] oral meds only Epiretinal membrane (ERM) of left eye 03/17/2024 Hearing loss 03/17/2024 no hearing aids, 50% hearing loss History of vitrectomy 03/17/2024 Hyperlipidemia Hypertension Nonproliferative diabetic retinopathy ([facility]) 01/16/2015 Osteoarthritis 03/17/2024 left knee and c spine PCO (posterior capsular opacification), 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 Peripheral neuropathy 03/17/2024 Visual impairment glasses Vitreous hemorrhage, left eye ([facility]) 03/17/2024 Past Surgical History: Procedure Laterality Date APPENDECTOMY 07/1968 CARDIAC CATHETERIZATION 02/06/2010 CATARACT EXTRACTION, BILATERAL 2020 CERVICAL DISC SURGERY 03/2020 C5/C6 CORONARY ARTERY BYPASS GRAFT 04/2007 x4 EYE SURGERY Left 07/2022 Macular pucker removed HERNIA REPAIR 06/1974 KNEE ARTHROSCOPY Left 11/2010 RELEASE TRIGGER FINGER Left 04/13/2017 Performed by Jr Russ Larkin DO at [facility] TOE SURGERY ingrown toenails TONSILLECTOMY 194 TRIGGER FINGER RELEASE 5 surgeries total [id number] TYMPANOSTOMY TUBE PLACEMENT Right 09/2020 VITRECTOMY PARS PLANA 25G ENDOLASER PHOTOCOAGULATION EYE Left 03/20/2024 Performed by Saturnino Gonzalez MD at [facility] Family History Problem Relation Age of Onset Heart disease Mother Stroke Mother Cancer Father liver Obesity Brother Coronary artery disease Brother Prostate cancer Brother Hypertension Brother Diabetes Brother Anesthesia problems Neg Hx Bleeding Disorder Neg Hx Clotting disorder Neg Hx Colon cancer Neg Hx Social History Socioeconomic History Marital status: Single Spouse name: Not on file Number of children: Not on file Years of education: Not on file Highest education level: Not on file Occupational History Not on file Tobacco Use Smoking status: Never Passive exposure: Past Smokeless tobacco: Never Vaping Use Vaping status: Never Used Substance and Sexual Activity Alcohol use: No Comment: once year Drug use: No Sexual activity: Defer Other Topics Concern Caffeine Use Yes Social History Narrative Lives alone. 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 Social Drivers of Health Financial Resource Strain: Not on file Food Insecurity: No Food Insecurity (07/07/2024) Hunger Screening Food Insecurity - Worry: Never True Food Insecurity - Inability: Never True Transportation Needs: Not on file Physical Activity: Not on file Stress: Not on file Social Connections: Not on file Interpersonal Safety: Not on file Housing Instability: Not on file Review of Systems Review of Systems Constitutional: Positive for fatigue. Negative for fever, chills, diaphoresis and unexpected weightchange. HENT: Positive for congestion and hearing loss. Negative for dental problem, ear pain, nosebleeds, sinus pressure, sore throat, tinnitus and trouble swallowing. Eyes: Positive for visual disturbance. Negative for pain and discharge. Respiratory: Negative for cough, choking, shortness of breath and wheezing. Cardiovascular: Negative for chest pain, leg swelling, PND and orthopnea. Gastrointestinal: Negative for nausea, vomiting, abdominal pain, diarrhea, constipation, blood in stool, anal bleeding, rectal pain and black tarry stool. Endocrine: Negative for polydipsia, polyphagia and polyuria. Checks blood sugars every 3 days; high 120; low 102 Genitourinary: Negative for bladder incontinence, dysuria, urgency, frequency, hematuria, enuresis and difficulty urinating. Musculoskeletal: Negative for myalgias, joint swelling and arthralgias. Skin: Negative for rash. Neurological: Positive for numbness. Negative for seizures, speech difficulty, weakness and headaches. Hematological: Does not bruise/bleed easily. Psychiatric/Behavioral: Negative for dysphoric mood, sleep disturbance and suicidal ideas. The patient is not nervous/anxious. Vital Signs BP 120/56 Pulse 67 Temp 36.4 C (97.5 F) (Tympanic) Resp 14 Ht 177.8 cm (5' 10 ) Wt 86.4 kg (190 lb 7.6 oz) SpO2 99% BMI 27.33 kg/m Labs/Diagnostics: Recent Results (from the past 24 hours) Hemoglobin A1c Collection Time: 07/07/24 4:05 PM Result Value Ref Range Hemoglobin A1C 7.1 (H) 4.4 - 5.6 % Average glucose 157 mg/dL Basic Metabolic Panel Collection Time: 07/07/24 4:05 PM Result Value Ref Range Sodium 137 134 - 146 mmol/L Potassium, Bld 5.2 (H) 3.5 - 5.0 mmol/L Chloride 103 98 - 109 mmol/L CO2 27 22 - 32 mmol/L Anion gap 7 5 - 15 mmol/L BUN 20 5 - 27 mg/dL Creatinine 1.44 (H) 0.60 - 1.30 mg/dL Glucose 202 (H) 65 - 99 mg/dL Calcium 9.3 8.5 - 10.5 mg/dL eGFR (CKD-EPI)non-race dependent 48 (L) >59 ml/min/1.73sq.m Physical Exam Physical Exam Constitutional He is oriented to person, place, and time. He appears well- developed and well-nourished. HENT Head Normocephalic and atraumatic. Ears Right Ear: Tympanic membrane, external ear and ear canal normal. Right external auditory canal: External auditory canal is normal. Left Ear: Tympanic membrane, external ear and ear canal normal. Left external auditory canal: External auditory canal is normal. Nose Nose normal. No rhinorrhea. Mucosa/turbinates: Negative for rhinorrhea. Turbinates normal Mouth/Throat Oral Cavity: normal tongue. Throat: Oropharynx: oropharynx clear and moist normal. Oropharynx negative for abnormal hard palate and abnormal oral tongue. Tonsils: right tonsil normal and left tonsil normal Eyes: Conjunctivae and EOM are normal. Pupils are equal, round, and reactive to light. Right eye exhibits no discharge and no exudate. Left eye exhibits no discharge and no exudate. Conjunctiva: Right conjunctiva is not injected. Negative for exudate.Left conjunctiva is not injected. Negative for exudate.Negative for scleral icterus. Neck Normal range of motion. Neck supple. Carotid bruit is not present. . Negative for thyromegaly. Cardiovascular: Normal rate and regular rhythm. No murmur heard. Pulses: intact distal pulses Heart Sounds: normal heart sounds. no friction rub Pulmonary/Chest: Effort normal and breath sounds normal. He has no wheezes. Abdominal: Bowel sounds are normal. He exhibits no mass. Soft. There is no hepatosplenomegaly. There is no abdominal tenderness. There is no rebound and no guarding. Musculoskeletal: General: Normal range of motion. Cervical back: Normal range of motion and neck supple. Neurological He is alert and oriented to person, place, and time. He has normal reflexes. Speech: normal speech Skin: Skin is warm and dry. Psychiatric: He has a normal mood and affect. His speech is normal and behavior is normal. Judgment and thought content normal. Assessment Left eye vitreous hemorrhage Diabetes mellitus-A1c last 06/02/22=8.1 Hypertension Coronary artery disease Abnormal renal function (bun 20; creatinine 1.44; GFR 48; 03/17/24 bun 14; creatinine 1.37; GFR 51; 03/30/2017 bun 16; creatinine 1.20) Hyperkalemia (5.2) Plan Vitrectomy Pars Plana 25g Endolaser Photocoagulation Eye - Left 2. Follow anesthesia guidelines regarding medications 3. Follow anesthesia guidelines regarding medications 4. CABG completed 05/09/2007 with COHEN-LAD; sequential RAD-ramus intermedius-OM` and SVG-PDA. Awaitcardiac clearance. 5. Primary care to follow 6. Primary care to address. Recheck if indicated on day of surgery. AMAYA Prince 07/08/24 1509 documented in this encounterNortheastern Vermont Regional HospitalCalando Pharmaceuticals01-03-2025 Instructions* Patient Instructions* Mila Chino RN - 07/07/2024 3:30 PM EST Your surgery/procedure is scheduled at [facility] on 07/19/2024 at 1115 Arrival Time tentatively 0915 (may call 2 days prior to procedure) [facility] Address: [address] [place] [address], [id number] Park in the Emergency Center Parking lot. Report to the director of front office in the Emergency/Surgery Registration lobby of the hospital. Notify your SURGEON if you develop any illness such as a cold, cough, fever, sore throat, vomiting or are hospitalized between now and your surgery. Please call Pre-Admission Clinic at [phone] if you have any questions prior to surgery. For questions the morning of surgery, call the Pre-op Department at [phone]. Medication Instructions (Do not stop your medications without consulting the prescribing physician). Take the following medications the morning of surgery with a sip of water: Imdur, Metoprolol Diabetic or Weight loss medications: HOLD na LAST DOSE na Take inhalers as prescribed the morning of surgery. Due to the risk associated with these medications. If these medications are not held per instruction below, your surgery is at an increased risk for cancellation SGLT2 Medications- Hold 3 days prior to surgery: Jardiance, Empagliflozin, Farxiga, Dapagliflozin, Invokana, Canagliflozin, Trijardy, Synjardy GLP-1 Medications (Injection or Pill)- If taken daily hold day of surgery. If taken weekly, hold 1 week prior to surgery: Adlyxin, Byetta, Bydureon, Ozempic, Rybelsus,Trulicity, Victoza, Wegovy, Lixisenatide, Exenatide, Semaglutide, Dulaglutide, Liraglutide GIP/GLP-1(Injection or Pill)- If taken daily hold day of surgery. If taken weekly, hold 1 week prior to surgery: Zohaibunjavierro . Blood thinners: Please contact your prescribing physician regarding a stop/hold date for these medications. Medications such as Coumadin, Heparin, Aspirin, Plavix, Eliquis, Pradaxa Diabetics: If you take insulin, contact your prescribing doctor for instructions on how to manage this the night before and the morning of surgery. Non-steriodal Anti-Inflammatory Drugs (NSAIDS)- Hold 3 days prior to surgery unless otherwise directed by your surgeon. Vitamins/Herbal Products: You may continue to take your prescribed vitamins such as potassium, iron, vitamin B, vitamin C, or multivitamin unless specifically instructed by your surgeon to hold. STOPtaking all herbal products/teas one week prior to your surgery. Marijuana: Stop marijuana 72 hours prior to surgery, stop CBD oil 48 hours prior to surgery. If you have been given bowel prep instructions by your surgeon, please call the surgeon's office with any questions about these instructions. What do I do the day of Surgery? Age 2 through adult - Stop all solids by midnight, You may have clear liquids up to 2 hours before surgery, unless otherwise instructed by your surgeon Clear liquids are: water, sports drinks such as Gatorade or G2, or apple juice. You may NOT have: tube feedings, dairy products, alcoholic beverages, orange juice, or any liquids with solids or pulp in it If applicable, shower again with CHG soap the morning of your surgery. If you received a green plastic bracelet, bring it with you the day of surgery and your nurse will put it on you. What do I need to do to prepare for surgery? If you will be going home the same day as your surgery, arrange for an adult over [address] Riding in a bus or taxi by yourself is not permitted. You should not smoke or drink alcohol 24 hours before your surgery. Smoking increases the risk of breathing problems after surgery. Alcohol thins the blood and may cause bleeding problems during surgery If you have been assigned THAD Education by your surgeon's office, please complete this education prior to your surgery. For questions regarding THAD education, reach out to your surgeons office. If you have been given a prescription for occupational, physical or speech therapy, please set up these appointments before your procedure. If you would like to schedule therapy at a [facility] facility, please call [phone] ([phone]). Do not use lotions, creams, powders, perfume, make up, cologne or after-shaves day of surgery. Remove ALL jewelry including wedding rings, body piercings, hair extensions that contain metal, nail beninese, make-up, and contact lens. You may brush your teeth the morning of surgery, but do not swallow the water. Wear your dentures and partial plates to the hospital (no adhesive). Shower the night the before. If applicable, use the CHG (chlorhexidine gluconate) soap or wipes. Please be advised, [facility] has transitioned to a cashless payment system. What should I bring to the hospital? If you received a green plastic bracelet, bring it with you the day of surgery and your nurse will put it on you. Eyeglass or contact lens case If you will be spending the night, please bring personal care items and leave them in the car untilyou are taken to your room after surgery. Leave ALL valuables at home. If any of these instructions conflict with those you recieved from the surgeon, please seek clarification from your surgeon's office. DEEP BREATHING EXERCISES This exercise helps promote good air exchange and helps to prevent pneumonia after surgery. Breathe in slowly and deeply through the nose. Hold your breath for a few seconds and then exhale slowly through the mouth. Repeat this three times and then cough. Coughing helps to clear your lungs. If you have had a surgery with an incision into your abdomen or chest, press gently against your incision with a pillow or a folded blanket when you cough. Please be aware - it may not be hernandez to cough following some types of surgeries involving the eyes,ears, sinuses and throat. Always follow your doctor's instructions. LEG EXERCISES These exercises help promote good circulation and help to prevent blood clots after surgery. Point your toes to the ceiling and then point them to the wall. Do this slowly about 15-20 times. You may also move your feet in circles. Do the exercise that is most comfortable for you. If you have had surgery involving your shoulder or arm, we recommend you move your fingers. PRACTICING We ask that you begin practicing these exercises before your surgery. After surgery try to do both exercises at least every 2 hours during the day and early evening. SURGICAL SITE INFECTION AND PREVENTION What is a Surgical Site Infection? Infection can happen to the area of the body where surgery is done. This is called a surgical site infection (SSI). A SSI does not happen very often. Can SSIs be treated? Antibiotics are used to treat SSI. Some patients may need another surgery to treat the infection. The doctor will discuss treatment options with you. What are some of the things that hospitals are doing to prevent SSIs? Soap and water or alcohol hand rub are used before and after caring for each patient.Special soap is used to clean surgery workers hands and arms just before the surgery. Masks, gowns, gloves and hair covers are worn during the surgery to keep the area clean. Hair in the surgery area may be removed with clippers (not razors). A special soap that kills germs is used to clean the skin at the surgery site. Antibiotics may be given before the surgery starts. What can you do to prevent SSIs? Before surgery: You may be asked to shower or bathe with a special soap that kills germs the night before and the day of surgery. Use the soap as you were told. If you smoke, stop or cut down. Ask your doctor about ways to quit. Do not shave near where you will have surgery. Shaving can irritate the skin and make it easier to get and infection. After surgery: Be sure that the doctors and nurses clean their hands before and after touching you. Be sure your family and friends clean their hands before and after visiting you. Do not be afraid to remind them. * Care for your wound at home as told by your doctor or nurse * Call your doctor right away if you have fever, redness, increased pain, or drainage at the surgery site. Further questions? Contact the doctor, nurse or the Infection Prevention and Control department if you have any questions. PATIENT RIGHTS AND RESPONSIBILITIES As a patient at [facility], you have the right to: Receive medical care and be informed of who is taking care of you Be treated with dignity and respect Have a family member/hobbies and crafts sales representative of choice and your physician notified of your admission Receive information and actively participate in decisions about your care and treatment Refuse care, treatment and services Decide who may provide your support and speak for you Access yarsani and spiritual services Participate in ethical issues and questions about your care Receive private and confidential care Have appropriate assessment and management of your pain Know guest visitation restrictions or limitations Have an advance directive Access protective services Consent or refuse to participate in research studies or production or recordings, films or other images Have resolution of your complaints Receive information of hospital charges and payment methods Patient/patient hobbies and crafts sales representative responsibilities are to: Provide information about health status to facilitate care, treatment and services Follow the treatment, plan, keep appointments and speak up when you do not understand the plan Respect the rights of other patients and healthcare personnel Follow organizational rules and regulations that support quality care and a safe environment Fulfill financial obligations as promptly as possible PATIENT RIGHTS AND RESPONSIBILITIES As a patient at [facility], you have the right to: Receive medical care and be informed of who is taking care of you Be treated with dignity and respect Have a family member/hobbies and crafts sales representative of choice and your physician notified of your admission Receive information and actively participate in decisions about your care and treatment Refuse care, treatment and services Decide who may provide your support and speak for you Access yarsani and spiritual services Participate in ethical issues and questions about your care Receive private and confidential care Have appropriate assessment and management of your pain Know guest visitation restrictions or limitations Have an advance directive Access protective services Consent or refuse to participate in research studies or production or recordings, films or other images Have resolution of your complaints Receive information of hospital charges and payment methods Patient/patient hobbies and crafts sales representative responsibilities are to: Provide information about health status to facilitate care, treatment and services Follow the treatment, plan, keep appointments and speak up when you do not understand the plan Respect the rights of other patients and healthcare personnel Follow organizational rules and regulations that support quality care and a safe environment Fulfill financial obligations as promptly as possible Surgical Site Infection Prevention What is a Surgical Site Infection? Infection can happen to the area of the body where surgery is done. This is called a surgical site infection (SSI). A SSI does not happen very often. Can SSIs be treated? Antibiotics are used to treat SSI. Some patients may need another surgery to treat the infection. The doctor will discuss treatment options with you. What are some of the things that hospitals are doing to prevent SSIs? Soap and water or alcohol hand rub are used before and after caring for each patient. Special soap is used to clean surgery workers hands and arms just before the surgery. Masks, gowns, gloves and hair covers are worn during the surgery to keep the area clean. Hair in the surgery area may be removed with clippers (not razors). A special soap that kills germs is used to clean the skin at the surgery site. Antibiotics may be given before the surgery starts. What can you do to prevent SSIs? Before surgery: You may be asked to shower or bathe with a special soap that kills germs the night before and the day of surgery. Use the soap as you were told. If you smoke, stop or cut down. Ask your doctor about ways to quit. Do not shave near where you will have surgery. Shaving can irritate the skin and make it easier to get and infection. After surgery: Be sure that the doctors and nurses clean their hands before and after touching you. Be sure your family and friends clean their hands before and after visiting you. Do not be afraid to remind them. * Care for your wound at home as told by your doctor or nurse * Call your doctor right away if you have fever, redness, increased pain, or drainage at the surgery site. Further questions? Contact the doctor, nurse or the Infection Prevention and Control department if you have any questions. 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 Left. Condition: persistent assessment Type 2 diabetes andrew itus with proliferative 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 edema, left eye impression Type 2 diabetes andrew itus with proliferative 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 edema, left eye: E11.3592. Left assessment Hyphema, left impression Hyphema, left: H21.02. Left assessment Other specified glaucoma 2023 impression Other specified glaucoma: H40.89 . Left [facility] Work Phone: 1([phone]) 223-529412-26-2024 History of Present illness Narrative* Encounter Date Complaint History Of Prese nt Illness PDR The 84 year old male presents for treatment of PDR in the right eye. Patient states that vision is the same. Patient states that he has been having flashing lights about 3-4 times a day in the left eye and says that it started around May 24. Patient denies floaters or ocular pain. PDR The 84 year old male presents for treatment of PDR in the right eye. Patient reports vision with his left eye is minimal. Reports seeing peripheral vision intermittently. Denies current flashes of light or floaters. Denies ocular pain. Patient is using Dorzolamide/Timolol TID OS. vitreous hemorrhage The 84 year old male presents for evaluation of vitreous hemorrhage in the left eye. Patient presenting today for loss of vision in the left eye for the past two days. Denies any new floaters or flashing lights. No pain in either eye per patient. Patient has been off all drops. POFU The 84 year old male presents for evaluation of POFU in the left eye. Patient presents s/p Vitrectomy with laser OS 03/20/2024 for vitreous hemorrhage. Patient reports vision appears to be stable but notes diplopia vertically when looking at a distance for the last three weeks. States he typically closes his left eye to read to stop diplopia. Reports flashes of light intermittently that travels from left to right but states he cannot tell which eye. Denies ocular pain. Dry and water eyes. Patient is not use artificial tears currently. treated vitreous hemorrhage The 84 year old male presents for evaluation of treated vitreous hemorrhage in the left eye. S/p vitrectomy 03/20/24. Patient states vision has improved since surgery 1 week ago. Patient denies eye pain. Complains of 3-4 flashes per day in the left eye since surgery last week. Vitrectomy The 84 year old male presents for evaluation of treated vitreous hemorrhage in the left eye on 03/20/2024. Patient states no pain or discomfort overnight, bandage was removed in office. Patient picked up eye drops from pharmacy on Wednesday, has not instilled yet. NPDR The 84 year old male presents for evaluation of NPDR in the left eye. Patient reports vision is stable with current pair of glasses. Reports white light in upper peripheral vision intermittently OU. Denies current floaters. Denies ocular pain. Itching eyes, patient will use a warm washcloth to help. Patient is not using artificial tears currently. Vitreous Hemorrhage The 84 year old male presents for evaluation of Vitreous Hemorrhage in the left eye. Pt states that he cant see out of the left eye and can only see light and dark and says that he woke up on the 04 of february. Pt denies floaters, flashes of light or ocular pain but says that he is having itchy and watery eyes. 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 Patient reports worsened vision in his left eye. Patient states he has a hard time focusing and sees waviness with his left eye when he's reading. Patient reports stable vision in his right eye. Patient denies flashes and eye pain but experiences floaters in both eyes. Patient complains of itchy eyes. 2 months 2/p vitrectomy The 82 y ear old male presents for evaluation of 2 months 2/p vitrectomy in the left eye. Patient reports improved vision in the left eye, and decreased, dull vision in the right eye. Patient states when he turns the light off at night he sees stars temporally in the left eye only. Patient denies ocular pain or floaters in both eyes. 1 week S/P vitrectomy The 82 yea r old male presents for evaluation of 1 week S/P vitrectomy in the left eye. Patient reports improved vision in the left eye, but states he has 1/10 of a bubble that looks like oily water in the inferior quadrant of his left eye. 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 Removed bandage in office. Patient denies any pain or discomfort. Patient complains that the left eye itches. Patient states that he has not picked up his drops as of right now. diabetic retinopathy The 82 year old male presents for evaluation of diabetic retinopathy in the right eye and left eye. Patient reports decreased vision in both eyes since his last visit about 3 months ago. Patient denies ocular pain, flashes of light or floaters in both eyes. Type [address] The 82 year old male presents for 3 month evaluation. Patient states his vision is unchanged over the last 3 months. Patient denies any floaters or flashes of light. diabetic retinopathy The 81 year old male presents for evaluation of diabetic retinopathy in the right eye and left eye. Patient reports stable vision in both eyes since his last visit. Patient notes he has floaters in both eyes, but denies ocular pain or flashes of light in both eyes. NPDR The 81 year old male presents for evaluation of NPDR in both eyes. blurry vision The patient is p resent for evaluation of blurry vision in both eyes since last visit. Patient states that he has to use a magnifying glass to read. Patient denies eye pain and flashes of light, but states he has floaters and spider webs. Blurry vision The patient stat es his near vision has gotten more blurry in the last month. He states he has received new GL and it has not helped. He states his BS has been up and down over the last week and a half. The condition is limiting their ability to read. The condition is described as fuzzy vision. The condition is associated with daily activities and chores. Patient denies eye pain and flashes of light. Associated symptoms include: floaters - he states they still have them but they have occurred less often. 1 yr fu due to moder ate NPDR w/o mac edema The 81 year old male is present for his 1 yr fu due to moderate NPDR w/o mac edema OU. diabetic retinopathy The 80 year old male presents for diabetic retinopathy in both eyes. increasing blurriness The patien t reports increasing blurriness in left > right eye x 1 year. The onset was gradual. It affects near vision. The symptom is all of the time. The condition is mild. In addition, the condition is associated with reading newspaper or a book. Patient denies flashes. Associated symptoms include: floaters. floaters The patient repo rts floaters in both eyes x years. The onset was gradual. Vision is not affected. The symptom is intermittent. The condition is mild. In addition, the condition is associated with driving. Patient denies flashes. diabetic retinopathy The 78 year old male presents for evaluation of diabetic retinopathy in both eyes with edema in the left eye. diabetic retinopathy The 78 year old male presents for evaluation of diabetic retinopathy in both eyes. The patient reports increased trouble focusing when reading since last visit about 8 weeks ago. It affects both near and far vision. The symptom is constant. In addition, the condition is associated with daily activity and chores. Patient denies eye pain and flashes. decrease in vision The patient r eports a decrease in vision in the right eye and left eye. It started about 6 months ago. The onset was gradual. It affects near vision. The symptom is constant. In addition, the condition is associated with daily activity and chores. Patient denies flashes. Patient reports gradual floaters intermittently and is unsure which eye not affecting the vision. diabetic retinopathy The 78 year old male re-referred by Dr. Bocanegra for diabetic retinopathy in the right eye and left eye. trouble reading The patient comp lains of trouble reading in the right eye and left eye. It started about 2 months ago . The onset was gradual. It affects near vision. The symptom is constant. It occurs always. The condition is worsening. The condition is described as blurring. In addition, the condition is associated with reading. diabetic retinopathy The 75 year old male presents for evaluation of diabetic retinopathy denies vision changes The patien t denies vision changes in the right eye and left eye. It started about 1 month ago . It affects both near and far vision. The symptom is constant. It occurs when focusing. The condition is stable. 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 floaters The patient repo rts white floaters in the right eye. It started about 6 days ago . The onset was sudden. It affects both near and far vision. The symptom is constant. It occurs when focusing. Patient states that he does not notice the floaters today. Since making appointment to see our doctor patient states that the floaters have improved. 124/68 blood pressure 1 treated DME s/p laser The 75 yea r old male presents for evaluation of treated DME s/p laser in the right eye. decreased vision The patient com plains of difficulty telling the difference when reading numbers x 3-4 months. He is unsure if OD or OS. The decrease has been gradual and mild. He especially has trouble with the numbers 6 and 8. No floaters or eye pain. He has itching occasionally in the evening which improves after applying a damp cloth. diabetic retinopathy This 74 yea r old male referred by Dr. 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 Impression/Plan Related to 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 Impression/Plan Related to Vitre ous hemorrhage of left eye Impression/Plan Related to Type 2 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, left eye Impression/Plan Related to Hyphe ma, left Impression/Plan Related to Other specified glaucoma Impression/Plan Related to 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 Impression/Plan Related to Other specified glaucoma Impression/Plan Related to Type 2 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, left eye Impression/Plan Related to Hyphe ma, left Impression/Plan Related to Vitre ous hemorrhage of left eye Impression/Plan Related to 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 Impression/Plan Related to Inter mittent exotropia Impression/Plan Related to Vitre ous hemorrhage of left eye Impression/Plan Related to Vitre ous hemorrhage of left eye Impression/Plan Related to Type 2 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, left eye Impression/Plan Related to 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, bi Impression/Plan Related to Vitre ous hemorrhage of left eye Impression/Plan Related to Type 2 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, left eye Impression/Plan Related to Vitre ous hemorrhage of left eye Impression/Plan Related to Vitre ous hemorrhage of left eye Impression/Plan Related to Histo ry of vitrectomy Impression/Plan Related to 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, bi Impression/Plan Related to 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, bi Impression/Plan Related to 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 Return in 1 year wit kassandra Zee MD for OCT OU 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, left eye Impression/Plan Related to Pucke ring of macula, left eye Impression/Plan Related to 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, bi Impression/Plan Related to Vitre ous degeneration, bilateral Impression/Plan Related to Prese nce of intraocular lens Return in 1 months w chilo Zee MD for POFU OS/OCT OU 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, left eye Impression/Plan Related to Pucke ring of macula, left eye Return in 1 week wit h Wendi Zee MD for PO OS/ OCT OU 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, left eye Impression/Plan Related to Pucke ring of macula, left eye Impression/Plan 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, left Impression/Plan Related to Prese nce of intraocular lens Impression/Plan Related to 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, bi Impression/Plan Related to Pucke ring of macula, left eye Impression/Plan Related to Vitre ous degeneration, bilateral Impression/Plan Related to Hyper tension Impression/Plan 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, left Impression/Plan Related to Vitre ous degeneration, bilateral Impression/Plan Related to Prese nce of intraocular lens Impression/Plan Related to Pucke ring of macula, left eye Impression/Plan Related to 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, bi Return in 3 months w chilo Zee MD for follow up, OCT, possible Avastin OU Related to 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, bi Impression/Plan Related to 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, bi Return 4 weeks IO Avastin OU and OCT Related to Type 2 diab with prolif diab rtnop with macular edema, bi Impression/Plan Related to Vitre ous hemorrhage, left eye Impression/Plan Related to Prese nce of intraocular lens Impression/Plan Related to Vitre ous degeneration, bilateral Impression/Plan Related to Pucke ring of macula, left eye Impression/Plan Related to Type 2 diab with prolif diab rtnop with macular edema, bi Return in Related to Type 2 diab with mod 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 edema, bi Impression/Plan Related to Prese nce of intraocular lens Impression/Plan Related to Type 2 diab with mod 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 edema, bi Impression/Plan Related to 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 Robertson for follow up exam and OCT. 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 Robertson for FU/OCT/possible AVN. 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 Robertson for follow up exam with OCT. Related to Type 2 diab w moderate nonprlf diab rtnop w/o macular edema - RIGHT: Moderate No n-Proliferative Diabetic Retinopathy without signs of neovascularization was noted on examination today and explained to the patient. No treatment is necessary at this time. The patient was instructed to call with new floaters or vision changes. Discussed ocular and systemic benefits of blood sugar control as well as the importance of follow up compliance from a retinal standpoint and with the PCP/Bar Hostess. Appropriate follow up with primary eye team primary care physician was recommended. Related to Type 2 diab w moderate nonprlf diab rtnop w/o macular edema - LEFT: Mild Non-Pro liferative Diabetic Retinopathy without signs of neovascularization was noted on examination today and explained to the patient. No treatment is necessary at this time. See plan #1. Related to Type 2 diab w mild nonprlf diabetic rtnop w/o macular edema - Stable Macular Puc ker was noted on examination today and explained to the patient. The pucker is not inducing vision loss or distortion that is severe enough to warrant surgical risk. I have counseled for observation at the current level of vision. 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, left eye - Posterior vitreous detachment was noted on examination today and explained to the patient. There is no evidence of a retinal tear, break or detachment. Related to Vitreous degeneration, right eye - The progression of cataracts was noted on examination today and discussed with the patient. It is reasonable from a retinal standpoint that the patient return to their referring physician for further evaluation of the cataracts and to discuss surgical benefits of cataract removal. There is no retinal contraindication to proceeding with cataract surgery. The patient understands that macular function may limit the best corrected post-operative visual acuity. Related to Age-related nuclear cataract, bilateral Type 2 diab w modera te nonprlf diab rtnop w/o macular edema - Discussed blood sugar control. Related to Type 2 diab w moderate nonprlf diab rtnop w/o macular edema Oct - Return in [address] Robertson for follow up exam with OCT. Related to Type 2 diab w moderate nonprlf diab rtnop w/o macular edema Oct- - Non-Proliferative Diabetic Retinopathy without signs of neovascularization was noted on examination today and explained to the patient. No treatment is necessary at this time. The patient was instructed to call with new floaters or vision changes. Discussed ocular and systemic benefits of blood sugar control as well as the importance of follow up compliance from a retinal standpoint and with the PCP/Bar Hostess. Appropriate follow up with primary eye team primary care physician was recommended. Related to Type 2 diab w moderate nonprlf diab rtnop w/o macular edema Apr- - Stable Macular Puc ker was noted on examination today and explained to the patient. The pucker is not inducing vision loss or distortion that is severe enough to warrant surgical risk. I have counseled for observation at the current level of vision. 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, left eye - Posterior vitreous detachment was noted on examination today and explained to the patient. There is no evidence of a retinal tear, break or detachment. Related to Vitreous degeneration, right eye - The progression of cataracts was noted on examination today and discussed with the patient. It is reasonable from a retinal standpoint that the patient return to their referring physician for further evaluation of the cataracts and to discuss surgical benefits of cataract removal. There is no retinal contraindication to proceeding with cataract surgery. The patient understands that macular function may limit the best corrected post-operative visual acuity. Related to Age-related nuclear cataract, bilateral - Macular Pucker was noted on examination today and explained to the patient. Surgical intervention is not indicated at this time. Will continue to monitor for progression. The patient was advised to call with vision changes. Related to Macular puckering of retina - Posterior vitreous detachment was noted on examination today and explained to the patient. There is no evidence of associated retinal pathology. All signs and symptoms of retinal detachment and tears were discussed in detail. The patient was instructed to call the office immediately if any symptoms are noted. Related to Vitreous degeneration - Proliferative Diab etic Retinopathy without evidence of active disease was noted on examination today and discussed with the patient. Will continue to monitor. The patient was advised to call with new floaters or vision changes. Discussed ocular and systemic benefits of maintaining blood sugar control as well as follow up compliance from a retinal standpoint and with the PCP/Bar Hostess. Related to Nonproliferative diabetic retinopathy NOS - Return in 3-[address] Robertson for follow up exam with OCT. Related to Diabetes mellitus with ophthalmic manifestations, type II or unspecified type, uncontrolled - The patient has be en informed of the risks of Diabetic Retinopathy and the importance of maintaining blood sugar control. The patient was advised of the necessity of follow up compliance with the PCP/Bar Hostess. Appropriate follow up with primary eye team primary care physician was recommended. Related to Diabetes mellitus with ophthalmic manifestations, type II or unspecified type, uncontrolled - The progression of cataracts was noted on examination today and discussed with the patient. Not affecting vision at this time. 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 See plan #2. Related to Diabetic macular edema - LEFT: Mild NPDR no nick today - no treatment indicated at this time. Will continue to monitor.RIGHT: Non-Proliferative Diabetic Retinopathy with clinically significant Diabetic Macular Edema was noted on examination today and explained to the patient. No signs of neovascularization were noted. Focal laser photocoagulation treatment was recommended. The risks, benefits, and alternatives were discussed. The patient agreed to treatment and tolerated the procedure well. The patient was instructed to call with new floaters or vision changes. Discussed ocular and systemic benefits of blood sugar control as well as follow up compliance from a retinal standpoint and with the PCP/Bar Hostess. Appropriate follow up with primary eye team primary care physician was recommended. Related to Nonproliferative diabetic retinopathy NOS - Secondary to Diabe tic retinopathy. See plan #2. Related to Diabetic macular edema - The progression of cataracts was noted on examination today and discussed with the patient. Not affecting vision at this time. Related to Nuclear sclerosis Nonproliferative adolfo betic retinopathy NOS - Discussed blood sugar control. Related to Nonproliferative diabetic retinopathy NOS Nonproliferative adolfo betic retinopathy NOS - Diabetic education material given. Related to Nonproliferative diabetic retinopathy NOS - Return in [address] Robertson for follow up exam with OCT. Related to Diabetes mellitus with ophthalmic manifestations, type II or unspecified type, uncontrolled - The patient has be en informed of the risks of Diabetic Retinopathy and the importance of maintaining blood sugar control. The patient was advised of the necessity of follow up compliance with the PCP/Bar Hostess. Appropriate follow up with primary eye team primary care physician was recommended. Related to Diabetes mellitus with ophthalmic manifestations, type II or unspecified type, uncontrolled [facility] Work Phone: [phone] NoteNurse Consultation Note Reason for Visit Here for [...] virus vaccine, inactivated 05/01/2022 Recorded SARS-CoV-2 (COVID-19) [id number] 04/15/2022 Recorded influenza virus vaccine, inactivated 05/09/2021 Recorded SARS-CoV-2 (COVID-19) mRNA BNT-162b2 vax 04/07/2021 Recorded 2022-09-14: [id number] SARS-CoV-2 (COVID-19) mRNA BNT-162b2 vax 08/28/2020 Recorded 2022-09-14: TPV75 SARS-CoV-2 (COVID-19) mRNA BNT-162b2 vax 08/07/2020 Recorded 2022-09-14: TPV75 influenza virus vaccine, inactivated 04/17/2020 Recorded influenza virus vaccine, inactivated 05/24/2019 Recorded influenza virus vaccine, inactivated 05/25/2018 [facility] NotePatient Education Emergency Medicine Heart Attack A heart attack occurs when blood and oxygen supply to the heart is cut off. A heart attack can cause damage to the heart that cannot be fixed. A heart attack is also called a myocardial infarction, or [place]. If you think you are having a [...] these instructions at home: Medicines ? Take eumi-csm-yofxldl and prescription medicines only as told by [...] or tobacco. If you need help quitting, askyour doctor. ? Avoid secondhand smoke. ? Exercise [...] feel your heart skipping beats. ? You (more content not included)...[facility]09-13-[facility] History and physical note* Camille Bautista APRN-NEW MEDIA STRATEGIST - 03/17/2024 12:15 PM EDT PRE-ADMISSION TESTING HISTORY AND PHYSICAL EXAM DATE: 03/17/24 PCP: HENRIQUE MAGALLON, ARCHITECTURAL DRAFTER-NEW MEDIA STRATEGIST CHIEF COMPLAINT: vision loss, left HISTORY OF PRESENT ILLNESS: Kiesha Lagos, a 84 y.o. male, presents to [facility] for a pre-surgical H&P. The patient has been diagnosed with a Vitreous hemorrhage of the left eye. He complains of loss of vision in his lefteye since 02/05/24. He states he can see bright light from the left eye. He denies eye pain, rednessand tearing. He has a h/o bilateral cataract extractions and surgery for a left macular pucker. Anesthesia problems: pt denies. Latex allergy: pt denies. Bleeding/ clotting disorders: pt denies. Recent hospitalizations: pt denies. PAST MEDICAL HISTORY: Past Medical History: Diagnosis Date Atherosclerosis of coronary artery bypass graft without angina pectoris CAD (coronary artery disease) h/o cabg DDD (degenerative disc disease), cervical 03/17/2024 Diabetes mellitus type 2, controlled ([facility]) oral meds only Epiretinal membrane (ERM) of left eye 03/17/2024 Hearing loss 03/17/2024 no hearing aids, 50% hearing loss History of vitrectomy 03/17/2024 Hyperlipidemia Hypertension Nonproliferative diabetic retinopathy ([facility]) 01/16/2015 Osteoarthritis 03/17/2024 left knee and c spine PCO (posterior capsular opacification), 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 Peripheral neuropathy 03/17/2024 Visual impairment glasses Vitreous hemorrhage, left eye ([facility]) 03/17/2024 PAST SURGICAL HISTORY: Past Surgical History: Procedure Laterality Date APPENDECTOMY 07/1968 CARDIAC CATHETERIZATION 02/06/2010 CATARACT EXTRACTION, BILATERAL 2020 CERVICAL DISC SURGERY 03/2020 C5/C6 CORONARY ARTERY BYPASS GRAFT 04/2007 x4 EYE SURGERY Left 07/2022 Macular pucker removed HERNIA REPAIR 06/1974 KNEE ARTHROSCOPY Left 11/2010 RELEASE TRIGGER FINGER Left 04/13/2017 Performed by Jr Russ Larkin DO at [facility] ingrown toenails TONSILLECTOMY 194 TRIGGER FINGER RELEASE 5 surgeries total [id number] TYMPANOSTOMY TUBE PLACEMENT Right 09/2020 FAMILY HISTORY: Family History Problem Relation Age of Onset Anesthesia problems Neg Hx SOCIAL HISTORY: The patient reports no history of alcohol use. He reports that he has never smoked. He has been exposed to tobacco smoke. He has never used smokeless tobacco. He reports no history of drug use. ALLERGIES: No Known Allergies MEDICATIONS: Current Outpatient Medications: acetaminophen (TYLENOL) 650 mg 8 hr tablet, Take 2 tablets (1,300 mg total) by mouth in the morningand 2 tablets (1,300 mg total) before bedtime. 2 tabs BID ., Disp: , Rfl: atorvastatin (LIPITOR) 20 mg tablet, Take 1 tablet (20 mg total) by mouth nightly Indications: highcholesterol., Disp: , Rfl: glimepiride (AMARYL) 4 mg tablet, Take 1 tablet (4 mg total) by mouth every morning before breakfast Indications: type 2 diabetes mellitus., Disp: , Rfl: isosorbide mononitrate (IMDUR) 30 mg 24 hr tablet, Take 1 tablet (30 mg total) by mouth every morning Indications: prevention of anginal chest pain associated with coronary artery disease., Disp: , Rfl: losartan (COZAAR) 50 mg tablet, Take 1 tablet (50 mg total) by mouth nightly Indications: high blood pressure., Disp: , Rfl: metFORMIN (GLUCOPHAGE) 500 mg tablet, Take 1 tablet (500 mg total) by mouth 3 (three) times a day Indications: type 2 diabetes mellitus., Disp: , Rfl: metoprolol tartrate (LOPRESSOR) 50 mg tablet, Take 1 tablet (50 mg total) by mouth in the morning and 1 tablet (50 mg total) before bedtime. Indications: high blood pressure., Disp: , Rfl: sitaGLIPtin (JANUVIA) 100 mg tablet, Take 1 tablet (100 mg total) by mouth in the morning. Indications: type 2 diabetes mellitus., Disp: , Rfl: aspirin 81 mg, Take 2 tablets (162 mg total) by mouth in the morning. (Patient not taking: Reportedon 03/17/2024), Disp: , Rfl: nitroglycerin (NITROSTAT) 0.4 MG SL tablet, Place 1 tablet (0.4 mg total) under the tongue every 5 (five) minutes as needed for chest pain. (Patient not taking: Reported on 03/17/2024), Disp: , Rfl: REVIEW OF SYSTEMS: Review of Systems Constitutional: Negative for fever. HENT: Positive for hearing loss, rhinorrhea (allergies) and sneezing (with allergies). Negative fordental problem, ear pain, sore throat and trouble swallowing. Eyes: Negative for redness. Respiratory: Negative for cough and shortness of breath. Cardiovascular: Negative for chest pain and leg swelling. Gastrointestinal: Negative for nausea, vomiting and diarrhea. Genitourinary: Negative for dysuria and hematuria. Skin: Negative for rash and wound. Allergic/Immunologic: Positive for environmental allergies. Neurological: Negative for seizures and syncope. Psychiatric/Behavioral: The patient is not nervous/anxious. VITAL SIGNS: BP 136/77 Pulse 63 Temp 36.2 C (97.1 F) (Temporal) Resp 14 Ht 172.7 cm (5' 8 ) Wt 83.5 kg(184 lb 1.4 oz) SpO2 97% BMI 27.99 kg/m PHYSICAL EXAM: Physical Exam Constitutional: General: He is not in acute distress. Appearance: He is not toxic-appearing or diaphoretic. HENT: Head: Atraumatic. Right Ear: Tympanic membrane is not erythematous. Left Ear: Tympanic membrane is not erythematous. Nose: No rhinorrhea. Mouth/Throat: Mouth: Mucous membranes are moist. Pharynx: No posterior oropharyngeal erythema. Eyes: Conjunctiva/sclera: Conjunctivae normal. Cardiovascular: Rate and Rhythm: Normal rate and regular rhythm. Heart sounds: No murmur heard. Pulmonary: Effort: Pulmonary effort is normal. No respiratory distress. Breath sounds: No wheezing, rhonchi or rales. Abdominal: General: Bowel sounds are normal. Tenderness: There is no guarding. Skin: General: Skin is warm and dry. Neurological: Mental Status: He is alert and oriented to person, place, and time. Psychiatric: Mood and Affect: Mood normal. Behavior: Behavior normal. Behavior is cooperative. RECENT LABS: No recent labs in Epic. PAT labs pending. ASSESSMENT / DIAGNOSIS: Linked DX: Vitreous hemorrhage, left eye ([facility]) [H43.12] PLAN: Kiesha Lagos is scheduled for Case Date: 03/20/2024 Linked Surgeon: Van Gonzalez MD Linked Procedure: Vitrectomy Pars Plana 25g Endolaser Photocoagulation Eye - Left. AMAYA Castañeda 03/17/24 1344 [facility]09-13-2024 History and physical note* Camille AMAYA Alonzo - 03/17/2024 12:15 PM EDT PRE-ADMISSION TESTING HISTORY AND PHYSICAL EXAM DATE: 03/17/24 PCP: AMAYA OROZCO CHIEF COMPLAINT: vision loss, left HISTORY OF PRESENT ILLNESS: Kiesha Lagos, a 84 y.o. male, presents to [facility] for a pre-surgical H&P. The patient has been diagnosed with a Vitreous hemorrhage of the left eye. He complains of loss of vision in his lefteye since 02/05/24. He states he can see bright light from the left eye. He denies eye pain, rednessand tearing. He has a h/o bilateral cataract extractions and surgery for a left macular pucker. Anesthesia problems: pt denies. Latex allergy: pt denies. Bleeding/ clotting disorders: pt denies. Recent hospitalizations: pt denies. PAST MEDICAL HISTORY: Past Medical History: Diagnosis Date Atherosclerosis of coronary artery bypass graft without angina pectoris CAD (coronary artery disease) h/o cabg DDD (degenerative disc disease), cervical 03/17/2024 Diabetes mellitus type 2, controlled ([facility]) oral meds only Epiretinal membrane (ERM) of left eye 03/17/2024 Hearing loss 03/17/2024 no hearing aids, 50% hearing loss History of vitrectomy 03/17/2024 Hyperlipidemia Hypertension Nonproliferative diabetic retinopathy ([facility]) 01/16/2015 Osteoarthritis 03/17/2024 left knee and c spine PCO (posterior capsular opacification), 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 Peripheral neuropathy 03/17/2024 Visual impairment glasses Vitreous hemorrhage, left eye ([facility]) 03/17/2024 PAST SURGICAL HISTORY: Past Surgical History: Procedure Laterality Date APPENDECTOMY 07/1968 CARDIAC CATHETERIZATION 02/06/2010 CATARACT EXTRACTION, BILATERAL 2020 CERVICAL DISC SURGERY 03/2020 C5/C6 CORONARY ARTERY BYPASS GRAFT 04/2007 x4 EYE SURGERY Left 07/2022 Macular pucker removed HERNIA REPAIR 06/1974 KNEE ARTHROSCOPY Left 11/2010 RELEASE TRIGGER FINGER Left 04/13/2017 Performed by Jr Russ Larkin DO at [facility] ingrown toenails TONSILLECTOMY 1946 TRIGGER FINGER RELEASE 5 surgeries total [id number] TYMPANOSTOMY TUBE PLACEMENT Right 09/2020 FAMILY HISTORY: Family History Problem Relation Age of Onset Anesthesia problems Neg Hx SOCIAL HISTORY: The patient reports no history of alcohol use. He reports that he has never smoked. He has been exposed to tobacco smoke. He has never used smokeless tobacco. He reports no history of drug use. ALLERGIES: No Known Allergies MEDICATIONS: Current Outpatient Medications: acetaminophen (TYLENOL) 650 mg 8 hr tablet, Take 2 tablets (1,300 mg total) by mouth in the morningand 2 tablets (1,300 mg total) before bedtime. 2 tabs BID ., Disp: , Rfl: atorvastatin (LIPITOR) 20 mg tablet, Take 1 tablet (20 mg total) by mouth nightly Indications: highcholesterol., Disp: , Rfl: glimepiride (AMARYL) 4 mg tablet, Take 1 tablet (4 mg total) by mouth every morning before breakfast Indications: type 2 diabetes mellitus., Disp: , Rfl: isosorbide mononitrate (IMDUR) 30 mg 24 hr tablet, Take 1 tablet (30 mg total) by mouth every morning Indications: prevention of anginal chest pain associated with coronary artery disease., Disp: , Rfl: losartan (COZAAR) 50 mg tablet, Take 1 tablet (50 mg total) by mouth nightly Indications: high blood pressure., Disp: , Rfl: metFORMIN (GLUCOPHAGE) 500 mg tablet, Take 1 tablet (500 mg total) by mouth 3 (three) times a day Indications: type 2 diabetes mellitus., Disp: , Rfl: metoprolol tartrate (LOPRESSOR) 50 mg tablet, Take 1 tablet (50 mg total) by mouth in the morning and 1 tablet (50 mg total) before bedtime. Indications: high blood pressure., Disp: , Rfl: sitaGLIPtin (JANUVIA) 100 mg tablet, Take 1 tablet (100 mg total) by mouth in the morning. Indications: type 2 diabetes mellitus., Disp: , Rfl: aspirin 81 mg, Take 2 tablets (162 mg total) by mouth in the morning. (Patient not taking: Reportedon 03/17/2024), Disp: , Rfl: nitroglycerin (NITROSTAT) 0.4 MG SL tablet, Place 1 tablet (0.4 mg total) under the tongue every 5 (five) minutes as needed for chest pain. (Patient not taking: Reported on 03/17/2024), Disp: , Rfl: REVIEW OF SYSTEMS: Review of Systems Constitutional: Negative for fever. HENT: Positive for hearing loss, rhinorrhea (allergies) and sneezing (with allergies). Negative fordental problem, ear pain, sore throat and trouble swallowing. Eyes: Negative for redness. Respiratory: Negative for cough and shortness of breath. Cardiovascular: Negative for chest pain and leg swelling. Gastrointestinal: Negative for nausea, vomiting and diarrhea. Genitourinary: Negative for dysuria and hematuria. Skin: Negative for rash and wound. Allergic/Immunologic: Positive for environmental allergies. Neurological: Negative for seizures and syncope. Psychiatric/Behavioral: The patient is not nervous/anxious. VITAL SIGNS: BP 136/77 Pulse 63 Temp 36.2 C (97.1 F) (Temporal) Resp 14 Ht 172.7 cm (5' 8 ) Wt 83.5 kg(184 lb 1.4 oz) SpO2 97% BMI 27.99 kg/m PHYSICAL EXAM: Physical Exam Constitutional: General: He is not in acute distress. Appearance: He is not toxic-appearing or diaphoretic. HENT: Head: Atraumatic. Right Ear: Tympanic membrane is not erythematous. Left Ear: Tympanic membrane is not erythematous. Nose: No rhinorrhea. Mouth/Throat: Mouth: Mucous membranes are moist. Pharynx: No posterior oropharyngeal erythema. Eyes: Conjunctiva/sclera: Conjunctivae normal. Cardiovascular: Rate and Rhythm: Normal rate and regular rhythm. Heart sounds: No murmur heard. Pulmonary: Effort: Pulmonary effort is normal. No respiratory distress. Breath sounds: No wheezing, rhonchi or rales. Abdominal: General: Bowel sounds are normal. Tenderness: There is no guarding. Skin: General: Skin is warm and dry. Neurological: Mental Status: He is alert and oriented to person, place, and time. Psychiatric: Mood and Affect: Mood normal. Behavior: Behavior normal. Behavior is cooperative. RECENT LABS: No recent labs in Epic. PAT labs pending. ASSESSMENT / DIAGNOSIS: Linked DX: Vitreous hemorrhage, left eye ([facility]) [H43.12] PLAN: Kiesha Lagos is scheduled for Case Date: 03/20/2024 Linked Surgeon: Van Gonzalez MD Linked Procedure: Vitrectomy Pars Plana 25g Endolaser Photocoagulation Eye - Left. AMAYA Castañeda 03/17/24 1344 [facility] Instructions* Patient Instructions* Miriam Rankin RN - 03/17/2024 12:15 PM EDT Your surgery/procedure is scheduled at [facility] on 03/20/24 at 8:30am Arrival Time 6:30am [facility] Address: [address] [place] [address], [facility], [facility] [address] in the Emergency Center Parking lot. Report to the director of front office in the Emergency/Surgery Registration lobby of the hospital. Notify your SURGEON if you develop any illness such as a cold, cough, fever, sore throat, vomiting or are hospitalized between now and your surgery. Please call Pre-Admission Clinic at [phone] if you have any questions prior to surgery. For questions the morning of surgery, call the Pre-op Department at [phone]. Medication Instructions (Do not stop your medications without consulting the prescribing physician). Take the following medications the morning of surgery with a sip of water: Metoprolol,Isosorbide Diabetic or Weight loss medications: HOLD n/a LAST DOSE n/a Take inhalers as prescribed the morning of surgery. Due to the risk associated with these medications. If these medications are not held per instruction below, your surgery is at an increased risk for cancellation SGLT2 Medications- Hold 3 days prior to surgery: Jardiance, Empagliflozin, Farxiga, Dapagliflozin, Invokana, Canagliflozin GLP-1 Medications (Injection or Pill)- If taken daily hold day of surgery. If taken weekly, hold 1 week prior to surgery: Adlyxin, Byetta, Bydureon, Ozempic, Rybelsus,Trulicity, Victoza, Wegovy, Lixisenatide, Exenatide, Semaglutide, Dulaglutide, Liraglutide GIP/GLP-1(Injection or Pill)- If taken daily hold day of surgery. If taken weekly, hold 1 week prior to surgery: Roland . Blood thinners: Please contact your prescribing physician regarding a stop/hold date for these medications. Medications such as Coumadin, Heparin, Aspirin, Plavix, Eliquis, Pradaxa Diabetics: If you take insulin, contact your prescribing doctor for instructions on how to manage this the night before and the morning of surgery. Non-steriodal Anti-Inflammatory Drugs (NSAIDS)- Hold 3 days prior to surgery unless otherwise directed by your surgeon. Vitamins/Herbal Products: You may continue to take your prescribed vitamins such as potassium, iron, vitamin B, vitamin C, or multivitamin unless specifically instructed by your surgeon to hold. STOPtaking all herbal products/teas one week prior to your surgery. Marijuana: Stop marijuana 72 hours prior to surgery, stop CBD oil 48 hours prior to surgery. If you have been given bowel prep instructions by your surgeon, please call the surgeon's office with any questions about these instructions. What do I do the day of Surgery? Age 2 through adult - Stop all solids by midnight, You may have clear liquids up to 2 hours before surgery, unless otherwise instructed by your surgeon Clear liquids are: water, sports drinks such as Gatorade or G2, or apple juice. You may NOT have: tube feedings, dairy products, alcoholic beverages, orange juice, or any liquids with solids or pulp in it If applicable, shower again with CHG soap the morning of your surgery. If you received a green plastic bracelet, bring it with you the day of surgery and your nurse will put it on you. What do I need to do to prepare for surgery? If you will be going home the same day as your surgery, arrange for an adult over [address] Riding in a bus or taxi by yourself is not permitted. You should not smoke or drink alcohol 24 hours before your surgery. Smoking increases the risk of breathing problems after surgery. Alcohol thins the blood and may cause bleeding problems during surgery If you have been assigned THAD Education by your surgeon's office, please complete this education prior to your surgery. For questions regarding THAD education, reach out to your surgeons office. If you have been given a prescription for occupational, physical or speech therapy, please set up these appointments before your procedure. If you would like to schedule therapy at a [facility] facility, please call [phone] ([phone]). Do not use lotions, creams, powders, perfume, make up, cologne or after-shaves day of surgery. Remove ALL jewelry including wedding rings, body piercings, hair extensions that contain metal, nail beninese, make-up, and contact lens. You may brush your teeth the morning of surgery, but do not swallow the water. Wear your dentures and partial plates to the hospital (no adhesive). Shower the night the before. If applicable, use the CHG (chlorhexidine gluconate) soap or wipes. Please be advised, [facility] has transitioned to a cashless payment system. What should I bring to the hospital? If you received a green plastic bracelet, bring it with you the day of surgery and your nurse will put it on you. Eyeglass or contact lens case If you will be spending the night, please bring personal care items and leave them in the car untilyou are taken to your room after surgery. Leave ALL valuables at home. If any of these instructions conflict with those you recieved from the surgeon, please seek clarification from your surgeon's office. DEEP BREATHING EXERCISES This exercise helps promote good air exchange and helps to prevent pneumonia after surgery. Breathe in slowly and deeply through the nose. Hold your breath for a few seconds and then exhale slowly through the mouth. Repeat this three times and then cough. Coughing helps to clear your lungs. If you have had a surgery with an incision into your abdomen or chest, press gently against your incision with a pillow or a folded blanket when you cough. Please be aware - it may not be hernandez to cough following some types of surgeries involving the eyes,ears, sinuses and throat. Always follow your doctor's instructions. LEG EXERCISES These exercises help promote good circulation and help to prevent blood clots after surgery. Point your toes to the ceiling and then point them to the wall. Do this slowly about 15-20 times. You may also move your feet in circles. Do the exercise that is most comfortable for you. If you have had surgery involving your shoulder or arm, we recommend you move your fingers. PRACTICING We ask that you begin practicing these exercises before your surgery. After surgery try to do both exercises at least every 2 hours during the day and early evening. SURGICAL SITE INFECTION AND PREVENTION What is a Surgical Site Infection? Infection can happen to the area of the body where surgery is done. This is called a surgical site infection (SSI). A SSI does not happen very often. Can SSIs be treated? Antibiotics are used to treat SSI. Some patients may need another surgery to treat the infection. The doctor will discuss treatment options with you. What are some of the things that hospitals are doing to prevent SSIs? Soap and water or alcohol hand rub are used before and after caring for each patient.Special soap is used to clean surgery workers hands and arms just before the surgery. Masks, gowns, gloves and hair covers are worn during the surgery to keep the area clean. Hair in the surgery area may be removed with clippers (not razors). A special soap that kills germs is used to clean the skin at the surgery site. Antibiotics may be given before the surgery starts. What can you do to prevent SSIs? Before surgery: You may be asked to shower or bathe with a special soap that kills germs the night before and the day of surgery. Use the soap as you were told. If you smoke, stop or cut down. Ask your doctor about ways to quit. Do not shave near where you will have surgery. Shaving can irritate the skin and make it easier to get and infection. After surgery: Be sure that the doctors and nurses clean their hands before and after touching you. Be sure your family and friends clean their hands before and after visiting you. Do not be afraid to remind them. * Care for your wound at home as told by your doctor or nurse * Call your doctor right away if you have fever, redness, increased pain, or drainage at the surgery site. Further questions? Contact the doctor, nurse or the Infection Prevention and Control department if you have any questions. PATIENT RIGHTS AND RESPONSIBILITIES As a patient at [facility], you have the right to: Receive medical care and be informed of who is taking care of you Be treated with dignity and respect Have a family member/hobbies and crafts sales representative of choice and your physician notified of your admission Receive information and actively participate in decisions about your care and treatment Refuse care, treatment and services Decide who may provide your support and speak for you Access yarsani and spiritual services Participate in ethical issues and questions about your care Receive private and confidential care Have appropriate assessment and management of your pain Know guest visitation restrictions or limitations Have an advance directive Access protective services Consent or refuse to participate in research studies or production or recordings, films or other images Have resolution of your complaints Receive information of hospital charges and payment methods Patient/patient hobbies and crafts sales representative responsibilities are to: Provide information about health status to facilitate care, treatment and services Follow the treatment, plan, keep appointments and speak up when you do not understand the plan Respect the rights of other patients and healthcare personnel Follow organizational rules and regulations that support quality care and a safe environment Fulfill financial obligations as promptly as possible [facility] NoteNurse Consultation Note Reason for Visit Here for [...] virus vaccine, inactivated 05/01/2022 Recorded SARS-CoV-2 (COVID-19) [id number] 04/15/2022 Recorded influenza virus vaccine, inactivated 05/09/2021 Recorded SARS-CoV-2 (COVID-19) mRNA BNT-162b2 vax 04/07/2021 Recorded 2022-09-14: [id number] SARS-CoV-2 (COVID-19) mRNA BNT-162b2 vax 08/28/2020 Recorded 2022-09-14: TPV75 SARS-CoV-2 (COVID-19) mRNA BNT-162b2 vax 08/07/2020 Recorded 2022-09-14: TPV75 influenza virus vaccine, inactivated 04/17/2020 Recorded influenza virus vaccine, inactivated 05/24/2019 Recorded influenza virus vaccine, inactivated 05/25/2018 [facility] NotePROCEDURE: XR FOOT TYRON MIN 3 VIEWS DATE: 11/24/2022 12:56 PM CDT COMPARISONS: None CLINICAL INDICATION: Pain in both feet FINDINGS: LEFT FOOT: There is no evidence of fractures or other osseous abnormalities. RIGHT FOOT: The right foot is compared to previous exam of 12/19/2020. There is prominent first carpometacarpal degenerative changes of this right foot. There is hypertrophic osseous changes associated to this joint space. These degenerative changes have progressed somewhat since previous exam. No other significant osseous abnormalities identified of the right foot. There is a small spur off the posterior inferior right os calcis. IMPRESSION: Findings as discussed above. . Electronically authenticated by: EDOUARD ARRIAZA Date: 2022-11-24 14:23[facility] note* Clinical Note Date No Information [facility] Work Phone: Discharge summary* Clinical Note Date No Information [facility] Work Phone: Evaluation + Plan note Future Appointments Appointment Date:03/24/2023 11:00:00 AM Scheduled Provider: Location:[facility] App[facility] Type: Medicare Wellness [facility] Future Appointments Appointment Date:03/24/2024 11:00:00 AM Scheduled Provider: Location:[facility] Appointment Type: Medicare Wellness Subsequent Future Scheduled Tests Laboratory* U Protein/Creat Ratio 03/24/23 * Microalbumin Level Urine 03/24/23 [facility] Future Appointments Appointment Date:01/17/2024 10:00:00 AM Scheduled Provider:Henrique Romo Location:[facility] Appointment Type: Open Appointment Date:03/24/2024 11:00:00 AM Scheduled Provider: Location:[facility] Appointment Type: Medicare Wellness Subsequent Future Scheduled Tests Laboratory* U Protein/Creat Ratio 03/24/23 * Microalbumin Level Urine 03/24/23 [facility] Future Appointments Appointment Date:03/24/2024 11:00:00 AM Scheduled Provider: Location:[facility] Appointment Type: Medicare Wellness Subsequent Diagnostic Tests Pending * HgbA1c 01/24/24 Future Scheduled Tests Laboratory* U Protein/Creat Ratio 03/24/23 * Microalbumin Level Urine 03/24/23 [facility] Future Appointments Appointment Date:03/30/2024 10:20:00 AM Scheduled Provider:Henrique Romo Location:[facility] Appointment Type: Open Appointment Date:03/26/2025 11:00:00 AM Scheduled Provider: Location:[facility] Appointment Type: Medicare Wellness Subsequent [facility] Evaluation + Plan note Future Appointments Appointment Date:03/26/2025 11:00:00 AM Scheduled Provider: Location:[facility] Appointment Type: Medicare Wellness Subsequent [facility] evaluation note* Diagnosis Pre-op testing- Primary Unspecified pre-operative examination [facility] Type Assessment Date No Information [facility] Work Phone: Evaluation note* Diagnosis Vitreous hemorrhage, left eye ([facility]) Vitreous hemorrhage Preop testing- Primary Unspecified pre-operative examination Vitreous hemorrhage, left eye ([facility]) Vitreous hemorrhage [facility] Diagnosis Peripheral exudative hemorrhagic chorioretinopathy- Primary [facility] Clinical Note Date No Information [facility] Work Phone: Hospital course Narrative No data available for this section [facility] No data available for this section [facility] No data available for this section [facility] note* Clinical Note Date No Information [facility] Work Phone: Reason for referral (narrative)* Reason For Referral No Information [facility] Work Phone: Summary Purpose Family History Family Member Type Diagnosis Age At Onset Problem Family history of stroke Problem (finding) Family history of catar act Problem (finding) Family history of Heart Disease Brother Problem (finding) High cholesterol Maternal Grandmother Problem (finding) Arthritis Father Problem (finding) Arthritis Mother Problem (finding) Cataracts Brother Problem (finding) Hypertension Problem (finding) Family history of Diabetes mellitus Mother Problem (finding) Stroke Problem (finding) Family history of hyper tension Mother Problem (finding) Hypertension Brother Problem (finding) Arthritis Maternal Grandmother Problem (finding) Hypertension Mother Problem (finding) Arthritis Problem (finding) Family history of Cance r Advance Directives Directive Yes / No Effective Date File Name No Information Chief Complaint and Reason for Visit From encounter dated '06/29/2024 13:25'. PDR (chief complaint). Description: The 84 year old male presents for treatment of PDR in the righteye. Patient states that vision is the same. Patient states that he has been having flashing lightsabout 3-4 times a day in the left eye and says that it started around May 24. Patient deniesfloaters or ocular pain. No Information No Information From encounter dated 08/18/2024 08:20'. PDR w/ ME (chief complaint). 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 Patient states vision improvement since last appointment, denies any new onset of flashes, floaters, or ocular pain. Patient using Dorzolamide-Timolol TID OS. No Information From encounter dated '09/15/2024 10:25'. PDR (chief complaint). Description: The 84 year old male presents for evaluation of PDR in the right eye and left eye. Patient states vision is stable, denies any new onset of flashes, floaters, or ocular pain. No Information No Information From encounter dated '11/17/2024 08:10'. malignant neoplasm (chief complaint). 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 Patient states stable vision. Patient denies new floaters, flashes of light or ocular pain. Patient is using Cosopt BID OU. Last medication use was this morning at 5:00am. No Information From encounter dated '02/05/2025 10:50'. malignant neoplasm (chief complaint). 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 Patient states decline in vision in the left eye, he states he has a hemorrhage that has been ongoing for the last month. Patient denies new floaters, flashes of light or ocular pain. Patient is using Cosopt TID OS. Last medication use was last week Wednesday. From encounter dated '03/15/2025 10:05'. diabetic retinopathy (chief complaint). Description: The 85 year old male presents for evaluation of diabetic retinopathy in the right eye and left eye. The patient reports improved clarity in visionin the left eye that started improving about 10 days ago. He denies vision changes in the right eyeand eye pain OU. Patient is using ketorolac TID OD and dorzolamide TID OS. No Information Reason for Referral Specialty Diagnoses / Procedures Referred By Contac t Referred To Contact Diagnoses Preop testing Procedures ECG 12 lead Maggie Rosado MD [address] [place] [address] Referral ID Status Reason Start Date Expiration Date V isits Requested Visits Authorized [id number] Pending Review 03/17/2024 03/17/2025 1 1 Additional Source Comments (unrecognized sect ion and content) No Status Records FoundNo Status Records FoundNo Status Records FoundNo Status Records FoundNo Status Records FoundNo Status Records FoundNo Status Records FoundNo Status Records FoundNo Status Records FoundNo Status Records FoundNo Status Records FoundNo Status Records FoundNo Status Records FoundNo Status Records FoundNo Status Records FoundNo Status Records FoundNo Status Records FoundNo Status Records Found INFORMATION SOURCE (unrecogn ized section and content) DATE CREATED AUTHOR 07/04/2020 [facility] DATE CREATED AUTHOR AUTHOR'S ORGANIZ ATION 12/11/2022 [facility] DATE CREATED AUTHOR AUTHOR'S ORGANIZ ATION 02/08/2024 [facility] EP[facility] DATE CREATED AUTHOR AUTHOR'S ORGANIZ ATION 03/25/2024 [facility] DATE CREATED AUTHOR AUTHOR'S ORGANIZ ATION 03/31/2024 [facility] DATE CREATED AUTHOR AUTHOR'S ORGANIZ ATION 05/04/2024 [facility] DATE CREATED AUTHOR AUTHOR'S ORGANIZ ATION 08/04/2024 [facility] DATE CREATED AUTHOR AUTHOR'S ORGANIZ ATION 09/02/2024 [facility] DATE CREATED AUTHOR AUTHOR'S ORGANIZ ATION 03/27/2025 [facility] DATE CREATED AUTHOR AUTHOR'S ORGANIZ ATION 03/27/2025 [facility] DATE CREATED AUTHOR AUTHOR'S ORGANIZ ATION 04/08/2025 [facility] DATE CREATED AUTHOR AUTHOR'S ORGANIZ ATION 04/09/2025 [facility] Patient Care team informatio n (unrecognized section and content) 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 Specialty Start Date End Date Henrique Magallon APRN-NEW MEDIA STRATEGIST [address] [place] [address] PCP - General Nurse Practitioner 03/17/24 Name Effective Dates (start - stop) Status Members No Information 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 Specialty Start Date End Date Henrique Magallon, ARCHITECTURAL DRAFTER-NEW MEDIA STRATEGIST [address] [place], [place] [id number] PCP - General Nurse Practitioner 03/17/24 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 Specialty Start Date End Date Saturnino Gonzalez MD [address] [place] [address] Referring Ophthalmology 08/18/24 Saturnino Gonzalez MD [address] [place] [address] Referring Ophthalmology 08/21/24 Source Comments (unrecognize d section and content) In the event this informatio n is protected by the Federal Confidentiality of Alcohol and Drug Abuse Patient Records regulations: The Federal rules restrict any use of the information to criminally investigate or prosecute any alcohol or drug abuse patient.[facility] Reason for Visit (unrecogniz ed section and content) Reason Comments Choroidal Lesion Evaluation OD; Noted on photo by Dr. Loomis on 08/18/24 FOR RECORDS PERTAINING TO PATIENTS WHO ARE OR HAVE BEEN ENROLLED IN A CHEMICAL DEPENDENCY/SUBSTANCEABUSE PROGRAM, SOME INFORMATION MAY BE OMITTED. This clinical summary was aggregated from multiple sources. Caution should be exercised in using it in the provision of clinical care. This summary normalizes information from multiple sources, and as a consequence, information in this document may materially change the coding, format and clinical context of patient data. In addition, data may be omitted in some cases. CLINICAL DECISIONS SHOULD BE BASED ON THE PRIMARY CLINICAL RECORDS. [employer] provides no warranty or guarantee of the accuracy or completeness of information in this document.
== END 2025-04-10 13:21 | disposition home or self-care (01) ==
LOC: WC 13:20
PROVIDERS: PCP Nurse Practitioner; Visit Provider Physician Assistant
DX: B35.1 Tinea unguium (principal); E11.40 Type 2 diabetes mellitus with diabetic neuropathy, unspecified; M79.676 Pain in unspecified toe(s)
CPT/HCPCS: 11721